=== PATIENT | male | born 1950 | race Caucasian/White ===

== ENCOUNTER → 2016-02-17 | Outpatient (REF) | payer MEDICARE, OTHER ==
[~2016-02-17] MED LIST: /QUIN10TA OR; /QUIN20TA OR; ASCO500T PO; ASPI81TA45 OR; ASPI81TA60 PO; ASPI81TA7 PO; ATOR1TAB18 PO; ATOR40TA PO; COLA100C PO; COUM1TAB19 PO; DALV1SOL IV; DOXY100T OR; ELIQ5TAB PO; FISH100049 PO; GABA-279 PO; GEMF600T OR; GLIP5TAB15 PO; GLUC850T OR; HUMA75VL SC; INSULANT SC; INSULIN 70/30 SUBQ; LEVO125T3 PO; METF850T PO; NATE60TA5 PO; NORC5TAB PO; OXYCO5TA PO; PLAV75TA PO; PLAV75TA2 OR; PRAV80TA OR; PRIL20CA PO; QUIN40TA5 PO; SYNT125T OR; TRAZ150T OR; TRAZ150T14 PO; VITMTA PO; ZYVO100T PO
[2016-02-17 14:25] LABS: MEAN CORPUSCULAR HEMOGLOBIN 27.5 pg (27.0-33.0); MEAN CORPUSCULAR HGB CONC 30.1 g/dl (32.0-36.5); MEAN CORPUSCULAR VOLUME 91.3 fl (80.0-96.0); RED CELL DISTRIBUTION WIDTH 17.5 % (11.5-14.5); WHITE BLOOD COUNT 7.5 K/mm3 (4.0-10.0)
[2016-02-17 14:44] LABS: CALCIUM LEVEL 8.3 MG/DL (8.8-10.2); CREATININE FOR GFR 1.3 MG/DL (0.70-1.30); GLOMERULAR FILTRATION RATE 59.4 (>49); POTASSIUM SERUM 4.2 MEQ/L (3.5-5.1)
== END | disposition home or self-care (01) ==
LOC: M LAB REF 14:03
PROVIDERS: ATTEND Internal Medicine Infectious Disease
DX: M86.9 Osteomyelitis, unspecified (principal)

== ENCOUNTER → 2016-02-24 | Outpatient (REF) | payer MEDICARE, OTHER ==
[2016-02-24 14:26] LABS: MEAN CORPUSCULAR HEMOGLOBIN 28.1 pg (27.0-33.0); MEAN CORPUSCULAR HGB CONC 30.7 g/dl (32.0-36.5); MEAN CORPUSCULAR VOLUME 91.5 fl (80.0-96.0); RED CELL DISTRIBUTION WIDTH 17.8 % (11.5-14.5); WHITE BLOOD COUNT 7.7 K/mm3 (4.0-10.0)
[2016-02-24 15:10] LABS: ANION GAP 8 MEQ/L (8-16); BLOOD UREA NITROGEN 20 MG/DL (7-18); CALCIUM LEVEL 8.7 MG/DL (8.8-10.2); CARBON DIOXIDE LEVEL 28 MEQ/L (21-32); CHLORIDE LEVEL 107 MEQ/L (98-107); CREATININE FOR GFR 1.25 MG/DL (0.70-1.30); GLOMERULAR FILTRATION RATE > 60.0 (>49); GLUCOSE, FASTING 101 MG/DL (80-110); POTASSIUM SERUM 4.3 MEQ/L (3.5-5.1); SODIUM LEVEL 143 MEQ/L (136-145)
== END | disposition home or self-care (01) ==
LOC: M SHH 14:18
PROVIDERS: ATTEND Internal Medicine Infectious Disease
DX: M86.9 Osteomyelitis, unspecified (principal)

== ENCOUNTER → 2016-03-02 | Outpatient (REF) | payer MEDICARE, OTHER ==
[~2016-03-02] MED LIST changes: +OXYC-517 PO; -OXYCO5TA PO; -PLAV75TA PO; +PLAV75TA38 PO; -PRIL20CA PO; +PRIL20CA9 PO
[2016-03-02 14:08] LABS: MEAN CORPUSCULAR HEMOGLOBIN 28.2 pg (27.0-33.0); MEAN CORPUSCULAR HGB CONC 31.2 g/dl (32.0-36.5); MEAN CORPUSCULAR VOLUME 90.6 fl (80.0-96.0); RED CELL DISTRIBUTION WIDTH 17.7 % (11.5-14.5)
[2016-03-02 14:17] LABS: CALCIUM LEVEL 8.5 MG/DL (8.8-10.2); CREATININE FOR GFR 1.41 MG/DL (0.70-1.30); POTASSIUM SERUM 4.2 MEQ/L (3.5-5.1)
== END | disposition home or self-care (01) ==
LOC: M SHH 13:39
PROVIDERS: ATTEND Internal Medicine Infectious Disease
DX: M86.9 Osteomyelitis, unspecified (principal)

== ENCOUNTER → 2016-03-03 | Outpatient (REF) | payer MEDICARE, OTHER ==
[2016-03-03 12:20] LABS: BASO % 0.4 % (0.0-1.0); EOS # 0.2 K/mm3 (0.0-0.50); EOS % 3.2 % (0.0-3.0); LARGE UNSTAINED CELL # 0.2 K/mm3 (0.0-0.4); LARGE UNSTAINED CELL % 2.7 % (0.0-4.0); LYMPH # 1.7 K/mm3 (1.5-4.5); LYMPH % 22.5 % (24.0-44.0); MEAN CORPUSCULAR HEMOGLOBIN 28.2 pg (27.0-33.0); MEAN CORPUSCULAR HGB CONC 31.3 g/dl (32.0-36.5); MEAN CORPUSCULAR VOLUME 90.2 fl (80.0-96.0); MONO # 0.6 K/mm3 (0.0-0.8); MONO % 7.4 % (0.0-5.0); NEUTROPHILS # 4.8 K/mm3 (1.8-7.7); NEUTROPHILS % 63.7 % (36.0-66.0); PLATELET COUNT, AUTOMATED 224 k/mm3 (150-450); RED CELL DISTRIBUTION WIDTH 17.8 % (11.5-14.5); WHITE BLOOD COUNT 7.6 K/mm3 (4.0-10.0)
[2016-03-03 12:22] LABS: INR 1.45
[2016-03-03 12:35] LABS: CALCIUM LEVEL 8.4 MG/DL (8.8-10.2); CREATININE FOR GFR 1.41 MG/DL (0.70-1.30)
== END | disposition home or self-care (01) ==
LOC: M LABDRWAD 12:10
PROVIDERS: ATTEND Surgery Vascular Surgery
DX: Z01.812 Encounter for preprocedural laboratory examination (principal); I73.9 Peripheral vascular disease, unspecified; D69.8 Other specified hemorrhagic conditions

== ENCOUNTER → 2016-03-28 | Outpatient (REF) | payer MEDICARE, OTHER ==
[2016-03-28 16:48] LABS: CREATININE FOR GFR 1.46 MG/DL (0.70-1.30); GLOMERULAR FILTRATION RATE 51.9 (>49)
== END | disposition home or self-care (01) ==
LOC: M LABDRWAD 16:07
PROVIDERS: ATTEND Surgery Vascular Surgery
DX: L97.919 Non-pressure chronic ulcer of unspecified part of right lower leg with unspecified severity (principal)

== ENCOUNTER → 2016-04-05 | Outpatient (REF) | payer MEDICARE, OTHER | LOC: M LAB REF 12:27 | PROVIDERS: ATTEND Surgery | DX: T87.43 Infection of amputation stump, right lower extremity (principal) ==

== ENCOUNTER → 2016-04-18 | Outpatient (CLI) | payer MEDICARE, OTHER ==
--- NOTE | 2016-04-18 14:09 | REP ---
CHEST X-RAY: THREE VIEWS. HISTORY: Chronic combined systolic and diastolic heart failure. COMPARISON: Chest x-ray, December 25, 2015. FINDINGS: Moderate cardiomegaly is observed, unchanged from prior study. Right hemidiaphragm is again noted to be elevated. There is blunting of the right lateral pleural angle on the AP upright view. Wheelchair lateral views demonstrate blunting of the right posterior pleural angle as well. No infiltrate is seen. There is some discoid atelectasis in the right base above the elevated right hemidiaphragm. Median sternotomy wires are seen. IMPRESSION: Cardiomegaly, prior sternotomy. Elevated right hemidiaphragm and some degree of right pleural effusion noted. Signed by Prateek Cruz MD 04/18/2016 02:34 P
[2016-04-18 20:49] LABS: CALCIUM LEVEL 8.5 MG/DL (8.8-10.2); CREATININE FOR GFR 1.36 MG/DL (0.70-1.30); GLOMERULAR FILTRATION RATE 56.3 (>49); MAGNESIUM LEVEL 1.6 MG/DL (1.8-2.4); PHOSPHORUS LEVEL 3.6 MG/DL (2.5-4.9); POTASSIUM SERUM 4.7 MEQ/L (3.5-5.1)
== END ==
LOC: M ADAMS 11:40
PROVIDERS: ATTEND Physician Assistant
DX: I50.42 Chronic combined systolic (congestive) and diastolic (congestive) heart failure (principal)

== ENCOUNTER → 2016-05-20 | Outpatient (REF) | payer MEDICARE, OTHER ==
[~2016-05-20] MED LIST changes: -COLA100C PO; +COLA100C3 PO; +NORC1TAB4 PO; -NORC5TAB PO
[2016-05-20 19:23] LABS: MEAN CORPUSCULAR HEMOGLOBIN 26.3 pg (27.0-33.0); MEAN CORPUSCULAR HGB CONC 30.3 g/dl (32.0-36.5); MEAN CORPUSCULAR VOLUME 86.8 fl (80.0-96.0); RED CELL DISTRIBUTION WIDTH 19.4 % (11.5-14.5); WHITE BLOOD COUNT 9.8 K/mm3 (4.0-10.0)
[2016-05-20 19:51] LABS: ALBUMIN 2.9 GM/DL (3.2-5.2); ALBUMIN/GLOBULIN RATIO 0.62 (1.00-1.93); BILIRUBIN,TOTAL 0.8 MG/DL (0.2-1.0); CREATININE FOR GFR 1.36 MG/DL (0.70-1.30); GLOMERULAR FILTRATION RATE 56.3 (>49); POTASSIUM SERUM 4.7 MEQ/L (3.5-5.1); TOTAL PROTEIN 7.6 GM/DL (6.4-8.2)
== END ==
LOC: M SFHCPLAZ 14:24
PROVIDERS: ATTEND Internal Medicine
DX: I73.9 Peripheral vascular disease, unspecified (principal); I10 Essential (primary) hypertension; E78.00 Pure hypercholesterolemia, unspecified; E11.29 Type 2 diabetes mellitus with other diabetic kidney complication; E03.9 Hypothyroidism, unspecified

== ENCOUNTER → 2016-05-20 | Outpatient (CLI) | payer MEDICARE, OTHER ==
--- NOTE | 2016-05-20 15:37 | REP ---
Chest upright AP and lateral views Comparisons 04/18/2016. The patient reportedly has systolic and diastolic cardiac failure. The patient is tilted to the right. There is opacification of the inferior half of the right hemithorax with obscuration of the right hemidiaphragm. The right costophrenic angle, compatible with a large right pleural effusion. This is unchanged from 04/18/2016 but was not present on the 01/24/2016. Cardiomegaly and sternotomy wires are again noted. The left lung is clear. Impression: Large right pleural effusion, unchanged from 04/18/2016. Consider CT for confirmation to differentiate from mass mass and infiltrate versus combination. Signed by Per Collins MD 05/20/2016 03:29 P
[2016-05-20 19:41] LABS: ALBUMIN 2.8 GM/DL (3.2-5.2); CALCIUM LEVEL 9.1 MG/DL (8.8-10.2); CREATININE FOR GFR 1.37 MG/DL (0.70-1.30); GLOMERULAR FILTRATION RATE 55.9 (>49); MAGNESIUM LEVEL 1.9 MG/DL (1.8-2.4); PHOSPHORUS LEVEL 3.6 MG/DL (2.5-4.9); POTASSIUM SERUM 4.8 MEQ/L (3.5-5.1)
== END ==
LOC: M ADAMS 14:28
PROVIDERS: ATTEND Physician Assistant
DX: I50.42 Chronic combined systolic (congestive) and diastolic (congestive) heart failure (principal); J90 Pleural effusion, not elsewhere classified; I73.9 Peripheral vascular disease, unspecified; I10 Essential (primary) hypertension; E78.00 Pure hypercholesterolemia, unspecified; E11.29 Type 2 diabetes mellitus with other diabetic kidney complication; E03.9 Hypothyroidism, unspecified

== ENCOUNTER 2016-05-27 09:09 | Inpatient (IN) | payer MEDICARE, OTHER ==
[~2016-05-27] VITALS: Ht 188 cm; Wt 108.4 kg
[2016-05-27] VITALS (19 sets, daily range): BP systolic 100–166; BP diastolic 55–91
[2016-05-27] MEDS: DOCUSATE SODIUM 100 MG CAP PO SCH ×2 (09:00→20:49)
[2016-05-27] MEDS: MOM 30ML SUSPENSION UDC PO SCH (09:00)
[2016-05-27] MEDS ORDERED: METO12TA PO (09:40)
[2016-05-27] MEDS ORDERED: INSULANT SC (09:40)
[2016-05-27] MEDS ORDERED: PEPC1TAB2 PO (09:40)
[2016-05-27] MEDS ORDERED: QUIN20TA7 PO (09:40)
[2016-05-27] MEDS ORDERED: FURO40TA2 PO (09:40)
[2016-05-27] MEDS ORDERED: ATOR40TA PO (09:40)
[2016-05-27 10:29] LABS: ABG BASE EXCESS 0.6 (-2.0-2.0); ABG HCO3 24.7 MEQ/L (22.0-26.0); ABG PARTIAL PRESSURE CO2 37.6 mmHg (35.0-45.0); ABG PARTIAL PRESSURE O2 86.8 mmHg (75.0-100.0); ABG TOTAL CO2 25.8 MEQ/L (23.0-31.0); ABG pH (ARTERIAL) 7.435 UNITS (7.350-7.450)
[2016-05-27 10:53] LABS: BASO % 0.5 % (0.0-1.0); EOS # 0.4 K/mm3 (0.0-0.50); EOS % 5.5 % (0.0-3.0); LARGE UNSTAINED CELL # 0.2 K/mm3 (0.0-0.4); LARGE UNSTAINED CELL % 2.7 % (0.0-4.0); LYMPH % 12.9 % (24.0-44.0); MEAN CORPUSCULAR HEMOGLOBIN 25.7 pg (27.0-33.0); MEAN CORPUSCULAR HGB CONC 30.1 g/dl (32.0-36.5); MEAN CORPUSCULAR VOLUME 85.4 fl (80.0-96.0); MONO # 0.5 K/mm3 (0.0-0.8); MONO % 7.4 % (0.0-5.0); NEUTROPHILS # 5.3 K/mm3 (1.8-7.7); NEUTROPHILS % 71.1 % (36.0-66.0); PLATELET COUNT, AUTOMATED 218 k/mm3 (150-450); RED CELL DISTRIBUTION WIDTH 19.6 % (11.5-14.5); WHITE BLOOD COUNT 7.4 K/mm3 (4.0-10.0)
[2016-05-27 10:59] LABS: INR 1.55
--- NOTE | 2016-05-27 11:05 | REP ---
CHEST, TWO VIEWS: Two views of the chest are performed. Comparison 01/24/2016. There is cardiomegaly. There are multiple sternal wires and mediastinal clips present. There is calcification and tortuosity of the thoracic aorta. Large right effusion is seen with adjacent right base atelectasis/infiltrate. IMPRESSION: Cardiomegaly. Large right effusion. Right basilar atelectasis/infiltrate. Signed by Per Palma MD 05/27/2016 03:28 P
[2016-05-27 11:20] LABS: CALCIUM LEVEL 8.7 MG/DL (8.8-10.2); CREATININE FOR GFR 1.6 MG/DL (0.70-1.30); GLOMERULAR FILTRATION RATE 46.7 (>49)
[2016-05-27 11:27] LABS: ALBUMIN 2.7 GM/DL (3.2-5.2); ALBUMIN/GLOBULIN RATIO 0.49 (1.00-1.93); BILIRUBIN,DIRECT 0.4 MG/DL (0.0-0.2); BILIRUBIN,TOTAL 0.9 MG/DL (0.2-1.0); THYROXINE (T4) 7.9 UG/DL (4.5-12.0); TOTAL PROTEIN 8.2 GM/DL (6.4-8.2)
[2016-05-27] MEDS ORDERED: BISACODYL 10 MG SUPP PR PRN (12:00)
[2016-05-27] MEDS ORDERED: ACETAMINOPHEN TAB 650MG DOSE (2X325MG) PO PRN (12:00)
[2016-05-27] MEDS ORDERED: PERCOCET 5MG/325MG TAB PO PRN (12:00)
[2016-05-27] MEDS ORDERED: LEVALBUTEROL 1.25 MG/0.5 ML CONCENTRATE NEB NEB PRN (12:00)
[2016-05-27] MEDS ORDERED: FAMO20TA PO (12:40)
[2016-05-27] MEDS ORDERED: GLUCAGON FOR INJ 1 MG VIAL (J1610) SC PRN (12:45)
[2016-05-27] MEDS ORDERED: GLUCOSE 4 GM CHEW TABLET PO PRN (12:45)
[2016-05-27] MEDS ORDERED: DEXTROSE 50% 50 ML SYRINGE IV PRN (12:45)
[2016-05-27] MEDS ORDERED: SANT250O8 TOP (12:45)
[2016-05-27] MEDS: ceFAZolin SOD 1 GM in D5W MINI-BAG PLUS 50 ML IV SCH ×2 (13:19→20:49)
[2016-05-27] MEDS ORDERED: FLUMAZENIL 0.5 MG/5 ML VIAL As Ordered ONE (14:11)
[2016-05-27] MEDS ORDERED: MIDAZOLAM INJ 2 MG/2 ML VIAL (J2250) As Ordered ONE (14:12)
[2016-05-27] MEDS ORDERED: LIDOCAINE 1% MDV 20ML VIAL As Ordered ONE (14:13)
[2016-05-27] MEDS: LEVALBUTEROL 1.25 MG/0.5 ML CONCENTRATE NEB NEB SCH ×2 (14:30→21:13)
[2016-05-27] MEDS ORDERED: LIDOCAINE 1% MDV 20ML VIAL SC ONE (15:00)
[2016-05-27] MEDS ORDERED: MIDAZOLAM INJ 2 MG/2 ML VIAL (J2250) IV ONE (15:00)
--- NOTE | 2016-05-27 15:01 | HPE ---
DATE OF ADMISSION: 05/27/2016 PRIMARY CARE PROVIDER: Dr. Rob Gilmore ATTENDING PHYSICIAN: Dr. Vish Grande REASON FOR ADMISSION: Shortness of breath. HISTORY OF PRESENT ILLNESS: The patient is a 65-year-old male with multiple comorbidities, who presented to the emergency room with his after he was told to do so by his [facility] chemist in Dr. Phillips' office. The patient was recently seen by his [facility] chemist for possible preoperative clearance for right leg stump amputation. He was unable to tolerate the test yesterday due to shortness of breath. The patient stated he has been having shortness of breath for the past 2 weeks. Had a chest x-ray done on May 20, which showed large right pleural effusion. They instructed him to go to the emergency room after Dr. Parson was contacted for possible thoracentesis. Per his , the patient was recently hospitalized in December 2015 for deep vein thrombosis (DVT) and osteomyelitis. He completed 8 weeks of IV antibiotics. He follows up with Dr. Hernandez and Dr. Noyola. He was then referred to a vascular surgeon in [place] in February for possible angioplasty, which he ended up doing on March 26; however, during the hospitalization he had pleural effusion and a thoracentesis done March 23 prior to the angioplasty. He continued to followup with Dr. Noyola who stated that the patient would likely require another surgery, likely another amputation for that right stump, but he required cardiac clearance. That is when he went to his [facility] chemist, Dr. Phillips, and he started having shortness of breath and unable to complete needed testing. Today, the patient appears to be short of breath but is saturating 95% on 2 liters. He is normally not oxygen dependent. He denied any fevers or chills but stated he has been complaining of a productive cough that has been getting worse over the past few weeks. Chest x-ray was done today in the emergency room, which showed cardiomegaly, large right pleural effusion, right basilar atelectasis versus infiltrate. CT scan was recommended; however, the patient was unable to tolerate it. REVIEW OF SYSTEMS 12-point review of systems was obtained all of which was negative except for those mentioned above. PAST MEDICAL HISTORY: Significant for insulin-dependent diabetes, gastroesophageal reflux disease, coronary artery disease status post coronary artery bypass graft (CABG), peripheral vascular disease, dyslipidemia, hypertension, hypothyroidism, deep vein thrombosis (DVT) on Eliquis, recent osteomyelitis. He was treated with 8 weeks of IV antibiotics in January and February. PAST SURGICAL HISTORY: Significant for recent right leg angioplasty, bilateral below-knee amputations, hernia repair, CABG 2002, and bilateral vitrectomies. SOCIAL HISTORY: The patient is a former smoker. Lives at home with his . He is wheelchair bound. Does not use alcohol. FAMILY HISTORY: Noncontributory. ALLERGIES: COUMADIN, reaction unknown. HOME MEDICATIONS: - Eliquis 5 mg by mouth twice a day - ascorbic acid 500 mg by mouth daily - aspirin 81 mg Monday, Monday, Monday - atorvastatin 40 mg at bedtime - Colace 100 mg as needed for constipation - Pepcid 20 mg by mouth twice a day - fish oil one capsule by mouth daily - Lasix 40 mg by mouth twice a day - glipizide 5 mg by mouth daily - Lantus 30 units subcutaneously twice a day - metformin 850 mg by mouth twice a day with meals - metoprolol 25 mg at bedtime - multivitamin one tablet daily - Quinapril 20 mg twice a day - trazodone 150 mg at bedtime PHYSICAL EXAMINATION: VITAL SIGNS: On admission, temperature 98.4, pulse 68, respiratory rate 18, blood pressure is 124/64, pulse oximetry 91% on room air. HEENT: Pupils equal round reactive to light accommodation. Neck is supple. No jugular venous distention (JVD). LUNGS: Diminished breath sounds, mainly over right side. CARDIAC: Regular rate and rhythm. ABDOMEN: Bilateral below-knee amputation. Right stump is in dressing. NEUROLOGIC: Cranial nerves II-XII grossly intact. LABORATORY FINDINGS: WBC 7.4, hemoglobin 10.1, hematocrit 33.7, platelet count 218. Sodium 136, potassium 5, chloride 102, BUN 47, creatinine 1.6, fasting glucose 145, lactic acid 1.9, AST 42, ALT 30, alkaline phosphatase 369, troponin 0.05, BNP 915, TSH 4.6, T4 7.9. Chest x-ray showed right large pleural effusion. ASSESSMENT AND PLAN: 1. Shortness of breath, likely secondary to large pleural effusion plus or minus possible infiltrate. CT scan will be reordered. Dr. Parson was consulted for pleural effusion. We will admit the patient to progressive care unit (PCU). Continue the patient's Lasix. Monitor input and output and daily weights. Continue oxygen to keep saturations between 88 and 92. Continue the Xopenex. Incentive spirometer. Cephazolin every 8 hours. 2. History of insulin-dependent diabetes. Continue the patient's Levemir 30 units twice a day, insulin sliding scale with meals and at bedtime and consistent carbohydrate diet. 3. History of hypertension. We will resume the patient's home medications with hold parameters. 4. History of congestive heart failure. The patient was seen at Dr. Phillips' office yesterday and his Lasix dose was increased from 20 daily to 40 twice a day. Last echocardiogram on file here was in 2001. We will obtain records from Dr. Phillips' office. 5. History of deep vein thrombosis (DVT). Continue the patient's Eliquis 6. History of osteomyelitis and right stump wound. Wound care has been consulted. 7. History of hyperlipidemia. Continue home medication. 8. Deep vein thrombosis (DVT) prophylaxis. The patient is currently on Eliquis.
[2016-05-27] MEDS ORDERED: MORPHINE 4 MG/ML 1ML SYRINGE As Ordered ONE (15:30)
[2016-05-27] MEDS ORDERED: MORPHINE 4 MG/ML 1ML SYRINGE IV ONE (15:45)
[2016-05-27] MEDS ORDERED: DOCUSATE SODIUM 100 MG CAP PO PRN (16:00)
--- NOTE | 2016-05-27 16:22 | REP ---
CT CHEST WITHOUT CONTRAST: 05/27/2016. Clinical history: Assess right pleural effusion. Comparison: Chest x-ray earlier today. Findings: Noncontrast technique utilized with coronal and sagittal reconstructions. Findings. There is a moderate sized right pleural effusion extending to the apex and layering. There is some respiratory motion. No definite loculation allowing for that artifact. It has a posterior thickness of about 4.5 cm at the stephanie. Left lung shows no effusion or infiltrate. There is compressive atelectatic change and consolidative atelectasis in the posterior and right lower lobe region. No pneumothorax. There are some nodes in the mediastinum with an 11 mm precarinal node. There are also subcentimeter prevascular space nodes. The heart is enlarged with left atrial and ventricular enlargement. Calcified mitral annulus and coronary artery calcifications. No pericardial thickening or effusion. There is no axillary mass or adenopathy with normal sized nodes in the axilla. The largest had fatty replacement. No supraclavicular mass. There is sternotomy with healed sternum and wires in place. Bone windows also show the medial clavicles, humeral heads and scapula without acute fracture. There are advanced degenerative changes of the left shoulder with marginal osteophytes and old avulsion or an ossific loose body in the subcoracoid bursa on the left. Visualized ribs show no destructive lesions or acute fractures. Vertebral bodies show marginal osteophytes with bridging syndesmophytes with degenerative disc changes, but no compression fractures, vacuum phenomenon or malalignment. The posterior elements were intact. In the upper abdomen, liver is seen in part and is likely enlarged since that portion visible is 17.2 cm. No focal lesion noted. Adrenal glands show slight thickening of limbs without nodularity or mass. Upper poles of kidneys show scar laterally in the interpolar region on the right. Visualized pancreas intact. Gallbladder has a few layering calcified stones and is partially contracted. No splenomegaly or focal splenic lesion. Impression: 1. Cardiomegaly with left atrial and ventricular enlargement without pericardial thickening or effusion. No aortic aneurysm. 2. Calcified coronary arteries and mitral annulus. 3. Moderately large layering effusion throughout the right lung extending to the apex and with a thickness of 4.5 cm at the stephanie. No left effusion or acute finding. There are atelectatic changes both compressive and consolidative in the right mid and lower lung zones. 4. Hepatomegaly suspected. The liver incompletely evaluated but at least 17 cm vertical diameter included in the field of view. 5. Layering small calcified gallstones. Signed by Yandel Falcon MD 05/27/2016 04:35 P
--- NOTE | 2016-05-27 16:43 | REP ---
AP PORTABLE CHEST: 05/27/2016 at 03:40 P.M.: Clinical history: Status post right chest tube placement. Pleural effusion. Comparison: CT chest and chest x-ray earlier today. Findings: Cardiomegaly with sternotomy wires again noted. Some vascular congestion in the left hemithorax, increased compared to previous chest x-ray this morning. There is now a right base chest tube coursing towards the mediastinal pleura in the right base. Significant decrease in the right pleural effusion without pneumothorax. Less engorgement of the upper lobe vessels on the right side than there has been develop on the left in the interval since this morning's chest x-ray. Signed by Yandel Falcon MD 06/13/2016 05:10 P
[2016-05-27] MEDS ORDERED: FUROSEMIDE 40 MG TAB PO SCH (17:00)
[2016-05-27] MEDS ORDERED: METOPROLOL TART 25 MG TABLET PO SCH (17:00)
[2016-05-27] MEDS: HumaLOG INSULIN (NovoLOG) PER UNIT SC SCH ×2 (17:05→20:57)
[2016-05-27] MEDS: PANTOPRAZOLE 40MG TAB (PROTONIX) PO SCH (17:11)
[2016-05-27 18:08] LABS: LDH, BODY FLUID 113 U/L (NOT ESTABLISHED)
[2016-05-27 18:30] LABS: RBC PLEURAL FLUID < 10 (<10mm3 cells/uL); TNC PLEURAL FLUID 533 cells/uL (0-20)
[2016-05-27 18:42] LABS: BF DIFF IF INDICATED? YES (NO)
[2016-05-27] MEDS: PERCOCET 5MG/325MG TAB PO PRN (19:19)
[2016-05-27 19:35] LABS: CC BF DIFF EXAM CYTOCENTRIFUGE
[2016-05-27] MEDS: ONDANSETRON 4MG/2ML VIAL (J2405) IV PRN ×2 (19:57→23:43)
[2016-05-27] MEDS: FAMOTIDINE 20 MG TAB PO SCH (20:50)
[2016-05-27] MEDS: ATORVASTATIN 20 MG TAB PO SCH (20:50)
[2016-05-27] MEDS: traZODone 50 MG TAB PO SCH (20:50)
[2016-05-27] MEDS: APIXABAN 5 MG TAB (ELIQUIS) PO SCH (20:50)
[2016-05-27] MEDS: QUINAPRIL 20 MG TAB PO SCH (20:58)
[2016-05-27] MEDS: LEVEMIR (INSULIN DETEMIR) 1 UNITS/0.01ML SC SCH (20:59)
[2016-05-27] MEDS ORDERED: HEPARIN SOD (PORCINE) 5000 UNITS/ML VIAL SC SCH (21:00)
[2016-05-28] VITALS (8 sets, daily range): BP systolic 100–131; BP diastolic 55–66; O2SAT 91
[2016-05-28] MEDS: PERCOCET 5MG/325MG TAB PO PRN ×2 (00:45→17:14)
[2016-05-28] MEDS: ceFAZolin SOD 1 GM in D5W MINI-BAG PLUS 50 ML IV SCH ×3 (05:11→21:23)
[2016-05-28 05:34] LABS: BASO % 0.4 % (0.0-1.0); EOS # 0.2 K/mm3 (0.0-0.50); EOS % 2.7 % (0.0-3.0); LARGE UNSTAINED CELL # 0.3 K/mm3 (0.0-0.4); LARGE UNSTAINED CELL % 3.1 % (0.0-4.0); LYMPH % 12.2 % (24.0-44.0); MEAN CORPUSCULAR HEMOGLOBIN 25.5 pg (27.0-33.0); MEAN CORPUSCULAR HGB CONC 29.7 g/dl (32.0-36.5); MONO # 0.5 K/mm3 (0.0-0.8); MONO % 5.5 % (0.0-5.0); NEUTROPHILS # 6.1 K/mm3 (1.8-7.7); PLATELET COUNT, AUTOMATED 236 k/mm3 (150-450); RED CELL DISTRIBUTION WIDTH 19.6 % (11.5-14.5)
[2016-05-28 05:54] LABS: CREATININE FOR GFR 1.93 MG/DL (0.70-1.30); GLOMERULAR FILTRATION RATE 37.6 (>49)
[2016-05-28] MEDS: LEVALBUTEROL 1.25 MG/0.5 ML CONCENTRATE NEB NEB SCH ×4 (06:49→19:47)
[2016-05-28 06:54] LABS: ABG BASE EXCESS -0.5 (-2.0-2.0); ABG HCO3 25.3 MEQ/L (22.0-26.0); ABG PARTIAL PRESSURE CO2 46.2 mmHg (35.0-45.0); ABG PARTIAL PRESSURE O2 60.4 mmHg (75.0-100.0); ABG STANDARD HCO3 23.9 MEQ/L (22.0-26.0); ABG TOTAL CO2 26.7 MEQ/L (23.0-31.0); ABG pH (ARTERIAL) 7.356 UNITS (7.350-7.450)
[2016-05-28] MEDS: FAMOTIDINE 20 MG TAB PO SCH ×2 (07:53→21:22)
[2016-05-28] MEDS: APIXABAN 5 MG TAB (ELIQUIS) PO SCH ×2 (07:53→21:22)
[2016-05-28] MEDS: PANTOPRAZOLE 40MG TAB (PROTONIX) PO SCH (07:53)
[2016-05-28] MEDS: QUINAPRIL 20 MG TAB PO SCH (07:53)
[2016-05-28] MEDS: LEVEMIR (INSULIN DETEMIR) 1 UNITS/0.01ML SC SCH ×2 (07:54→21:22)
[2016-05-28] MEDS: HumaLOG INSULIN (NovoLOG) PER UNIT SC SCH ×4 (07:55→21:06)
[2016-05-28] MEDS: MOM 30ML SUSPENSION UDC PO SCH (09:00)
[2016-05-28] MEDS: DOCUSATE SODIUM 100 MG CAP PO SCH ×2 (09:00→21:08)
--- NOTE | 2016-05-28 09:44 | REP ---
REASON: History of pleural effusion. COMPARISON: 05/27/2016 Right-sided thoracotomy tube is unchanged. The cardiomediastinal silhouette unchanged. Cardiomegaly with previous median sternotomy status quo. Mild fibrotic changes, status quo. No acute patchy parenchymal opacities or pleural effusions. No acute pneumothorax. IMPRESSION: No significant change. Signed by Alfredo Warren DO 05/28/2016 10:20 A
[2016-05-28] MEDS: SANTYL OINT 30GM TOP SCH (09:54)
[2016-05-28] MEDS ORDERED: SOD POLYSTYRENE SULFONATE SUSP 15 GM/60 ML UD PO ONE (11:30)
--- NOTE | 2016-05-28 11:59 | CR ---
DATE OF CONSULTATION: 05/27/2016 The patient is seen at the request of the emergency room and Dr. Phillips for a right sided pleural effusion with increasing shortness of breath. The patient started to develop shortness of breath about two weeks ago. He is status post bilateral below knee amputation (BKA) with a stump infection and cellulitis of the right side requiring multiple dressing changes. His shortness of breath has continued for the last two weeks with him getting more short of breath even at rest. He states that in the last two weeks he has developed a cough, but with very little sputum production and that sputum production that he has is white. He does not complain of any chest pain or chest discomfort. There has been no fever, chills or sweats in the last two weeks. There is no dysphagia. His does say that he does choke when he eats however. This occurs occasionally, but has become worse in the last couple of weeks. He has an extensive past medical history with diabetes, peripheral vascular disease and coronary artery disease requiring a coronary artery bypass grafting procedure in 2001. The combination of his diabetes and peripheral disease and now along with a dilated cardiomyopathy with an ejection fraction of 24% has conspired for him to lose both legs. He is to undergo a revision of his amputation because of the lack of healing and gangrene of the right stump and was sent to Dr. Phillips for cardiac clearance where a large pleural effusion was discovered. He is presently only on an TEO inhibitor of quinapril to treat his congestive heart failure. This is augmented by Lasix 40 mg twice a day. PAST MEDICAL HISTORY: In addition to the above, which includes the diabetes, congestive heart failure, coronary artery disease, and peripheral vascular disease, also he has hyperlipidemia, history of deep venous thrombosis twice (once shortly after his coronary artery bypass in 2001 and in late 2015 which resulted in cellulitis), hypertension, and hypothyroidism. He does have possible osteomyelitis where he was treated with vancomycin for 8 weeks. History of CVA times two. History of deep vein thrombosis (DVT). PAST SURGICAL HISTORY: The above coronary artery bypass grafting procedure, bilateral below knee amputations in the remote past, recent right leg angioplasty, umbilical hernia repair, and bilateral vitrectomies. ALLERGIES: - COUMADIN is listed, but there is no known reaction to it other than nausea MEDICATIONS: - Eliquis 5 mg twice a day - ascorbic acid 500 mg daily - aspirin 81 mg Monday, Monday and Monday - atorvastatin 40 mg at bedtime - Colace 100 mg as needed constipation - Pepcid 20 mg twice a day - Lasix 40 mg twice a day - glipizide 5 mg daily - Lantus 30 units subcutaneous twice a day - metformin 850 mg twice a day - metoprolol 25 mg at bedtime - multivitamin one daily - quinapril 20 mg twice a day - trazodone 150 mg at bedtime HABITS: He is a former smoker having smoked cigars until the late . Denies illicit drug use. Does not drink. FAMILY HISTORY: Father at 49 of a motor vehicle accident. Mother in her 70s from diabetic complications. He has 4 brothers and 4 sisters. All the brothers have coronary artery disease and 1 sister is diabetic. REVIEW OF SYSTEMS: Constitutional: Without fever, chills, sweats or night sweats in the last 2 weeks. Eyes: Without diplopia. Without transient monocular blindness. Without prior jaundice. Nose: Without epistaxis. Pulmonary: See history of present illness (HPI). Cardiac: See HPI with congestive heart failure. Denies prior myocardial infarctions. Gastrointestinal (GI): Without nausea, vomiting, diarrhea, constipation, melena, hematochezia, or hematemesis. No abdominal pain. Genitourinary (): Without dysuria or hematuria. Endocrine: With thyroid disease and diabetes. Neurologic: He is status post multiple CVAs and transient ischemic attacks in the past. His most recent being in 2014. Psychiatric: Without pathological anxieties, depressions or psychoses. PHYSICAL EXAMINATION: Morbidly obese, white male with shortness of breath at rest, but not pursed lip breathing or with labored respirations. Vital Signs: Pulse 56 in a sinus rhythm. Respiratory rate 20 without the use of accessory muscles. 91% saturated on 2 liters nasal cannula. Temperature 96.7. Blood pressure 119/57. Eyes: Pupils equal, round, reactive to light. Extraocular muscles intact. Sclerae nonicteric. Nose: Without deformity. Mouth: Shows mucous membranes to be pink and moist. Lips and commissures without lesions. There is no thrush. Head: Normocephalic. Neck: Supple. There is no jugular venous distention. No subcutaneous emphysema. Trachea is midline. I can feel no thyromegaly or lymphadenopathy. Lungs: Show markedly decreased breath sounds on the right side with a percussion note that is dull 3/[address] the chest. Left lung shows bibasilar crackles, although they are distant secondary to his morbid obesity. Percussion note is full to the diaphragm on the left. Cardiac Exam: Without murmurs, clicks, gallops, or rubs. They are distant. I cannot feel his PMI. S1, S2 are normal. Abdomen: Soft. Nontender. Bowel sounds are positive. There is no hepatomegaly that I can feel through his morbid obesity. There is no costovertebral angle (CVA) tenderness. Extremities: Show bilateral below knee amputations. I will look at the wound later today or tomorrow morning. Neurologic: Shows II-XII intact along with gross motor and gross sensation intact. Gait is not tested. Psychiatric shows him to be awake, alert, and oriented times three with appropriate mood and affect and conversational. INVESTIGATIONS: His white count is 9.8 with hemoglobin and hematocrit of 10.7 and 35.3. Platelet count is 221. Differential shows 71% neutrophils, 12% lymphocytes, 7% monocytes. There are no immature forms and no toxic granulations. BUN and creatinine 47 and 1.6, glucose 145, calcium 8.7, and a troponin of 0.05. In preparation for his chest tube, his LDH is 369. His PT and INR is 18.7 and 1.55. Blood gases today show a pH of 7.43, with a pCO2 of 37 and a pO2 of 86 and a base excess of 0.6. His chest x-ray shows a pleural effusion approximately 1/[address] up the chest. The lateral chest x-ray confirms that the fluid is 1/2 to 2/[address] up the chest. Chest CT undertaken in preparation for his chest tube confirms the pleural effusion. There is a lot of motion artifact. There is lung compression of the lower lobe underneath the effusion. He has emphysematous changes. He has an enlarged heart, but there is no pericardial effusion. Because of his renal function, the CT is done without contrast. He has extensive coronary artery disease down the left anterior descending coronary artery, circumflex coronary arteries and right coronary arteries. It looks as though he has some stents in elem coronary arteries on the right side. I see no lung masses. Adrenals are intact as is his liver. There is no ascites. IMPRESSION: 1. Right pleural effusion. 2. Congestive heart failure with dilated cardiomyopathy with an ejection fraction of 24%. 3. Diabetes. 4. Peripheral vascular disease. 5. Hypothyroidism. 6. Hypertension. 7. Status post multiple CVAs. 8. Renal insufficiency with a BUN and creatinine of 47 and 1.6. PLAN AND DISCUSSION: His major acute life threatening problem today is his large pleural effusion. I will drain that with a chest tube. Will send it for the requisite chemistries, cell counts, bacteriologies, and cytologies. I suspect it is going to be secondary to his heart failure and transudative. I note that is on an TEO inhibitor in the form of quinapril. It looks as though he has some blood pressure to work with, with regard to creating forward flow, and perhaps more fluid reduction in the form of hydralazine could be considered.
[2016-05-28 13:25] LABS: CREATININE FOR GFR 2.03 MG/DL (0.70-1.30); GLOMERULAR FILTRATION RATE 35.5 (>49)
[2016-05-28 13:27] LABS: POTASSIUM SERUM 5.3 MEQ/L (3.5-5.1)
--- NOTE | 2016-05-28 13:41 | REP ---
Acute renal failure. PRIORS: None. Right kidney measures 10.1 x 6.4 x 5.6 cm. The parenchymal echo pattern appears to be within normal limits although the examination is extremely limited due to patient's body habitus. There is no gross hydronephrosis and there is no evidence of a gross mass. Left kidney measures 9.6 x 5.4 x 5.7 cm and the renal cortical echotexture appears to be within normal limits within the limitations of the exam. There is no evidence of a gross mass or hydronephrosis. IMPRESSION: Limited exam as described above showing no evidence of a gross abnormality. It should be stated that the technologist imaged the urinary bladder, which showed a small amount of debris in the dependent portion. Signed by Alfredo Warren DO 05/28/2016 02:09 P
[2016-05-28] MEDS ORDERED: METO25TA74 PO (15:24)
[2016-05-28] MEDS: **hydrALAZINE** 10 MG TAB PO SCH ×2 (16:53→21:23)
[2016-05-28] MEDS ORDERED: ISOSORBIDE DIN. (ISORDIL) 5 MG TAB PO SCH (17:00)
[2016-05-28] MEDS: ONDANSETRON 4MG/2ML VIAL (J2405) IV PRN (17:13)
[2016-05-28] MEDS: FUROSEMIDE 100 MG/10 ML VIAL (J1940) IV SCH (17:14)
--- NOTE | 2016-05-28 18:49 | IPN ---
DATE: 05/28/2016 Mr. Rice is feeling better than on arrival. He is breathing more easily . He has no chest pain. Not as short of breath. Still on supplemental oxygen. When I evaluated him, temperature is 96.9, pulse 65, respiratory rate 20, blood pressure 100/55, 93% on room air. Input and output notable for a negative fluid balance of -3725 with chest tube drainage representing 3400 of that. Urinary output overnight was noted as 125 mL since midnight. He is awake, appropriately interactive, appears somewhat tired. He is heavily bearded, difficult to evaluate for elevation of jugular venous pulse. Breathing is symmetrical, diminished throughout. No wheezes. Rested. Speaking in complete sentences. Heart is distant sounding. Normal S1, S2. No significant arrhythmia noted on the monitor. Abdomen is distended. There is evidence of edema on the lower abdominal wall and some edema in the right leg stump, which is cleanly dressed. Minimal edema in the left stump. White cell count 18, hemoglobin 11.4, platelets of 236. BUN 49, creatinine 1.93 and potassium of 6. ASSESSMENT: This is a 65-year-old with right sided large pleural effusion, status post chest tube placement, which is currently in place. PLAN: 1. Pleural effusion. The patient has a large pleural effusion. My suspicion is that this is a result of decompensated congestive heart failure (CHF). I have consulted Dr. Curry to assist in his fluid management. At this point, I believe that he needs diuresis, but since he is in the setting of acute renal failure the margin for error demands specialty consultation. 2. The patient has insulin-dependent diabetes. Continuing with long-acting and sliding scale coverage. 3. The patient has a history of hypertension. 4. The patient has a history of deep vein thrombosis (DVT) and is currently on Eliquis. 5. The patient has chronic right stump wound. Did discuss the care of the right stump wound with his at bedside. She has volunteered and requested to continue caring for the wound herself and we will assist her in any way needed. 6. The patient has hyperlipidemia.
--- NOTE | 2016-05-28 19:10 | CR ---
DATE OF CONSULTATION: 05/28/2016 REFERRING PHYSICIAN: Dr. Vish Grande REASON FOR CONSULTATION: Decompensated heart failure, acute on chronic, systolic and diastolic. HISTORY OF PRESENT ILLNESS: Phu Rice is a 65-year-old man with coronary artery disease (without angina), prior inferior wall myocardial infarct, ischemic cardiomyopathy, status post coronary artery bypass graft (CABG) May 2003. He had a cardiac catheterization May 2003, which showed left ventricular ejection fraction (LVEF) of 31%, 75% proximal left anterior descending (LAD), 75% first diagonal, 95% mid LAD, 90% left circumflex, 100% right coronary artery (RCA) obstruction, filled by collaterals. He has ischemic dilated cardiomyopathy with chronic systolic and diastolic heart failure. He has systemic hypertension, chronic atrial fibrillation, and abnormal ECG. He has type 2 diabetes, for which he is on insulin, obesity, hyperlipidemia, hypothyroidism, and peripheral arterial disease. He is status post bilateral leg amputations. He underwent right thoracentesis at [facility] in [place] 03/23/2016. He underwent placement of a right-sided chest tube by Dr. Parson 05/27/2016 during this hospitalization. Stress SPECT myocardial perfusion imaging study July 2014 showed a moderate-sized fixed inferior/inferolateral myocardial perfusion defect, consistent with prior infarction in the distribution of the right coronary artery. No reversible perfusion abnormalities. Multiple regional wall motion abnormalities. LVEF of 36% (gated SPECT), suggestive of right ventricular hypertrophy. Echocardiogram Doppler 03/24/2016 at [facility] reported to show a mildly dilated left ventricle with LVEF 20-25%. Difficult for regional wall motion assessment due to difficult endocardial visualization. No Doppler was performed. Moderate reduction in right ventricle systolic function. Left atrial dilatation. Right atrial dilatation. Patient was having dyspnea at rest and with minimal activity prior to admission 05/27/2016. Following drainage of pleural effusion this hospitalization, he is comfortable at rest with no dyspnea at rest and no orthopnea or paroxysmal nocturnal dyspnea (PND). He is not ambulatory because he is status post bilateral leg amputations. No chest pain or discomfort or anginal symptoms. He reports swelling involving especially the right thigh and right stump. He also reports some edema over his lower abdomen. No palpitations. No embolic events. No palpitations. No presyncope or syncope. MEDICATIONS PRIOR TO ADMISSION: - Eliquis 5 mg twice a day - vitamin C 500 mg daily - aspirin 81 mg three times a week (Mondays, Wednesdays, Fridays) - atorvastatin 40 mg at bedtime - collagenase topical, right lower extremity - Colace 100 mg daily as needed - Pepcid 20 mg twice a day - fish oil 1000 mg daily - furosemide 40 mg by mouth twice a day - glipizide ER 5 mg daily - Lantus insulin 30 units subcutaneous twice a day - metformin 850 mg twice a day - metoprolol succinate 25 mg daily - multivitamin one daily - quinapril 20 mg twice a day - trazodone 150 mg at bedtime CURRENT MEDICATIONS IN HOSPITAL: - acetaminophen 650 mg every 6 hours as needed - acetaminophen/hydrocodone 325/5 mg one every 3 hours as needed - Eliquis 5 mg twice a day - aspirin 81 mg on Mondays, Wednesdays, Fridays - atorvastatin 40 mg at bedtime - Dulcolax suppository 10 mg every 4 hours as needed - cefazolin 1 gram intravenous (IV) every 8 hours - collagenase ointment, apply topical daily - Colace 100 mg twice a day - famotidine 20 mg twice a day - glucagon1 mg subcutaneous as needed - glucose 16 grams by mouth as needed - 50% dextrose 25 mL IV as needed - Levemir insulin 30 units subcutaneous twice a day - Humalog insulin before and at bedtime per protocol - Xopenex 1.25 mg every 6 hours and every 2 hours as needed - milk of magnesia 30 mL by mouth daily - metoprolol tartrate 25 mg by mouth every evening - Zofran 4 mg IV every 4 hours as needed - Percocet one tablet every 4 hours as needed - Percocet two tablets every 4 hours as needed - Protonix 40 mg daily - quinapril 20 mg twice a day - trazodone 150 mg at bedtime ADVERSE DRUG REACTIONS: WARFARIN. SOCIAL HISTORY: Previous occasional cigar smoker, which he quit in 1993. . Disabled since 1993. No alcohol. FAMILY HISTORY: Father in motor vehicle accident at age 49. Mother and had diabetes, coronary artery disease (CAD), and chronic kidney disease. REVIEW OF SYSTEMS: Left cataract. Wears glasses. Floaters. Gastroesophageal reflux disease (GERD). Nocturia times two. Left upper extremity numbness. Left lower extremity numbness. Hypothyroidism. No anxiety, panic attacks, or depression. All other 10-point review of systems negative. PHYSICAL EXAMINATION: A pleasant, obese man who appears his chronologic age, who was not in any respiratory or psychologic distress. Obesity. Status post bilateral leg amputations. Bandage over the right leg stump. This dressing was not removed. Height 74 inches (height prior to amputation), weight 130 kg, calculated body mass index (BMI) 36.8, temperature 96.3, pulse 60 (regular), respiratory rate 18, blood pressure (BP) 123/66, oxygen saturation 98% on oxygen 2 liters per minute by nasal cannula. No conjunctivae, pallor, scleral icterus, or xanthomas. Edentulous. Oral mucosa is moist and without pallor or cyanosis. Jugular venous pulsations were at 12 cm. Trachea midline. No palpable thyroid. No clubbing or splinter hemorrhages. No skin lesions, skin pallor, or icterus. Oriented to person, place, and time. Mood and affect normal. Curvature of spine normal. Gait could not be tested (status post bilateral leg amputations). Gross motor strength and tone otherwise appeared normal. Respiratory expansion effort was good. No crackles or wheezes. Right-sided chest tube in situ. Midline sternal scar present. No palpable apex beat. No parasternal heaves, thrills, or palpable heart sounds. First and second heart sounds normal. No S3 or S4 or murmurs appreciated. Carotids were normal in upstroke and volume. No carotid bruits. No palpable abdominal aorta but difficult to palpate due to abdominal obesity. No abdominal bruits. Femoral pulses difficult due to obesity. Pedal pulses not applicable (status post bilateral leg amputations). 1.5 cm of pitting was present over the right thigh and 0.5 edema over the left thigh. Pitting edema was present over the lower abdomen. Abdomen was obese, soft, nontender with normal bowel sounds. Difficult to assess liver span due to abdominal obesity. No thyromegaly or splenomegaly but difficult to palpate due to abdominal obesity. Stool for occult blood not presently indicated. INVESTIGATIONS: Chest CT without contrast 05/27/2016 reported cardiomegaly with left atrial and left ventricular enlargement. No pericardial effusion or pericardial thickening. No aortic aneurysm. Calcified coronary arteries and calcified mitral annulus. Moderately large pleural effusion, right side. Atelectatic changes, both compressive and consolidative, in the right mid and lower lung zones. Suspect hepatomegaly. Layering of small calcified gallstones. I have independently visualized the patient's posterior-anterior (PA) and lateral chest x-ray acquired 05/27/2016 at 10:35 a.m. It shows a large right-sided pleural effusion. No definite pulmonary vascular redistribution. Midline sternal wires present. Cardiomegaly. Some calcification involving the aortic arch. Electrocardiogram 05/27/2016 at 9:59 hours shows atrial fibrillation, heart rate 62 beats per minute (BPM), nonspecific intraventricular conduction delay, QRS duration 120 msec, nonspecific ST-T abnormalities, poor R-wave progression. Laboratory work 05/28/2016: Sodium 135, potassium 5.3, chloride 100, CO2 of 29, BUN 53, creatinine 2.03, estimated GFR 35.5, glucose 153. Laboratory work 05/27/2013 showed total protein normal at 8.2, albumin low at 2.7, TSH elevated at 4.61. Total bilirubin normal, direct bilirubin elevated 0.4 , AST elevated at 42, ALT normal, alkaline phosphatase elevated at 369, LDH normal at 230. Laboratory work 05/27/2016 showed BNP 915. PT/INR 1.55. Laboratory work 05/28/2016 shows WBC 8.0, hemoglobin 10.4, hematocrit 35.1, platelets 236. ASSESSMENT AND PLAN: 1. Heart failure (systolic and diastolic, acute on chronic), now associated with recurrent right pleural effusions, requiring recurrent drainage. Now also associated with chronic kidney disease, stage III, and a low albumin. Assessment of left ventricular LV) systolic function on various imaging studies as described in detail above. At present, he is decompensated. I would consider him to be [place] [employer] Association (NYHA) functional class 3, although he is quite sedentary because he is status post bilateral leg amputations. He tells me he does not have insurance to cover his medications, and he cannot afford to purchase expensive medications. This can hamper some medication choices that may need to be considered. He has been having some issues with hyperkalemia during this hospitalization, for which he received potassium-binding resin. At this point, I recommend discontinuation of fosinopril. Fosinopril is problematic for this patient because of the level of kidney dysfunction. This agent demonstrates accumulation of pharmacokinetics in advanced chronic kidney disease, because it is renally excreted. I will switch him from angiotensin-converting enzyme (TEO) inhibitor to a combination if isosorbide dinitrate and hydralazine. Due to the current level of renal dysfunction and issues with hyperkalemia, I will not use a mineralocorticoid receptor antagonist, and also for the same reason I will not add sacubitril/valsartan. I really do not think there is a justifiable role for use of digoxin in this patient. I will switch him from metoprolol tartrate to metoprolol succinate, which is what he was taking prior to admission. He needs more diuresis. I will switch him from oral furosemide to furosemide 60 mg intravenous (IV) every 12 hours. Recommend cardiac rehabilitation. I will place him on a 2.5 grams sodium restriction as well as an 1800 mL per day oral fluid restriction. 2. Ischemic cardiomyopathy. As per heart failure category above. 3. Coronary artery disease (CAD) without angina. Patient is status post old inferior wall myocardial infarct, status post coronary artery bypass graft (CABG ) times four and has ischemic cardiomyopathy. As mentioned above, I will discontinue TEO inhibitor for now. Continue metoprolol as metoprolol succinate. Continue low-dose aspirin. Continue intensive statin therapy (atorvastatin 40 mg/d). 4. Systemic hypertension. Blood pressure presently controlled. Will continue to observe in hospital. Changes to cardiovascular medications as per heart failure category above. 5. Chronic atrial fibrillation. Heart rate controlled. Continue Eliquis and low-dose aspirin. Will switch from metoprolol tartrate to metoprolol succinate at the same dosage. 6. Old inferior wall myocardial infarct. As per CAD category above. 7. Status post CABG times four. As per CAD category above. 8. Hyperlipidemia. I will place him on a dietary approaches to stop hypertension (DASH) diet. In addition to this, it will also be carbohydrate consistent. Continue atorvastatin at the current dosage. MTDD
[2016-05-28] MEDS: ATORVASTATIN 20 MG TAB PO SCH (21:22)
[2016-05-28] MEDS: traZODone 50 MG TAB PO SCH (21:22)
[2016-05-29] VITALS (9 sets, daily range): BP systolic 97–129; BP diastolic 50–91
[2016-05-29] MEDS: LEVALBUTEROL 1.25 MG/0.5 ML CONCENTRATE NEB NEB SCH ×4 (01:25→20:16)
[2016-05-29] MEDS ORDERED: SLF 3 ML SYR IV PRN (02:00)
[2016-05-29] MEDS: FUROSEMIDE 100 MG/10 ML VIAL (J1940) IV SCH ×3 (04:00→20:37)
[2016-05-29] MEDS: SLF 3 ML SYR IV SCH ×3 (04:55→20:38)
[2016-05-29] MEDS: ceFAZolin SOD 1 GM in D5W MINI-BAG PLUS 50 ML IV SCH (04:55)
[2016-05-29 05:34] LABS: BASO % 0.3 % (0.0-1.0); EOS # 0.5 K/mm3 (0.0-0.50); EOS % 5.8 % (0.0-3.0); LARGE UNSTAINED CELL # 0.2 K/mm3 (0.0-0.4); LARGE UNSTAINED CELL % 2.1 % (0.0-4.0); LYMPH # 0.9 K/mm3 (1.5-4.5); LYMPH % 10.9 % (24.0-44.0); MEAN CORPUSCULAR HEMOGLOBIN 25.8 pg (27.0-33.0); MEAN CORPUSCULAR HGB CONC 30.1 g/dl (32.0-36.5); MEAN CORPUSCULAR VOLUME 85.9 fl (80.0-96.0); MONO # 0.5 K/mm3 (0.0-0.8); MONO % 6.5 % (0.0-5.0); NEUTROPHILS # 6.3 K/mm3 (1.8-7.7); NEUTROPHILS % 74.4 % (36.0-66.0); PLATELET COUNT, AUTOMATED 243 k/mm3 (150-450); RED CELL DISTRIBUTION WIDTH 19.5 % (11.5-14.5); WHITE BLOOD COUNT 8.4 K/mm3 (4.0-10.0)
[2016-05-29 05:48] LABS: CALCIUM LEVEL 7.4 MG/DL (8.8-10.2); CREATININE FOR GFR 2.08 MG/DL (0.70-1.30); GLOMERULAR FILTRATION RATE 34.5 (>49); POTASSIUM SERUM 4.8 MEQ/L (3.5-5.1)
[2016-05-29] MEDS ORDERED: ISOSORBIDE DIN (ISORDIL) 10 MG TAB PO SCH (07:00)
[2016-05-29 07:24] LABS: MAGNESIUM LEVEL 1.9 MG/DL (1.8-2.4)
[2016-05-29] MEDS: HumaLOG INSULIN (NovoLOG) PER UNIT SC SCH ×4 (08:07→20:35)
--- NOTE | 2016-05-29 08:57 | ECGEPIP ---
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
[2016-05-29] MEDS: DOCUSATE SODIUM 100 MG CAP PO SCH ×2 (09:00→20:37)
[2016-05-29] MEDS: MOM 30ML SUSPENSION UDC PO SCH (09:00)
[2016-05-29] MEDS: **hydrALAZINE** 10 MG TAB PO SCH ×4 (09:45→20:21)
[2016-05-29] MEDS: LEVEMIR (INSULIN DETEMIR) 1 UNITS/0.01ML SC SCH ×2 (09:45→20:38)
[2016-05-29] MEDS: FAMOTIDINE 20 MG TAB PO SCH ×2 (09:46→20:38)
[2016-05-29] MEDS: APIXABAN 5 MG TAB (ELIQUIS) PO SCH ×2 (09:46→20:38)
[2016-05-29] MEDS: METOPROLOL SUCC *XL* 25MG TAB (TopROL *XL*) PO SCH (09:47)
[2016-05-29] MEDS: SANTYL OINT 30GM TOP SCH (09:48)
--- NOTE | 2016-05-29 09:53 | REP ---
REASON: Followup pleural effusion. COMPARISON: Yesterday. The cardiomediastinal silhouette is unchanged. The lung mix are unchanged. Right-sided thoracotomy tube is unchanged. The osseous structures are unchanged. IMPRESSION: No change. Signed by Alfredo Warren DO 05/29/2016 09:55 A
--- NOTE | 2016-05-29 12:30 | IPN ---
DATE: 05/29/2016 at 10:40 a.m. SUBJECTIVE: The patient reports no dyspnea at rest or with very minimal activity. No orthopnea or paroxysmal nocturnal dyspnea (PND). He reports the edema in his right thigh and lower abdomen has become less, but is still present. No chest pain or chest discomfort. No palpitations. No dizziness or lightheadedness. PHYSICAL EXAMINATION: Pleasant, obese man who was not in any respiratory or psychologic distress. Jugular venous pulsations were to the angle of the jaw of the patient sitting up at 90 degrees (20 cm). First and second heart sounds diminished. No S3 or S4 or murmurs appreciated. Midline sternal scar. Respiratory expansion and effort was fair. Prolongation of expiration (mild), but no wheezes. Pitting edema about 1 cm over the lower abdomen and over the right thigh. Right sided chest tube in situ. Abdomen was obese, soft, nontender, with normal bowel sounds. The patient was net negative 345 mL for the 24 hours of 05/28/2016. Most of the fluid output was from the patient's chest tube. Weight today is registered as 130.1 kg, which I do not think is accurate because the day before it was registered as 114.3 kg. Pulse 65 (regular). Blood pressure (BP) 121/91. Temperature 97.3. Oxygen saturation 96% on oxygen 2 liters per minute by nasal cannula. Laboratory work 05/29/2016 shows sodium 133, potassium 4.8, chloride 98, CO2 29, BUN 55, creatinine 2.08, estimated GFR of 34.5, glucose 138, magnesium 1.9. ASSESSMENT AND PLAN: 1. Heart failure (acute on chronic, systolic and diastolic). The patient remains decompensated. He was mildly net negative fluid balance for yesterday with most of that net negative coming from chest tube drainage. He continues to have moderate renal dysfunction with no real improvement. He has been taken off Quinapril because of impaired kidney function and also because that agent is completely urinary excreted. Continue hydralazine; however, the dose will be increased to 10 mg four times a day. I will increase the dose of isosorbide mononitrate to 20 mg three times a day. Continue metoprolol succinate 25 mg daily. Digoxin not indicated. The patient will not likely be able to tolerate amiloride chloride receptor antagonist at this time due to his current level of renal dysfunction. I will increase IV furosemide to 80 mg IV every 8 hours. 2. Ischemic cardiomyopathy. As per heart failure category above. 3. Coronary artery disease (CAD) without angina. No anginal symptoms. As noted above, I shall increase the dosage of isosorbide dinitrate. Continue low dose aspirin, metoprolol succinate. As mentioned above, I do not think he will tolerate and TEO inhibitor or ARB at this time. 4. Systemic hypertension. Blood pressure well controlled. Management of antihypertensive medications as described under the heart failure category above. 5. Chronic atrial fibrillation. Rate controlled on metoprolol. Continue metoprolol succinate, Eliquis, low dose aspirin at the current dosages. 6. Old myocardial infarct. As per CAD category above. 7. Status post coronary artery bypass graft (CABG). As per CAD category above. 8. Hyperlipidemia. The patient has been put on a DASH diet and no eggs. Continue intensive atorvastatin therapy 40 mg at bedtime.
[2016-05-29] MEDS: ISOSORBIDE DIN. (ISORDIL) 20 MG TAB PO SCH ×2 (13:09→17:56)
--- NOTE | 2016-05-29 13:40 | RO ---
DATE OF PROCEDURE: 05/27/2016 PREPROCEDURE DIAGNOSIS: Right pleural effusion. POSTPROCEDURE DIAGNOSIS: Right pleural effusion. PROCEDURE: Insertion of right lateral posterior chest tube. SURGEON: Ronnie Parson MD CURBSTONE SETTER: ANESTHESIA: FINDINGS: The chest tube eluted over 3000 mL of maureen fluid. It was sent for the requisite studies of chemistries, hematologies, cytologies, and bacteriologies. DESCRIPTION OF PROCEDURE: Under satisfactory moderate sedation eventually achieved with 4 mg of Versed, the patient was prepped and draped in the usual sterile fashion. An incision was made in the midclavicular line around the 6th intercostal space. The patient is morbidly obese. A very long tunnel was created into the chest until I could get to the pleura. Prior to that, the skin and subcutaneous tissue was infiltrated with 1% Xylocaine. I could not find a long enough needle to get all the way to the pleura. A #24 chest tube was then placed without difficulty and secured to the chest wall with #2 Tevdek suture. The above findings were noted. The patient tolerated the procedure well, and a chest x-ray is pending.
[2016-05-29] MEDS: traZODone 50 MG TAB PO SCH (20:37)
[2016-05-29] MEDS: ATORVASTATIN 20 MG TAB PO SCH (20:38)
[2016-05-29] MEDS: PERCOCET 5MG/325MG TAB PO PRN (22:09)
[2016-05-30] VITALS (7 sets, daily range): BP systolic 116–140; BP diastolic 54–72
[2016-05-30] MEDS: LEVALBUTEROL 1.25 MG/0.5 ML CONCENTRATE NEB NEB SCH ×4 (01:46→20:54)
[2016-05-30] MEDS: FUROSEMIDE 100 MG/10 ML VIAL (J1940) IV SCH ×3 (03:57→21:53)
[2016-05-30] MEDS: SLF 3 ML SYR IV SCH ×3 (03:57→21:55)
[2016-05-30 05:54] LABS: BASO % 0.3 % (0.0-1.0); EOS # 0.5 K/mm3 (0.0-0.50); LARGE UNSTAINED CELL # 0.2 K/mm3 (0.0-0.4); LARGE UNSTAINED CELL % 2.4 % (0.0-4.0); LYMPH # 1.2 K/mm3 (1.5-4.5); LYMPH % 14.9 % (24.0-44.0); MEAN CORPUSCULAR HEMOGLOBIN 25.9 pg (27.0-33.0); MEAN CORPUSCULAR HGB CONC 30.7 g/dl (32.0-36.5); MEAN CORPUSCULAR VOLUME 84.3 fl (80.0-96.0); MONO # 0.7 K/mm3 (0.0-0.8); MONO % 9.5 % (0.0-5.0); NEUTROPHILS # 4.7 K/mm3 (1.8-7.7); PLATELET COUNT, AUTOMATED 240 k/mm3 (150-450); RED CELL DISTRIBUTION WIDTH 19.5 % (11.5-14.5); WHITE BLOOD COUNT 7.1 K/mm3 (4.0-10.0)
[2016-05-30 06:17] LABS: CALCIUM LEVEL 7.7 MG/DL (8.8-10.2); CREATININE FOR GFR 1.94 MG/DL (0.70-1.30); GLOMERULAR FILTRATION RATE 37.4 (>49); POTASSIUM SERUM 4.5 MEQ/L (3.5-5.1)
[2016-05-30] MEDS: ISOSORBIDE DIN. (ISORDIL) 20 MG TAB PO SCH ×3 (07:13→17:50)
[2016-05-30] MEDS: APIXABAN 5 MG TAB (ELIQUIS) PO SCH ×2 (08:42→21:54)
[2016-05-30] MEDS: METOPROLOL SUCC *XL* 25MG TAB (TopROL *XL*) PO SCH (08:42)
[2016-05-30] MEDS: **hydrALAZINE** 10 MG TAB PO SCH ×4 (08:42→21:54)
[2016-05-30] MEDS: FAMOTIDINE 20 MG TAB PO SCH ×2 (08:42→21:54)
[2016-05-30] MEDS: ASPIRIN 81 MG ENTERIC TAB PO SCH (08:42)
[2016-05-30] MEDS: MOM 30ML SUSPENSION UDC PO SCH (08:43)
[2016-05-30] MEDS: HumaLOG INSULIN (NovoLOG) PER UNIT SC SCH ×4 (08:43→22:19)
[2016-05-30] MEDS: DOCUSATE SODIUM 100 MG CAP PO SCH ×2 (08:43→21:54)
[2016-05-30] MEDS: LEVEMIR (INSULIN DETEMIR) 1 UNITS/0.01ML SC SCH ×2 (08:44→21:55)
[2016-05-30] MEDS: SANTYL OINT 30GM TOP SCH (08:45)
--- NOTE | 2016-05-30 09:16 | IPN ---
DATE: 05/28/2016 Mr. Rice can breathe a lot better today. In fact he is not at all in distress as he was before. He was drained of a 3 liters initially at his chest tube insertion and has drained another 375 mL since insertion up to 12 o'clock last night. It looks serosanguineous. I will discuss his chemistries below. His pain is being well controlled at chest insertion site. His has taken down the wound on the right below the knee amputation (BKA). There is a large necrotic eschar, but there is no cellulitis and does not look infected. He does have granulation tissue at the bottom of the wound. His vital signs show a T max of 97.6 with a heart that is ranging between 65 and 71 in atrial fibrillation with respiratory rate of 18-20 with accessory muscles who is 92-93% saturated on room air and his blood pressure is 116/57 to 100/55. His intake and output the past 24 hours has been recorded as 300 in and 425 out including the 3000 mL from the chest tube. His weight today is 114.3 kilos which is down from yesterday's. There is no air leak. On physical examination is eyes are equal round, round and reactive to light. Extraocular movements intact. Sclerae nonicteric. Neuro shows II-XII intact along with gross motor and gross sensation intact. Gait is not tested. Psychiatric shows her to be awake and alert, oriented times three with appropriate mood and affect and conversational. Lungs show equal breath sounds in either side with bibasilar crackles and rales. Percussion is full to the diaphragm as far as I can tell through is morbid obesity. Cardiac exam is without murmurs, clicks, gallops, or rubs. I cannot feel her point of maximum impulse (PMI). S1, S2 are normal. Abdomen is soft, nontender. Bowel sounds are positive. There is no hepatomegaly and no costovertebral angle (CVA) tenderness. Extremities are described above. There is no upper lobe leg edema. There is no differential swelling of the upper extremities. His skin is warm, dry and perfused, including that of the nail beds and the knees. Neck is supple. There is no jugular venous distention. No subcutaneous emphysema. Trachea is midline. Mouth shows her mucous membranes to be pink and moist. Lips and commissures without lesions. There is no thrush. INVESTIGATIONS: White count today is 8.0 with hemoglobin and hematocrit of 10.4 and 35.1 essentially unchanged from yesterday with a platelet count of 236. Differential shows 76% neutrophils, 12% lymphocytes, 5% monocytes. There are no immature forms and no toxic granulations. His potassium is 6.0 today with a sodium of 136. BUN and creatinine are 49 and 1.93 which continue to increase. Glucose is 116 and calcium is 8.0. His pleural fluid has been returned with a pH of 7.6 with a LDH of 113 and a corresponding serum LDH of 230 making his looking transudative. The fluid total protein is 3.0 with a corresponding serum protein of 8.2 again confirming that this transudative. There were 533 white nucleated cells, 57% of which are lymphocysts, 9% are neutrophils, 34% are monocytes and macrophages. His glucose is 112. This therefore looks to be a transudative predominantly lymphocystic effusion. His chest x-ray today shows his lung fully expanded to the chest wall. Right costophrenic angles are sharp. Lateral chest x-ray shows some posterior right atelectasis. Chest tube is in good place posteriorly. There is no subcutaneous emphysema. IMPRESSION: 1. Right pleural effusion transudative. 2. Congestive heart failure (CHF) with dilated cardiomyopathy giving rise to #1. 3. Diabetes. 4. Peripheral vascular disease. 5. Coronary artery disease. 6. Hypothyroidism. 7. Status post CVAs. 8. Status post Deep venous thrombosis (DVT) on Eliquis. 9. Nonhealing right stump with necrotic eschar, but not infected. 10. Renal insufficiency. PLAN AND DISCUSSION: His heart failure needs to be brought under control. I do note that his blood pressure is in the 110 to 120 range and we could probably lower that to the 100s within another afterload reduction agent. He is running in troubles with his renal insufficiency. He is already on diuretics. We are becoming where we are between rock and a hard place. I will continue his chest tubes until we can get his heart failure under control and the fluid decreased.
--- NOTE | 2016-05-30 09:43 | REP ---
Chest x-ray: Two views. History: Pleural effusion. Comparison study May 29, 2016. Findings: A right chest tube remains in place. There is some plate-like atelectasis adjacent to the minor fissure on the right near the chest tube. Prior sternotomy wires are seen. EKG electrodes are noted. There is no evidence of pneumothorax or hydrothorax on today's radiographs. Pleural angles appear sharp. Right hemidiaphragm remains somewhat elevated. Heart is enlarged. Impression: Right chest tube remains in place. Signed by Prateek Cruz MD 05/30/2016 12:07 P
--- NOTE | 2016-05-30 10:00 | IPN ---
DATE: 05/29/2016 Mr. Rice is feeling better today, more energetic, tolerating his diet. He has no complaints of pain, chest pain, not particularly short of breath. Temperature is 97.3, pulse 60, respiratory rate 18, blood pressure 121/91, 96% on 2 liters. Intake and output notable for a negative fluid balance of -345, urine output was 1150, chest tube output was less than 25. He is awake, appropriately interactive, pleasantly conversant. Neck is short, bearded. Breathing is symmetrical, diminished throughout, but rested, no accessory muscle use. Heart is distant sounding, normal S1, S2. 16 beats of ventricular tachycardia noted on telemetry. Abdomen soft, doughy, nontender. There is still abdominal wall edema. There is still lower extremity edema, right greater than left. White cell count 8.4, hemoglobin 10.4, and platelets of 243. BUN 55, creatinine 2.08, and hopefully is reaching a plateau. My assessment is as follows: This a 65-year-old with right-sided large pleural effusion status post chest tube placement related to underlying congestive heart failure. Plan is as follows: 1. The patient has pleural effusion related to decompensated diastolic congestive heart failure. I have discussed this case in person with Dr. Curry. I greatly appreciate his care with medical management and diuresis. 2. The patient has acute renal failure. This appears to be hopefully reaching its peak. Will continue to follow. Angiotensin-converting enzyme (TEO) inhibitor has been held. 3. The patient has insulin-dependent diabetes. Continuing with current management. Fasting glucose this morning was 138 and finger sticks as recorded in the computer at this time are all less than 200. 4. The patient has history of hypertension. 5. The patient has history of deep venous thrombosis (DVT) and is on Eliquis. 6. The patient has chronic right stump wound. Receiving wound care and is planned for surgical correction in the near future. 7. The patient has hyperlipidemia. 8. I did also discuss this case in person with Dr. Parson regarding the chest tube.
--- NOTE | 2016-05-30 10:23 | IPN ---
DATE: 05/29/2016 Mr. Rice has put out an extraordinary amount out of his chest tube. Dr. Curry has seen him in consultation for his congestive heart failure (CHF). He states that he is breathing well. Pain is being well controlled at his chest tube insertion site. He is on 1 liter nasal cannula and he is 96% saturated on that. His T-max is 98.2 with a heart rate that ranges between 60-75 in atrial fibrillation with a respiratory rate of 18-20 without use of accessory muscles who is 96% saturated on now 1 liter nasal cannula and his blood pressure is ranging between 121/91 to 126/61. His intake and output the past 24 hours has been recorded as 2280 in and 2625 out for a negativity of 345 mL. The major of that has been chest tube output of 1125 mL. His urine output has been 1150 mL. His weight today is 130.1 kilos compared to 140.35 on admission. Clearly there is a discrepancy in the weight. On physical examination he has bibasilar rales on either side with a percussion that is full to the diaphragm. Cardiac exam shows very distant heart sounds, I cannot detect murmurs, clicks, gallops or rubs. I cannot feel his point of maximum impulse (PMI) through his morbid obesity. Abdomen is soft, nontender. Bowel sounds are positive. There is no hepatomegaly that I can feel through the morbid obesity. He has not yet had a bowel movement. There is no costovertebral angle (CVA) tenderness. Extremities show no thigh edema and only in his side. Skin is warm, dry and perfused without cyanosis or bruising. Neck is supple. There is no jugular venous distention. No subcutaneous emphysema. Trachea is midline. Mouth shows her mucous membranes to be pink and moist. Lips and commissures without lesions. There is no thrush. Eyes shows pupils equal and reactive. Extraocular muscles intact. Sclerae anicteric. Nerves II-XII intact. Gross motor and gross sensation intact. Gait is not tested. PSYCHIATRIC: Shows him to awake, alert, oriented times three with appropriate mood and affect and conversational. His white count today is 8.4 with hemoglobin and hematocrit of 10.4 and 34.7 unchanged from yesterday with a platelet count of 243. Differential shows 74% neutrophils, 10% lymphocytes, 6% monocytes. There are no immature forms and no toxic granulations. Sodium is 133 with a potassium of 4.8. BUN and creatinine are 55 and 2.08 respectfully. Glucose of 138 and a calcium of 7.4. Magnesium 1.9. His admission albumin was 2.7. I discussed his pleural fluid findings yesterday and looks transudative. Microbiology shows no white cells and no organisms. Pathology is pending. IMPRESSION: 1. Congestive heart failure. 2. Renal failure secondary to #1. 3. Pleural effusions secondary to #1. 4. Diabetes. 5. Peripheral vascular disease. 6. Hypothyroidism. 7. Hypertension. 8. Status post multiple CVAs. PLAN AND DISCUSSION: He has certainly put out too much out of the chest tube to even consider removing it. We do need to get his heart failure under control. He has now been placed on hydralazine along with metoprolol. His Lasix is being continued 60 mg every 12 hours.
--- NOTE | 2016-05-30 14:26 | IPN ---
DATE: 05/30/2016 CARDIOLOGY PROGRESS NOTE: SUBJECTIVE: The patient denies having any dyspnea at rest or with minimal activity. No chest pain or chest discomfort. No palpitations. No lightheadedness or dizziness. Overall, he is feeling well. PHYSICAL EXAMINATION: Pleasant, obese, man who is not in any respiratory or psychologic distress. Weight 131.1 kg, intake and output for the 24 hours of 05/29/2016 showed the patient to be net negative 1050 mL. Pulse 65 (irregularly irregular), respiratory rate 18, blood pressure 140/56, oxygen saturation 92% on room air, temperature 98.6. Jugular venous pulsations were 20 cm to the angle with the jaw with the patient sitting up. Respiratory expansion effort was good. Presence of a right chest tube in situ. Midline sternal scar present and well-healed. First and second heart sounds variable intensity. No S3 or murmurs appreciated. Abdomen was soft, nontender with normal bowel sounds. Status post bilateral leg amputations. Pitting edema about 5 mm is present over the right thigh and also pitting edema was present over the lower abdominal wall. LABORATORY WORK: 05/30/2016 showed sodium 133, potassium 4.5, chloride 97, CO2 29, BUN 60, creatinine 1.94, estimated GFR 37.4, glucose 186. I have independently visualized the patient's PA and lateral chest x-ray acquired 05/30/2016. Lung mix were clear. Presence of a right chest tube. Elevated right hemidiaphragm. Midline sternotomy wires. Cardiomegaly. No pleural effusions. ASSESSMENT AND PLAN: 1. Heart failure, acute on chronic, systolic and diastolic. The patient remains decompensated. He had an excellent net negative fluid balance of which most of it was from the chest tube. Renal function is starting to show some improvement but still remains moderate kidney dysfunction. Blood pressure adequately controlled. Continue furosemide 80 mg IV every eight hours, hydralazine 10 mg four times a day, isosorbide dinitrate 20 mg three times a day, metoprolol succinate 25 mg daily. Continue oral fluid restriction because of hyponatremia. 2. Ischemic cardiomyopathy. As per heart failure category above. 3. Coronary artery disease (CAD) without angina. The patient remains angina free. He is status post prior myocardial infarct and status post coronary artery bypass graft (CABG). Stable. He is not on angiotensin-converting enzyme (TEO) or angiotensin-receptor baron (ARB) because of the level of renal dysfunction at present. Continue aspirin, isosorbide dinitrate, metoprolol succinate. 4. Systemic hypertension. Blood pressures are presently controlled. Continue IV furosemide, metoprolol succinate, hydralazine, and isosorbide dinitrate. 5. Chronic atrial fibrillation. Heart rate controlled. Continue warfarin, aspirin, and metoprolol succinate. 6. Old myocardial infarct. As per CAD category above. 7. Status post CABG. As per CAD category above.
--- NOTE | 2016-05-30 15:14 | IPN ---
DATE: 05/30/2016 Mr. Rice is still putting out large amounts out of his chest tube but it is better today than it was yesterday. Yesterday, he put out 1125 and today is 810. The pain at the chest tube insertion site is being well controlled. His maximum temperature (t-max) over the past 24 hours is 98.6 with a heart rate that ranges between 65 and 66 in atrial fibrillation with a respiratory rate that is constant at 18 who is 92% saturated on room air and whose blood pressure is ranging between 140/56 to 118/54. His intake and output the past 24 hours has been recorded as 1860 in and 2910 out for a negativity of 1000 mL. He has put out 810 from the chest tube. There is no air leak. Weight today is 131.1 kg compared to 130.1 kilos yesterday. PHYSICAL EXAMINATION: LUNGS: His lungs show equal breath sounds on either side with some faint inspiratory rales at the bases. Percussion notes are full to the diaphragm as far as I can tell through his morbid obesity. CARDIAC EXAM: Without murmurs, clicks, gallops or rubs. I cannot feel his point of maximum impulse (PMI). S1, S2 are normal. ABDOMEN: Soft, nontender. Bowel sounds positive. There is no hepatomegaly. No costovertebral angle tenderness. EXTREMITIES: Show no thigh edema. SKIN: Warm, dry and perfused without cyanosis or mottling. NECK: Supple. There is no jugular venous distention. No subcutaneous emphysema. Trachea is midline. MOUTH: Shows his mucous membranes to be pink and moist. Lips and commissures without lesions. There is no thrush. EYES: Show his pupils to be equal and reactive. Extraocular motion intact. Sclerae anicteric. NEUROLOGIC: Shows II through XII intact with gross motor and gross sensation intact. Gait is not tested. PSYCHIATRIC: Shows him to be awake and alert, oriented times three with appropriate mood and affect and conversational. His white count today is 7.1 with a hemoglobin and hematocrit of 9.9 and 32.2, slightly down from 10.4 and 34.7. Platelet count is 240 and stable. Differential shows 66% neutrophils, 14% lymphocytes, 9% monocytes. There are no immature forms. No toxic granulations. His electrolytes show a sodium is 133, which is unchanged from yesterday with a BUN and creatinine of 60 and 1.4, improved from yesterday. There are no blood gases on him today. His chest x-ray shows the lung fully expanded to the chest wall with a sharp right costophrenic angle. I see no infiltrates. The lateral film has motion artifact, but at most I see some posterior atelectasis. IMPRESSION: 1. Congestive heart failure. 2. Renal failure secondary to #1. 3. Pleural effusions secondary to #1. 4. Diabetes. 5. Peripheral vascular disease. 6. Hypothyroidism. 7. Hypertension. 8. Status post multiple CVAs. PLAN AND DISCUSSION: I appreciate Dr. Curry managing his congestive heart failure. If we were to veterinary practitioner from the chest tube output, that management is starting to work, albeit slowly. I certainly cannot take out the chest tube until his output is decreased.
--- NOTE | 2016-05-30 18:06 | IPN ---
DATE: Mr. Rice is feeling well today, eating breakfast upon my visit. No complaints of pain, chest pain, shortness of breath. No leg pain. Temperature 97.4, pulse 68, respiratory rate 18, blood pressure 118/54, 98% on room air. Input and output (I O) notable for a negative fluid balance of minus 1050. Weight is 131.1 kilos. Body mass index is 37.1. He is awake, appropriately interactive, pleasantly conversant. No acute distress. Good historian. Breathing is symmetrical. Inspiratory to expiratory (I:E) ratio is 1:3. Having a good deal of output from his chest tube, which is clear; 800 total yesterday, 400 thus far today. Abdomen soft, doughy, nontender. There is still lower extremity edema, right greater than left, and abdominal wall edema noted. White cell count 7.1, hemoglobin 9.9, platelets 240. BUN 60, creatinine 1.94 and improving. Baseline creatinine would appear to be around perhaps 1.3. This is a 65-year-old with acute on chronic systolic/diastolic congestive heart failure. PLAN: 1. Cardiovascular. For congestive heart failure, continue with diuresis. Dr. Curry is being quite active in the management of this patient's treatment for heart failure, ischemic cardiomyopathy and coronary artery disease, as well as hypertension and chronic atrial fibrillation. Appreciate his level of care. I have discussed this case with Dr. Curry in person. 2. Patient's admission was for pleural effusion. Chest tube is in place and still draining quite a bit of fluid. Being followed by Dr. Parson. I did discuss this case in person with Dr. Parson today. 3. Patient has insulin-dependent diabetes. Continue with current management. He is reasonably well-controlled in the current setting. 4. Patient has a chronic right stump. Continuing home wound care. This is being followed by Dr. Noyola as an outpatient. He is planned for a surgical correction after his heart failure is optimized and perhaps after he gets lower extremity revascularization. 5. Patient has hyperlipidemia. 6. Continue telemetry monitoring.
[2016-05-30] MEDS: traZODone 50 MG TAB PO SCH (21:53)
[2016-05-30] MEDS: ATORVASTATIN 20 MG TAB PO SCH (21:54)
[2016-05-31 00:27] VITALS: BP 169/79
[2016-05-31] MEDS: LEVALBUTEROL 1.25 MG/0.5 ML CONCENTRATE NEB NEB SCH ×4 (02:07→20:01)
[2016-05-31] MEDS: SLF 3 ML SYR IV SCH ×3 (04:36→20:55)
[2016-05-31] MEDS: FUROSEMIDE 100 MG/10 ML VIAL (J1940) IV SCH ×3 (04:36→20:53)
[2016-05-31 04:41] VITALS: BP 123/55
[2016-05-31 05:26] LABS: BASO % 0.3 % (0.0-1.0); EOS # 0.4 K/mm3 (0.0-0.50); EOS % 5.6 % (0.0-3.0); LARGE UNSTAINED CELL # 0.2 K/mm3 (0.0-0.4); LARGE UNSTAINED CELL % 3.1 % (0.0-4.0); MEAN CORPUSCULAR HEMOGLOBIN 25.7 pg (27.0-33.0); MEAN CORPUSCULAR HGB CONC 30.4 g/dl (32.0-36.5); MEAN CORPUSCULAR VOLUME 84.7 fl (80.0-96.0); MONO # 0.6 K/mm3 (0.0-0.8); MONO % 7.7 % (0.0-5.0); NEUTROPHILS # 5.7 K/mm3 (1.8-7.7); NEUTROPHILS % 71.3 % (36.0-66.0); PLATELET COUNT, AUTOMATED 217 k/mm3 (150-450); RED CELL DISTRIBUTION WIDTH 19.8 % (11.5-14.5)
[2016-05-31 05:45] LABS: CALCIUM LEVEL 7.7 MG/DL (8.8-10.2); CREATININE FOR GFR 1.62 MG/DL (0.70-1.30); POTASSIUM SERUM 4.1 MEQ/L (3.5-5.1)
[2016-05-31] MEDS: ISOSORBIDE DIN. (ISORDIL) 20 MG TAB PO SCH ×2 (06:13→12:33)
[2016-05-31 08:00] VITALS: BP 137/65
--- NOTE | 2016-05-31 08:51 | REP ---
Chest x-ray: Two views. History: Pleural effusion. Comparison chest x-ray is from May 30, 2016. Findings: Right chest tube remains in place. There is no visible pneumothorax or hydrothorax. Pleural angles are sharp. Cardiomediastinal silhouette is unchanged. Median sternotomy wires and EKG electrodes are seen. Impression: Right chest tube remains in place. No significant change. Signed by Prateek Cruz MD 05/31/2016 03:36 P
[2016-05-31] MEDS: MOM 30ML SUSPENSION UDC PO SCH (09:00)
[2016-05-31] MEDS: FAMOTIDINE 20 MG TAB PO SCH ×2 (09:03→20:54)
[2016-05-31] MEDS: DOCUSATE SODIUM 100 MG CAP PO SCH ×2 (09:03→20:55)
[2016-05-31] MEDS: APIXABAN 5 MG TAB (ELIQUIS) PO SCH ×2 (09:03→20:55)
[2016-05-31] MEDS: **hydrALAZINE** 10 MG TAB PO SCH ×4 (09:04→20:55)
[2016-05-31] MEDS: HumaLOG INSULIN (NovoLOG) PER UNIT SC SCH ×4 (09:04→20:56)
[2016-05-31] MEDS: METOPROLOL SUCC *XL* 25MG TAB (TopROL *XL*) PO SCH (09:04)
[2016-05-31] MEDS: SANTYL OINT 30GM TOP SCH (09:05)
[2016-05-31] MEDS: LEVEMIR (INSULIN DETEMIR) 1 UNITS/0.01ML SC SCH ×2 (09:05→20:54)
--- NOTE | 2016-05-31 11:20 | IPNPDOC ---
Subjective Date Seen The patient was seen on 05/31/16. Subjective Chief Complaint/HPI The patient is a 65-year-old male admitted with a reason for visit of Pleural Effusion. Events since last encounter no complaints this am. chest tube till will significant output. no chest pain no sob, Objective Physical Examination General Exam: Positive: Alert, No Acute Distress Eye Exam: Positive: Conjunctiva & lids normal, EOMI, PERRLA, Negative: Sclera icteric ENT Exam: Positive: Atraumatic, Mucous membr. moist/pink, Pharynx Normal Neck Exam: Positive: Supple, Negative: JVD, thyromegaly Chest Exam: Positive: Clear to auscultation, Normal air movement, Other (has right chest tube) Heart Exam: Positive: Normal S1, Normal S2, Rate Normal, Regular Rhythm, Negative: Murmurs, Rubs Abdomen Exam: Positive: Normal bowel sounds, Soft, Negative: Hepatospenomegaly, Tenderness Extremity Exam: Positive: Other (has bilateral below knee amputations. ) Skin Exam: Positive: Lesion (infected stump of right lower extremity.) Assessment /Plan Problems (1) Pleural effusion on right Status: Acute Problem Text: due to decompensated CHF now has chest tube (2) Systolic and diastolic CHF, acute on chronic Status: Acute Problem Text: follow cardiology recommendations will continue with diuresis. (3) PVD (peripheral vascular disease) Status: Chronic Problem Text: had stenting done on the right in mar 2016 (4) DM2 (diabetes mellitus, type 2) Status: Chronic (5) CKD (chronic kidney disease), stage III Status: Chronic (6) HTN (hypertension) Status: Chronic (7) Hypothyroid Status: Chronic (8) CAD (coronary artery disease) Status: Chronic Problem Text: h/o cabg in 2002 and also cardiac stents. 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 follows with Dr Noyola. (15) DVT (deep venous thrombosis) Status: Chronic Problem Text: on eliquis (16) History of osteomyelitis Status: Chronic Problem Text: had 8 weeks of iv antibiotics in jan and feb will need further amputation of the right stump after cleared from cardiology Plan/VTE VTE Prophylaxis Ordered?: Yes VS, I&O, 24H, Fishbone Vital Signs/I&O Vital Signs Date Time Temp Pulse Resp B/P Pulse Ox O2 Delivery O2 Flow Rate FiO2 05/31/16 09:04 137/65 05/31/16 09:04 70 05/31/16 08:00 97.4 20 95 Room Air 05/29/16 22:39 1.0 I&O- Last 24 Hours up to 6 AM 05/31/16 06:00 Intake Total 1380 ml Output Total 2975 ml Balance -1595 ml Laboratory Data 24H LABS Laboratory Tests 2 05/30/16 11:39: Bedside Glucose (Misc Panel) 206H 05/30/16 16:56: Bedside Glucose (Misc Panel) 165H 05/30/16 21:57: Bedside Glucose (Misc Panel) 251H 05/31/16 05:00: Anion Gap 8, White Blood Count 8.0, Red Blood Count 3.83L, Hemoglobin 9.9L, Hematocrit 32.4L, Mean Corpuscular Volume 84.7, Mean Corpuscular Hemoglobin 25.7L, Mean Corpuscular Hemoglobin Concent 30.4L, Red Cell Distribution Width 19.8H, Platelet Count 217, Neutrophils (%) (Auto) 71.3H, Lymphocytes (%) (Auto) 12.0L, Monocytes (%) (Auto) 7.7H, Eosinophils (%) (Auto) 5.6H, Basophils (%) ( Auto) 0.3, Neutrophils # (Auto) 5.7, Lymphocytes # (Auto) 1.0L, Monocytes # ( Auto) 0.6, Eosinophils # (Auto) 0.4, Basophils # (Auto) 0.0, Blood Urea Nitrogen 53H, Creatinine 1.62H, Sodium Level 134L, Potassium Level 4.1, Chloride Level 98, Carbon Dioxide Level 28, Calcium Level 7.7L, Glomerular Filtration Rate 46.0L, Large Unclassified Cells # 0.2, Large Unclassified Cells % 3.1 CBC/BMP Laboratory Tests 05/31/16 05:00 Calcium Level 7.7 L, Red Blood Count 3.83 L, Mean Corpuscular Volume 84.7, Mean Corpuscular Hemoglobin 25.7 L, Mean Corpuscular Hemoglobin Concent 30.4 L, Red Cell Distribution Width 19.8 H, Neutrophils (%) (Auto) 71.3 H, Lymphocytes (%) ( Auto) 12.0 L, Monocytes (%) (Auto) 7.7 H, Eosinophils (%) (Auto) 5.6 H, Basophils (%) (Auto) 0.3, Neutrophils # (Auto) 5.7, Lymphocytes # (Auto) 1.0 L, Monocytes # (Auto) 0.6, Eosinophils # (Auto) 0.4, Basophils # (Auto) 0.0 Microbiology Microbiology 05/27/16 Blood Culture - Preliminary, Resulted No Growth after 72 hours. All specime... 05/27/16 Blood Culture - Preliminary, Resulted No Growth after 72 hours. All specime... 05/27/16 Acid Fast Stain, Received Pending 05/27/16 Mycobacterial Culture, Received Pending 05/27/16 Fungal Smear, Received Pending 05/27/16 Fungal Culture, Received Pending 05/27/16 Gram Stain - Final, Complete 05/27/16 Anaerobic Culture - Final, Complete 05/27/16 Body Fluid Culture - Final, Complete JUSTIN HAN MD May 31, 2016 11:20
[2016-05-31 12:00] VITALS: BP 133/68
--- NOTE | 2016-05-31 12:16 | IPN ---
DATE: 05/31/2016 Mr. Rice looks as if he had some improvement in both his breathing and his kidney function. Nonetheless, he is still putting increased amounts from the chest tube. Pain at the chest tube site is being well controlled. His vital signs show a T-max of 98.3 with a heart rate that ranges between 67 and 74 in atrial fibrillation and respiratory rate of 18 to 20 without the use of accessory muscles who is 95 to 90% saturated on room air and has blood pressures ranging between 123/55 to 169/79. His intake and output over the past 24 hours has been recorded as 1080 in 2855 out for a negativity of 1775 mL. He has put out 855 mL from the chest tube which is essentially the same as yesterday of 810 mL. Today he weighs 126.5 kg compared to 131 kg yesterday. On physical examination, he has equal breath sounds on either side with full percussion note to the diaphragm. I hear no wheezes, rhonchi or rales. Cardiac exam is without murmurs, clicks, gallops or rubs. I cannot feel his PMI. S1 and S2 are normal. Abdomen is soft, nontender, bowel sounds are positive. I cannot feel any hepatomegaly through his morbid obesity. There is no CVA tenderness. Extremities show no thigh edema. Skin is warm, dry and perfused without cyanosis or mottling. Neck is supple. There is no jugular venous distention. No subcutaneous emphysema. Trachea is midline. Mouth shows his mucous membranes to be pink and moist. Lips and commissures are without lesions. No thrush. Eyes show his pupils to be equal and reactive. Extraocular motor intact. Sclera anicteric. Neuro shows II through XII intact with gross motor and gross sensation intact. Gait is not tested. Psychiatric shows him to be awake and alert, oriented times three with appropriate mood and affect and conversational. His white count today is 8.0 with hemoglobin and hematocrit of 9.9 and 32.4 unchanged from yesterday. Platelet count is 217 and stable and differential shows 71% neutrophils, 12% lymphocytes, 7% monocytes. There are no immature forms. No toxic granulations. His electrolytes show a sodium of 134 with normal electrolytes with BUN and creatinine of 53 and 1.62 compared to 60 and 1.94 yesterday and 55 and 2.08 the day before. Glucose of 194 with a calcium of 7.7. Pathology cell block has been reported back as no malignancy with scattered mesothelial cells with lymphocytes and histiocytes. Bacteriology shows no growth aerobically or anaerobically. His chest x-ray today shows his lung fully expanded to the chest wall. Costophrenic angles are sharp. There is less scattered opacities today than in the last few days. I suspect his pulmonary edema is resolving as well as his alveolar edema. IMPRESSION: 1. Congestive heart failure. 2. Renal failure secondary to #1. 3. Pleural effusion secondary to #1. 4. Diabetes. 5. Peripheral vascular disease. 6. Hypothyroidism. 7. Hypertension. 8. Status post multiple cerebrovascular accidents (CVA)s. PLAN AND DISCUSSION: He is still putting out too much from the chest tube to remove it, however, I am encouraged that his inputs and outputs remain negative and that his weight is down. We will continue to monitor his chest tube output. Yesterday at this time, he had put 410 mL out, today it is only 225 mL.
--- NOTE | 2016-05-31 15:00 | IPN ---
DATE OF SERVICE: 05/31/2016 at 1417 SUBJECTIVE: The patient reports absence of any dyspnea with light activity in the room. No orthopnea or paroxysmal nocturnal dyspnea. He reports the edema in his upper thighs and lower abdomen has nearly resolved. Overall, he reports feeling well. No lightheadedness or dizziness. No palpitations. PHYSICAL EXAMINATION: Pleasant obese man status post bilateral below knee amputations who is not in any respiratory or psychologic distress. Right chest tube in situ. Body mass index (BMI) 35.8, weight today recorded as 126.5 kg. Input/output for the 24 hours of 05/30/2016 showed the patient to be net negative 1775 mL. Urine output yesterday was 2000 mL. Temperature 97.7, pulse 60 (irregular, irregular), respiratory rate 18, blood pressure 140/65, oxygen saturation 96% on room air. Jugular venous pulsations were at 15 cm. Midline sternal scar present. First and second heart sounds variable. No S3 or murmurs appreciated. Respiratory expansion effort was good. No crackles or wheezes. Abdomen was obese, soft, nontender with normal bowel sounds. Very mild pitting edema was present in the upper thighs and over the lower abdomen. Laboratory work 05/31/2016 was reviewed: Sodium 134, potassium 4.1, chloride 98, CO2, 28, BUN 3, creatinine 1.62, estimated GFR 46.0, glucose 194, calcium 7.7. I have independently visualized the patient's PA and lateral chest x-ray acquired 05/31/2016. Cardiomegaly despite the technique. Midline sternal wires present. Some surgical clips over the cardiac silhouette consistent with previous CABG. Right chest tube. Elevated right hemidiaphragm. No pleural effusions. Enlarged bilateral pulmonary arteries. Some calcification within the aortic arch. No alveolar pulmonary edema. No definite interstitial pulmonary edema. ASSESSMENT/PLAN: 1. Heart failure (acute on chronic), systolic and diastolic: The patient is turning an excellent net negative fluid balance and his renal function has improved. Blood pressure well controlled. Continue hydralazine, furosemide IV, metoprolol succinate at he current dosages. Isosorbide dinitrate will be increased to 30 mg three times a day. 2. Ischemic cardiomyopathy: As per heart failure, category above. 3. Coronary artery disease without angina: Status post prior myocardial infarct and status post CABG. No angina. Stable. Continue aspirin, metoprolol succinate at the current dosages. Will increase isosorbide dinitrate as discussed above. 4. Systemic hypertension: Overall blood pressure is controlled. Continue IV furosemide, metoprolol succinate at the current dosages. As explained above, the dose of isosorbide dinitrate has been increased. Continue hydralazine at the current dosage. 5. Chronic atrial fibrillation. Heart rate controlled. Continue aspirin, Eliquis, metoprolol succinate at the current dosages. 6. Old myocardial infarction: As per coronary artery disease category above. 7. Status post CABG: As per coronary artery disease category above. 8. Hyperlipidemia: Continue intensive statin therapy (atorvastatin 40 mg nightly). He is on a DASH diet. Stable. 4.
[2016-05-31 16:00] VITALS: BP 121/64
[2016-05-31] MEDS: ISOSORBIDE DIN. (ISORDIL) 30 MG TAB PO SCH (17:24)
[2016-05-31 20:00] VITALS: BP 132/60
[2016-05-31] MEDS: traZODone 50 MG TAB PO SCH (20:53)
[2016-05-31] MEDS: ATORVASTATIN 20 MG TAB PO SCH (20:54)
[2016-05-31] MEDS: PERCOCET 5MG/325MG TAB PO PRN (22:00)
[2016-06-01] VITALS (7 sets, daily range): BP systolic 116–132; BP diastolic 55–80
[2016-06-01] MEDS: LEVALBUTEROL 1.25 MG/0.5 ML CONCENTRATE NEB NEB SCH ×4 (02:25→21:35)
[2016-06-01] MEDS: SLF 3 ML SYR IV SCH ×3 (04:44→20:34)
[2016-06-01] MEDS: FUROSEMIDE 100 MG/10 ML VIAL (J1940) IV SCH ×3 (04:44→20:32)
[2016-06-01 05:58] LABS: BASO % 0.5 % (0.0-1.0); EOS # 0.6 K/mm3 (0.0-0.50); EOS % 7.7 % (0.0-3.0); LARGE UNSTAINED CELL # 0.2 K/mm3 (0.0-0.4); LARGE UNSTAINED CELL % 2.6 % (0.0-4.0); LYMPH # 1.4 K/mm3 (1.5-4.5); LYMPH % 15.2 % (24.0-44.0); MEAN CORPUSCULAR HEMOGLOBIN 25.5 pg (27.0-33.0); MEAN CORPUSCULAR HGB CONC 30.3 g/dl (32.0-36.5); MEAN CORPUSCULAR VOLUME 84.3 fl (80.0-96.0); MONO # 0.6 K/mm3 (0.0-0.8); MONO % 7.4 % (0.0-5.0); NEUTROPHILS # 5.2 K/mm3 (1.8-7.7); NEUTROPHILS % 66.6 % (36.0-66.0); PLATELET COUNT, AUTOMATED 259 k/mm3 (150-450); RED CELL DISTRIBUTION WIDTH 19.7 % (11.5-14.5); WHITE BLOOD COUNT 7.8 K/mm3 (4.0-10.0)
[2016-06-01] MEDS: ISOSORBIDE DIN. (ISORDIL) 30 MG TAB PO SCH ×3 (06:12→17:27)
[2016-06-01 06:13] LABS: CALCIUM LEVEL 7.6 MG/DL (8.8-10.2); CREATININE FOR GFR 1.59 MG/DL (0.70-1.30); POTASSIUM SERUM 3.9 MEQ/L (3.5-5.1)
[2016-06-01] MEDS: HumaLOG INSULIN (NovoLOG) PER UNIT SC SCH ×4 (08:13→20:31)
[2016-06-01] MEDS: MOM 30ML SUSPENSION UDC PO SCH (09:00)
[2016-06-01] MEDS: DOCUSATE SODIUM 100 MG CAP PO SCH ×2 (09:00→20:33)
--- NOTE | 2016-06-01 09:39 | REP ---
PA and lateral chest: Comparisons are 05/31/2016 and 05/30/2016, 05/27/[address] of 05/27/2016. There is a right chest tube in the right lateral and posterolateral pleural space, unchanged. No visible right pleural effusion is identified. The right hemidiaphragm is elevated, unchanged from prior studies. Right lung is otherwise clear. Left lung is clear. Cardiac size is borderline enlarged. Sternotomy wires are again noted. No significant change from 05/29/2016. Signed by Per Collins MD 06/01/2016 09:30 A
[2016-06-01] MEDS: **hydrALAZINE** 10 MG TAB PO SCH ×4 (09:48→20:34)
[2016-06-01] MEDS: ASPIRIN 81 MG ENTERIC TAB PO SCH (09:48)
[2016-06-01] MEDS: FAMOTIDINE 20 MG TAB PO SCH ×2 (09:48→20:32)
[2016-06-01] MEDS: METOPROLOL SUCC *XL* 25MG TAB (TopROL *XL*) PO SCH (09:49)
[2016-06-01] MEDS: APIXABAN 5 MG TAB (ELIQUIS) PO SCH ×2 (09:49→20:33)
[2016-06-01] MEDS: LEVEMIR (INSULIN DETEMIR) 1 UNITS/0.01ML SC SCH ×2 (09:49→20:32)
[2016-06-01] MEDS: SANTYL OINT 30GM TOP SCH (09:51)
--- NOTE | 2016-06-01 12:34 | IPNPDOC ---
Subjective Date Seen The patient was seen on 06/01/16. Subjective Chief Complaint/HPI The patient is a 65-year-old male admitted with a reason for visit of Pleural Effusion. Events since last encounter no complaints. chest tube drainge decreased significantly yesterday , no fever or chills, no chest pain o shortness of breath. no nausea or vomiting , no abdominal pain or diarrhea. Objective Physical Examination General Exam: Positive: Alert, No Acute Distress Eye Exam: Positive: Conjunctiva & lids normal, EOMI, PERRLA, Negative: Sclera icteric ENT Exam: Positive: Atraumatic, Mucous membr. moist/pink, Pharynx Normal Neck Exam: Positive: Supple, Negative: JVD, thyromegaly Chest Exam: Positive: Clear to auscultation, Normal air movement, Other (has right chest tube) Heart Exam: Positive: Normal S1, Normal S2, Rate Normal, Regular Rhythm, Negative: Murmurs, Rubs Abdomen Exam: Positive: Normal bowel sounds, Soft, Negative: Hepatospenomegaly, Tenderness Extremity Exam: Positive: Other (has bilateral below knee amputations. ) Skin Exam: Positive: Lesion (infected stump of right lower extremity.) Assessment /Plan Problems (1) Pleural effusion on right Status: Acute Problem Text: due to decompensated CHF now has chest tube (2) Systolic and diastolic CHF, acute on chronic Status: Acute Problem Text: follow cardiology recommendations will continue with diuresis. (3) PVD (peripheral vascular disease) Status: Chronic Problem Text: had stenting done on the right in mar 2016 (4) DM2 (diabetes mellitus, type 2) Status: Chronic (5) CKD (chronic kidney disease), stage III Status: Chronic (6) HTN (hypertension) Status: Chronic (7) Hypothyroid Status: Chronic (8) CAD (coronary artery disease) Status: Chronic Problem Text: h/o cabg in 2002 and also cardiac stents. 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 follows with Dr Noyola. (15) DVT (deep venous thrombosis) Status: Chronic Problem Text: on eliquis (16) History of osteomyelitis Status: Chronic Problem Text: had 8 weeks of iv antibiotics in jan and feb will need further amputation of the right stump after cleared from cardiology Plan/VTE VTE Prophylaxis Ordered?: Yes VS, I&O, 24H, Fishbone Vital Signs/I&O Vital Signs Date Time Temp Pulse Resp B/P Pulse Ox O2 Delivery O2 Flow Rate FiO2 06/01/16 12:29 98.5 70 20 128/64 95 Room Air 05/29/16 22:39 1.0 I&O- Last 24 Hours up to 6 AM 06/01/16 06:00 Intake Total 1320 ml Output Total 3060 ml Balance -1740 ml Laboratory Data 24H LABS Laboratory Tests 2 05/31/16 16:39: Bedside Glucose (Misc Panel) 155H 05/31/16 20:52: Bedside Glucose (Misc Panel) 214H 06/01/16 05:20: Anion Gap 5L, White Blood Count 7.8, Red Blood Count 3.81L, Hemoglobin 9.7L, Hematocrit 32.1L, Mean Corpuscular Volume 84.3, Mean Corpuscular Hemoglobin 25.5L, Mean Corpuscular Hemoglobin Concent 30.3L, Red Cell Distribution Width 19.7H, Platelet Count 259, Neutrophils (%) (Auto) 66.6H, Lymphocytes (%) (Auto) 15.2L, Monocytes (%) (Auto) 7.4H, Eosinophils (%) (Auto) 7.7H, Basophils (%) ( Auto) 0.5, Neutrophils # (Auto) 5.2, Lymphocytes # (Auto) 1.4L, Monocytes # ( Auto) 0.6, Eosinophils # (Auto) 0.6H, Basophils # (Auto) 0.0, Blood Urea Nitrogen 52H, Creatinine 1.59H, Sodium Level 136, Potassium Level 3.9, Chloride Level 101, Carbon Dioxide Level 30, Calcium Level 7.6L, Glomerular Filtration Rate 47.0L, Large Unclassified Cells # 0.2, Large Unclassified Cells % 2.6 CBC/BMP Laboratory Tests 06/01/16 05:20 Calcium Level 7.6 L, Red Blood Count 3.81 L, Mean Corpuscular Volume 84.3, Mean Corpuscular Hemoglobin 25.5 L, Mean Corpuscular Hemoglobin Concent 30.3 L, Red Cell Distribution Width 19.7 H, Neutrophils (%) (Auto) 66.6 H, Lymphocytes (%) ( Auto) 15.2 L, Monocytes (%) (Auto) 7.4 H, Eosinophils (%) (Auto) 7.7 H, Basophils (%) (Auto) 0.5, Neutrophils # (Auto) 5.2, Lymphocytes # (Auto) 1.4 L, Monocytes # (Auto) 0.6, Eosinophils # (Auto) 0.6 H, Basophils # (Auto) 0.0 Microbiology Microbiology 05/27/16 Blood Culture - Preliminary, Resulted No Growth after 72 hours. All specime... 05/27/16 Blood Culture - Final, Complete NO GROWTH AFTER 5 DAYS 05/27/16 Acid Fast Stain, Received Pending 05/27/16 Mycobacterial Culture, Received Pending 05/27/16 Fungal Smear, Received Pending 05/27/16 Fungal Culture, Received Pending 05/27/16 Gram Stain - Final, Complete 05/27/16 Anaerobic Culture - Final, Complete 05/27/16 Body Fluid Culture - Final, Complete JUSTIN HAN MD Jun 01, 2016 12:34
--- NOTE | 2016-06-01 12:43 | IPN ---
DATE: 06/01/2016 Mr. Rice continues to make progress. His chest tube output is less than yesterday. He is breathing well. His vital signs show a maximum temperature (t-max) of 97.8 with a heart rate that ranges between 74 and 64 in a sinus rhythm, respiratory rate of 18 to 20 without the use of accessory muscles, who is 94% saturated on room air. His blood pressure is ranging between 126/60 to 116/55. His intake and output over the past 24 hours has been recorded as 1520 in and 3210 out for a negativity of 1790 mL. Chest tube has put out 535 mL compared to 855 mL yesterday. He weighs 126.2 kg today compared to 126.5 yesterday. He has put out 200 mL in the last 12 hours from the chest tube. That is compared 440 that he put out yesterday in the same time period. PHYSICAL EXAMINATION: LUNGS: He has crackles in the right lower hemithorax. These occur during inspiration and do not clear with coughing. Percussion note is full to the diaphragm. CARDIAC EXAM: Without murmurs, clicks, gallops or rubs. I cannot feel his point of maximum impulse (PMI) through his morbid obesity. S1, S2 are normal. ABDOMEN: Soft, nontender. Bowel sounds positive. There is no costovertebral angle tenderness. I cannot feel any hepatomegaly through the morbid obesity. EXTREMITIES: Show no thigh edema. No differential swelling of the upper extremities. There is no hand edema. SKIN: Warm, dry and perfused without cyanosis or mottling, including that of the nail beds and knees. NECK: Supple. There is no jugular venous distention. No subcutaneous emphysema. Trachea is midline. MOUTH: Shows his mucous membranes to be pink and moist. Lips and commissures without lesions. There is no thrush. EYES: Show his pupils to be equal and reactive. Extraocular motion intact. Sclerae anicteric. NEUROLOGIC: Shows II through XII intact with gross motor and gross sensation intact. Gait is not tested. PSYCHIATRIC: Shows him to be awake and alert, oriented times three with appropriate mood and affect and conversational. His white count today is 7.8 with a hemoglobin and hematocrit of 9.7 and 32.1. Platelet count is 259 and stable. Differential shows 66% neutrophils, 15% lymphocytes, 7% monocytes. There are no immature forms and no toxic granulations. His electrolytes have now completely normalized. BUN and creatinine continue to improve at 52 and 1.59 from 53 and 1.62 yesterday and 55 and 2.08 on 05/29/2016. His chest x-ray shows his lung fully expanded to the chest wall. Costophrenic angles are sharp. I see now infiltrates, either on the PA view or on the lateral view. Posterior costophrenic angles are also sharp. Chest tube is in good place. There is no subcutaneous emphysema. Nursing staff did notice that he had an air leak, although I do not see one on seeing him on my rounds. IMPRESSION: 1. Congestive heart failure (CHF). 2. Renal failure secondary to number 1, improving. 3. Pleural effusion secondary to number 1, hopefully improving. 4. Diabetes. 5. Peripheral vascular disease. 6. Hypothyroidism. 7. Hypertension. 8. Status post multiple CVAs. PLAN AND DISCUSSION: We will continue to follow Dr. Curry's recommendations. It looks as though he is progressing well and his kidney function is improving. He is still putting out too much from the chest tube for me to remove it.
[2016-06-01] MEDS: NORCO, ANEXSIA 5/325MG TABLET (HYDROcodone/ACETAMINOPHEN) PO PRN ×2 (15:06→20:33)
--- NOTE | 2016-06-01 17:51 | IPN ---
DATE: 06/01/2016 TIME: 5:12 PM SUBJECTIVE: The patient is not bothered by any exertional dyspnea with low levels of activity in the room. No orthopnea or paroxysmal nocturnal dyspnea (PND). He reports the edema in his thighs has nearly resolved. No chest pain or chest discomfort. No palpitations, no presyncope or syncope. Overall he reports feeling well. PHYSICAL EXAMINATION: Pleasant, obese, man who was not in any respiratory or psychological distress. Weight 126.2 kg. Temperature 98.6, pulse 70 (irregularly irregular), respiratory rate 20, blood pressure 132/74, O2 saturation 94% on room air. Input and output for the 24 hours of 05/31/2016 showed net negative 1690 mL. Chest tube output was 535 mL and urine output was 2675 mL. Jugular venous pulsations were at 12 cm. Midline sternal scar present. First and second heart sounds variable in intensity. No S3 or murmurs appreciated. Respiratory expansion effort was good. No crackles or wheezes. 3-4 mm of pitting edema was present over the upper thighs and lower abdomen. LABS: 06/01/2016: Sodium 136, potassium 3.9, chloride 101, CO2 30, BUN 52, creatinine 1.59, estimated GFR 47.0, glucose 107. ASSESSMENT AND PLAN: 1. Heart failure (acute on chronic, systolic and diastolic). The patient remains decompensated, but is continuing to improve. He has an excellent net fluid negative balance. Renal function has continued to get better. Blood pressure is well controlled. I will increase metoprolol succinate to 37.5 mg daily. Continue furosemide 80 mg IV every 8 hours, hydralazine 10 mg four times a day, isosorbide dinitrate 30 mg three times a day. 2. Ischemic cardiomyopathy. As per heart failure category above. 3. Coronary artery disease (CAD) without angina. The patient is status post coronary artery bypass graft (CABG) and prior old myocardial infarct. He remains angina free. As mentioned above, metoprolol succinate will be increased to 37.5 mg daily. Continue aspirin 81 mg, isosorbide dinitrate, atorvastatin 40 mg at bedtime. 4. Systemic hypertension. Blood pressure controlled. As noted above, metoprolol succinate was increased to 37.5 mg daily. Continue IV furosemide, hydralazine and isosorbide dinitrate at the current dosages. 5. Chronic atrial fibrillation. Heart rate controlled. Continue low dose aspirin, Eliquis, and as noted above the dosage of metoprolol succinate was increased to 37.5 mg daily. 6. Old myocardial infarct. As per CAD category above. 7. Status post CABG. As per CAD category above.
[2016-06-01] MEDS: ATORVASTATIN 20 MG TAB PO SCH (20:32)
[2016-06-01] MEDS: traZODone 50 MG TAB PO SCH (20:32)
[2016-06-02] VITALS (7 sets, daily range): BP systolic 108–140; BP diastolic 58–75
[2016-06-02] MEDS: LEVALBUTEROL 1.25 MG/0.5 ML CONCENTRATE NEB NEB SCH ×4 (02:04→20:07)
[2016-06-02] MEDS: FUROSEMIDE 100 MG/10 ML VIAL (J1940) IV SCH ×3 (03:54→20:47)
[2016-06-02] MEDS: SLF 3 ML SYR IV SCH ×3 (03:55→20:49)
[2016-06-02 05:52] LABS: BASO % 0.5 % (0.0-1.0); EOS # 0.6 K/mm3 (0.0-0.50); EOS % 8.6 % (0.0-3.0); LARGE UNSTAINED CELL # 0.3 K/mm3 (0.0-0.4); LYMPH # 1.3 K/mm3 (1.5-4.5); LYMPH % 18.2 % (24.0-44.0); MEAN CORPUSCULAR HGB CONC 30.7 g/dl (32.0-36.5); MEAN CORPUSCULAR VOLUME 84.8 fl (80.0-96.0); MONO # 0.6 K/mm3 (0.0-0.8); MONO % 8.6 % (0.0-5.0); NEUTROPHILS # 4.4 K/mm3 (1.8-7.7); NEUTROPHILS % 60.1 % (36.0-66.0); PLATELET COUNT, AUTOMATED 251 k/mm3 (150-450); RED CELL DISTRIBUTION WIDTH 19.9 % (11.5-14.5); WHITE BLOOD COUNT 7.3 K/mm3 (4.0-10.0)
[2016-06-02 05:54] LABS: CALCIUM LEVEL 7.8 MG/DL (8.8-10.2); CREATININE FOR GFR 1.52 MG/DL (0.70-1.30); GLOMERULAR FILTRATION RATE 49.6 (>49); POTASSIUM SERUM 3.9 MEQ/L (3.5-5.1)
[2016-06-02] MEDS: ISOSORBIDE DIN. (ISORDIL) 30 MG TAB PO SCH ×3 (06:30→16:39)
--- NOTE | 2016-06-02 08:29 | REP ---
PA and lateral chest: Comparison is 06/01/2016. The right chest tube is unchanged. Cardiomegaly is unchanged. Elevation of the right hemidiaphragm is unchanged. The lung mix are clear. The janneth, mediastinum, bony thorax are unremarkable. Impression: There is no significant interval change. Signed by Per Collins MD 06/02/2016 08:21 A
[2016-06-02] MEDS: HumaLOG INSULIN (NovoLOG) PER UNIT SC SCH ×4 (08:47→20:56)
[2016-06-02] MEDS ORDERED: METOPROLOL SUCC *XL* 25MG TAB (TopROL *XL*) PO SCH (09:00)
[2016-06-02] MEDS: FAMOTIDINE 20 MG TAB PO SCH ×2 (09:49→20:48)
[2016-06-02] MEDS: DOCUSATE SODIUM 100 MG CAP PO SCH ×2 (09:49→20:49)
[2016-06-02] MEDS: APIXABAN 5 MG TAB (ELIQUIS) PO SCH ×2 (09:49→20:49)
[2016-06-02] MEDS: LEVEMIR (INSULIN DETEMIR) 1 UNITS/0.01ML SC SCH ×2 (09:50→20:47)
[2016-06-02] MEDS: MOM 30ML SUSPENSION UDC PO SCH (09:50)
[2016-06-02] MEDS: **hydrALAZINE** 10 MG TAB PO SCH ×4 (09:50→20:48)
[2016-06-02] MEDS: SANTYL OINT 30GM TOP SCH (09:51)
--- NOTE | 2016-06-02 11:10 | IPN ---
DATE: 06/02/2016: Mr. Rice continues to feel well without shortness of breath. There is no cough or sputum production. He has put out less today from his chest tube but not enough to take it out. His vital signs show a T-max of 99.3 with a heart rate that ranges between 64 and 90 and is in atrial fibrillation. His respiratory rate is 16 to 20 without the use of accessory muscles and he is 96% saturated on room air. Blood pressures range between 124/69 to 131/63. His intake and output over the past 24 hours is recorded at 640 in and 2900 out for a negativity of 2200 mL. He has put out 475 mL out of the chest tube today compared to 535 yesterday and 1125 on 05/28/2016. He weighs 125 kilograms today compared to a 126.2 kilograms yesterday. On physical examination he has inspiratory rales in the right lower hemithorax. These do not clear with coughing. Percussion note is full to the diaphragm. Cardiac exam is without murmurs, clicks, gallops or rubs. I cannot feel his point of maximum impulse (PMI) through his morbid obesity. S1 and S2 are normal. He has an irregular rate and rhythm. Abdomen is soft and nontender. Bowel sounds are positive. There is no hepatomegaly. No CVA tenderness. Extremities still show no thigh edema. Skin is warm, dry and perfused without cyanosis or mottling. Neck is supple. There is no jugular venous distention. No subcutaneous emphysema. Trachea is midline. Mouth shows his mucous membranes to be pink and moist. Lips and commissures are without lesions. There is no thrush. Eyes show his pupils to be equal and reactive. Extraocular movements intact. Sclerae nonicteric. Neurologic shows II-XII intact along with gross motor and gross sensation intact. Gait is not tested. Psychiatric showed him to be awake, alert and oriented times three with appropriate and affect and conversational. His white count today is 7.3 and his hemoglobin and hematocrit are 9.6 and 31.2. Platelet count is 251 and differential shows 60% neutrophils, 80% lymphocytes, 8% monocytes. There are immature forms or toxic granulations. His electrolytes show sodium of 134, with a potassium 3.9. BUN and creatinine are 47 and 1.52 continuing to improve from yesterday of 52 and 1.59. Calcium 7.8 with a glucose of 162. There are no blood gases on his today. His chest x-ray shows the lung fully expanded to the chest wall. Costophrenic angles are sharp. I do not see any infiltrates either on the PA view or on the lateral view. IMPRESSION: 1. Congestive heart failure. 2. Renal failure secondary to #1 improving. 3. Pleural effusion secondary to #1, improving. 4. Diabetes. 5. Peripheral vascular disease. 6. Hypothyroidism. 7. Hypertension. 8. Status post multiple cerebrovascular accidents (CVAs). PLAN AND DISCUSSION: He is still putting out too much out of the chest tube, but it is going in the right direction. We will continue to treat him medically for his underlying heart failure. When his chest tube drains less than 200, I will remove it.
--- NOTE | 2016-06-02 12:33 | IPNPDOC ---
Subjective Date Seen The patient was seen on 06/02/16. Subjective Chief Complaint/HPI The patient is a 65-year-old male admitted with a reason for visit of Pleural Effusion. Events since last encounter no complaints Objective Physical Examination General Exam: Positive: Alert, No Acute Distress Eye Exam: Positive: Conjunctiva & lids normal, EOMI, PERRLA, Negative: Sclera icteric ENT Exam: Positive: Atraumatic, Mucous membr. moist/pink, Pharynx Normal Neck Exam: Positive: Supple, Negative: JVD, thyromegaly Chest Exam: Positive: Clear to auscultation, Normal air movement, Other (has right chest tube) Heart Exam: Positive: Normal S1, Normal S2, Rate Normal, Regular Rhythm, Negative: Murmurs, Rubs Abdomen Exam: Positive: Normal bowel sounds, Soft, Negative: Hepatospenomegaly, Tenderness Extremity Exam: Positive: Other (has bilateral below knee amputations. ) Skin Exam: Positive: Lesion (infected stump of right lower extremity.) Assessment /Plan Problems (1) Pleural effusion on right Status: Acute Problem Text: due to decompensated CHF now has chest tube (2) Systolic and diastolic CHF, acute on chronic Status: Acute Problem Text: follow cardiology recommendations will continue with diuresis. (3) PVD (peripheral vascular disease) Status: Chronic Problem Text: had stenting done on the right in mar 2016 (4) DM2 (diabetes mellitus, type 2) Status: Chronic (5) CKD (chronic kidney disease), stage III Status: Chronic (6) HTN (hypertension) Status: Chronic (7) Hypothyroid Status: Chronic (8) CAD (coronary artery disease) Status: Chronic Problem Text: h/o cabg in 2002 and also cardiac stents. 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 follows with Dr Noyola. (15) DVT (deep venous thrombosis) Status: Chronic Problem Text: on eliquis (16) History of osteomyelitis Status: Chronic Problem Text: had 8 weeks of iv antibiotics in jan and feb will need further amputation of the right stump after cleared from cardiology Plan/VTE VTE Prophylaxis Ordered?: Yes VS, I&O, 24H, Fishbone Vital Signs/I&O Vital Signs Date Time Temp Pulse Resp B/P Pulse Ox O2 Delivery O2 Flow Rate FiO2 06/02/16 12:28 130/73 06/02/16 12:00 97.9 65 18 98 Room Air 06/01/16 15:40 1.0 I&O- Last 24 Hours up to 6 AM 06/02/16 06:00 Intake Total 690 ml Output Total 2885 ml Balance -2195 ml Laboratory Data 24H LABS Laboratory Tests 2 06/01/16 16:19: Bedside Glucose (Misc Panel) 190H 06/01/16 20:28: Bedside Glucose (Misc Panel) 171H 06/02/16 05:11: Anion Gap 7L, White Blood Count 7.3, Red Blood Count 3.68L, Hemoglobin 9.6L, Hematocrit 31.2L, Mean Corpuscular Volume 84.8, Mean Corpuscular Hemoglobin 26.0L, Mean Corpuscular Hemoglobin Concent 30.7L, Red Cell Distribution Width 19.9H, Platelet Count 251, Neutrophils (%) (Auto) 60.1, Lymphocytes (%) (Auto) 18.2L, Monocytes (%) (Auto) 8.6H, Eosinophils (%) (Auto) 8.6H, Basophils (%) ( Auto) 0.5, Neutrophils # (Auto) 4.4, Lymphocytes # (Auto) 1.3L, Monocytes # ( Auto) 0.6, Eosinophils # (Auto) 0.6H, Basophils # (Auto) 0.0, Blood Urea Nitrogen 47H, Creatinine 1.52H, Sodium Level 134L, Potassium Level 3.9, Chloride Level 100, Carbon Dioxide Level 27, Calcium Level 7.8L, Glomerular Filtration Rate 49.6, Large Unclassified Cells # 0.3, Large Unclassified Cells % 4.0 06/02/16 12:15: Bedside Glucose (Misc Panel) 231H CBC/BMP Laboratory Tests 06/02/16 05:11 Calcium Level 7.8 L, Red Blood Count 3.68 L, Mean Corpuscular Volume 84.8, Mean Corpuscular Hemoglobin 26.0 L, Mean Corpuscular Hemoglobin Concent 30.7 L, Red Cell Distribution Width 19.9 H, Neutrophils (%) (Auto) 60.1, Lymphocytes (%) ( Auto) 18.2 L, Monocytes (%) (Auto) 8.6 H, Eosinophils (%) (Auto) 8.6 H, Basophils (%) (Auto) 0.5, Neutrophils # (Auto) 4.4, Lymphocytes # (Auto) 1.3 L, Monocytes # (Auto) 0.6, Eosinophils # (Auto) 0.6 H, Basophils # (Auto) 0.0 Microbiology Microbiology 05/27/16 Blood Culture - Final, Complete NO GROWTH AFTER 5 DAYS 05/27/16 Blood Culture - Final, Complete NO GROWTH AFTER 5 DAYS 05/27/16 Acid Fast Stain - Final, Resulted 05/27/16 Mycobacterial Culture, Resulted Pending 05/27/16 Fungal Smear - Final, Resulted 05/27/16 Fungal Culture, Resulted Pending 05/27/16 Gram Stain - Final, Complete 05/27/16 Anaerobic Culture - Final, Complete 05/27/16 Body Fluid Culture - Final, Complete JUSTIN HAN MD Jun 02, 2016 12:33
--- NOTE | 2016-06-02 16:06 | IPN ---
DATE: 06/02/2016 TIME OF SERVICE: 3:34 p.m. OBJECTIVE: Patient is not having any dyspnea with low levels of activity. No orthopnea or paroxysmal nocturnal dyspnea (PND). He reports overall he is feeling well. He reports edema in his thighs has nearly resolved. PHYSICAL EXAMINATION: Pleasant, obese man, who is not in any respiratory or psychological distress. Status post bilateral below-knee amputations. Temperature 97.9, pulse 65 (irregularly irregular), respiratory rate 18, blood pressure 130/73, oxygen saturation 98% on room air. Jugular venous pulsations were at 15 cm with the patient sitting up. Midline sternal scar well-healed. First and second heart sounds variable. No S3 or murmurs appreciated. Respiratory expansion and effort was good. No crackles or wheezes. Abdomen was soft, nontender, with normal bowel sounds. 2-3 mm of pitting edema was present over the thighs bilaterally. LABORATORY DATA: 06/02/2016: Sodium 134, potassium 3.9, chloride 100, CO2 27, BUN 47, creatinine 1.52, estimated GFR 49.6, glucose 162. ASSESSMENT AND PLAN: 1. Heart failure (acute on chronic, systolic and diastolic). Patient remains decompensated but is improving. He was net negative 2260 mL for the 24 hours of 06/01/2016. Urine output during that period of time was 2425 mL and chest tube drainage was 475 mL. Weight today was 125 kg which is down 1.2 kg from yesterday. The plan will be to continue the current heart failure regimen consisting of furosemide 40 mg IV every 8 hours, hydralazine 10 mg four times a day, isosorbide mononitrate 30 mg four times a day. I will increase the metoprolol succinate to 50 mg daily. 2. Ischemic cardiomyopathy. As per heart failure category above. 3. Coronary artery disease ([employer] vessel) without angina. Prior myocardial infarct. Status post coronary artery bypass graft (CABG). No anginal symptoms. Continue aspirin, atorvastatin 40 mg nightly, isosorbide mononitrate. As noted above, metoprolol succinate was increased to 50 mg daily. 4. Systemic hypertension. Blood pressure controlled. Continue the current antihypertensive regimen consisting of furosemide IV, hydralazine, isosorbide mononitrate. As noted above, metoprolol succinate was increased to 50 mg daily. 5. Chronic atrial fibrillation. Heart rate controlled. Will increase metoprolol succinate to 50 mg daily. Continue aspirin and Eliquis. 6. Old myocardial infarct. As per coronary artery disease (CAD) category above. 7. Status post coronary artery bypass graft (CABG). As per coronary artery disease (CAD) category above.
[2016-06-02] MEDS: ATORVASTATIN 20 MG TAB PO SCH (20:48)
[2016-06-02] MEDS: traZODone 50 MG TAB PO SCH (20:48)
[2016-06-03] MEDS: LEVALBUTEROL 1.25 MG/0.5 ML CONCENTRATE NEB NEB SCH ×4 (01:37→19:51)
[2016-06-03] MEDS: SLF 3 ML SYR IV SCH ×3 (04:33→21:45)
[2016-06-03] MEDS: FUROSEMIDE 100 MG/10 ML VIAL (J1940) IV SCH ×3 (04:33→21:41)
[2016-06-03 04:45] VITALS: BP 133/62
[2016-06-03] MEDS: ISOSORBIDE DIN. (ISORDIL) 30 MG TAB PO SCH ×3 (06:30→16:54)
--- NOTE | 2016-06-03 07:49 | IPN ---
DATE: 06/03/2016 Mr. Rice continues to show improvement with regard to his chest tube output. His pain at the chest tube site seems to be well controlled. Vital signs show T-max of 98.8 with a heart rate that ranges between 56 and 64 in atrial fibrillation, respiratory rate of 16 to 18 without the use of accessory muscles who is 98 to 96% saturated on room air and has blood pressures ranging between 108/58 to 133/62. His intake and output over the past 24 hours has been recorded as 1310 in and 2285 out for a negativity of 975 mL. He has put out 360 mL compared to 475 mL yesterday. His weight is down to 123.1 kg compared to 125 kg yesterday. On physical examination, his lungs show normal vesicular sounds on either side. Today I hear no wheezes, rhonchi or rales. Percussion note is full to the diaphragm. Cardiac exam is without murmurs, clicks, gallops or rubs. I cannot feel his PMI. S1 and S2 are normal. Abdomen is soft, nontender, bowel sounds are positive. There is no hepatomegaly. No CVA tenderness. Extremities show no thigh edema. No differential swelling of the upper extremities. Skin is warm, dry and perfused without cyanosis or mottling including that of the nail beds and knees. Neck is supple. There is no jugular venous distention. No subcutaneous emphysema. Trachea is midline. Mouth shows his mucous membranes to be pink and moist. Lips and commissures are without lesions. No thrush. Eyes show his pupils to be equal and reactive. Extraocular motor intact. Sclera anicteric. Neuro shows II through XII intact with gross motor and gross sensation intact. Gait is not tested. Psychiatric shows him to be awake and alert, oriented times three with appropriate mood and affect and conversational. His labs are still pending as is his x-ray and I will check them later this morning. IMPRESSION: 1. Congestive heart failure. 2. Renal failure secondary to #1 improving. 3. Pleural effusion secondary to #1 improving. 4. Diabetes. 5. Peripheral vascular disease. 6. Hypothyroidism. 7. Hypertension. 8. Status post multiple cerebrovascular accidents (CVA)s. PLAN AND DISCUSSION: The diuresis is continuing. He is making good progress with regard to his chest tube output and it is going down every day. We are aiming for an output of less than 200 mL per day. I will reorder his labs for the next few days.
[2016-06-03 08:00] VITALS: BP 130/61
--- NOTE | 2016-06-03 08:36 | REP ---
Chest x-ray: Two views. History: Pleural effusion. Comparison chest x-ray June 02, 2016. Findings: A right chest tube remains in place posteriorly. There is no visible pleural effusion. A tiny sliver of apical pleural air is seen unchanged. No significant pneumothorax is appreciated. Right hemidiaphragm remains somewhat elevated. No new infiltrate is seen. Cardiomegaly post sternotomy again seen. Impression: Right chest tube in place. Signed by Prateek Cruz MD 06/03/2016 12:47 P
[2016-06-03] MEDS: HumaLOG INSULIN (NovoLOG) PER UNIT SC SCH ×4 (08:44→21:45)
[2016-06-03] MEDS: DOCUSATE SODIUM 100 MG CAP PO SCH ×2 (08:50→21:44)
[2016-06-03] MEDS: MOM 30ML SUSPENSION UDC PO SCH (08:50)
[2016-06-03] MEDS: ASPIRIN 81 MG ENTERIC TAB PO SCH (08:51)
[2016-06-03] MEDS: APIXABAN 5 MG TAB (ELIQUIS) PO SCH ×2 (08:51→21:43)
[2016-06-03] MEDS: FAMOTIDINE 20 MG TAB PO SCH ×2 (08:51→21:44)
[2016-06-03] MEDS: **hydrALAZINE** 10 MG TAB PO SCH ×3 (08:52→16:55)
[2016-06-03] MEDS: METOPROLOL SUCC (TopROL XL) 50MG **XL** TAB PO SCH (08:53)
[2016-06-03] MEDS: LEVEMIR (INSULIN DETEMIR) 1 UNITS/0.01ML SC SCH ×2 (09:39→21:44)
[2016-06-03] MEDS: SANTYL OINT 30GM TOP SCH (09:41)
[2016-06-03 09:52] LABS: MEAN CORPUSCULAR HEMOGLOBIN 25.4 pg (27.0-33.0); MEAN CORPUSCULAR HGB CONC 30.4 g/dl (32.0-36.5); MEAN CORPUSCULAR VOLUME 83.4 fl (80.0-96.0); WHITE BLOOD COUNT 7.9 K/mm3 (4.0-10.0)
[2016-06-03 10:25] LABS: CALCIUM LEVEL 8.1 MG/DL (8.8-10.2); CREATININE FOR GFR 1.42 MG/DL (0.70-1.30); GLOMERULAR FILTRATION RATE 53.6 (>49); POTASSIUM SERUM 3.8 MEQ/L (3.5-5.1)
--- NOTE | 2016-06-03 11:10 | IPNPDOC ---
Subjective Date Seen The patient was seen on 06/03/16. Subjective Chief Complaint/HPI The patient is a 65-year-old male admitted with a reason for visit of Pleural Effusion. Events since last encounter no complaints. Objective Physical Examination General Exam: Positive: Alert, No Acute Distress Eye Exam: Positive: Conjunctiva & lids normal, EOMI, PERRLA, Negative: Sclera icteric ENT Exam: Positive: Atraumatic, Mucous membr. moist/pink, Pharynx Normal Neck Exam: Positive: Supple, Negative: JVD, thyromegaly Chest Exam: Positive: Clear to auscultation, Normal air movement, Other (has right chest tube) Heart Exam: Positive: Normal S1, Normal S2, Rate Normal, Regular Rhythm, Negative: Murmurs, Rubs Abdomen Exam: Positive: Normal bowel sounds, Soft, Negative: Hepatospenomegaly, Tenderness Extremity Exam: Positive: Other (has bilateral below knee amputations. ) Skin Exam: Positive: Lesion (infected stump of right lower extremity.) Assessment /Plan Problems (1) Systolic and diastolic CHF, acute on chronic Status: Acute Response to Treatment: Improving Problem Text: follow cardiology recommendations will continue with diuresis. (2) Pleural effusion on right Status: Acute Response to Treatment: Improving Problem Text: due to decompensated CHF now has chest tube (3) PVD (peripheral vascular disease) Status: Chronic Problem Text: had stenting done on the right in mar 2016 (4) DM2 (diabetes mellitus, type 2) Status: Chronic (5) CKD (chronic kidney disease), stage III Status: Chronic (6) HTN (hypertension) Status: Chronic (7) Hypothyroid Status: Chronic (8) CAD (coronary artery disease) Status: Chronic Problem Text: h/o cabg in 2002 and also cardiac stents. 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 follows with Dr Noyola. (15) DVT (deep venous thrombosis) Status: Chronic Problem Text: on eliquis (16) History of osteomyelitis Status: Chronic Problem Text: had 8 weeks of iv antibiotics in jan and feb will need further amputation of the right stump after cleared from cardiology Plan/VTE VTE Prophylaxis Ordered?: Yes VS, I&O, 24H, Fishbone Vital Signs/I&O Vital Signs Date Time Temp Pulse Resp B/P Pulse Ox O2 Delivery O2 Flow Rate FiO2 06/03/16 08:53 65 130/61 06/03/16 08:00 97.4 18 93 Room Air 06/01/16 15:40 1.0 I&O- Last 24 Hours up to 6 AM 06/03/16 06:00 Intake Total 1520 ml Output Total 2800 ml Balance -1280 ml Laboratory Data 24H LABS Laboratory Tests 2 06/02/16 12:15: Bedside Glucose (Misc Panel) 231H 06/02/16 16:06: Bedside Glucose (Misc Panel) 195H 06/02/16 20:46: Bedside Glucose (Misc Panel) 275H 06/03/16 06:29: Bedside Glucose (Misc Panel) 131H 06/03/16 09:41: Anion Gap 7L, Blood Urea Nitrogen 40H, Creatinine 1.42H, Sodium Level 136, Potassium Level 3.8, Chloride Level 100, Carbon Dioxide Level 29, Calcium Level 8.1L, Glomerular Filtration Rate 53.6 CBC/BMP Laboratory Tests 06/03/16 09:41 Calcium Level 8.1 L, Red Blood Count 3.83 L, Mean Corpuscular Volume 83.4, Mean Corpuscular Hemoglobin 25.4 L, Mean Corpuscular Hemoglobin Concent 30.4 L, Red Cell Distribution Width 20.0 H Microbiology Microbiology 05/27/16 Blood Culture - Final, Complete NO GROWTH AFTER 5 DAYS 05/27/16 Blood Culture - Final, Complete NO GROWTH AFTER 5 DAYS 05/27/16 Acid Fast Stain - Final, Resulted 05/27/16 Mycobacterial Culture, Resulted Pending 05/27/16 Fungal Smear - Final, Resulted 05/27/16 Fungal Culture, Resulted Pending 05/27/16 Gram Stain - Final, Complete 05/27/16 Anaerobic Culture - Final, Complete 05/27/16 Body Fluid Culture - Final, Complete JUSTIN HAN MD Jun 03, 2016 11:10
[2016-06-03 11:33] VITALS: BP 138/62
[2016-06-03 16:00] VITALS: BP 150/66
[2016-06-03] MEDS: NORCO, ANEXSIA 5/325MG TABLET (HYDROcodone/ACETAMINOPHEN) PO PRN (18:26)
[2016-06-03] MEDS: SPIRONOLACTONE 12.5MG PER 1/2 TABLET PO SCH (18:27)
[2016-06-03 19:48] VITALS: BP 126/58
[2016-06-03] MEDS: ATORVASTATIN 20 MG TAB PO SCH (21:42)
[2016-06-03] MEDS: traZODone 50 MG TAB PO SCH (21:43)
[2016-06-03 23:59] VITALS: BP 144/67
[2016-06-04] VITALS (7 sets, daily range): BP systolic 107–142; BP diastolic 53–70
[2016-06-04] MEDS: LEVALBUTEROL 1.25 MG/0.5 ML CONCENTRATE NEB NEB SCH ×4 (01:10→20:43)
[2016-06-04] MEDS: FUROSEMIDE 100 MG/10 ML VIAL (J1940) IV SCH (04:05)
[2016-06-04] MEDS: SLF 3 ML SYR IV SCH ×3 (04:05→20:41)
[2016-06-04 05:37] LABS: CALCIUM LEVEL 8.3 MG/DL (8.8-10.2); CREATININE FOR GFR 1.6 MG/DL (0.70-1.30); GLOMERULAR FILTRATION RATE 46.7 (>49)
[2016-06-04 05:39] LABS: BASO % 0.5 % (0.0-1.0); EOS # 0.6 K/mm3 (0.0-0.50); EOS % 8.7 % (0.0-3.0); LARGE UNSTAINED CELL # 0.2 K/mm3 (0.0-0.4); LARGE UNSTAINED CELL % 2.8 % (0.0-4.0); LYMPH # 1.1 K/mm3 (1.5-4.5); LYMPH % 16.3 % (24.0-44.0); MEAN CORPUSCULAR HEMOGLOBIN 26.5 pg (27.0-33.0); MEAN CORPUSCULAR HGB CONC 31.1 g/dl (32.0-36.5); MEAN CORPUSCULAR VOLUME 85.2 fl (80.0-96.0); MONO # 0.5 K/mm3 (0.0-0.8); MONO % 7.9 % (0.0-5.0); NEUTROPHILS # 4.4 K/mm3 (1.8-7.7); NEUTROPHILS % 63.9 % (36.0-66.0); PLATELET COUNT, AUTOMATED 254 k/mm3 (150-450); RED CELL DISTRIBUTION WIDTH 20.1 % (11.5-14.5); WHITE BLOOD COUNT 6.8 K/mm3 (4.0-10.0)
[2016-06-04] MEDS: **hydrALAZINE HCL** 25 MG TAB PO SCH ×3 (06:25→17:00)
[2016-06-04] MEDS: ISOSORBIDE DIN. (ISORDIL) 30 MG TAB PO SCH ×3 (06:25→17:00)
--- NOTE | 2016-06-04 07:43 | IPNPDOC ---
Subjective Date Seen The patient was seen on 06/04/16. Subjective Chief Complaint/HPI The patient is a 65-year-old male admitted with a reason for visit of Pleural Effusion. Events since last encounter No complaints this morning, sugars high since yesterday says the cafeteria did not send the right food. no fever or chills, no chest pain or SOB. Objective Physical Examination General Exam: Positive: Alert, No Acute Distress Eye Exam: Positive: Conjunctiva & lids normal, EOMI, PERRLA, Negative: Sclera icteric ENT Exam: Positive: Atraumatic, Mucous membr. moist/pink, Pharynx Normal Neck Exam: Positive: Supple, Negative: JVD, thyromegaly Chest Exam: Positive: Clear to auscultation, Normal air movement, Other (has right chest tube) Heart Exam: Positive: Normal S1, Normal S2, Rate Normal, Regular Rhythm, Negative: Murmurs, Rubs Abdomen Exam: Positive: Normal bowel sounds, Soft, Negative: Hepatospenomegaly, Tenderness Extremity Exam: Positive: Other (has bilateral below knee amputations. ) Skin Exam: Positive: Lesion (infected stump of right lower extremity.) Assessment /Plan Problems (1) Systolic and diastolic CHF, acute on chronic Status: Acute Response to Treatment: Improving Problem Text: follow cardiology recommendations will continue with diuresis. patient seems to be almost euvolemic , creatinine rising , will reduced lasix to bid. (2) Pleural effusion on right Status: Acute Response to Treatment: Improving Problem Text: due to decompensated CHF now has chest tube (3) PVD (peripheral vascular disease) Status: Chronic Problem Text: had stenting done on the right in mar 2016 (4) DM2 (diabetes mellitus, type 2) Status: Chronic Problem Text: uncontrolled will increase insulin. (5) CKD (chronic kidney disease), stage III Status: Chronic Problem Text: baseline creatinine around 1.3 to 1.5. (6) HTN (hypertension) Status: Chronic (7) Hypothyroid Status: Chronic (8) CAD (coronary artery disease) Status: Chronic Problem Text: h/o cabg in 2002 and also cardiac stents. 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 follows with Dr Noyola. (15) DVT (deep venous thrombosis) Status: Chronic Problem Text: on eliquis (16) History of osteomyelitis Status: Chronic Problem Text: had 8 weeks of iv antibiotics in jan and feb will need further amputation of the right stump after cleared from cardiology Plan/VTE VTE Prophylaxis Ordered?: Yes VS, I&O, 24H, Fishbone Vital Signs/I&O Vital Signs Date Time Temp Pulse Resp B/P Pulse Ox O2 Delivery O2 Flow Rate FiO2 06/04/16 07:35 Room Air 06/04/16 06:25 129/64 06/04/16 06:23 62 06/04/16 04:05 98.5 18 94 06/01/16 15:40 1.0 I&O- Last 24 Hours up to 6 AM 06/04/16 06:00 Intake Total 1440 ml Output Total 2880 ml Balance -1440 ml Laboratory Data 24H LABS Laboratory Tests 2 06/03/16 09:41: Anion Gap 7L, Blood Urea Nitrogen 40H, Creatinine 1.42H, Sodium Level 136, Potassium Level 3.8, Chloride Level 100, Carbon Dioxide Level 29, Calcium Level 8.1L, Glomerular Filtration Rate 53.6 06/03/16 11:31: Bedside Glucose (Misc Panel) 196H 06/03/16 16:37: Bedside Glucose (Misc Panel) 250H 06/03/16 21:32: Bedside Glucose (Misc Panel) 312H 06/04/16 04:50: Anion Gap 6L, White Blood Count 6.8, Red Blood Count 3.76L, Hemoglobin 10.0L, Hematocrit 32.1L, Mean Corpuscular Volume 85.2, Mean Corpuscular Hemoglobin 26.5L, Mean Corpuscular Hemoglobin Concent 31.1L, Red Cell Distribution Width 20.1H, Platelet Count 254, Neutrophils (%) (Auto) 63.9, Lymphocytes (%) (Auto) 16.3L, Monocytes (%) (Auto) 7.9H, Eosinophils (%) (Auto) 8.7H, Basophils (%) ( Auto) 0.5, Neutrophils # (Auto) 4.4, Lymphocytes # (Auto) 1.1L, Monocytes # ( Auto) 0.5, Eosinophils # (Auto) 0.6H, Basophils # (Auto) 0.0, Blood Urea Nitrogen 42H, Creatinine 1.60H, Sodium Level 134L, Potassium Level 4.0, Chloride Level 98, Carbon Dioxide Level 30, Calcium Level 8.3L, Glomerular Filtration Rate 46.7L, Large Unclassified Cells # 0.2, Large Unclassified Cells % 2.8 CBC/BMP Laboratory Tests 06/03/16 09:41 Calcium Level 8.1 L, Red Blood Count 3.83 L, Mean Corpuscular Volume 83.4, Mean Corpuscular Hemoglobin 25.4 L, Mean Corpuscular Hemoglobin Concent 30.4 L, Red Cell Distribution Width 20.0 H 06/04/16 04:50 Calcium Level 8.3 L, Red Blood Count 3.76 L, Mean Corpuscular Volume 85.2, Mean Corpuscular Hemoglobin 26.5 L, Mean Corpuscular Hemoglobin Concent 31.1 L, Red Cell Distribution Width 20.1 H, Neutrophils (%) (Auto) 63.9, Lymphocytes (%) ( Auto) 16.3 L, Monocytes (%) (Auto) 7.9 H, Eosinophils (%) (Auto) 8.7 H, Basophils (%) (Auto) 0.5, Neutrophils # (Auto) 4.4, Lymphocytes # (Auto) 1.1 L, Monocytes # (Auto) 0.5, Eosinophils # (Auto) 0.6 H, Basophils # (Auto) 0.0 Microbiology Microbiology 05/27/16 Blood Culture - Final, Complete NO GROWTH AFTER 5 DAYS 05/27/16 Blood Culture - Final, Complete NO GROWTH AFTER 5 DAYS 05/27/16 Acid Fast Stain - Final, Resulted 05/27/16 Mycobacterial Culture, Resulted Pending 05/27/16 Fungal Smear - Final, Resulted 05/27/16 Fungal Culture, Resulted Pending 05/27/16 Gram Stain - Final, Complete 05/27/16 Anaerobic Culture - Final, Complete 05/27/16 Body Fluid Culture - Final, Complete JUSTIN HAN MD Jun 04, 2016 07:43
--- NOTE | 2016-06-04 08:21 | REP ---
PA and lateral chest: By CT dated 05/27/2016 there was a large right pleural effusion. There is a right thoracotomy tube. The right pleural effusion is no longer present. There is a tiny right apical pneumothorax, unchanged from 06/03/2016. The right lung is otherwise clear. Left lung is clear. Sternotomy wires and borderline enlarged. Cardiac size are again noted, unchanged. Impression: No significant interval change from 06/03/2016. Signed by Per Collins MD 06/04/2016 08:13 A
[2016-06-04] MEDS: LEVEMIR (INSULIN DETEMIR) 1 UNITS/0.01ML SC SCH ×2 (09:28→20:40)
[2016-06-04] MEDS: MOM 30ML SUSPENSION UDC PO SCH (09:28)
[2016-06-04] MEDS: DOCUSATE SODIUM 100 MG CAP PO SCH ×2 (09:29→20:39)
[2016-06-04] MEDS: APIXABAN 5 MG TAB (ELIQUIS) PO SCH ×2 (09:29→20:39)
[2016-06-04] MEDS: METOPROLOL SUCC (TopROL XL) 50MG **XL** TAB PO SCH (09:29)
[2016-06-04] MEDS: SPIRONOLACTONE 12.5MG PER 1/2 TABLET PO SCH (09:29)
[2016-06-04] MEDS: FAMOTIDINE 20 MG TAB PO SCH ×2 (09:29→20:39)
[2016-06-04] MEDS: HumaLOG INSULIN (NovoLOG) PER UNIT SC SCH ×4 (09:29→20:40)
[2016-06-04] MEDS: SANTYL OINT 30GM TOP SCH (09:30)
--- NOTE | 2016-06-04 12:30 | IPN ---
DATE: 06/04/2016 Mr. Rice has again had a frustrating 24 hours. His chest tube output is considerably increased today. I am not sure why, and I wondering whether the intake and output is accurate as he was having very nice decreasing output over the last few days. He has only put out 100 mL in the past 8 hours. His vital signs show a maximum temperature (T max) of 99.3 with a heart rate that ranges between 68 and 55, in atrial fibrillation with a respiratory rate of 18 to 20 without the use of accessory muscles who is 94 to 98% saturated on room air and his blood pressure is ranging between 129/64 to 118/59. His intake and output the past 24 hours has been recorded as 1800 in and 3640 out for a negativity of 1800 mL. He is recorded as having 740 mL from the chest tube. There is no air leak. His weight is 123.5 kg today compared to 123.1 kg yesterday. PHYSICAL EXAMINATION: His lungs show normal vesicular sounds without wheezes, rhonchi or rales. Percussion note is full to the diaphragm. Cardiac exam shows him to be in slow atrial fibrillation without murmurs, clicks, gallops or rubs. I cannot feel his point of maximum impulse (PMI). S1, S2 are normal. Abdomen is soft and nontender. Bowel sounds are positive. There is no hepatomegaly. No costovertebral angle tenderness. Extremities show no thigh edema. There is no differential swelling of the upper extremities. His skin is warm, dry and perfused without cyanosis or mottling. Neck is supple. There is no jugular venous distention, no subcutaneous emphysema. Trachea is midline. Mouth shows his mucous membranes to be pink and moist. Lips and commissures without lesions. There is no thrush. Eyes show his pupils to be equal and reactive. Extraocular motions intact. Sclerae anicteric. Neurologic shows II-XII intact along with gross motor and gross sensation intact. Gait is not tested. Psychiatric shows him to be awake and alert, oriented times three with appropriate mood and affect and conversational. His white count today is 6.8 with a hemoglobin and hematocrit of 10.0 and 32.1, up from 9.7. Platelet count is 254 and his differential shows 63% neutrophils, 16% lymphocytes, 7% monocytes. There are no immature forms. No toxic granulations. His electrolytes are essentially normal with a marginally low sodium of 134. BUN and creatinine, however, has jumped to 42 and 1.60 from 40 and 1.42 yesterday. His calcium is 8.3 with a glucose 244. Chest x-ray today shows his lung fully expanded to the chest wall. Costophrenic angles are sharp. I see no other infiltrates. IMPRESSION: 1. Congestive heart failure. 2. Renal failure secondary to #1 with some deterioration. 3. Pleural effusion secondary to #1, again with increased chest tube output. 4. Diabetes. 5. Peripheral vascular disease. 6. Hypothyroidism. 7. Hypertension. 8. Status post multiple cerebrovascular accidents. PLAN AND DISCUSSION: He continues to be diuresed. His BUN and creatinine have gone up today as has his hemoglobin, indicating hemoconcentration. We still certainly need to diurese him. I am hoping that the markedly increased chest tube output is spurious. We will continue to observe him. We still continue to diurese him.
[2016-06-04] MEDS ORDERED: FUROSEMIDE 100 MG/10 ML VIAL (J1940) IV SCH (16:00)
[2016-06-04] MEDS: LEVOTHYROXINE 0.125 MG TAB (125 MCG) PO SCH (17:37)
[2016-06-04] MEDS: ATORVASTATIN 20 MG TAB PO SCH (20:39)
[2016-06-04] MEDS: traZODone 50 MG TAB PO SCH (20:39)
[2016-06-05] MEDS: LEVALBUTEROL 1.25 MG/0.5 ML CONCENTRATE NEB NEB SCH ×4 (01:56→20:04)
[2016-06-05 04:58] VITALS: BP 124/90
[2016-06-05] MEDS: ISOSORBIDE DIN. (ISORDIL) 30 MG TAB PO SCH ×3 (05:57→17:00)
[2016-06-05] MEDS: **hydrALAZINE HCL** 25 MG TAB PO SCH ×3 (05:58→17:00)
[2016-06-05] MEDS: SLF 3 ML SYR IV SCH ×3 (05:58→20:34)
[2016-06-05] MEDS: LEVOTHYROXINE 0.125 MG TAB (125 MCG) PO SCH (05:58)
[2016-06-05 06:40] LABS: BASO % 0.3 % (0.0-1.0); EOS # 0.6 K/mm3 (0.0-0.50); EOS % 7.8 % (0.0-3.0); LARGE UNSTAINED CELL # 0.2 K/mm3 (0.0-0.4); LARGE UNSTAINED CELL % 2.8 % (0.0-4.0); LYMPH # 1.1 K/mm3 (1.5-4.5); LYMPH % 13.3 % (24.0-44.0); MEAN CORPUSCULAR HGB CONC 32.9 g/dl (32.0-36.5); MEAN CORPUSCULAR VOLUME 85.1 fl (80.0-96.0); MONO # 0.6 K/mm3 (0.0-0.8); MONO % 7.8 % (0.0-5.0); NEUTROPHILS # 5.5 K/mm3 (1.8-7.7); NEUTROPHILS % 68.1 % (36.0-66.0); PLATELET COUNT, AUTOMATED 273 k/mm3 (150-450); RED CELL DISTRIBUTION WIDTH 19.9 % (11.5-14.5); WHITE BLOOD COUNT 8.1 K/mm3 (4.0-10.0)
[2016-06-05 07:00] LABS: CALCIUM LEVEL 8.4 MG/DL (8.8-10.2); CREATININE FOR GFR 1.54 MG/DL (0.70-1.30); GLOMERULAR FILTRATION RATE 48.8 (>49); POTASSIUM SERUM 3.9 MEQ/L (3.5-5.1)
[2016-06-05 08:00] VITALS: BP 120/68
[2016-06-05] MEDS: MOM 30ML SUSPENSION UDC PO SCH (08:52)
[2016-06-05] MEDS: METOPROLOL SUCC (TopROL XL) 50MG **XL** TAB PO SCH (08:52)
[2016-06-05] MEDS: HumaLOG INSULIN (NovoLOG) PER UNIT SC SCH ×4 (08:52→20:22)
[2016-06-05] MEDS: LEVEMIR (INSULIN DETEMIR) 1 UNITS/0.01ML SC SCH ×2 (08:53→20:33)
[2016-06-05] MEDS: FAMOTIDINE 20 MG TAB PO SCH ×2 (08:53→20:33)
[2016-06-05] MEDS: DOCUSATE SODIUM 100 MG CAP PO SCH ×2 (08:53→20:33)
[2016-06-05] MEDS: SPIRONOLACTONE 12.5MG PER 1/2 TABLET PO SCH (08:53)
[2016-06-05] MEDS: APIXABAN 5 MG TAB (ELIQUIS) PO SCH ×2 (08:53→20:33)
[2016-06-05] MEDS: SANTYL OINT 30GM TOP SCH (08:54)
--- NOTE | 2016-06-05 09:02 | REP ---
PA and lateral chest: Comparison is 2016. The right thoracotomy tube is unchanged. There is no right pleural effusion. There is a trace of pneumothorax in the right apex, unchanged. Left lung is clear. Cardiomegaly and sternotomy wires are again noted, unchanged. Impression: No interval change. Signed by Per Collins MD 06/05/2016 08:54 A
--- NOTE | 2016-06-05 09:59 | IPNPDOC ---
Subjective Date Seen The patient was seen on 06/05/16. Subjective Chief Complaint/HPI The patient is a 65-year-old male admitted with a reason for visit of Pleural Effusion. Events since last encounter no complaints. Objective Physical Examination General Exam: Positive: Alert, No Acute Distress Eye Exam: Positive: Conjunctiva & lids normal, EOMI, PERRLA, Negative: Sclera icteric ENT Exam: Positive: Atraumatic, Mucous membr. moist/pink, Pharynx Normal Neck Exam: Positive: Supple, Negative: JVD, thyromegaly Chest Exam: Positive: Clear to auscultation, Normal air movement, Other (has right chest tube) Heart Exam: Positive: Normal S1, Normal S2, Rate Normal, Regular Rhythm, Negative: Murmurs, Rubs Abdomen Exam: Positive: Normal bowel sounds, Soft, Negative: Hepatospenomegaly, Tenderness Extremity Exam: Positive: Other (has bilateral below knee amputations. ) Skin Exam: Positive: Lesion (infected stump of right lower extremity.) Assessment /Plan Problems (1) Systolic and diastolic CHF, acute on chronic Status: Acute Response to Treatment: Improving Problem Text: follow cardiology recommendations will continue with diuresis. patient seems to be almost euvolemic , reduced lasix to bid. (2) Pleural effusion on right Status: Acute Response to Treatment: Improving Problem Text: due to decompensated CHF now has chest tube (3) PVD (peripheral vascular disease) Status: Chronic Problem Text: had stenting done on the right in mar 2016 (4) DM2 (diabetes mellitus, type 2) Status: Chronic Problem Text: sugrs lowish yesterday pm . so insulin dosage again reduced. (5) CKD (chronic kidney disease), stage III Status: Chronic Problem Text: baseline creatinine around 1.3 to 1.5. (6) HTN (hypertension) Status: Chronic (7) Hypothyroid Status: Chronic (8) CAD (coronary artery disease) Status: Chronic Problem Text: h/o cabg in 2002 and also cardiac stents. 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 follows with Dr Noyola. (15) DVT (deep venous thrombosis) Status: Chronic Problem Text: on eliquis (16) History of osteomyelitis Status: Chronic Problem Text: had 8 weeks of iv antibiotics in jan and feb will need further amputation of the right stump after cleared from cardiology Plan/VTE VTE Prophylaxis Ordered?: Yes VS, I&O, 24H, Fishbone Vital Signs/I&O Vital Signs Date Time Temp Pulse Resp B/P Pulse Ox O2 Delivery O2 Flow Rate FiO2 06/05/16 08:52 63 124/90 06/05/16 07:30 Room Air 06/05/16 04:58 98.8 18 93 06/01/16 15:40 1.0 I&O- Last 24 Hours up to 6 AM 06/05/16 06:00 Intake Total 720 ml Output Total 3020 ml Balance -2300 ml Laboratory Data 24H LABS Laboratory Tests 2 06/04/16 11:51: Bedside Glucose (Misc Panel) 192H 06/04/16 16:53: Bedside Glucose (Misc Panel) 78L 06/04/16 19:57: Bedside Glucose (Misc Panel) 234H 06/05/16 04:46: Anion Gap 8, White Blood Count 8.1, Red Blood Count 3.76L, Hemoglobin 10.5L, Hematocrit 32.0L, Mean Corpuscular Volume 85.1, Mean Corpuscular Hemoglobin 28.0 , Mean Corpuscular Hemoglobin Concent 32.9, Red Cell Distribution Width 19.9H, Platelet Count 273, Neutrophils (%) (Auto) 68.1H, Lymphocytes (%) (Auto) 13.3L, Monocytes (%) (Auto) 7.8H, Eosinophils (%) (Auto) 7.8H, Basophils (%) (Auto) 0.3 , Neutrophils # (Auto) 5.5, Lymphocytes # (Auto) 1.1L, Monocytes # (Auto) 0.6, Eosinophils # (Auto) 0.6H, Basophils # (Auto) 0.0, Blood Urea Nitrogen 41H, Creatinine 1.54H, Sodium Level 137, Potassium Level 3.9, Chloride Level 99, Carbon Dioxide Level 30, Calcium Level 8.4L, Glomerular Filtration Rate 48.8L, Large Unclassified Cells # 0.2, Large Unclassified Cells % 2.8 CBC/BMP Laboratory Tests 06/05/16 04:46 Calcium Level 8.4 L, Red Blood Count 3.76 L, Mean Corpuscular Volume 85.1, Mean Corpuscular Hemoglobin 28.0, Mean Corpuscular Hemoglobin Concent 32.9, Red Cell Distribution Width 19.9 H, Neutrophils (%) (Auto) 68.1 H, Lymphocytes (%) (Auto ) 13.3 L, Monocytes (%) (Auto) 7.8 H, Eosinophils (%) (Auto) 7.8 H, Basophils (% ) (Auto) 0.3, Neutrophils # (Auto) 5.5, Lymphocytes # (Auto) 1.1 L, Monocytes # (Auto) 0.6, Eosinophils # (Auto) 0.6 H, Basophils # (Auto) 0.0 Microbiology Microbiology 05/27/16 Blood Culture - Final, Complete NO GROWTH AFTER 5 DAYS 05/27/16 Blood Culture - Final, Complete NO GROWTH AFTER 5 DAYS 05/27/16 Acid Fast Stain - Final, Resulted 05/27/16 Mycobacterial Culture, Resulted Pending 05/27/16 Fungal Smear - Final, Resulted 05/27/16 Fungal Culture, Resulted Pending 05/27/16 Gram Stain - Final, Complete 05/27/16 Anaerobic Culture - Final, Complete 05/27/16 Body Fluid Culture - Final, Complete JUSTIN HAN MD Jun 05, 2016 09:59
--- NOTE | 2016-06-05 10:04 | IPN ---
DATE: 06/05/2016 Mr. Rice has now put out less chest tube output than yesterday. In fact, he has lost weight. He is not complaining of shortness of breath. In discussing his right lower extremity, I was surprised to learn that he does not have a surgeon following him, according to Mr. Rice. This wound needs to be actively debrided, and I suspect he is going to need revision of the amputation if not an above-knee amputation. His vital signs show a maximum temperature (T max) of 99.1 with a heart rate that ranges between 63 and 61 in atrial fibrillation, with a respiratory rate of 18 to 20 without the use of accessory muscles, who is 93% saturated on room air and whose blood pressure is ranging between 124/90 to 115/56. His intake and output the past 24 hours has been recorded as 660 in and 2755 out for a negativity of approximately 2100 mL. Chest tube output is now down to 330 mL and his weight today is 121.5 kg compared to 123.5 kg yesterday. PHYSICAL EXAMINATION: His lungs show normal vesicular sounds. I hear no wheezes, rhonchi or rales. Percussion note is full to the diaphragm. Cardiac exam is without murmurs, clicks, gallops or rubs. I cannot feel his point of maximum impulse (PMI) through his morbid obesity. S1, S2 are normal. Rhythm is irregular. Abdomen is soft and nontender. Bowel sounds are positive. There is no hepatomegaly. No costovertebral angle tenderness. Extremities show no thigh edema. No differential swelling of the upper extremities. His skin is warm, dry and perfused without cyanosis or mottling. Neck is supple. There is no jugular venous distention, no subcutaneous emphysema. Trachea is midline. Mouth shows his mucous membranes to be pink and moist. Lips and commissures without lesions. There is no thrush. Eyes show his pupils to be equal and reactive. Extraocular motions intact. Sclerae anicteric. Neurologic shows II-XII intact along with gross motor and gross sensation intact. Gait is not tested. Psychiatric shows him to be awake and alert, oriented times three with appropriate mood and affect and conversational. White count today is 8.1 with a hemoglobin and hematocrit of 10.5 and 32.0. Platelet count is 273 and stable and differential shows 68% neutrophils, 13% lymphocytes, 7% monocytes. There are no immature forms. No toxic granulations. His electrolytes are normal with a BUN and creatinine of 41 and 1.54, markedly improved from yesterday's of 42 and 1.60. Calcium is 8.5 with a glucose of 142. Chest x-ray shows his lung fully expanded to the chest wall. The right costophrenic angle is sharp. There are no infiltrates. There is no subcutaneous emphysema and the mediastinum is in the midline. IMPRESSION: 1. Congestive heart failure. 2. Renal failure secondary to #1 with some improvement. 3. Pleural effusion secondary to #1 with decreasing chest tube output but not enough to pull the tube. 4. Diabetes. 5. Peripheral vascular disease. 6. Hypothyroidism. 7. Hypertension. 8. Status post multiple cerebrovascular accidents. PLAN AND DISCUSSION: I would recommend that we continue to aggressively diurese him. I am gratified that his BUN and creatinine have improved. I am aiming for a total chest tube output of 200 a day before I pull it out. I think he still has a way to go. As noted in the introduction, I am surprised to learn that he has no surgeon following him for his amputation. It has been months treating this leg, and it has a dense eschar and I do not think it is going to heal. Whether it can be revised with another below-knee amputation (BKA) or whether he would knee an above-knee amputation should be left to a surgeon, either a general surgeon or an orthopedic surgeon. I recommended consultation.
[2016-06-05 12:00] VITALS: BP 129/63
[2016-06-05 16:00] VITALS: BP 119/56
--- NOTE | 2016-06-05 16:21 | IPN ---
DATE: 06/05/2016 CARDIOLOGY PROGRESS NOTE SUBJECTIVE: Patient, at this point, is quite comfortable lying flat. No further problems with shortness of breath. On his current combination medical therapy and his impressive net negative fluid balance and weight loss, he is not complaining of any lightheadedness. No history of chest pain or palpitations. Continues with a chest tube in place. Remarks to me on his foul-smelling, nonhealing right lower extremity stump that Dr. Noyola has been monitoring for some time now. OBJECTIVE: Overweight, barrel-chested, late middle-age male laying comfortably flat. Heart rate 64 beats per minute (bpm) and somewhat irregular, blood pressure 118/58 supine, 122/54 sitting with legs dependent, respiratory rate 16 per minute, oxygen saturation 95% on room air. Currently afebrile. According to the medical record, he has had a 16 liter net negative fluid balance. Weight has decreased by 10 kg, 121.5 kg today. As mentioned, his nonhealing right lower extremity stump, which is currently bandaged, has a very foul odor. Slightly sallow complexion. No cyanosis. Trachea midline. Neck veins currently at the level of his clavicle sitting. Increased anteroposterior chest diameter with fairly good air entry over both lung mix at this time. No current inspiratory rales or expiratory wheezes. Shanks not palpable. S1 and S2 are slightly variable. No audible gallop or murmur. Normal carotid upstrokes, with variable volume. Has no more than plus/minus sacral pitting, but no lower extremity pitting at this time. 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 Very infrequent isolated premature ventricular contractions (PVCs). CHEST X-RAY: PA and left lateral study performed earlier this morning was reviewed independently and shows ongoing prominent cardiomegaly with slightly unfolded thoracic aorta. Some calcification in the aortic areas. Prominent proximal pulmonary vessels, but no current interstitial edema or pleural effusion. Sternotomy wire sutures from his remote coronary artery bypass graft (CABG) are readily visible. LABORATORY DATA: Blood work today showed a hemoglobin of 10.5, which is marginally increased from yesterday. Normal white blood cell count and platelet counts. Chemistry showed electrolyte balance with potassium 3.9, calcium 8.4, essentially stable BUN and creatinine measuring 41 and 1.5. Fasting glucose this morning 142. IMPRESSION/PLAN: 1. Heart failure [systolic and diastolic/acute on chronic]: From his examination today, I believe he is at his functional dry weight. I have stopped his intravenous (IV) diuretic therapy and will start back his customary oral Lasix 40 mg daily. He remains on a modest salt and low carbohydrate diet with 1500 mL fluid intake restriction. In light of his renal insufficiency, he is no longer on angiotensin-converting enzyme (TEO) inhibition, but tolerating his combination isosorbide dinitrate and hydralazine therapy well. In light of his soft heart rate, diabetes and heart failure, I have elected to switch his metoprolol succinate to a low dose carvedilol temporarily. I have ordered 3.125 mg by mouth every 6 hours with hold parameters for heart rate less than 70, systolic blood pressure less then 110, until we determine the dose he tolerates. His chest tube is still in position, but according to Dr. Parson's observations , chest tube drainage has been decreasing. Hopefully, this may be withdrawn within the next few days. 2. Atrial fibrillation [chronic]: His current ventricular response is perhaps somewhat slow and he is receiving a selective beta baron that would not be the drug of choice for his heart failure and diabetes mellitus. While he is in hospital, we will take this opportunity to convert this agent to carvedilol, as mentioned above. With his diuresis, his hemoglobin has remained fairly stable. No active bleeding on his current oral anticoagulation. 3. Abnormal EKG: No recent followup study. Admission tracing showing an incomplete left bundle branch block pattern with diffuse repolarization abnormalities. 4. Coronary artery disease [[place] vessel]/post inferior wall myocardial infarction (IWMI)/post coronary artery bypass graft (CABG): Has remained free of symptomatic myocardial ischemia while in hospital on restricted activity. I am confident he will tolerate the switch of his beta baron agents as mentioned. Unfortunately, because of his renal insufficiency, he was taken off TEO inhibition, but continues on moderate dose atorvastatin. Followup liver function studies have been requested. I anticipate these will show an improvement from his admission values. Continues on low dose aspirin, antiplatelet therapy. A followup EKG will be obtained tomorrow. 5. Hypertensive heart disease [benign, with heart failure]: As mentioned, on his current combination, isosorbide dinitrate, hydralazine, spironolactone, and metoprolol, his blood pressure would be considered adequately controlled. Unable to tolerate TEO inhibition because of his renal function. I am confident his blood pressure will tolerate the switch from metoprolol to carvedilol and, as mentioned, we are resuming his Lasix orally tomorrow morning. I anticipate his chest tube drainage will be decreasing sufficiently such that his chest tube may be removed within the next few days. I have spoken with Dr. Parson regarding his nonhealing right lower extremity stump. I understand he plans on discussing this with orthopedics. We will plan on continuing to follow him with you. I appreciate the opportunity to participate in his care. LYLE
[2016-06-05 19:40] VITALS: BP 126/61
[2016-06-05] MEDS: traZODone 50 MG TAB PO SCH (20:33)
[2016-06-05] MEDS: ATORVASTATIN 20 MG TAB PO SCH (20:33)
[2016-06-05 23:49] VITALS: BP 132/62
[2016-06-06] MEDS: LEVALBUTEROL 1.25 MG/0.5 ML CONCENTRATE NEB NEB SCH ×4 (01:50→20:06)
[2016-06-06 03:35] VITALS: BP 136/65
[2016-06-06 05:21] LABS: BASO % 0.5 % (0.0-1.0); EOS # 0.7 K/mm3 (0.0-0.50); EOS % 8.4 % (0.0-3.0); LARGE UNSTAINED CELL # 0.2 K/mm3 (0.0-0.4); LARGE UNSTAINED CELL % 2.8 % (0.0-4.0); LYMPH # 1.3 K/mm3 (1.5-4.5); LYMPH % 12.7 % (24.0-44.0); MEAN CORPUSCULAR HEMOGLOBIN 25.9 pg (27.0-33.0); MEAN CORPUSCULAR HGB CONC 30.8 g/dl (32.0-36.5); MEAN CORPUSCULAR VOLUME 83.8 fl (80.0-96.0); MONO # 0.6 K/mm3 (0.0-0.8); MONO % 6.8 % (0.0-5.0); NEUTROPHILS # 5.6 K/mm3 (1.8-7.7); NEUTROPHILS % 68.8 % (36.0-66.0); PLATELET COUNT, AUTOMATED 254 k/mm3 (150-450); WHITE BLOOD COUNT 8.1 K/mm3 (4.0-10.0)
[2016-06-06 05:50] LABS: ALBUMIN 2.3 GM/DL (3.2-5.2); ALBUMIN/GLOBULIN RATIO 0.45 (1.00-1.93); BILIRUBIN,TOTAL 0.8 MG/DL (0.2-1.0); CALCIUM LEVEL 8.1 MG/DL (8.8-10.2); CREATININE FOR GFR 1.65 MG/DL (0.70-1.30); GLOMERULAR FILTRATION RATE 45.1 (>49); TOTAL PROTEIN 7.4 GM/DL (6.4-8.2)
[2016-06-06] MEDS: CARVedilol 3.125 MG TAB PO SCH ×3 (06:03→17:25)
[2016-06-06 06:23] VITALS: BP 123/68
[2016-06-06] MEDS: ISOSORBIDE DIN. (ISORDIL) 30 MG TAB PO SCH ×3 (06:26→17:24)
[2016-06-06] MEDS: LEVOTHYROXINE 0.125 MG TAB (125 MCG) PO SCH (06:26)
[2016-06-06] MEDS: SLF 3 ML SYR IV SCH ×3 (06:26→20:59)
[2016-06-06] MEDS: **hydrALAZINE HCL** 25 MG TAB PO SCH ×3 (06:26→17:24)
[2016-06-06 08:00] VITALS: BP 125/61
--- NOTE | 2016-06-06 08:40 | REP ---
PA and lateral chest: Comparisons 06/05/2016. The right thoracotomy tube is unchanged. Trace of pneumothorax over the right apex is unchanged. Elevation of the right hemidiaphragm is unchanged. Left lung remains clear. Cardiomegaly and sternotomy wires are unchanged. Impression: There is no interval change. Signed by Per Collins MD 06/06/2016 08:30 A
[2016-06-06] MEDS: LEVEMIR (INSULIN DETEMIR) 1 UNITS/0.01ML SC SCH ×2 (08:54→20:58)
[2016-06-06] MEDS: ASPIRIN 81 MG ENTERIC TAB PO SCH (08:55)
[2016-06-06] MEDS: SPIRONOLACTONE 12.5MG PER 1/2 TABLET PO SCH (08:55)
[2016-06-06] MEDS: DOCUSATE SODIUM 100 MG CAP PO SCH ×2 (08:55→20:59)
[2016-06-06] MEDS: HumaLOG INSULIN (NovoLOG) PER UNIT SC SCH ×4 (08:55→20:51)
[2016-06-06] MEDS: APIXABAN 5 MG TAB (ELIQUIS) PO SCH ×2 (08:55→20:59)
[2016-06-06] MEDS: FAMOTIDINE 20 MG TAB PO SCH ×2 (08:55→20:59)
[2016-06-06] MEDS: FUROSEMIDE 40 MG TAB PO SCH (08:56)
[2016-06-06] MEDS: SANTYL OINT 30GM TOP SCH (08:57)
[2016-06-06] MEDS: MOM 30ML SUSPENSION UDC PO SCH (08:57)
--- NOTE | 2016-06-06 11:23 | IPNPDOC ---
Subjective Date Seen The patient was seen on 06/06/16. Subjective Chief Complaint/HPI The patient is a 65-year-old male admitted with a reason for visit of Pleural Effusion. Events since last encounter No new complaints, discharge from leg stump very foul smelling Have requested video consult with Dr Noyola, still significant chest tube drainage Objective Physical Examination General Exam: Positive: Alert, No Acute Distress Eye Exam: Positive: Conjunctiva & lids normal, EOMI, PERRLA, Negative: Sclera icteric ENT Exam: Positive: Atraumatic, Mucous membr. moist/pink, Pharynx Normal Neck Exam: Positive: Supple, Negative: JVD, thyromegaly Chest Exam: Positive: Clear to auscultation, Normal air movement, Other (has right chest tube) Heart Exam: Positive: Normal S1, Normal S2, Rate Normal, Regular Rhythm, Negative: Murmurs, Rubs Abdomen Exam: Positive: Normal bowel sounds, Soft, Negative: Hepatospenomegaly, Tenderness Extremity Exam: Positive: Other (has bilateral below knee amputations. ) Skin Exam: Positive: Lesion (infected stump of right lower extremity.) Assessment /Plan Problems (1) Systolic and diastolic CHF, acute on chronic Status: Acute Response to Treatment: Improving Problem Text: follow cardiology recommendations will continue with diuresis with lasix 40 mg daily continue hydralazine, isosorbide and coreg q 6 hours. cannot be on ACEI or ARB due to ckd. patient seems to be almost euvolemic , (2) Pleural effusion on right Status: Acute Response to Treatment: Improving Problem Text: due to decompensated CHF has chest tube in place. Drainage still greater than 200 ml/ 24 hours. (3) PVD (peripheral vascular disease) Status: Chronic Problem Text: had stenting done on the right in mar 2016 (4) DM2 (diabetes mellitus, type 2) Status: Chronic Problem Text: sugrs lowish yesterday pm . so insulin dosage again reduced. (5) CKD (chronic kidney disease), stage III Status: Chronic Problem Text: baseline creatinine around 1.3 to 1.5. (6) HTN (hypertension) Status: Chronic (7) Hypothyroid Status: Chronic (8) CAD (coronary artery disease) Status: Chronic Problem Text: h/o cabg in 2002 and also cardiac stents. 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 follows with Dr Noyola. Have requested a video consult with him. (15) DVT (deep venous thrombosis) Status: Chronic Problem Text: on eliquis (16) History of osteomyelitis Status: Chronic Problem Text: had 8 weeks of iv antibiotics in jan and feb will need further amputation of the right stump after cleared from cardiology Plan/VTE VTE Prophylaxis Ordered?: Yes VS, I&O, 24H, Fishbone Vital Signs/I&O Vital Signs Date Time Temp Pulse Resp B/P Pulse Ox O2 Delivery O2 Flow Rate FiO2 06/06/16 08:00 99.0 68 18 125/61 95 Room Air 06/01/16 15:40 1.0 I&O- Last 24 Hours up to 6 AM 06/06/16 06:00 Intake Total 1320 ml Output Total 2175 ml Balance -855 ml Laboratory Data 24H LABS Laboratory Tests 2 06/05/16 20:21: Bedside Glucose (Misc Panel) 215H 06/06/16 04:53: Blood Urea Nitrogen 39H, Creatinine 1.65H, Sodium Level 135L, Potassium Level 4.0, Chloride Level 100, Carbon Dioxide Level 26, Calcium Level 8.1L, Aspartate Amino Transf (AST/SGOT) 33, Alanine Aminotransferase (ALT/SGPT) 20, Alkaline Phosphatase 257H, Total Bilirubin 0.8, Total Protein 7.4, Albumin 2.3L, Albumin/ Globulin Ratio 0.45L, Anion Gap 9, White Blood Count 8.1, Red Blood Count 3.99L , Hemoglobin 10.3L, Hematocrit 33.5L, Mean Corpuscular Volume 83.8, Mean Corpuscular Hemoglobin 25.9L, Mean Corpuscular Hemoglobin Concent 30.8L, Red Cell Distribution Width 20.0H, Platelet Count 254, Neutrophils (%) (Auto) 68.8H , Lymphocytes (%) (Auto) 12.7L, Monocytes (%) (Auto) 6.8H, Eosinophils (%) (Auto ) 8.4H, Basophils (%) (Auto) 0.5, Neutrophils # (Auto) 5.6, Lymphocytes # (Auto ) 1.3L, Monocytes # (Auto) 0.6, Eosinophils # (Auto) 0.7H, Basophils # (Auto) 0.0, Glomerular Filtration Rate 45.1L, Large Unclassified Cells # 0.2, Large Unclassified Cells % 2.8, Thyroid Stimulating Hormone (TSH) 11.900H CBC/BMP Laboratory Tests 06/06/16 04:53 Calcium Level 8.1 L, Aspartate Amino Transf (AST/SGOT) 33, Alanine Aminotransferase (ALT/SGPT) 20, Alkaline Phosphatase 257 H, Total Bilirubin 0.8 , Total Protein 7.4, Albumin 2.3 L, Red Blood Count 3.99 L, Mean Corpuscular Volume 83.8, Mean Corpuscular Hemoglobin 25.9 L, Mean Corpuscular Hemoglobin Concent 30.8 L, Red Cell Distribution Width 20.0 H, Neutrophils (%) (Auto) 68.8 H, Lymphocytes (%) (Auto) 12.7 L, Monocytes (%) (Auto) 6.8 H, Eosinophils (%) ( Auto) 8.4 H, Basophils (%) (Auto) 0.5, Neutrophils # (Auto) 5.6, Lymphocytes # ( Auto) 1.3 L, Monocytes # (Auto) 0.6, Eosinophils # (Auto) 0.7 H, Basophils # ( Auto) 0.0 Microbiology Microbiology 05/27/16 Blood Culture - Final, Complete NO GROWTH AFTER 5 DAYS 05/27/16 Blood Culture - Final, Complete NO GROWTH AFTER 5 DAYS 05/27/16 Acid Fast Stain - Final, Resulted 05/27/16 Mycobacterial Culture, Resulted Pending 05/27/16 Fungal Smear - Final, Resulted 05/27/16 Fungal Culture, Resulted Pending 05/27/16 Gram Stain - Final, Complete 05/27/16 Anaerobic Culture - Final, Complete 05/27/16 Body Fluid Culture - Final, Complete JUSTIN HAN MD Jun 06, 2016 11:23
[2016-06-06 12:00] VITALS: BP 145/72
[2016-06-06 16:00] VITALS: BP 113/62
[2016-06-06 19:42] VITALS: BP 113/59
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
[2016-06-06] MEDS: ATORVASTATIN 20 MG TAB PO SCH (20:58)
[2016-06-06] MEDS: traZODone 50 MG TAB PO SCH (20:58)
--- NOTE | 2016-06-06 21:17 | ECGEPIP ---
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
[2016-06-07 00:40] VITALS: BP 127/74
[2016-06-07] MEDS: CARVedilol 3.125 MG TAB PO SCH ×5 (00:43→23:37)
[2016-06-07] MEDS: LEVALBUTEROL 1.25 MG/0.5 ML CONCENTRATE NEB NEB SCH ×4 (02:09→20:24)
[2016-06-07 04:45] VITALS: BP 143/79
[2016-06-07] MEDS: **hydrALAZINE HCL** 25 MG TAB PO SCH ×3 (06:08→17:46)
[2016-06-07] MEDS: SLF 3 ML SYR IV SCH ×3 (06:08→21:44)
[2016-06-07] MEDS: ISOSORBIDE DIN. (ISORDIL) 30 MG TAB PO SCH ×3 (06:08→17:46)
[2016-06-07] MEDS: LEVOTHYROXINE 0.137 MG TAB (137MCG) PO SCH (06:08)
[2016-06-07 06:26] LABS: BASO % 0.3 % (0.0-1.0); EOS # 0.7 K/mm3 (0.0-0.50); EOS % 8.9 % (0.0-3.0); LARGE UNSTAINED CELL # 0.2 K/mm3 (0.0-0.4); LARGE UNSTAINED CELL % 2.4 % (0.0-4.0); LYMPH # 1.3 K/mm3 (1.5-4.5); LYMPH % 13.7 % (24.0-44.0); MEAN CORPUSCULAR HEMOGLOBIN 25.8 pg (27.0-33.0); MEAN CORPUSCULAR HGB CONC 30.9 g/dl (32.0-36.5); MEAN CORPUSCULAR VOLUME 83.4 fl (80.0-96.0); MONO # 0.6 K/mm3 (0.0-0.8); MONO % 7.9 % (0.0-5.0); NEUTROPHILS # 5.4 K/mm3 (1.8-7.7); NEUTROPHILS % 66.7 % (36.0-66.0); PLATELET COUNT, AUTOMATED 250 k/mm3 (150-450); RED CELL DISTRIBUTION WIDTH 19.5 % (11.5-14.5); WHITE BLOOD COUNT 8.2 K/mm3 (4.0-10.0)
[2016-06-07 06:34] LABS: CALCIUM LEVEL 8.2 MG/DL (8.8-10.2); CREATININE FOR GFR 1.46 MG/DL (0.70-1.30); GLOMERULAR FILTRATION RATE 51.9 (>49)
[2016-06-07 08:00] VITALS: BP 130/59
[2016-06-07] MEDS: HumaLOG INSULIN (NovoLOG) PER UNIT SC SCH ×4 (08:22→21:29)
[2016-06-07] MEDS: SPIRONOLACTONE 12.5MG PER 1/2 TABLET PO SCH (08:22)
[2016-06-07] MEDS: LEVEMIR (INSULIN DETEMIR) 1 UNITS/0.01ML SC SCH ×2 (08:22→21:43)
[2016-06-07] MEDS: MOM 30ML SUSPENSION UDC PO SCH (08:23)
[2016-06-07] MEDS: DOCUSATE SODIUM 100 MG CAP PO SCH ×2 (08:23→21:43)
[2016-06-07] MEDS: FAMOTIDINE 20 MG TAB PO SCH ×2 (08:23→21:43)
[2016-06-07] MEDS: APIXABAN 5 MG TAB (ELIQUIS) PO SCH ×2 (08:23→21:43)
[2016-06-07] MEDS: FUROSEMIDE 40 MG TAB PO SCH (08:23)
[2016-06-07] MEDS: SANTYL OINT 30GM TOP SCH (08:24)
--- NOTE | 2016-06-07 09:15 | IPN ---
CARDIOLOGY PROGRESS NOTE DATE: 06/07/2016 SUBJECTIVE: Patient currently is feeling quite comfortable, lying flat without shortness of breath. Has also been free of any lightheadedness or palpitations. His chest tube was removed yesterday. Was apparently seen by Dr. Noyola yesterday, wound care. OBJECTIVE: Overweight barrel-chested late middle-aged male lying comfortably flat. Heart rate 60 bpm and irregular. Blood pressure 116/54, lying. Respiratory rate 16 per minute. Oxygen saturation 94% on room air. He had a low grade fever earlier today. His weight today is essentially the same as yesterday. His intake and output balance yesterday was marginally negative. His nonhealing right lower extremity stump continues to be quite foul smelling. Currently bandaged. Slightly pale/sallow complexion. No cyanosis. Normal oral moisture. Trachea midline. Neck veins again remain just at the level of the clavicle sitting. Increased anteroposterior chest diameter with good air entry over both lung mix and no pulmonary adventitious sounds at this time. [place] nonpalpable. Heart sounds distant. No audible murmur. Normal carotid upstrokes and variable volume as before. No current dependent edema. 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 No more than rare isolated PVCs. CHEST X-RAY: Last study performed yesterday was reviewed independently and again shows marked cardiomegaly and slightly prominent central pulmonary vasculature, but no current pulmonary congestion edema or pleural effusion. LABORATORY DATA: Hemoglobin 10.1 with normal white blood cell count and platelet count. Electrolytes remain in balance with BUN 37, creatinine 1.46, fasting glucose was 143, albumin yesterday was reduced at 2.3. Ultra sensitive TSH yesterday was elevated and his dosage of Synthroid has been adjusted. IMPRESSION/PLAN: 1. Heart failure (systolic and diastolic): Currently remains compensated. Will remain on his modest salt and fluid intake restriction with combination low-dose carvedilol, isosorbide nitrate, hydralazine, spironolactone and Lasix. As discussed with Dr. Almodovar, primary physician, I believe this is the time to consider surgical debridement of his stump versus amputation. The likelihood of wound healing in the absence of systemic edema is considerably better. I believe he should tolerate this procedure well from a cardiac standpoint at this time. 2. Atrial fibrillation (chronic): Ventricular response interestingly, remains a slow on even low-dose carvedilol. I have left the dosing at 3.125 mg p.o. q.6 h with hold parameters until we have a better idea of his dose requirement. Continues on oral anticoagulation with stable hemoglobin. 3. Abnormal EKG: Last study performed yesterday shows atrial fibrillation with controlled ventricular response with rate averaging 68 bpm. Low voltages with incomplete right bundle branch block, slow precordial R-wave progression in keeping with his body habitus and pulmonary disease. Isolated PVCs. ST/T wave abnormalities do not appear to be significantly changed from his admission tracing May 27, 2016. No special measures deemed necessary. 4. Coronary artery disease ([place] vessel)/prior IWMI/post CABG: Continues to be free of symptomatic myocardial ischemia on his combination protective medical therapy. Followup liver function studies on his atorvastatin showed an improvement with relief of his congestion. Despite his slight sallow complexion his total bilirubin was normal. Alkaline phosphatase has significantly improved. 5. Hypertensive heart disease (benign with heart failure): Current blood pressure remains well controlled and renal function today actually may be slightly improved from yesterday. If this continues, I would be tempted to reconsider introducing a short-acting TEO inhibitor captopril b.i.d. instead of continuing with his isosorbide dinitrate and hydralazine combination. I will continue to follow his chemistry with you. As mentioned above, I believe he is in optimal shape from the cardiac standpoint. Continues to have significant heart disease, but doing well on his combination therapy. With relief of his systemic congestion, I believe this would be the time to surgically intervene with his nonhealing right lower extremity stump. I will continue to follow him with you.
--- NOTE | 2016-06-07 09:49 | REP ---
Followup pleural effusion. Comparison: Yesterday at 8:20 a.m. There is right sided thoracotomy tube has been removed. Subtle increased right basilar opacities are noted with persistent elevation of the diaphragmatic surface of the right lung. A few curvilinear opacities are seen in the right mid-lung zone status quo. Cardiomediastinal silhouette is unchanged. There is cardiomegaly. Note is again made of previous median sternotomy. There are no significant left lung changes. The osseous structures are stable and intact. IMPRESSION: Removal of the right sided thoracotomy tube with a possible small right pleural effusion. Other findings as described above. Signed by Alfredo Warren DO 06/07/2016 03:02 P
[2016-06-07 12:00] VITALS: BP 143/70
--- NOTE | 2016-06-07 14:49 | IPNPDOC ---
Subjective Date Seen The patient was seen on 06/07/16. Subjective Chief Complaint/HPI The patient is a 65-year-old male admitted with a reason for visit of Pleural Effusion. Events since last encounter pt seen and examined, was agitated, stating that he wants to get this surgery done, he had no overnight events on tele, no chest pain or palpitations, no shortness of breath, pain in his leg is controlled Objective Physical Examination General Exam: Positive: Alert, No Acute Distress Eye Exam: Positive: Conjunctiva & lids normal, EOMI, PERRLA, Negative: Sclera icteric ENT Exam: Positive: Atraumatic, Mucous membr. moist/pink, Pharynx Normal Neck Exam: Positive: Supple, Negative: JVD, thyromegaly Chest Exam: Positive: Clear to auscultation, Normal air movement, Other (has right chest tube) Heart Exam: Positive: Normal S1, Normal S2, Rate Normal, Regular Rhythm, Negative: Murmurs, Rubs Abdomen Exam: Positive: Normal bowel sounds, Soft, Negative: Hepatospenomegaly, Tenderness Extremity Exam: Positive: Other (has bilateral below knee amputations. 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 chest tube removed (4) PVD (peripheral vascular disease) Status: Chronic Problem Text: had stenting done on the right in mar 2016 (5) DM2 (diabetes mellitus, type 2) Status: Chronic (6) CKD (chronic kidney disease), stage III Status: Chronic Problem Text: baseline creatinine around 1.3 to 1.5. (7) HTN (hypertension) Status: Chronic (8) Hypothyroid Status: Chronic (9) CAD (coronary artery disease) Status: Chronic Problem Text: h/o cabg in 2002 and also cardiac stents. (10) Pulmonary hypertension Status: Chronic (11) Obesity Status: Chronic (12) Hypercholesteremia Status: Chronic (13) Polyneuropathy Status: Chronic (14) S/P bilateral BKA (below knee amputation) Status: Chronic (15) DVT (deep venous thrombosis) Status: Chronic Problem Text: on eliquis (16) History of osteomyelitis Status: Chronic Problem Text: had 8 weeks of iv antibiotics in jan and feb will need further amputation of the right stump after cleared from cardiology Plan/VTE VTE Prophylaxis Ordered?: Yes VS, I&O, 24H, Fishbone Vital Signs/I&O Vital Signs Date Time Temp Pulse Resp B/P Pulse Ox O2 Delivery O2 Flow Rate FiO2 06/07/16 12:06 143/70 06/07/16 12:00 65 06/07/16 12:00 98.2 18 95 Room Air 06/01/16 15:40 1.0 I&O- Last 24 Hours up to 6 AM 06/07/16 06:00 Intake Total 1320 ml Output Total 1425 ml Balance -105 ml Laboratory Data 24H LABS Laboratory Tests 2 06/06/16 17:07: Bedside Glucose (Misc Panel) 147H 06/06/16 20:43: Bedside Glucose (Misc Panel) 169H 06/07/16 06:03: Anion Gap 8, White Blood Count 8.2, Red Blood Count 3.93L, Hemoglobin 10.1L, Hematocrit 32.8L, Mean Corpuscular Volume 83.4, Mean Corpuscular Hemoglobin 25.8L, Mean Corpuscular Hemoglobin Concent 30.9L, Red Cell Distribution Width 19.5H, Platelet Count 250, Neutrophils (%) (Auto) 66.7H, Lymphocytes (%) (Auto) 13.7L, Monocytes (%) (Auto) 7.9H, Eosinophils (%) (Auto) 8.9H, Basophils (%) ( Auto) 0.3, Neutrophils # (Auto) 5.4, Lymphocytes # (Auto) 1.3L, Monocytes # ( Auto) 0.6, Eosinophils # (Auto) 0.7H, Basophils # (Auto) 0.0, Blood Urea Nitrogen 37H, Creatinine 1.46H, Sodium Level 137, Potassium Level 4.0, Chloride Level 102, Carbon Dioxide Level 27, Calcium Level 8.2L, Glomerular Filtration Rate 51.9, Large Unclassified Cells # 0.2, Large Unclassified Cells % 2.4 06/07/16 11:42: Bedside Glucose (Misc Panel) 254H CBC/BMP Laboratory Tests 06/07/16 06:03 Calcium Level 8.2 L, Red Blood Count 3.93 L, Mean Corpuscular Volume 83.4, Mean Corpuscular Hemoglobin 25.8 L, Mean Corpuscular Hemoglobin Concent 30.9 L, Red Cell Distribution Width 19.5 H, Neutrophils (%) (Auto) 66.7 H, Lymphocytes (%) ( Auto) 13.7 L, Monocytes (%) (Auto) 7.9 H, Eosinophils (%) (Auto) 8.9 H, Basophils (%) (Auto) 0.3, Neutrophils # (Auto) 5.4, Lymphocytes # (Auto) 1.3 L, Monocytes # (Auto) 0.6, Eosinophils # (Auto) 0.7 H, Basophils # (Auto) 0.0 ADAM RIVAS DO Jun 07, 2016 14:49 ADAM RIVAS DO Jun 07, 2016 14:49
[2016-06-07 16:00] VITALS: BP 157/70
[2016-06-07 19:44] VITALS: BP 127/58
[2016-06-07] MEDS: traZODone 50 MG TAB PO SCH (21:43)
[2016-06-07] MEDS: ATORVASTATIN 20 MG TAB PO SCH (21:43)
[2016-06-08] VITALS (7 sets, daily range): BP systolic 104–140; BP diastolic 55–75
[2016-06-08] MEDS: LEVALBUTEROL 1.25 MG/0.5 ML CONCENTRATE NEB NEB SCH ×4 (00:10→19:38)
[2016-06-08] MEDS: CARVedilol 3.125 MG TAB PO SCH ×4 (05:42→23:34)
[2016-06-08 05:48] LABS: BASO % 0.5 % (0.0-1.0); EOS # 0.6 K/mm3 (0.0-0.50); EOS % 7.4 % (0.0-3.0); LARGE UNSTAINED CELL # 0.3 K/mm3 (0.0-0.4); LYMPH # 1.1 K/mm3 (1.5-4.5); LYMPH % 12.8 % (24.0-44.0); MEAN CORPUSCULAR HEMOGLOBIN 28.9 pg (27.0-33.0); MEAN CORPUSCULAR HGB CONC 34.3 g/dl (32.0-36.5); MEAN CORPUSCULAR VOLUME 84.2 fl (80.0-96.0); MONO # 0.7 K/mm3 (0.0-0.8); MONO % 7.8 % (0.0-5.0); NEUTROPHILS # 5.7 K/mm3 (1.8-7.7); NEUTROPHILS % 68.6 % (36.0-66.0); PLATELET COUNT, AUTOMATED 226 k/mm3 (150-450); RED CELL DISTRIBUTION WIDTH 19.7 % (11.5-14.5); WHITE BLOOD COUNT 8.4 K/mm3 (4.0-10.0)
[2016-06-08 06:01] LABS: CALCIUM LEVEL 7.9 MG/DL (8.8-10.2); CREATININE FOR GFR 1.47 MG/DL (0.70-1.30); GLOMERULAR FILTRATION RATE 51.5 (>49); POTASSIUM SERUM 3.9 MEQ/L (3.5-5.1)
[2016-06-08] MEDS: LEVOTHYROXINE 0.137 MG TAB (137MCG) PO SCH (06:32)
[2016-06-08] MEDS: SLF 3 ML SYR IV SCH ×3 (06:32→21:17)
[2016-06-08] MEDS: ISOSORBIDE DIN. (ISORDIL) 30 MG TAB PO SCH ×3 (06:32→16:31)
[2016-06-08] MEDS: **hydrALAZINE HCL** 25 MG TAB PO SCH ×3 (06:33→16:31)
[2016-06-08] MEDS: MOM 30ML SUSPENSION UDC PO SCH (09:00)
[2016-06-08] MEDS: LEVEMIR (INSULIN DETEMIR) 1 UNITS/0.01ML SC SCH ×2 (10:09→21:16)
[2016-06-08] MEDS: FAMOTIDINE 20 MG TAB PO SCH ×2 (10:10→21:17)
[2016-06-08] MEDS: SPIRONOLACTONE 12.5MG PER 1/2 TABLET PO SCH (10:10)
[2016-06-08] MEDS: ASPIRIN 81 MG ENTERIC TAB PO SCH (10:10)
[2016-06-08] MEDS: HumaLOG INSULIN (NovoLOG) PER UNIT SC SCH ×4 (10:10→21:00)
[2016-06-08] MEDS: FUROSEMIDE 40 MG TAB PO SCH (10:11)
[2016-06-08] MEDS: DOCUSATE SODIUM 100 MG CAP PO SCH ×2 (10:11→21:17)
[2016-06-08] MEDS: CAPTOpril 3.125 MG PER 1/4 TABLET PO SCH ×2 (10:15→21:16)
--- NOTE | 2016-06-08 11:17 | IPNPDOC ---
Subjective Date Seen The patient was seen on 06/08/16. Subjective Chief Complaint/HPI The patient is a 65-year-old male admitted with a reason for visit of Pleural Effusion, Gangrene. Events since last encounter pt seen and examined, doing well, his wound was I/D yesterday by dr valladares Constitutional: Denies: Chills, Fever, Night Sweats Pulmonary: Denies: Dyspnea, Cough Cardiovascular: Denies: Chest Pain, Palpitations, Orthopnea, Paroxysmal Noc. Dyspnea, Lt Headedness Objective Physical Examination General Exam: Positive: Alert, No Acute Distress Eye Exam: Positive: PERRLA, Conjunctiva & lids normal, EOMI, Negative: Sclera icteric ENT Exam: Positive: Atraumatic, Mucous membr. moist/pink, Pharynx Normal Neck Exam: Positive: Supple, Negative: JVD, thyromegaly Chest Exam: Positive: Clear to auscultation, Normal air movement, Other (has right chest tube) Heart Exam: Positive: Rate Normal, Regular Rhythm, Normal S1, Normal S2, Negative: Murmurs, Rubs Abdomen Exam: Positive: Normal bowel sounds, Soft, Negative: Tenderness, Hepatospenomegaly Extremity Exam: Positive: Other (has bilateral below knee amputations. 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 chest tube removed (4) PVD (peripheral vascular disease) Status: Chronic Problem Text: had stenting done on the right in mar 2016 (5) DM2 (diabetes mellitus, type 2) Status: Chronic (6) CKD (chronic kidney disease), stage III Status: Chronic Problem Text: baseline creatinine around 1.3 to 1.5. (7) HTN (hypertension) Status: Chronic (8) Hypothyroid Status: Chronic (9) CAD (coronary artery disease) Status: Chronic Problem Text: h/o cabg in 2002 and also cardiac stents. (10) Pulmonary hypertension Status: Chronic (11) Obesity Status: Chronic (12) Hypercholesteremia Status: Chronic (13) Polyneuropathy Status: Chronic (14) S/P bilateral BKA (below knee amputation) Status: Chronic (15) DVT (deep venous thrombosis) Status: Chronic Problem Text: on eliquis (16) History of osteomyelitis Status: Chronic Problem Text: had 8 weeks of iv antibiotics in jan and feb will need further amputation of the right stump after cleared from cardiology Plan/VTE VTE Prophylaxis Ordered?: Yes VS, I&O, 24H, Fishbone Vital Signs/I&O Vital Signs Date Time Temp Pulse Resp B/P (MAP) Pulse Ox O2 Delivery O2 Flow Rate FiO2 06/08/16 10:15 132/75 06/08/16 07:30 99.1 71 18 94 Room Air I&O- Last 24 Hours up to 6 AM 06/08/16 06:00 Intake Total 1240 ml Output Total 1975 ml Balance -735 ml Laboratory Data 24H LABS Laboratory Tests 2 06/07/16 11:42: Bedside Glucose (Misc Panel) 254H 06/07/16 16:48: Bedside Glucose (Misc Panel) 125H 06/07/16 21:08: Bedside Glucose (Misc Panel) 167H 06/08/16 05:02: White Blood Count 8.4, Red Blood Count 3.68L, Hemoglobin 10.6L, Hematocrit 31.0L , Mean Corpuscular Volume 84.2, Mean Corpuscular Hemoglobin 28.9, Mean Corpuscular Hemoglobin Concent 34.3, Red Cell Distribution Width 19.7H, Platelet Count 226, Neutrophils (%) (Auto) 68.6H, Lymphocytes (%) (Auto) 12.8L, Monocytes (%) (Auto) 7.8H, Eosinophils (%) (Auto) 7.4H, Basophils (%) (Auto) 0.5 , Neutrophils # (Auto) 5.7, Lymphocytes # (Auto) 1.1L, Monocytes # (Auto) 0.7, Eosinophils # (Auto) 0.6H, Basophils # (Auto) 0.0, Large Unclassified Cells % 3.0, Large Unclassified Cells # 0.3, Anion Gap 7L, Glomerular Filtration Rate 51.5, Blood Urea Nitrogen 38H, Creatinine 1.47H, Sodium Level 137, Potassium Level 3.9, Chloride Level 104, Carbon Dioxide Level 26, Calcium Level 7.9L CBC/BMP Laboratory Tests 06/08/16 05:02 Red Blood Count 3.68 L, Mean Corpuscular Volume 84.2, Mean Corpuscular Hemoglobin 28.9, Mean Corpuscular Hemoglobin Concent 34.3, Red Cell Distribution Width 19.7 H, Neutrophils (%) (Auto) 68.6 H, Lymphocytes (%) (Auto ) 12.8 L, Monocytes (%) (Auto) 7.8 H, Eosinophils (%) (Auto) 7.4 H, Basophils (% ) (Auto) 0.5, Neutrophils # (Auto) 5.7, Lymphocytes # (Auto) 1.1 L, Monocytes # (Auto) 0.7, Eosinophils # (Auto) 0.6 H, Basophils # (Auto) 0.0, Calcium Level 7.9 L ADAM RIVAS DO Jun 08, 2016 11:16
[2016-06-08] MEDS: APIXABAN 5 MG TAB (ELIQUIS) PO SCH ×2 (12:01→21:17)
[2016-06-08] MEDS: traZODone 50 MG TAB PO SCH (21:16)
[2016-06-08] MEDS: ATORVASTATIN 20 MG TAB PO SCH (21:16)
[2016-06-09] MEDS: LEVALBUTEROL 1.25 MG/0.5 ML CONCENTRATE NEB NEB SCH ×3 (02:03→13:30)
[2016-06-09 05:45] VITALS: BP 121/67
[2016-06-09 05:52] LABS: BASO % 0.6 % (0.0-1.0); EOS # 0.7 K/mm3 (0.0-0.50); EOS % 8.4 % (0.0-3.0); LARGE UNSTAINED CELL # 0.2 K/mm3 (0.0-0.4); LARGE UNSTAINED CELL % 2.7 % (0.0-4.0); LYMPH # 1.2 K/mm3 (1.5-4.5); LYMPH % 12.7 % (24.0-44.0); MEAN CORPUSCULAR HEMOGLOBIN 26.2 pg (27.0-33.0); MEAN CORPUSCULAR HGB CONC 31.4 g/dl (32.0-36.5); MEAN CORPUSCULAR VOLUME 83.7 fl (80.0-96.0); MONO # 0.6 K/mm3 (0.0-0.8); MONO % 8.1 % (0.0-5.0); NEUTROPHILS # 5.3 K/mm3 (1.8-7.7); NEUTROPHILS % 67.6 % (36.0-66.0); PLATELET COUNT, AUTOMATED 217 k/mm3 (150-450); RED CELL DISTRIBUTION WIDTH 19.8 % (11.5-14.5); WHITE BLOOD COUNT 7.8 K/mm3 (4.0-10.0)
[2016-06-09] MEDS: CARVedilol 3.125 MG TAB PO SCH (06:00)
[2016-06-09 06:01] LABS: CALCIUM LEVEL 8.4 MG/DL (8.8-10.2); CREATININE FOR GFR 1.33 MG/DL (0.70-1.30); GLOMERULAR FILTRATION RATE 57.8 (>49); POTASSIUM SERUM 4.2 MEQ/L (3.5-5.1)
[2016-06-09] MEDS: ISOSORBIDE DIN. (ISORDIL) 30 MG TAB PO SCH (06:02)
[2016-06-09] MEDS: LEVOTHYROXINE 0.137 MG TAB (137MCG) PO SCH (06:02)
[2016-06-09] MEDS: SLF 3 ML SYR IV SCH ×3 (06:02→21:06)
[2016-06-09] MEDS: **hydrALAZINE HCL** 25 MG TAB PO SCH (06:02)
[2016-06-09] MEDS: HumaLOG INSULIN (NovoLOG) PER UNIT SC SCH ×4 (07:30→20:54)
[2016-06-09 08:00] VITALS: BP 130/67
--- NOTE | 2016-06-09 08:59 | IPN ---
CARDIOLOGY PROGRESS NOTE DATE: 06/09/2016 SUBJECTIVE: The patient remains free of any cardiovascular complaint. Appears to be tolerating combination medical therapy for his blood pressure and heart failure without lightheadedness or other adverse effect. I understand he was seen by Dr. Wen of general surgery and had his stump evaluated. He is tentatively scheduled for surgery on June 14, 2016. OBJECTIVE: Pleasant overweight, barrel-chested basically late middle aged male sitting comfortably. His stump currently does not have a foul smell, remains stressed at this time. Heart rate 64 beats per minute and irregular, blood pressure 118/64 sitting. Respiratory rate 18, O2 saturation 93% on room air. Afebrile. His weight today is essentially stable over the past few days on his present diuretic regimen recorded intake and output yesterday was negative 800 mL. Slight sallow complexion. No central cyanosis. Normal oral moisture. Trachea midline. Neck veins were not visible with him sitting. Increased anteroposterior chest diameter with good air entry over both lung mix and no current pulmonary adventitious sounds that were abnormal. [place] not palpable. Heart sounds distant. No sacral or lower extremity pitting edema. [employer]AGE IN[employer]CTOR: Continues to have underlying atrial fibrillation with controlled ventricular response throughout. Occasional isolated PVCs as before. No significant bradyarrhythmia or tachyarrhythmia. LABORATORY DATA: Hemoglobin stable at 10.3 with normal white blood cell count and platelet count. His electrolytes were normal with improved BUN of 29 down from 38 yesterday, creatinine has also improved from 1.47 to 1.33 today, even with the negative fluid balance and introduction of captopril. Fasting glucose 108. IMPRESSION/PLAN: 1. Heart failure (systolic and diastolic): Remains compensated. At this point, I am trying to reintroduce an TEO inhibitor - short-acting agent in light of his renal insufficiency. He has tolerated low dose. I have increased the dose to 12.5 mg b.i.d. and have reduced his isosorbide and hydralazine combination to avoid hypotension. Has not received a single dose of carvedilol for heart rates less than 70, so this has been discontinued. Remains on spironolactone and oral Lasix. 2. Atrial fibrillation (chronic): Ventricular response remains controlled without receiving negative chronotropic therapy. He will continue to be monitored, but I have discontinued his carvedilol. His Eliquis oral anticoagulation should be discontinued after his doses June 11, 2016 in preparation for his surgery June 14, 2016. 3. Abnormal EKG: No followup study was obtained today. 4. Coronary artery disease (burns paiute vessel)/prior IWMI/post CABG: Continues to tolerate medication adjustments. As mentioned above, due to his slow heart rate, has not been receiving his carvedilol, but appears to be tolerating at least low dose captopril with his isosorbide. He will also continue on atorvastatin and Eliquis as mentioned. 5. Hypertensive heart disease (benign with heart failure): Current blood pressure remains well controlled and renal function has actually improved even with the introduction of low dose TEO inhibitor and his negative fluid balance. I am adjusting his medications as mentioned above, hoping to have at least low dose shorter acting TEO inhibitor on board. I have discussed this with Dr. Almodovar. Should he tolerate his two doses of captopril 12.5 mg twice today, I have suggested discontinuing his isosorbide dinitrate and hydralazine all together tomorrow and increasing his dose of captopril to 25 mg b.i.d. 6. Preoperative evaluation (for tentative right stump surgery, June 14, 2016): From a cardiovascular standpoint, he appears to be compensated and on protective medical therapy. I believe he will tolerate this surgery without problem, especially in light of the fact it is on his extremity. I am cautiously optimistic and now he has no systemic edema, that his wound will heal properly. Dr. Curry will be resuming care from the cardiology standpoint later this afternoon.
[2016-06-09] MEDS: MOM 30ML SUSPENSION UDC PO SCH (09:00)
[2016-06-09] MEDS: LEVEMIR (INSULIN DETEMIR) 1 UNITS/0.01ML SC SCH ×3 (09:00→21:05)
[2016-06-09] MEDS: APIXABAN 5 MG TAB (ELIQUIS) PO SCH ×2 (09:10→21:06)
[2016-06-09] MEDS: CAPTOpril 12.5 MG TAB PO SCH ×2 (09:10→21:06)
[2016-06-09] MEDS: FAMOTIDINE 20 MG TAB PO SCH ×2 (09:10→21:06)
[2016-06-09] MEDS: FUROSEMIDE 40 MG TAB PO SCH (09:10)
[2016-06-09] MEDS: DOCUSATE SODIUM 100 MG CAP PO SCH ×2 (09:10→21:06)
[2016-06-09] MEDS: SPIRONOLACTONE 12.5MG PER 1/2 TABLET PO SCH (09:10)
--- NOTE | 2016-06-09 09:20 | IPNPDOC ---
Subjective Date Seen The patient was seen on 06/09/16. Subjective Chief Complaint/HPI The patient is a 65-year-old male admitted with a reason for visit of Pleural Effusion, Gangrene. Events since last encounter pt seen and examined doing well, no overnight events will continue to monitor pt on tele. Constitutional: Denies: Chills, Fever, Night Sweats Pulmonary: Denies: Dyspnea, Cough Cardiovascular: Denies: Chest Pain, Palpitations, Orthopnea, Paroxysmal Noc. Dyspnea, Lt Headedness Objective Physical Examination General Exam: Positive: Alert, No Acute Distress Eye Exam: Positive: PERRLA, Conjunctiva & lids normal, EOMI, Negative: Sclera icteric ENT Exam: Positive: Atraumatic, Mucous membr. moist/pink, Pharynx Normal Neck Exam: Positive: Supple, Negative: JVD, thyromegaly Chest Exam: Positive: Clear to auscultation, Normal air movement, Other (has right chest tube) Heart Exam: Positive: Rate Normal, Regular Rhythm, Normal S1, Normal S2, Negative: Murmurs, Rubs Abdomen Exam: Positive: Normal bowel sounds, Soft, Negative: Tenderness, Hepatospenomegaly Extremity Exam: Positive: Other (has bilateral below knee amputations. 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 Problem Text: s/p I/D by dr Wen on 06/07 he will be taken to OR on monday will d/c eliquis after his second dose on Monday06/11/16 (2) Systolic and diastolic CHF, acute on chronic Status: Acute Response to Treatment: Improving Problem Text: follow cardiology recommendations continue lasix hydralazine, isosorbide, spirolactone, and coreg Dr simpson added captopril 12.5 bid and if his kidney function continues to be stable with increase dose to 25 bid and d/c isosorbide and hydralazine (3) Pleural effusion on right Status: Acute Response to Treatment: Improving Problem Text: due to decompensated CHF has chest tube was placed during admission. chest tube removed (4) PVD (peripheral vascular disease) Status: Chronic Problem Text: had stenting done on the right in mar 2016 (5) DM2 (diabetes mellitus, type 2) Status: Chronic (6) CKD (chronic kidney disease), stage III Status: Chronic Problem Text: baseline creatinine around 1.3 to 1.5. (7) HTN (hypertension) Status: Chronic (8) Hypothyroid Status: Chronic (9) CAD (coronary artery disease) Status: Chronic Problem Text: h/o cabg in 2002 and also cardiac stents. (10) Pulmonary hypertension Status: Chronic (11) Obesity Status: Chronic (12) Hypercholesteremia Status: Chronic (13) Polyneuropathy Status: Chronic (14) S/P bilateral BKA (below knee amputation) Status: Chronic (15) DVT (deep venous thrombosis) Status: Chronic Problem Text: on eliquis (16) History of osteomyelitis Status: Chronic Problem Text: had 8 weeks of iv antibiotics in jan and feb will need further amputation of the right stump after cleared from cardiology Plan/VTE VTE Prophylaxis Ordered?: Yes VS, I&O, 24H, Fishbone Vital Signs/I&O Vital Signs Date Time Temp Pulse Resp B/P (MAP) Pulse Ox O2 Delivery O2 Flow Rate FiO2 06/09/16 08:00 98.6 76 20 130/67 (88) 98 Room Air I&O- Last 24 Hours up to 6 AM 06/09/16 06:00 Intake Total 1080 ml Output Total 1950 ml Balance -870 ml Laboratory Data 24H LABS Laboratory Tests 2 06/09/16 05:18: White Blood Count 7.8, Red Blood Count 3.92L, Hemoglobin 10.3L, Hematocrit 32.8L , Mean Corpuscular Volume 83.7, Mean Corpuscular Hemoglobin 26.2L, Mean Corpuscular Hemoglobin Concent 31.4L, Red Cell Distribution Width 19.8H, Platelet Count 217, Neutrophils (%) (Auto) 67.6H, Lymphocytes (%) (Auto) 12.7L, Monocytes (%) (Auto) 8.1H, Eosinophils (%) (Auto) 8.4H, Basophils (%) (Auto) 0.6 , Neutrophils # (Auto) 5.3, Lymphocytes # (Auto) 1.2L, Monocytes # (Auto) 0.6, Eosinophils # (Auto) 0.7H, Basophils # (Auto) 0.0, Large Unclassified Cells % 2.7, Large Unclassified Cells # 0.2, Anion Gap 8, Glomerular Filtration Rate 57.8, Blood Urea Nitrogen 29H, Creatinine 1.33H, Sodium Level 138, Potassium Level 4.2, Chloride Level 103, Carbon Dioxide Level 27, Calcium Level 8.4L CBC/BMP Laboratory Tests 06/09/16 05:18 Red Blood Count 3.92 L, Mean Corpuscular Volume 83.7, Mean Corpuscular Hemoglobin 26.2 L, Mean Corpuscular Hemoglobin Concent 31.4 L, Red Cell Distribution Width 19.8 H, Neutrophils (%) (Auto) 67.6 H, Lymphocytes (%) (Auto ) 12.7 L, Monocytes (%) (Auto) 8.1 H, Eosinophils (%) (Auto) 8.4 H, Basophils (% ) (Auto) 0.6, Neutrophils # (Auto) 5.3, Lymphocytes # (Auto) 1.2 L, Monocytes # (Auto) 0.6, Eosinophils # (Auto) 0.7 H, Basophils # (Auto) 0.0, Calcium Level 8.4 L ADAM RIVAS DO Jun 09, 2016 09:20
[2016-06-09 11:30] VITALS: BP 121/57
[2016-06-09] MEDS: **hydrALAZINE** 10 MG TAB PO SCH ×2 (12:01→17:26)
[2016-06-09] MEDS: ISOSORBIDE DIN. (ISORDIL) 20 MG TAB PO SCH ×2 (12:01→17:26)
[2016-06-09 15:54] VITALS: BP 145/65
[2016-06-09 20:00] VITALS: BP 123/62
[2016-06-09] MEDS: LEVALBUTEROL 1.25 MG/0.5 ML CONCENTRATE NEB INH SCH (20:00)
[2016-06-09] MEDS: traZODone 50 MG TAB PO SCH (21:06)
[2016-06-09] MEDS: ATORVASTATIN 20 MG TAB PO SCH (21:06)
[2016-06-10] VITALS (7 sets, daily range): BP systolic 117–138; BP diastolic 57–78
[2016-06-10 06:04] LABS: MEAN CORPUSCULAR HEMOGLOBIN 27.7 pg (27.0-33.0); MEAN CORPUSCULAR HGB CONC 32.7 g/dl (32.0-36.5); MEAN CORPUSCULAR VOLUME 84.7 fl (80.0-96.0); PLATELET COUNT, AUTOMATED 221 k/mm3 (150-450); RED CELL DISTRIBUTION WIDTH 19.8 % (11.5-14.5); WHITE BLOOD COUNT 7.3 K/mm3 (4.0-10.0)
[2016-06-10 06:05] LABS: CALCIUM LEVEL 7.9 MG/DL (8.8-10.2); CREATININE FOR GFR 1.49 MG/DL (0.70-1.30); GLOMERULAR FILTRATION RATE 50.7 (>49); POTASSIUM SERUM 4.2 MEQ/L (3.5-5.1)
[2016-06-10] MEDS: **hydrALAZINE** 10 MG TAB PO SCH ×3 (06:16→17:17)
[2016-06-10] MEDS: LEVOTHYROXINE 0.137 MG TAB (137MCG) PO SCH (06:16)
[2016-06-10] MEDS: SLF 3 ML SYR IV SCH ×3 (06:16→21:40)
[2016-06-10] MEDS: ISOSORBIDE DIN. (ISORDIL) 20 MG TAB PO SCH ×3 (06:17→17:18)
[2016-06-10 07:04] LABS: EOSINOPHILS 9 % (0-5)
[2016-06-10 07:05] LABS: ANISOCYTOSIS 2+
[2016-06-10] MEDS: LEVALBUTEROL 1.25 MG/0.5 ML CONCENTRATE NEB INH SCH ×3 (07:08→21:32)
[2016-06-10] MEDS: APIXABAN 5 MG TAB (ELIQUIS) PO SCH ×2 (08:19→21:40)
[2016-06-10] MEDS: DOCUSATE SODIUM 100 MG CAP PO SCH ×2 (08:19→21:40)
[2016-06-10] MEDS: FAMOTIDINE 20 MG TAB PO SCH ×2 (08:19→21:40)
[2016-06-10] MEDS: FUROSEMIDE 40 MG TAB PO SCH (08:19)
[2016-06-10] MEDS: ASPIRIN 81 MG ENTERIC TAB PO SCH (08:19)
[2016-06-10] MEDS: SPIRONOLACTONE 12.5MG PER 1/2 TABLET PO SCH (08:19)
[2016-06-10] MEDS: CAPTOpril 12.5 MG TAB PO SCH (08:20)
[2016-06-10] MEDS: HumaLOG INSULIN (NovoLOG) PER UNIT SC SCH ×4 (08:20→20:05)
[2016-06-10] MEDS: LEVEMIR (INSULIN DETEMIR) 1 UNITS/0.01ML SC SCH ×2 (08:21→21:40)
[2016-06-10] MEDS: MOM 30ML SUSPENSION UDC PO SCH (08:21)
--- NOTE | 2016-06-10 20:09 | IPNPDOC ---
Subjective Date Seen The patient was seen on 06/10/16. Subjective Chief Complaint/HPI The patient is a 65-year-old male admitted with a reason for visit of Pleural Effusion, Gangrene. Objective Physical Examination General Exam: Positive: Alert, No Acute Distress Eye Exam: Positive: PERRLA, Conjunctiva & lids normal, EOMI, Negative: Sclera icteric ENT Exam: Positive: Atraumatic, Mucous membr. moist/pink, Pharynx Normal Neck Exam: Positive: Supple, Negative: JVD, thyromegaly Chest Exam: Positive: Clear to auscultation, Normal air movement, Other (has right chest tube) Heart Exam: Positive: Rate Normal, Regular Rhythm, Normal S1, Normal S2, Negative: Murmurs, Rubs Abdomen Exam: Positive: Normal bowel sounds, Soft, Negative: Tenderness, Hepatospenomegaly Extremity Exam: Positive: Other (has bilateral below knee amputations. 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 Problem Text: s/p I/D by dr Wen on 06/07 he will be taken to OR on monday will d/c eliquis after his second dose on Monday06/11/16 (2) Systolic and diastolic CHF, acute on chronic Status: Acute Response to Treatment: Improving Problem Text: follow cardiology recommendations continue lasix hydralazine, isosorbide, spirolactone, and coreg Dr simpson added captopril 12.5 bid and if his kidney function continues to be stable with increase dose to 25 bid and d/c isosorbide and hydralazine (3) Pleural effusion on right Status: Acute Response to Treatment: Improving Problem Text: due to decompensated CHF has chest tube was placed during admission. chest tube removed (4) PVD (peripheral vascular disease) Status: Chronic Problem Text: had stenting done on the right in mar 2016 (5) DM2 (diabetes mellitus, type 2) Status: Chronic (6) CKD (chronic kidney disease), stage III Status: Chronic Problem Text: baseline creatinine around 1.3 to 1.5. (7) HTN (hypertension) Status: Chronic (8) Hypothyroid Status: Chronic (9) CAD (coronary artery disease) Status: Chronic Problem Text: h/o cabg in 2002 and also cardiac stents. (10) Pulmonary hypertension Status: Chronic (11) Obesity Status: Chronic (12) Hypercholesteremia Status: Chronic (13) Polyneuropathy Status: Chronic (14) S/P bilateral BKA (below knee amputation) Status: Chronic (15) DVT (deep venous thrombosis) Status: Chronic Problem Text: on eliquis (16) History of osteomyelitis Status: Chronic Problem Text: had 8 weeks of iv antibiotics in jan and feb will need further amputation of the right stump after cleared from cardiology Plan/VTE VTE Prophylaxis Ordered?: Yes VS, I&O, 24H, Fishbone Vital Signs/I&O Vital Signs Date Time Temp Pulse Resp B/P (MAP) Pulse Ox O2 Delivery O2 Flow Rate FiO2 06/10/16 17:18 135/65 06/10/16 16:00 98.8 65 18 98 Room Air I&O- Last 24 Hours up to 6 AM 06/10/16 06:00 Intake Total 900 ml Output Total 1850 ml Balance -950 ml Laboratory Data 24H LABS Laboratory Tests 2 06/09/16 20:49: Bedside Glucose (Misc Panel) 209H 06/10/16 05:12: Neutrophils 75, Lymphocytes (Manual) 13L, Monocytes (Manual) 3, Eosinophils ( Manual) 9H, Platelet Estimate NORMAL, Anisocytosis 2+, Anion Gap 7L, Glomerular Filtration Rate 50.7, Blood Urea Nitrogen 25H, Creatinine 1.49H, Sodium Level 136, Potassium Level 4.2, Chloride Level 101, Carbon Dioxide Level 28, Calcium Level 7.9L 06/10/16 11:16: Bedside Glucose (Misc Panel) 176H CBC/BMP Laboratory Tests 06/10/16 05:12 Red Blood Count 3.85 L, Mean Corpuscular Volume 84.7, Mean Corpuscular Hemoglobin 27.7, Mean Corpuscular Hemoglobin Concent 32.7, Red Cell Distribution Width 19.8 H, Calcium Level 7.9 L ADAM RIVAS DO Jun 10, 2016 20:09
[2016-06-10] MEDS: ATORVASTATIN 20 MG TAB PO SCH (21:39)
[2016-06-10] MEDS: traZODone 50 MG TAB PO SCH (21:39)
[2016-06-11 04:34] VITALS: BP 137/62
[2016-06-11 05:31] LABS: BASO % 0.5 % (0.0-1.0); EOS # 0.5 K/mm3 (0.0-0.50); EOS % 5.4 % (0.0-3.0); LARGE UNSTAINED CELL # 0.3 K/mm3 (0.0-0.4); LYMPH # 1.1 K/mm3 (1.5-4.5); LYMPH % 12.1 % (24.0-44.0); MEAN CORPUSCULAR HEMOGLOBIN 26.8 pg (27.0-33.0); MEAN CORPUSCULAR HGB CONC 31.8 g/dl (32.0-36.5); MEAN CORPUSCULAR VOLUME 84.4 fl (80.0-96.0); MONO # 0.9 K/mm3 (0.0-0.8); MONO % 9.4 % (0.0-5.0); NEUTROPHILS # 6.4 K/mm3 (1.8-7.7); NEUTROPHILS % 69.5 % (36.0-66.0); PLATELET COUNT, AUTOMATED 224 k/mm3 (150-450); WHITE BLOOD COUNT 9.1 K/mm3 (4.0-10.0)
[2016-06-11 05:46] LABS: CALCIUM LEVEL 8.5 MG/DL (8.8-10.2); CREATININE FOR GFR 1.37 MG/DL (0.70-1.30); GLOMERULAR FILTRATION RATE 55.9 (>49); POTASSIUM SERUM 4.2 MEQ/L (3.5-5.1)
[2016-06-11] MEDS: SLF 3 ML SYR IV SCH ×3 (06:17→21:20)
[2016-06-11] MEDS: LEVOTHYROXINE 0.137 MG TAB (137MCG) PO SCH (06:18)
[2016-06-11 06:51] VITALS: BP 120/63
[2016-06-11] MEDS: ISOSORBIDE DIN. (ISORDIL) 20 MG TAB PO SCH ×3 (06:52→17:09)
[2016-06-11] MEDS: **hydrALAZINE** 10 MG TAB PO SCH ×3 (06:52→17:10)
[2016-06-11] MEDS: LEVALBUTEROL 1.25 MG/0.5 ML CONCENTRATE NEB INH SCH ×3 (07:21→19:52)
[2016-06-11 08:00] VITALS: BP 103/80
[2016-06-11] MEDS: APIXABAN 5 MG TAB (ELIQUIS) PO SCH ×2 (09:03→21:19)
[2016-06-11] MEDS: SPIRONOLACTONE 12.5MG PER 1/2 TABLET PO SCH (09:03)
[2016-06-11] MEDS: FAMOTIDINE 20 MG TAB PO SCH ×2 (09:03→21:19)
[2016-06-11] MEDS: TORSEMIDE 20 MG TAB PO SCH (09:03)
[2016-06-11] MEDS: LEVEMIR (INSULIN DETEMIR) 1 UNITS/0.01ML SC SCH ×2 (09:04→21:20)
[2016-06-11] MEDS: DOCUSATE SODIUM 100 MG CAP PO SCH ×2 (09:04→21:19)
[2016-06-11] MEDS: MOM 30ML SUSPENSION UDC PO SCH (09:04)
[2016-06-11] MEDS: HumaLOG INSULIN (NovoLOG) PER UNIT SC SCH ×4 (09:07→21:19)
[2016-06-11] MEDS ORDERED: METOPROLOL SUCC *XL* 25MG TAB (TopROL *XL*) PO ONE (10:30)
[2016-06-11 12:00] VITALS: BP 152/67
--- NOTE | 2016-06-11 15:10 | REP ---
CHEST, TWO VIEWS: HISTORY: Pleural effusion. COMPARISON: 06/07/2016 There is elevation of the right hemidiaphragm. Increased density is present in the right lower lobe, consistent with atelectasis or infiltrate, unchanged compared to the previous study. The left lung is clear. The cardiac silhouette is enlarged. The pulmonary vasculature is normal in appearance. IMPRESSION: 1. Right lower lobe atelectasis or infiltrate, unchanged compared to the previous study. 2. Cardiomegaly. Signed by Jamar Cervantes MD 06/11/2016 02:18 P
[2016-06-11 16:00] VITALS: BP 126/65
[2016-06-11 20:11] VITALS: BP 129/72
[2016-06-11] MEDS: traZODone 50 MG TAB PO SCH ×2 (21:00→21:19)
[2016-06-11] MEDS: ATORVASTATIN 20 MG TAB PO SCH (21:18)
[2016-06-12] VITALS (8 sets, daily range): BP systolic 125–141; BP diastolic 60–94
[2016-06-12 05:33] LABS: BASO % 0.6 % (0.0-1.0); EOS # 0.4 K/mm3 (0.0-0.50); EOS % 5.6 % (0.0-3.0); LARGE UNSTAINED CELL # 0.2 K/mm3 (0.0-0.4); LYMPH # 1.3 K/mm3 (1.5-4.5); LYMPH % 13.8 % (24.0-44.0); MEAN CORPUSCULAR HEMOGLOBIN 26.2 pg (27.0-33.0); MEAN CORPUSCULAR HGB CONC 30.8 g/dl (32.0-36.5); MONO # 0.7 K/mm3 (0.0-0.8); MONO % 8.7 % (0.0-5.0); NEUTROPHILS # 5.4 K/mm3 (1.8-7.7); NEUTROPHILS % 68.3 % (36.0-66.0); PLATELET COUNT, AUTOMATED 208 k/mm3 (150-450); RED CELL DISTRIBUTION WIDTH 20.2 % (11.5-14.5)
[2016-06-12] MEDS: LEVOTHYROXINE 0.137 MG TAB (137MCG) PO SCH (05:39)
[2016-06-12] MEDS: SLF 3 ML SYR IV SCH ×3 (05:39→20:32)
[2016-06-12 05:47] LABS: CALCIUM LEVEL 7.8 MG/DL (8.8-10.2); CREATININE FOR GFR 1.39 MG/DL (0.70-1.30); GLOMERULAR FILTRATION RATE 54.9 (>49); POTASSIUM SERUM 4.1 MEQ/L (3.5-5.1)
[2016-06-12] MEDS: ISOSORBIDE DIN. (ISORDIL) 20 MG TAB PO SCH ×3 (06:27→17:26)
[2016-06-12] MEDS: **hydrALAZINE** 10 MG TAB PO SCH ×3 (06:27→17:26)
[2016-06-12] MEDS: LEVALBUTEROL 1.25 MG/0.5 ML CONCENTRATE NEB INH SCH ×3 (08:00→19:46)
[2016-06-12] MEDS: TORSEMIDE 20 MG TAB PO SCH (08:40)
[2016-06-12] MEDS: SPIRONOLACTONE 12.5MG PER 1/2 TABLET PO SCH (08:40)
[2016-06-12] MEDS: FAMOTIDINE 20 MG TAB PO SCH ×2 (08:40→20:32)
[2016-06-12] MEDS: DOCUSATE SODIUM 100 MG CAP PO SCH ×2 (08:40→20:32)
[2016-06-12] MEDS: HumaLOG INSULIN (NovoLOG) PER UNIT SC SCH ×4 (08:41→20:24)
[2016-06-12] MEDS: LEVEMIR (INSULIN DETEMIR) 1 UNITS/0.01ML SC SCH ×2 (08:41→20:31)
[2016-06-12] MEDS: MOM 30ML SUSPENSION UDC PO SCH (08:42)
--- NOTE | 2016-06-12 15:08 | IPNPDOC ---
Subjective Date Seen The patient was seen on 06/12/16. Subjective Chief Complaint/HPI The patient is a 65-year-old male admitted with a reason for visit of Pleural Effusion, Gangrene. Events since last encounter pt seen and examined, doing well, denies any overnight events, pain is controlled, no chest pain or shortness of breath, Objective Physical Examination General Exam: Positive: Alert, No Acute Distress Eye Exam: Positive: PERRLA, Conjunctiva & lids normal, EOMI, Negative: Sclera icteric ENT Exam: Positive: Atraumatic, Mucous membr. moist/pink, Pharynx Normal Neck Exam: Positive: Supple, Negative: JVD, thyromegaly Chest Exam: Positive: Clear to auscultation, Normal air movement, Other (has right chest tube) Heart Exam: Positive: Rate Normal, Regular Rhythm, Normal S1, Normal S2, Negative: Murmurs, Rubs Abdomen Exam: Positive: Normal bowel sounds, Soft, Negative: Tenderness, Hepatospenomegaly Extremity Exam: Positive: Other (has bilateral below knee amputations. 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 Problem Text: * s/p I/D by dr Wen on 06/07 * he will be taken to OR on Monday * will d/c eliquis after his second dose on Monday06/11/16 (2) Systolic and diastolic CHF, acute on chronic Status: Acute Response to Treatment: Improving Problem Text: * follow cardiology recommendations for medication, several adjustments were made * pt is currently on isosorbide dinitrate, hydralazine, torsemide and spironolactone * received one dose of metoprolol 06/10 * Coreg was discontinued, captopril was discontinued (3) Pleural effusion on right Status: Acute Response to Treatment: Improving Problem Text: due to decompensated CHF has chest tube was placed during admission. chest tube removed (4) PVD (peripheral vascular disease) Status: Chronic Problem Text: had stenting done on the right in mar 2016 (5) DM2 (diabetes mellitus, type 2) Status: Chronic (6) CKD (chronic kidney disease), stage III Status: Chronic Response to Treatment: Stable Problem Text: baseline creatinine around 1.3 to 1.5. (7) HTN (hypertension) Status: Chronic (8) Hypothyroid Status: Chronic (9) CAD (coronary artery disease) Status: Chronic Problem Text: h/o cabg in 2002 and also cardiac stents. (10) Pulmonary hypertension Status: Chronic (11) Obesity Status: Chronic (12) Hypercholesteremia Status: Chronic (13) Polyneuropathy Status: Chronic (14) S/P bilateral BKA (below knee amputation) Status: Chronic (15) DVT (deep venous thrombosis) Status: Chronic Problem Text: on eliquis (16) History of osteomyelitis Status: Chronic Problem Text: had 8 weeks of iv antibiotics in jan and feb will need further amputation of the right stump after cleared from cardiology Plan/VTE VTE Prophylaxis Ordered?: Yes VS, I&O, 24H, Fishbone Vital Signs/I&O Vital Signs Date Time Temp Pulse Resp B/P (MAP) Pulse Ox O2 Delivery O2 Flow Rate FiO2 06/12/16 12:08 125/82 06/12/16 12:00 99.5 60 18 97 Room Air I&O- Last 24 Hours up to 6 AM 06/12/16 06:00 Intake Total 600 ml Output Total 2700 ml Balance -2100 ml Laboratory Data 24H LABS Laboratory Tests 2 06/11/16 16:29: Bedside Glucose (Misc Panel) 170H 06/11/16 21:08: Bedside Glucose (Misc Panel) 253H 06/12/16 05:00: White Blood Count 8.0, Red Blood Count 3.87L, Hemoglobin 10.2L, Hematocrit 32.9L , Mean Corpuscular Volume 85.0, Mean Corpuscular Hemoglobin 26.2L, Mean Corpuscular Hemoglobin Concent 30.8L, Red Cell Distribution Width 20.2H, Platelet Count 208, Neutrophils (%) (Auto) 68.3H, Lymphocytes (%) (Auto) 13.8L, Monocytes (%) (Auto) 8.7H, Eosinophils (%) (Auto) 5.6H, Basophils (%) (Auto) 0.6 , Neutrophils # (Auto) 5.4, Lymphocytes # (Auto) 1.3L, Monocytes # (Auto) 0.7, Eosinophils # (Auto) 0.4, Basophils # (Auto) 0.0, Large Unclassified Cells % 3.0 , Large Unclassified Cells # 0.2, Anion Gap 8, Glomerular Filtration Rate 54.9, Blood Urea Nitrogen 28H, Creatinine 1.39H, Sodium Level 136, Potassium Level 4.1 , Chloride Level 103, Carbon Dioxide Level 25, Calcium Level 7.8L 06/12/16 12:40: Urine Appearance HAZY, Urine Color YELLOW, Urine pH 6.0, Urine Specific [place] 1.005, Urine Protein NEGATIVE, Urine Glucose (UA) NEGATIVE, Urine Ketones NEGATIVE, Urine Urobilinogen 0.2, Urine Bilirubin NEGATIVE, Urine Leukocyte Esterase 3+H, Urine Blood 2+H, Urine Nitrite POSITIVE, Urine WBC (Auto) 74H, Urine RBC (Auto) 26H, Urine Hyaline Casts (Auto) 0, Urine Bacteria (Auto) 2+H, Urine Squamous Epithelial Cells 0, Urine Amorphous Sediment SMALLH, Urine Mucus (Auto) SMALL, Urine Sperm (Auto) CBC/BMP Laboratory Tests 06/12/16 05:00 Red Blood Count 3.87 L, Mean Corpuscular Volume 85.0, Mean Corpuscular Hemoglobin 26.2 L, Mean Corpuscular Hemoglobin Concent 30.8 L, Red Cell Distribution Width 20.2 H, Neutrophils (%) (Auto) 68.3 H, Lymphocytes (%) (Auto ) 13.8 L, Monocytes (%) (Auto) 8.7 H, Eosinophils (%) (Auto) 5.6 H, Basophils (% ) (Auto) 0.6, Neutrophils # (Auto) 5.4, Lymphocytes # (Auto) 1.3 L, Monocytes # (Auto) 0.7, Eosinophils # (Auto) 0.4, Basophils # (Auto) 0.0, Calcium Level 7.8 L ADAM RIVAS DO Jun 12, 2016 15:08
[2016-06-12] MEDS: BACTRIM 80MG/400MG TAB PO SCH (20:31)
[2016-06-12] MEDS: ATORVASTATIN 20 MG TAB PO SCH (20:32)
[2016-06-13] VITALS (7 sets, daily range): BP systolic 116–144; BP diastolic 56–67
[2016-06-13] MEDS: traZODone 50 MG TAB PO SCH ×2 (00:14→21:14)
[2016-06-13] MEDS: LEVOTHYROXINE 0.137 MG TAB (137MCG) PO SCH (04:58)
[2016-06-13] MEDS: SLF 3 ML SYR IV SCH ×3 (04:59→21:14)
[2016-06-13 05:24] LABS: CREATININE FOR GFR 1.41 MG/DL (0.70-1.30); POTASSIUM SERUM 3.7 MEQ/L (3.5-5.1)
[2016-06-13 05:45] LABS: BASO % 0.6 % (0.0-1.0); EOS # 0.4 K/mm3 (0.0-0.50); EOS % 6.1 % (0.0-3.0); LARGE UNSTAINED CELL # 0.2 K/mm3 (0.0-0.4); LARGE UNSTAINED CELL % 2.8 % (0.0-4.0); LYMPH # 1.4 K/mm3 (1.5-4.5); MEAN CORPUSCULAR HEMOGLOBIN 26.2 pg (27.0-33.0); MEAN CORPUSCULAR HGB CONC 31.3 g/dl (32.0-36.5); MEAN CORPUSCULAR VOLUME 83.7 fl (80.0-96.0); MONO # 0.6 K/mm3 (0.0-0.8); MONO % 8.2 % (0.0-5.0); NEUTROPHILS # 4.9 K/mm3 (1.8-7.7); NEUTROPHILS % 66.3 % (36.0-66.0); PLATELET COUNT, AUTOMATED 199 k/mm3 (150-450); WHITE BLOOD COUNT 7.4 K/mm3 (4.0-10.0)
[2016-06-13] MEDS: **hydrALAZINE** 10 MG TAB PO SCH ×3 (06:14→16:49)
[2016-06-13] MEDS: ISOSORBIDE DIN. (ISORDIL) 20 MG TAB PO SCH ×3 (06:15→16:49)
[2016-06-13] MEDS: HumaLOG INSULIN (NovoLOG) PER UNIT SC SCH ×4 (07:30→20:43)
[2016-06-13] MEDS: LEVALBUTEROL 1.25 MG/0.5 ML CONCENTRATE NEB INH SCH ×3 (08:00→20:00)
[2016-06-13] MEDS: LEVEMIR (INSULIN DETEMIR) 1 UNITS/0.01ML SC SCH ×2 (08:16→20:44)
[2016-06-13] MEDS: TORSEMIDE 20 MG TAB PO SCH (08:17)
[2016-06-13] MEDS: SPIRONOLACTONE 12.5MG PER 1/2 TABLET PO SCH (08:17)
[2016-06-13] MEDS: FAMOTIDINE 20 MG TAB PO SCH ×2 (08:17→21:14)
[2016-06-13] MEDS: ASPIRIN 81 MG ENTERIC TAB PO SCH (08:17)
[2016-06-13] MEDS: BACTRIM 80MG/400MG TAB PO SCH ×2 (08:17→21:14)
[2016-06-13] MEDS: DOCUSATE SODIUM 100 MG CAP PO SCH ×2 (08:17→21:14)
[2016-06-13] MEDS: MOM 30ML SUSPENSION UDC PO SCH (08:18)
--- NOTE | 2016-06-13 15:46 | IPNPDOC ---
Subjective Date Seen The patient was seen on 06/13/16. Subjective Chief Complaint/HPI The patient is a 65-year-old male admitted with a reason for visit of Pleural Effusion, Gangrene. Events since last encounter pt seen and examined, no overnight events, Objective Physical Examination General Exam: Positive: Alert, No Acute Distress Eye Exam: Positive: PERRLA, Conjunctiva & lids normal, EOMI, Negative: Sclera icteric ENT Exam: Positive: Atraumatic, Mucous membr. moist/pink, Pharynx Normal Neck Exam: Positive: Supple, Negative: JVD, thyromegaly Chest Exam: Positive: Clear to auscultation, Normal air movement, Other (has right chest tube) Heart Exam: Positive: Irregular Rhythm, Normal S1, Normal S2, Negative: Murmurs, Rubs Abdomen Exam: Positive: Normal bowel sounds, Soft, Negative: Tenderness, Hepatospenomegaly Extremity Exam: Positive: Other (has bilateral below knee amputations. 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 Problem Text: * s/p I/D by dr Wen on 06/07 * he will be taken to OR in am * pt has been off of eliquis since monday (2) Systolic and diastolic CHF, acute on chronic Status: Acute Response to Treatment: Improving Problem Text: * follow cardiology recommendations for medication, several adjustments were made * pt is currently on isosorbide dinitrate, hydralazine, torsemide and spironolactone * received one dose of metoprolol 06/10 * Coreg was discontinued, captopril was discontinued * medications were adjusted by cardiology (3) Pleural effusion on right Status: Acute Response to Treatment: Improving Problem Text: due to decompensated CHF has chest tube was placed during admission. chest tube removed (4) PVD (peripheral vascular disease) Status: Chronic Problem Text: had stenting done on the right in mar 2016 (5) DM2 (diabetes mellitus, type 2) Status: Chronic (6) CKD (chronic kidney disease), stage III Status: Chronic Response to Treatment: Stable Problem Text: baseline creatinine around 1.3 to 1.5 has been at baseline (7) HTN (hypertension) Status: Chronic Response to Treatment: Stable Problem Text: * has been stable on multiple medications (8) Hypothyroid Status: Chronic (9) CAD (coronary artery disease) Status: Chronic Problem Text: h/o cabg in 2002 and also cardiac stents. (10) Pulmonary hypertension Status: Chronic (11) Obesity Status: Chronic (12) Hypercholesteremia Status: Chronic (13) Polyneuropathy Status: Chronic (14) S/P bilateral BKA (below knee amputation) Status: Chronic (15) DVT (deep venous thrombosis) Status: Chronic Problem Text: on eliquis normally now eliquis on hold (16) History of osteomyelitis Status: Chronic Problem Text: had 8 weeks of iv antibiotics in jan and feb will need further amputation of the right stump after cleared from cardiology (17) Chronic atrial fibrillation Status: Chronic Response to Treatment: Stable Problem Text: * rate controlled, pt is normally anticoagulated on eliquis * has been held since monday Plan/VTE VTE Prophylaxis Ordered?: Yes VS, I&O, 24H, Fishbone Vital Signs/I&O Vital Signs Date Time Temp Pulse Resp B/P (MAP) Pulse Ox O2 Delivery O2 Flow Rate FiO2 06/13/16 12:09 120/56 06/13/16 12:00 98.8 72 20 97 Room Air I&O- Last 24 Hours up to 6 AM 06/13/16 06:00 Intake Total 960 ml Output Total 1725 ml Balance -765 ml Laboratory Data 24H LABS Laboratory Tests 2 06/12/16 16:59: Bedside Glucose (Misc Panel) 146H 06/12/16 20:24: Bedside Glucose (Misc Panel) 148H 06/13/16 04:45: White Blood Count 7.4, Red Blood Count 3.93L, Hemoglobin 10.3L, Hematocrit 32.9L , Mean Corpuscular Volume 83.7, Mean Corpuscular Hemoglobin 26.2L, Mean Corpuscular Hemoglobin Concent 31.3L, Red Cell Distribution Width 20.0H, Platelet Count 199, Neutrophils (%) (Auto) 66.3H, Lymphocytes (%) (Auto) 16.0L, Monocytes (%) (Auto) 8.2H, Eosinophils (%) (Auto) 6.1H, Basophils (%) (Auto) 0.6 , Neutrophils # (Auto) 4.9, Lymphocytes # (Auto) 1.4L, Monocytes # (Auto) 0.6, Eosinophils # (Auto) 0.4, Basophils # (Auto) 0.0, Large Unclassified Cells % 2.8 , Large Unclassified Cells # 0.2, Anion Gap 8, Glomerular Filtration Rate 54.0, Blood Urea Nitrogen 31H, Creatinine 1.41H, Sodium Level 136, Potassium Level 3.7 , Chloride Level 102, Carbon Dioxide Level 26, Calcium Level 8.0L, Magnesium Level 2.0 06/13/16 11:48: Bedside Glucose (Misc Panel) 94 CBC/BMP Laboratory Tests 06/13/16 04:45 Red Blood Count 3.93 L, Mean Corpuscular Volume 83.7, Mean Corpuscular Hemoglobin 26.2 L, Mean Corpuscular Hemoglobin Concent 31.3 L, Red Cell Distribution Width 20.0 H, Neutrophils (%) (Auto) 66.3 H, Lymphocytes (%) (Auto ) 16.0 L, Monocytes (%) (Auto) 8.2 H, Eosinophils (%) (Auto) 6.1 H, Basophils (% ) (Auto) 0.6, Neutrophils # (Auto) 4.9, Lymphocytes # (Auto) 1.4 L, Monocytes # (Auto) 0.6, Eosinophils # (Auto) 0.4, Basophils # (Auto) 0.0, Calcium Level 8.0 L Microbiology Microbiology 06/12/16 Urine Culture, Received Pending ADAM RIVAS DO June 13, 2016 15:19
[2016-06-13] MEDS: ATORVASTATIN 20 MG TAB PO SCH (21:14)
[2016-06-14] VITALS (10 sets, daily range): BP systolic 121–171; BP diastolic 62–86; PULSE 64
[2016-06-14 05:38] LABS: MEAN CORPUSCULAR HEMOGLOBIN 27.2 pg (27.0-33.0); MEAN CORPUSCULAR HGB CONC 31.7 g/dl (32.0-36.5); RED CELL DISTRIBUTION WIDTH 20.1 % (11.5-14.5); WHITE BLOOD COUNT 7.2 K/mm3 (4.0-10.0)
[2016-06-14 06:02] LABS: ALBUMIN 2.2 GM/DL (3.2-5.2); ALBUMIN/GLOBULIN RATIO 0.44 (1.00-1.93); CREATININE FOR GFR 1.61 MG/DL (0.70-1.30); GLOMERULAR FILTRATION RATE 46.4 (>49); MAGNESIUM LEVEL 1.9 MG/DL (1.8-2.4); TOTAL PROTEIN 7.2 GM/DL (6.4-8.2)
[2016-06-14] MEDS: **hydrALAZINE** 10 MG TAB PO SCH ×3 (06:04→17:13)
[2016-06-14] MEDS: LEVOTHYROXINE 0.137 MG TAB (137MCG) PO SCH (06:04)
[2016-06-14] MEDS: SLF 3 ML SYR IV SCH ×3 (06:05→20:34)
[2016-06-14] MEDS: ISOSORBIDE DIN. (ISORDIL) 20 MG TAB PO SCH ×3 (06:05→17:12)
[2016-06-14] MEDS: LEVALBUTEROL 1.25 MG/0.5 ML CONCENTRATE NEB INH SCH ×3 (07:06→20:00)
[2016-06-14] MEDS: HumaLOG INSULIN (NovoLOG) PER UNIT SC SCH ×4 (07:30→20:32)
[2016-06-14] MEDS: SPIRONOLACTONE 12.5MG PER 1/2 TABLET PO SCH (08:20)
[2016-06-14] MEDS: TORSEMIDE 20 MG TAB PO SCH (08:20)
[2016-06-14] MEDS: BACTRIM 80MG/400MG TAB PO SCH ×2 (08:21→20:31)
[2016-06-14] MEDS: FAMOTIDINE 20 MG TAB PO SCH ×2 (08:21→20:31)
[2016-06-14] MEDS: MOM 30ML SUSPENSION UDC PO SCH (08:21)
[2016-06-14] MEDS: DOCUSATE SODIUM 100 MG CAP PO SCH ×2 (08:22→20:30)
[2016-06-14] MEDS: LEVEMIR (INSULIN DETEMIR) 1 UNITS/0.01ML SC SCH ×2 (08:22→20:33)
[2016-06-14] MEDS ORDERED: BUPIVACAINE LIPOSOME/PF 1.3% 20 ML VIAL (13.3MG/ML)(EXPAREL) As Ordered ONE (12:07)
[2016-06-14] MEDS ORDERED: BUPIVACAINE HCL 0.25% 30 ML VIAL As Ordered ONE (12:07)
--- NOTE | 2016-06-14 12:25 | IPN ---
DATE: 06/14/2016 Patient seen and examined at bedside. Chart has been reviewed. This morning, he denies any chest pain, pressure, tightness, diaphoresis, palpitations, lightheadedness, or dizziness. No other issues on telemetry. Vitals: Temperature 99.3, pulse 65, respiratory rate 18, blood pressure 121/62, 94% on room air. Input and output: Input 840, output 2950, negative 2110, current weight is 114.7 kg with admission weight peaking at 131.3 kg. Generally, he is awake, alert and oriented times three, answering questions appropriately. Moist mucous membranes. Normal pharynx. No jugular venous distention or thyromegaly. Lungs are clear to auscultation. Fine crackles at the right base. Otherwise clear. Abdomen: Soft, nontender, nondistended. Positive bowel sounds. Extremity: Right below knee amputation (BKA) with mild odorous necrotic appearance with brownish drainage. LABORATORY DATA: White count 7.2, hemoglobin 10, hematocrit 34, platelet count 221. Sodium 135, potassium 4, chloride 102, bicarbonate 24, BUN 28, creatinine 1.61, glucose 111. CURRENT MEDICATIONS: - Bactrim one tablet twice daily - torsemide 20 daily - Xopenex 1.25 routinely three times daily - isosorbide 20 three times daily - hydralazine 10 three times daily - Levemir 25 twice daily - Synthroid 0.137 mcg daily - spironolactone 12.5 daily - aspirin 81 Monday, Monday, Monday - Lipitor 40 daily at bedtime - Pepcid 20 twice daily - Percocet one to two tablets every 4 hours as needed - [place] one tablet every 3 hours as needed - Xopenex as needed - Milk of magnesia - Zofran as needed - Lispro before meals and at bedtime - trazodone 150 daily at bedtime IMAGING STUDY: Chest x-ray 06/11: Right lower lobe atelectasis or infiltrate unchanged from prior. ASSESSMENT AND PLAN: This is a 65-year-old male with history of coronary artery disease (CAD), prior inferior wall myocardial infarction, ischemic cardiomyopathy, coronary artery bypass graft (CABG) 2003, hypertension, chronic atrial fibrillation, type 2 diabetes insulin dependent, obesity, hyperlipidemia, hypothyroidism, peripheral arterial disease with bilateral below knee amputation , right thoracentesis 2016, right chest tube placement 05/27, ejection fraction of 36% with echo on 03/24/2016 at [place] with left ventricular ejection fraction of 20-25%, presents to the emergency room with right necrotic stump and congestive heart failure with recurrent right pleural effusion requiring drainage and chest tube placement. CURRENT ISSUES: 1. right below knee amputation (BKA) stump gangrene status post incision and drainage (I and D) by Dr. Wen. Patient has been off Eliquis since Monday. Will go to the operating room for above the knee amputation on 06/14/2016, medically optimized per Dr. Phillips. 2. Systolic/diastolic congestive heart failure (CHF), acute on chronic, compensated. Currently in isosorbide, hydralazine, torsemide, spironolactone. Received one dose metoprolol 06/10. Coreg discontinued. Captopril discontinued. Medications adjusted by cardiology. Currently medically optimized to proceed to the operating room. Aspirin has been discontinued. 3. Recurrent pleural effusion on the right secondary to decompensated congestive heart failure. Chest tube has been discontinued. Currently stable and compensated from the heart failure standpoint. Medically optimized to proceed to surgery. 4. Peripheral vascular disease, stenting on the right 03/2016. 5. Type 2 diabetes chronic on insulin sliding scale. Currently n.p.o. for above the knee amputation on the right. 6. Peripheral vascular disease, stenting on the right 03/2016, undergoing above the knee amputation due to gangrenous necrotic right below the knee stump. 7. Chronic kidney disease stage III at baseline creatinine of 1.3 to 1.5. Monitor on Bactrim for now and repeat metabolic panel at a later time. 8. Deep venous thrombosis (DVT) chronic, on chronic Eliquis, held due to planned surgery today. 9. History of osteomyelitis, chronic, 8 weeks of IV antibiotics in January and February. Amputation of right stump today. 10. Chronic atrial fibrillation, stable. Rate controlled. Normally anticoagulated on Eliquis. Eliquis and aspirin have been held. Eliquis has been held since Monday due to planned surgery today. 11. Pulmonary hypertension, chronic. 12. Obesity complicating acute issues. 13. Hypercholesterolemia, chronic. 14. Polyneuropathy secondary to diabetes, chronic. 15. History of bilateral below knee amputation (BKA). [facility]
[2016-06-14] MEDS ORDERED: ceFAZolin 1GM INJ (J0690) As Ordered ONE (12:41)
[2016-06-14] MEDS ORDERED: PROPOFOL 200 MG/20 ML VIAL As Ordered ONE (13:19)
[2016-06-14] MEDS ORDERED: BUPIVACAINE HCL 0.5% 30 ML VIAL As Ordered ONE (13:19)
[2016-06-14] MEDS ORDERED: NS 1,000 ML IV SCH (14:28)
[2016-06-14] MEDS ORDERED: MORPHINE PCA 1MG/ML 100ML CADD As Ordered ONE (14:30)
[2016-06-14] MEDS ORDERED: ONDANSETRON 4MG/2ML VIAL (J2405) IV PRN ×2 (14:30→15:00)
[2016-06-14] MEDS ORDERED: diphenhydrAMINE INJ 50MG/ML VIAL (J1200) IV PRN (14:30)
[2016-06-14] MEDS ORDERED: NALBUPHINE HCL 10 MG/ML AMP (J2300) IV PRN (14:30)
[2016-06-14] MEDS ORDERED: EPIDURAL/PCA KEYS XX PRN (14:30)
[2016-06-14] MEDS ORDERED: MORPHINE PCA 1MG/ML 100ML CADD IV PRN (14:30)
[2016-06-14] MEDS ORDERED: NALOXONE INJ 0.4 MG/1 ML VIAL (J2310) IV PRN (14:30)
[2016-06-14] MEDS ORDERED: fentaNYL 100 MCG/2 ML INJECTION (J3010) IV PRN (15:00)
[2016-06-14] MEDS ORDERED: LR 1,000 ML IV SCH (15:00)
[2016-06-14] MEDS: NORCO, ANEXSIA 5/325MG TABLET (HYDROcodone/ACETAMINOPHEN) PO PRN (17:13)
[2016-06-14] MEDS: traZODone 50 MG TAB PO SCH (20:30)
[2016-06-14] MEDS: ATORVASTATIN 20 MG TAB PO SCH (20:31)
[2016-06-15] VITALS (13 sets, daily range): BP systolic 112–162; BP diastolic 56–77; PULSE 84
[2016-06-15] MEDS: ONDANSETRON 4MG/2ML VIAL (J2405) IV PRN ×2 (00:09→06:44)
[2016-06-15] MEDS ORDERED: NALOXONE INJ 0.4 MG/1 ML VIAL (J2310) IV STA ×2 (01:45→01:48)
[2016-06-15 02:05] LABS: ABG BASE EXCESS -4.1 (-2.0-2.0); ABG HCO3 20.3 MEQ/L (22.0-26.0); ABG PARTIAL PRESSURE CO2 34.7 mmHg (35.0-45.0); ABG PARTIAL PRESSURE O2 88.8 mmHg (75.0-100.0); ABG TOTAL CO2 21.3 MEQ/L (23.0-31.0); ABG pH (ARTERIAL) 7.384 UNITS (7.350-7.450)
[2016-06-15 02:21] LABS: MEAN CORPUSCULAR HEMOGLOBIN 27.5 pg (27.0-33.0); MEAN CORPUSCULAR HGB CONC 30.9 g/dl (32.0-36.5); MEAN CORPUSCULAR VOLUME 89.1 fl (80.0-96.0); RED CELL DISTRIBUTION WIDTH 19.8 % (11.5-14.5); WHITE BLOOD COUNT 13.9 K/mm3 (4.0-10.0)
--- NOTE | 2016-06-15 02:28 | REP ---
Clinical: Hypoxemia. Comparison: 06/11/2016. Findings: Portable examination again demonstrates stable cardiomegaly and mild interstitial edema. No focal consolidation, obvious effusion, or pneumothorax. Skeletal structures intact. Impression: Stable cardiomegaly. Cannot exclude mild interstitial edema. No focal consolidation. Signed by Seth Sepulveda MD 06/15/2016 02:18 A
[2016-06-15 02:39] LABS: CALCIUM LEVEL 8.8 MG/DL (8.8-10.2); CREATININE FOR GFR 2.06 MG/DL (0.70-1.30); GLOMERULAR FILTRATION RATE 34.9 (>49); POTASSIUM SERUM 4.9 MEQ/L (3.5-5.1)
[2016-06-15 05:05] LABS: MEAN CORPUSCULAR HEMOGLOBIN 26.8 pg (27.0-33.0); MEAN CORPUSCULAR HGB CONC 31.3 g/dl (32.0-36.5); MEAN CORPUSCULAR VOLUME 85.8 fl (80.0-96.0); RED CELL DISTRIBUTION WIDTH 19.8 % (11.5-14.5); WHITE BLOOD COUNT 18.5 K/mm3 (4.0-10.0)
[2016-06-15 05:23] LABS: ALBUMIN 2.3 GM/DL (3.2-5.2); ALBUMIN/GLOBULIN RATIO 0.43 (1.00-1.93); BILIRUBIN,TOTAL 1.5 MG/DL (0.2-1.0); CREATININE FOR GFR 2.01 MG/DL (0.70-1.30); GLOMERULAR FILTRATION RATE 35.9 (>49); TOTAL PROTEIN 7.7 GM/DL (6.4-8.2)
[2016-06-15 05:28] LABS: POTASSIUM SERUM 5.2 MEQ/L (3.5-5.1)
[2016-06-15] MEDS: LEVOTHYROXINE 0.137 MG TAB (137MCG) PO SCH (06:33)
[2016-06-15] MEDS: ISOSORBIDE DIN. (ISORDIL) 20 MG TAB PO SCH ×3 (06:34→17:16)
[2016-06-15] MEDS: SLF 3 ML SYR IV SCH ×3 (06:35→21:32)
[2016-06-15] MEDS: **hydrALAZINE** 10 MG TAB PO SCH ×3 (06:35→17:19)
--- NOTE | 2016-06-15 08:28 | IPN ---
DATE: 06/15/2016 Overnight, patient was emergently transferred to intensive care unit (ICU) due to altered mental status from morphine [employer] pump. Patient received 8 mg of intravenous morphine via [employer] pump and was unarousable. Glucose level was normal at 139 to 115. Patient received 2 doses of Narcan with significant improvement. Currently patient is awake, alert, oriented times three. Answers questions appropriately. He was afebrile overnight but complains of diaphoresis. No chest pain, pressure or tightness, lightheadedness. Temperature 97.8, pulse 84, respiratory rate 26, blood pressure 156/69, 95% Venturi mask, 40% FiO2. Generally, awake, alert, oriented times three, answering questions appropriately. Face is symmetric. Tongue is midline. Dry mucous membranes. No jugular venous distention, thyromegaly. Lungs: Diminished but clear to auscultation bilaterally. Heart: S1, S2, irregularly irregular. Abdomen: Soft, nontender, nondistended. Positive bowel sounds. Extremities: Right above knee amputation (AKA). Left stump is good color, skin pink, warm to touch. White count 18.5, hemoglobin 10, hematocrit 33, platelet 220. Sodium 134, potassium 5.2, chloride 100, bicarbonate 25, BUN 34, creatinine 2.01, glucose of 169. Total bilirubin 1.5, AST 44, ALT 25, alkaline phosphatase 236. Total CK 376, CK-MB 5, troponin 0.06. Urine culture 06/12 Klebsiella oxytoca present on admission. Imaging study: Chest x-ray 06/15 at 2:16 a.m.: Cardiomegaly, cannot exclude mild interstitial edema, no focal consolidation. ASSESSMENT AND PLAN: This is a 65-year-old male with history of coronary artery disease (CAD), prior inferior wall myocardial infarction (IA), ischemic cardiomyopathy, coronary artery bypass graft (CABG) 2003, hypertension, chronic atrial fibrillation, type 2 diabetes insulin dependent, obesity, hyperlipidemia, hypothyroidism, peripheral arterial disease, bilateral below knee amputation (BKA), right thoracentesis 2016, right chest tube placement 05/27, ejection fraction (EF) 36% on echo at [place] on 04/01, left ejection fraction 20-25%, presents to the ER with right necrotic below knee amputation (BKA) with gangrenous changes and congestive heart failure (CHF) with recurrent right pleural effusion requiring drainage and chest tube placement. Patient underwent right above the knee amputation due to severe gangrene, developed acute metabolic encephalopathy secondary to morphine, transferred to intensive care unit (ICU) and given Narcan times two doses. CURRENT ISSUES: 1. Acute metabolic encephalopathy secondary to morphine [employer]ER pump. Patient received 2 doses of Narcan with resolution of symptoms. Patient is currently awake, alert, oriented times three. Defer to surgical services for pain management of recent right above the knee amputation. Decrease dosage to prevent encephalopathy. 2. Acute on chronic renal failure currently on spironolactone, furosemide and Bactrim which all have been held and discontinued for now. Currently will monitor patient's volume status, repeat metabolic panel in 6 hours. Monitor input and output. Avoid other nephrotoxins. Resume small doses once patient's creatinine and potassium have normalized. 3. Systolic/diastolic congestive heart failure (CHF) acute on chronic, currently compensated on isosorbide, hydralazine. Torsemide and spironolactone have been discontinued temporarily due to acute on chronic renal failure and hyperkalemia. 4. Atrial fibrillation currently rate controlled. He received 1 dose of metoprolol. Coreg has been discontinued. 5. History of ischemic cardiomyopathy status post above the knee amputation, may resume low dose aspirin and Eliquis if okay with surgery. 6. Recurrent pleural effusion on the right requiring drainage and chest tube placement secondary to decompensated congestive heart failure, resolved. 7. Peripheral vascular disease with stenting on the right, stable. 8. Type 2 diabetes, chronic on insulin sliding scale. Resume consistent carbohydrate diet and sliding scale with coverage. 9. Chronic kidney disease. 10. Deep venous thrombosis (DVT), chronic. May resume Eliquis if okay with surgery. 11. History of osteomyelitis status post 8 weeks IV antibiotics in January and February, status post right above the knee amputation due to gangrenous changes. 12. Pulmonary hypertension, chronic. 13. Obesity complicating acute issues. 14. Hypercholesterolemia, chronic. 15. Polyneuropathy secondary to diabetes. 16. Chronic history of below the knee amputation (BKA), currently with right above knee amputation (AKA). Postop management per surgery. MTDD
[2016-06-15] MEDS: FAMOTIDINE 20 MG TAB PO SCH ×2 (08:39→21:25)
[2016-06-15] MEDS: DOCUSATE SODIUM 100 MG CAP PO SCH ×2 (08:39→21:25)
[2016-06-15] MEDS: HumaLOG INSULIN (NovoLOG) PER UNIT SC SCH ×4 (08:40→21:00)
[2016-06-15] MEDS: LEVEMIR (INSULIN DETEMIR) 1 UNITS/0.01ML SC SCH ×2 (08:41→21:31)
[2016-06-15] MEDS: MOM 30ML SUSPENSION UDC PO SCH (08:44)
[2016-06-15] MEDS: LevoFLOXacin 250 MG TABLET PO SCH (12:34)
[2016-06-15 13:35] LABS: CALCIUM LEVEL 8.2 MG/DL (8.8-10.2); CREATININE FOR GFR 2.11 MG/DL (0.70-1.30); GLOMERULAR FILTRATION RATE 33.9 (>49); POTASSIUM SERUM 4.8 MEQ/L (3.5-5.1)
[2016-06-15] MEDS: NORCO, ANEXSIA 5/325MG TABLET (HYDROcodone/ACETAMINOPHEN) PO PRN (17:18)
[2016-06-15 18:18] LABS: CALCIUM LEVEL 7.6 MG/DL (8.8-10.2); CREATININE FOR GFR 2.05 MG/DL (0.70-1.30); GLOMERULAR FILTRATION RATE 35.1 (>49); POTASSIUM SERUM 4.6 MEQ/L (3.5-5.1)
[2016-06-15] MEDS: traZODone 50 MG TAB PO SCH (21:00)
[2016-06-15] MEDS: ATORVASTATIN 20 MG TAB PO SCH (21:25)
[2016-06-16 01:08] LABS: CALCIUM LEVEL 8.5 MG/DL (8.8-10.2); CREATININE FOR GFR 1.94 MG/DL (0.70-1.30); GLOMERULAR FILTRATION RATE 37.4 (>49); POTASSIUM SERUM 4.4 MEQ/L (3.5-5.1)
[2016-06-16] MEDS: NORCO, ANEXSIA 5/325MG TABLET (HYDROcodone/ACETAMINOPHEN) PO PRN ×3 (04:21→23:01)
[2016-06-16 05:31] VITALS: BP 115/67
[2016-06-16 06:00] LABS: MEAN CORPUSCULAR HGB CONC 30.7 g/dl (32.0-36.5); MEAN CORPUSCULAR VOLUME 87.9 fl (80.0-96.0); RED CELL DISTRIBUTION WIDTH 19.8 % (11.5-14.5); WHITE BLOOD COUNT 11.8 K/mm3 (4.0-10.0)
[2016-06-16] MEDS: LEVOTHYROXINE 0.137 MG TAB (137MCG) PO SCH (06:10)
[2016-06-16] MEDS: **hydrALAZINE** 10 MG TAB PO SCH ×3 (06:11→17:50)
[2016-06-16] MEDS: LevoFLOXacin 250 MG TABLET PO SCH (06:11)
[2016-06-16] MEDS: SLF 3 ML SYR IV SCH ×3 (06:12→21:23)
[2016-06-16 06:15] LABS: ALBUMIN 2.1 GM/DL (3.2-5.2); ALBUMIN/GLOBULIN RATIO 0.4 (1.00-1.93); BILIRUBIN,TOTAL 1.2 MG/DL (0.2-1.0); CALCIUM LEVEL 8.2 MG/DL (8.8-10.2); CREATININE FOR GFR 1.9 MG/DL (0.70-1.30); GLOMERULAR FILTRATION RATE 38.3 (>49); MAGNESIUM LEVEL 2.3 MG/DL (1.8-2.4); POTASSIUM SERUM 4.6 MEQ/L (3.5-5.1); TOTAL PROTEIN 7.4 GM/DL (6.4-8.2)
[2016-06-16] MEDS: ISOSORBIDE DIN. (ISORDIL) 20 MG TAB PO SCH ×3 (07:00→17:49)
[2016-06-16] MEDS: HumaLOG INSULIN (NovoLOG) PER UNIT SC SCH ×4 (07:30→21:00)
[2016-06-16 07:50] VITALS: BP 120/56
[2016-06-16] MEDS: FAMOTIDINE 20 MG TAB PO SCH ×2 (08:33→21:23)
[2016-06-16] MEDS: DOCUSATE SODIUM 100 MG CAP PO SCH ×2 (08:33→21:23)
[2016-06-16] MEDS: MOM 30ML SUSPENSION UDC PO SCH (08:34)
[2016-06-16] MEDS: LEVEMIR (INSULIN DETEMIR) 1 UNITS/0.01ML SC SCH ×2 (08:34→21:23)
[2016-06-16] MEDS ORDERED: TORSEMIDE 20 MG TAB PO ONE (10:15)
[2016-06-16] MEDS ORDERED: metOLazone 2.5 MG TAB PO ONE (10:30)
--- NOTE | 2016-06-16 11:45 | REP ---
PORTABLE CHEST, ONE VIEW: HISTORY: Lung fluid. COMPARISON: 06/15/2016 An increase in interstitial markings is present in the lungs. Linear density is present in the lower lobes consistent with atelectasis. The cardiac silhouette is enlarged. The pulmonary vasculature is prominent. IMPRESSION: 1. There is a minimal increase in interstitial markings in the lungs that may represent interstitial edema. 2. Bibasilar atelectasis. 3. Cardiomegaly. Signed by Jamar Cervantes MD 06/16/2016 11:48 A
[2016-06-16 12:40] VITALS: BP 119/57
--- NOTE | 2016-06-16 12:52 | IPN ---
DATE: 06/16/2016 The patient has a nonproductive cough at the bedside. No fever or chills overnight. Pain is controlled. Tolerating diet well. No complaints of shortness of breath, chest pain, pressure, tightness, lightheadedness, dizziness. PHYSICAL EXAMINATION: Temperature 97, pulse 68, respiratory rate 18, blood pressure 120/56, 97% on 2 liters nasal cannula. GENERAL: The patient is awake, alert, oriented times three, answering questions appropriately. No jugular venous distention. No thyromegaly. LUNGS: Diminished with coarse breath sounds bilaterally. HEART: S1, S2. Irregularly irregular. ABDOMEN: Soft, nontender, nondistended. EXTREMITIES: Right above knee amputation (AKA). Drain in place, about 5 mL of bloody drainage. No purulence. LABORATORY DATA: White count 11.8, hemoglobin 9.8, hematocrit 31, platelet count 225. Sodium 132, potassium 4.6, chloride 98, bicarbonate 27, BUN 39, creatinine 1.9, glucose of 145. Total bilirubin 1.2, AST 46, ALT 24, alkaline phosphatase 213, calcium 8.2. UA on 06/15/2016: 1+ protein, 2+ blood, negative nitrates, 2+ leukocyte esterase, 19 WBCs, 1+ bacteria. Microbiology on 06/12/2016: Klebsiella more than 100,000, sensitive to Levaquin. ASSESSMENT AND PLAN: This is a 65-year-old male with history of coronary artery disease (CAD), prior inferior wall myocardial infarction ([place]), ischemic cardiomyopathy, coronary artery bypass graft (CABG) 2003, hypertension, chronic atrial fibrillation, type 2 diabetes insulin dependent, obesity, hyperlipidemia, hypothyroidism, peripheral arterial disease, bilateral below knee amputation (BKA), right thoracentesis 2016, right chest tube placement 05/27, ejection fraction (EF) 36% on echo at [place], left ejection fraction 20-25%, presented to the emergency room with right necrotic below knee amputation (BKA) with gangrenous changes and congestive heart failure (CHF) with recurrent right pleural effusion requiring drainage and chest tube placement. Patient underwent right above the knee amputation after being optimized by his microsoft bi developer, Dr. Phillips. Chest tube has been discontinued. Heart failure was compensated. Postoperatively, the patient developed obtundation due to morphine SENIOR ANALYSIS SPECIALIST and was emergently transferred to intensive care unit (ICU). Received two doses of Narcan with resolution of his acute encephalopathy. The patient has also developed acute on chronic renal failure, baseline creatinine 1.4 and peak of 2.09 secondary to torsemide, spironolactone, and Bactrim, all of which have been held yesterday. CURRENT ISSUES: 1. Acute metabolic encephalopathy secondary to morphine SENIOR ANALYSIS SPECIALIST pump, resolved. Patient received two doses of Narcan with resolution of symptoms. Currently awake, alert, oriented times three. Defer to surgical services for pain management of recent right above the knee amputation. Decrease dosage to prevent encephalopathy. 2. Acute on chronic renal failure. The patient was on spironolactone, torsemide and Bactrim, which have been held. Improved creatinine today. Therefore, we will resume diuretics and hold off on spironolactone for now since patient had hyperkalemia with potassium of 5.2 yesterday. 3. Systolic/diastolic congestive heart failure (CHF) acute on chronic, compensated. Currently on isosorbide, hydralazine. We will resume torsemide today. Spironolactone will be held due to recent hyperkalemia. Add Zaroxolyn for better diuresis. Monitor the patient's input and output, daily weights and fluid restriction. 4. Atrial fibrillation, rate controlled. The patient was given metoprolol and Coreg previously. Currently not on any rate controlled medications. Eliquis has been held due to recent above the knee amputation. Defer to surgery to advise when Eliquis can be resumed for atrial fibrillation prophylaxis. 5. Pulmonary hypertension. Chronic obesity complicating acute issues. 6. Hypercholesterolemia and chronic polyneuropathy due to diabetes, stable. 7. Type 2 diabetes. Glucose levels are adequate. Currently on Levemir insulin 25 twice a day. DISPOSITION: Physical Medicine and Rehabilitation (PM R) screening, may transfer to medical/surgical.
[2016-06-16 14:00] VITALS: BP 130/65
[2016-06-16 18:00] VITALS: BP 135/63
--- NOTE | 2016-06-16 18:09 | ECGEPIP ---
Stationary ECG Study 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
[2016-06-16] MEDS: traZODone 50 MG TAB PO SCH ×2 (21:00→21:23)
[2016-06-16] MEDS: ATORVASTATIN 20 MG TAB PO SCH (21:23)
[2016-06-16 22:00] VITALS: BP 134/64
[2016-06-17 02:00] VITALS: BP 136/69
[2016-06-17 06:00] VITALS: BP 105/71
[2016-06-17 06:10] LABS: MEAN CORPUSCULAR HEMOGLOBIN 26.9 pg (27.0-33.0); MEAN CORPUSCULAR HGB CONC 31.8 g/dl (32.0-36.5); MEAN CORPUSCULAR VOLUME 84.8 fl (80.0-96.0); RED CELL DISTRIBUTION WIDTH 20.2 % (11.5-14.5); WHITE BLOOD COUNT 10.7 K/mm3 (4.0-10.0)
[2016-06-17 06:24] LABS: ALBUMIN/GLOBULIN RATIO 0.35 (1.00-1.93); BILIRUBIN,TOTAL 1.1 MG/DL (0.2-1.0); CALCIUM LEVEL 8.3 MG/DL (8.8-10.2); CREATININE FOR GFR 1.7 MG/DL (0.70-1.30); GLOMERULAR FILTRATION RATE 43.6 (>49); MAGNESIUM LEVEL 2.1 MG/DL (1.8-2.4); POTASSIUM SERUM 3.8 MEQ/L (3.5-5.1); TOTAL PROTEIN 7.7 GM/DL (6.4-8.2)
[2016-06-17] MEDS ORDERED: TORSEMIDE 20 MG TAB PO ONE (06:30)
[2016-06-17] MEDS ORDERED: metOLazone 2.5 MG TAB PO ONE (06:30)
[2016-06-17] MEDS: LEVOTHYROXINE 0.137 MG TAB (137MCG) PO SCH (06:47)
[2016-06-17] MEDS: LevoFLOXacin 250 MG TABLET PO SCH (06:47)
[2016-06-17] MEDS: ISOSORBIDE DIN. (ISORDIL) 20 MG TAB PO SCH ×3 (06:47→16:53)
[2016-06-17] MEDS: **hydrALAZINE** 10 MG TAB PO SCH ×3 (06:48→16:53)
[2016-06-17] MEDS: SLF 3 ML SYR IV SCH ×3 (06:48→21:32)
[2016-06-17] MEDS: HumaLOG INSULIN (NovoLOG) PER UNIT SC SCH ×4 (08:15→21:00)
[2016-06-17] MEDS: FAMOTIDINE 20 MG TAB PO SCH ×2 (08:15→21:30)
[2016-06-17] MEDS: TORSEMIDE 20 MG TAB PO SCH (08:15)
[2016-06-17] MEDS: DOCUSATE SODIUM 100 MG CAP PO SCH ×2 (08:15→21:30)
[2016-06-17] MEDS: LEVEMIR (INSULIN DETEMIR) 1 UNITS/0.01ML SC SCH ×2 (08:16→21:31)
[2016-06-17] MEDS: MOM 30ML SUSPENSION UDC PO SCH (08:16)
[2016-06-17 10:00] VITALS: BP 152/62
--- NOTE | 2016-06-17 12:42 | IPN ---
DATE: 06/17/2016 The patient is seen and examined at the bedside. Chart has been reviewed. This morning, he has no new complaints. He is anxious to go home. No significant drainage from the right above the knee amputation site. Per nursing, afebrile overnight. No chills. No complaints of shortness of breath, chest pain, pressure, tightness. His torsemide and Zaroxolyn were given yesterday with net negative overnight. No new complaints this morning. PHYSICAL EXAMINATION: Temperature 98.2, pulse 69, respiratory rate 22, blood pressure 152/62, 93% on room air. GENERAL: Awake, alert, oriented times three. No jugular venous distention. No thyromegaly. HEENT: Moist mucous membranes. LUNGS: Diminished with fine crackles at the bases. HEART: S1, S2. Irregularly irregular. ABDOMEN: Soft, nontender, nondistended. Obese abdomen. Positive bowel sounds times four quadrants. No hepatosplenomegaly. EXTREMITIES: Right above knee amputation (AKA). Dressing intact. No significant drainage of malodorous discharge. Left stump well healed. No acute issues. LABORATORY DATA: White count 10.7, hemoglobin 9, hematocrit 28, platelet count 217. Sodium 133, potassium 3.8, chloride 96, bicarbonate 28, BUN 39, creatinine 1.7, glucose 118. The patient's magnesium is 2.1. Urine culture with Klebsiella on urine culture of 06/12/2016. Sensitive to Levaquin. ASSESSMENT AND PLAN: This is a 65-year-old male with history of coronary artery disease (CAD), inferior wall myocardial infarction ([place]), ischemic cardiomyopathy, coronary artery bypass graft (CABG), hypertension, chronic atrial fibrillation, type 2 diabetes insulin dependent, obesity, hyperlipidemia, hypothyroidism, peripheral arterial disease, bilateral below the knee amputation (BKA), right thoracentesis in 2017, right chest tube placement 05/27, ejection fraction (EF) 36% on echo at [place], left ejection fraction 20-25%, presented to the emergency room with right necrotic below knee stump infection with gangrenous changes and congestive heart failure (CHF) exacerbation with recurrent right pleural effusion requiring drainage and chest tube placement. Patient underwent right above the knee amputation after being optimized by his events director, Dr. Phillips. Chest tube has been discontinued. Heart failure was compensated. Postoperatively, the patient developed obtundation due to morphine CLINICAL FACULTY pump and was emergently transferred to intensive care unit (ICU). Received two doses of Narcan with resolution of his confusion. The patient has developed acute on chronic renal failure, baseline creatinine 1.4 and peak creatinine 2.09 secondary to torsemide, spironolactone, and Bactrim, all of which have been held yesterday. CURRENT ISSUES: 1. Acute metabolic encephalopathy secondary to morphine CLINICAL FACULTY pump, resolved. Patient received two doses of Narcan with resolution of symptoms. Currently awake, alert, oriented times three. Pain is currently managed postoperatively by Dr. Wen, general surgeon. 2. Acute on chronic renal failure, currently improved and back to baseline. His torsemide has been restated. Zaroxolyn, one dose was given for better diuresis. The patient's spironolactone has not bee resolved due to risk of hyperkalemia worsening renal failure. Bactrim has been discontinued. No signs of fever, worsening pain or discharge at the above the knee amputation site. 3. Right above the knee amputation secondary to stump gangrene. Postoperative management per Dr. Wen. Currently on no antibiotic. Awaiting clearance from physical therapy (PT) and occupational therapy (OT) regarding inpatient rehabilitation or subacute rehabilitation versus discharge home. Pain control, bowel regimen. 3. Systolic/diastolic heart failure, acute on chronic, currently compensated. Still on isosorbide, hydralazine. Torsemide has been resumed. Spironolactone is held due to recent episode of hyperkalemia and worsening renal dysfunction. 4. Atrial fibrillation, rate controlled. The patient is currently on metoprolol. Digoxin was held due to recent surgery. Resume on Monday. 5. Pulmonary hypertension and chronic obesity complicating acute issues. 6. Hypercholesterolemia and chronic polyneuropathy due to diabetes, stable. 7. Type 2 diabetes. On Levemir insulin 25 twice a day. DISPOSITION: Awaiting physical therapy (PT) recommendations.
[2016-06-17 14:00] VITALS: BP 118/57
[2016-06-17 18:00] VITALS: BP 130/58
[2016-06-17] MEDS: traZODone 50 MG TAB PO SCH (21:00)
[2016-06-17] MEDS: ATORVASTATIN 20 MG TAB PO SCH (21:29)
[2016-06-17 22:00] VITALS: BP 137/63
[2016-06-18 02:00] VITALS: BP 142/73
[2016-06-18] MEDS: PERCOCET 5MG/325MG TAB PO PRN (02:08)
[2016-06-18 05:58] LABS: MEAN CORPUSCULAR HGB CONC 31.1 g/dl (32.0-36.5); MEAN CORPUSCULAR VOLUME 86.8 fl (80.0-96.0); RED CELL DISTRIBUTION WIDTH 20.2 % (11.5-14.5); WHITE BLOOD COUNT 10.3 K/mm3 (4.0-10.0)
[2016-06-18 06:00] VITALS: BP 129/68
[2016-06-18] MEDS: LEVOTHYROXINE 0.137 MG TAB (137MCG) PO SCH (06:19)
[2016-06-18] MEDS: **hydrALAZINE** 10 MG TAB PO SCH ×3 (06:19→17:55)
[2016-06-18] MEDS: LevoFLOXacin 250 MG TABLET PO SCH (06:19)
[2016-06-18] MEDS: SLF 3 ML SYR IV SCH ×3 (06:20→22:25)
[2016-06-18 06:21] LABS: ALBUMIN/GLOBULIN RATIO 0.35 (1.00-1.93); BILIRUBIN,TOTAL 0.9 MG/DL (0.2-1.0); CALCIUM LEVEL 8.4 MG/DL (8.8-10.2); CREATININE FOR GFR 1.87 MG/DL (0.70-1.30); MAGNESIUM LEVEL 1.8 MG/DL (1.8-2.4); POTASSIUM SERUM 3.7 MEQ/L (3.5-5.1); TOTAL PROTEIN 7.7 GM/DL (6.4-8.2)
[2016-06-18] MEDS: ISOSORBIDE DIN. (ISORDIL) 20 MG TAB PO SCH ×3 (06:23→17:54)
[2016-06-18] MEDS: LEVEMIR (INSULIN DETEMIR) 1 UNITS/0.01ML SC SCH ×2 (08:27→20:44)
[2016-06-18] MEDS: HumaLOG INSULIN (NovoLOG) PER UNIT SC SCH ×4 (08:27→21:00)
[2016-06-18] MEDS: MOM 30ML SUSPENSION UDC PO SCH (09:00)
[2016-06-18] MEDS: FAMOTIDINE 20 MG TAB PO SCH ×2 (09:50→20:43)
[2016-06-18] MEDS: TORSEMIDE 20 MG TAB PO SCH (09:50)
[2016-06-18] MEDS: DOCUSATE SODIUM 100 MG CAP PO SCH ×2 (09:50→20:43)
[2016-06-18 10:00] VITALS: BP 125/64
[2016-06-18 14:00] VITALS: BP 125/66
[2016-06-18] MEDS: APIXABAN 5 MG TAB (ELIQUIS) PO SCH ×2 (14:07→20:43)
--- NOTE | 2016-06-18 15:54 | IPN ---
DATE: 06/18/2016 ATTENDING PHYSICIAN: Dr. Smith Patient was seen this morning at bedside. No acute overnight issues. He did not have any acute complaints. He is very eager to go home as he is tired of staying in the hospital. He reports that pain is controlled. No bleeding or drainage from his right stump. No fevers or chills. No chest pain/pressure, shortness of breath, nausea, vomiting, diarrhea, lightheadedness, dizziness. OBJECTIVE: VITAL SIGNS: Temperature 97.0, pulse 71, respiratory rate 20, blood pressure 129/68, pulse oximetry 93% on room air. INTAKE AND OUTPUT: Intake of about 1300 mL, output of about 2500 mL and negative balance of about 1300 mL in the previous 24 hours. GENERAL: The patient is alert and oriented in no acute distress. HEENT: Normocephalic, atraumatic. Extraocular muscles are intact. No scleral icterus. Moist mucosa. HEART: Irregularly irregular. No murmur appreciated. LUNGS: Diminished breath sounds bilaterally at the bases. ABDOMEN: Soft, nontender, nondistended. Positive bowel sounds. EXTREMITIES: Right above-knee amputation. Incision looks intact. No drainage. Also has a left below-knee amputation that is well healed. He has mild edema of the right stump. SKIN: Warm and dry. No rashes noted. NEUROLOGIC: The patient is at baseline. No focal deficits. LABORATORY DATA: WBC 10.3, hemoglobin 9.8, hematocrit 31.4, platelet count 226. Sodium 132, potassium 3.7, chloride 94, carbon dioxide 29, anion gap 9, BUN 44, creatinine 1.87, GFR 39.0, fasting glucose 175, calcium 8.4, magnesium 1.8. Total bilirubin 0.9, AST 44, ALT 26, alkaline phosphatase 226, total protein 7.7, albumin 2.0. ASSESSMENT/PLAN: Mr. Dwayne soria is a 65-year-old male with history significant for coronary artery disease, inferior wall myocardial infarction ([place]), ischemic cardiomyopathy, coronary artery bypass graft, hypertension, chronic atrial fibrillation, type 2 diabetes insulin-dependent, hyperlipidemia, hypothyroidism, peripheral artery disease, obesity, right above-knee amputation, left below-knee amputation, right thoracentesis in 2017, right chest tube placement 05/27/2016, ejection fraction of 36% echocardiogram at [place], left ejection fraction of 20-25%, who presented to the emergency department with right necrotic infection with gangrenous changes and chronic obstructive pulmonary disease (COPD) exacerbation with recurrent pleural effusion requiring drainage and chest tube placement. He underwent right above-knee amputation after being optimized by his entry level buyer, Dr. Phillips. Chest tube has been discontinued. Heart failure is compensated. Postoperatively, he became obtunded secondary to morphine patient- controlled analgesia (YOUTH TEACHER) and was urgently transferred to the intensive care unit (ICU). After two doses of Narcan, his mental as status returned to baseline. He developed acute on chronic renal failure with a baseline creatinine of 1.4. 1. Acute metabolic encephalopathy secondary to morphine patient-controlled analgesia (YOUTH TEACHER) pump, now resolved. He received two doses of Narcan. His mentation is back to baseline. Pain is being managed postoperatively by Dr. Wen. 2. Acute on chronic renal failure. Renal function is improved. Patient currently is on torsemide and we will continue to monitor for any worsening of renal function. 3. Right above-knee amputation secondary to stump gangrene. He is currently working with physical therapy. Has not been cleared for discharge. Will likely require rehabilitation . Dr. Wen is currently following. Pain control and continue with bowel regimen. 4. Systolic and diastolic heart failure. Currently compensated. Continue with hydralazine, isosorbide and torsemide. Spironolactone was held due to hyperkalemia. 5. Atrial fibrillation. Rate controlled. Continue with metoprolol. Digoxin should be resumed on Monday. 6. Pulmonary hypertension. Chronic obesity complicating his acute issues. 7. Diabetes. Continue Levemir insulin 25 mg twice daily. Insulin sliding scale with hypoglycemic protocol. 8. Hypercholesterolemia. Chronic. Patient is currently on Lipitor. 9. Hypothyroidism. Patient is currently on Synthroid. 10. Urinary tract infection. Urine culture positive for Klebsiella oxytoca. Patient is currently on oral Levaquin. 11. Mild hyponatremia. Sodium is currently 132. We will continue to monitor as he is on diuretic. 12. Deep venous thrombosis (DVT) prophylaxis. Resume Eliquis. DISPOSITION: The patient will continue to work with physical therapy. Awaiting further recommendations as well as far as clearance for discharge. Will likely require subacute rehabilitation. My preceptor for this patient encounter was Dr. Andreina Smith. The preceptor was physically present in the building during the encounter and was fully available as needed. All aspects of the patient interview, examination, medical decision-making process, and medical care plan development were reviewed and approved by the preceptor. The preceptor is aware and concurs with the plan as stated in the body of this note and will attest to such by his/her co-signature.
[2016-06-18 17:59] VITALS: BP 122/63
[2016-06-18 20:35] VITALS: BP 130/62
[2016-06-18] MEDS: NORCO, ANEXSIA 5/325MG TABLET (HYDROcodone/ACETAMINOPHEN) PO PRN (20:42)
[2016-06-18] MEDS: traZODone 50 MG TAB PO SCH (20:43)
[2016-06-18] MEDS: ATORVASTATIN 20 MG TAB PO SCH (20:43)
[2016-06-19 02:00] VITALS: BP 122/59
[2016-06-19] MEDS: NORCO, ANEXSIA 5/325MG TABLET (HYDROcodone/ACETAMINOPHEN) PO PRN ×2 (02:31→23:38)
[2016-06-19 05:45] LABS: MEAN CORPUSCULAR HEMOGLOBIN 26.6 pg (27.0-33.0); MEAN CORPUSCULAR HGB CONC 31.3 g/dl (32.0-36.5); RED CELL DISTRIBUTION WIDTH 19.8 % (11.5-14.5); WHITE BLOOD COUNT 9.2 K/mm3 (4.0-10.0)
[2016-06-19] MEDS: LEVOTHYROXINE 0.137 MG TAB (137MCG) PO SCH (06:01)
[2016-06-19] MEDS: **hydrALAZINE** 10 MG TAB PO SCH ×3 (06:01→17:31)
[2016-06-19] MEDS: SLF 3 ML SYR IV SCH ×3 (06:02→21:17)
[2016-06-19] MEDS: ISOSORBIDE DIN. (ISORDIL) 20 MG TAB PO SCH ×3 (06:02→17:31)
[2016-06-19] MEDS: LevoFLOXacin 250 MG TABLET PO SCH (06:02)
[2016-06-19 06:05] VITALS: BP 114/61
[2016-06-19 06:06] LABS: ALBUMIN 1.9 GM/DL (3.2-5.2); ALBUMIN/GLOBULIN RATIO 0.34 (1.00-1.93); BILIRUBIN,TOTAL 0.9 MG/DL (0.2-1.0); CALCIUM LEVEL 8.4 MG/DL (8.8-10.2); CREATININE FOR GFR 1.69 MG/DL (0.70-1.30); GLOMERULAR FILTRATION RATE 43.8 (>49); MAGNESIUM LEVEL 1.9 MG/DL (1.8-2.4); POTASSIUM SERUM 3.3 MEQ/L (3.5-5.1); TOTAL PROTEIN 7.5 GM/DL (6.4-8.2)
[2016-06-19] MEDS ORDERED: POTASSIUM CHLORIDE 10 MEQ SR TABLET PO ONE (07:30)
[2016-06-19] MEDS ORDERED: metOLazone 2.5 MG TAB PO ONE (08:00)
[2016-06-19] MEDS: FAMOTIDINE 20 MG TAB PO SCH ×2 (08:31→21:16)
[2016-06-19] MEDS: DOCUSATE SODIUM 100 MG CAP PO SCH ×2 (08:31→21:16)
[2016-06-19] MEDS: APIXABAN 5 MG TAB (ELIQUIS) PO SCH ×2 (08:31→21:16)
[2016-06-19] MEDS: TORSEMIDE 20 MG TAB PO SCH (08:31)
[2016-06-19] MEDS: PERCOCET 5MG/325MG TAB PO SCH ×2 (08:32→21:00)
[2016-06-19] MEDS: LEVEMIR (INSULIN DETEMIR) 1 UNITS/0.01ML SC SCH ×2 (08:33→21:15)
[2016-06-19] MEDS: MOM 30ML SUSPENSION UDC PO SCH (08:33)
[2016-06-19] MEDS: HumaLOG INSULIN (NovoLOG) PER UNIT SC SCH ×4 (08:33→21:00)
[2016-06-19] MEDS ORDERED: PERCOCET 5MG/325MG TAB PO SCH (09:00)
[2016-06-19 09:54] VITALS: BP 148/65
[2016-06-19 14:00] VITALS: BP 127/65
--- NOTE | 2016-06-19 20:38 | IPN ---
DATE: 06/19/2016 The patient is seen and examined at the bedside. Chart has been reviewed. Per physical therapy (PT), the patient has pain when he tries to transfer. Currently, the patient has rated his pain as 3 out of 10 at the bedside, lying in bed. No other issues. No trouble breathing. The patient has been net negative. Denies any chest pain, pressure, tightness, lightheadedness, shortness of breath. Input and output overnight: Input 870 and output 3075, negative 2205. PHYSICAL EXAMINATION: Temperature 97.9, pulse 61, respiratory rate 18, blood pressure 148/65, 98% on room air. GENERAL: The patient is awake, alert, oriented times three. Answering questions appropriately. LUNGS: Diminished but clear to auscultation. No wheezing or rales. HEART: S1, S2. Irregularly irregular. ABDOMEN: Soft, nontender, nondistended. Positive bowel sounds. EXTREMITIES: Right above knee amputation (AKA) and left below the knee amputation. Laboratory data, imaging studies and microbiology have been reviewed. ASSESSMENT AND PLAN: This is a 65-year-old male with a history of coronary artery disease (CAD), inferior wall myocardial infarction ([place]), ischemic cardiomyopathy, coronary artery bypass graft (CABG), hypertension, chronic atrial fibrillation, type 2 diabetes, obesity, hyperlipidemia, hypothyroidism, peripheral arterial disease, bilateral below the knee amputation (BKA), right thoracentesis with chest tube placement with ejection fraction (EF) 20 to 25%, presented to the emergency room with right necrotic below knee stump infection with gangrenous changes and congestive heart failure (CHF) exacerbation with recurrent right pleural effusion requiring drainage and chest tube placement. Patient was optimized by Dr. Phillips and underwent right above the knee amputation by Dr. Wen. Heart failure was compensated. Postoperatively, the patient developed obtundation and altered mental status due to morphine ACCOUNTS RECEIVABLE SUPERVISOR pump and was emergently transferred to intensive care unit (ICU). Received two doses of Narcan with resolution of his confusion. The patient has developed acute on chronic renal failure, baseline creatinine 1.4 and peak creatinine 2.09 secondary to torsemide, spironolactone, and Bactrim, all of which have been held with improvement in his creatinine. The patient developed Klebsiella urinary tract infection (UTI) on 06/12/2016 and treated with IV antibiotics and resolved with repeat UA being negative and urine culture on 06/15/2016. CURRENT ISSUES: 1. Right above the knee amputation secondary to gangrenous right above the knee amputation, currently on no antibiotic. Awaiting clearance from physical therapy (PT) and occupational therapy (OT) regarding inpatient rehabilitation versus subacute versus discharge home. Currently, pain control is limiting factor. Therefore, we will change to scheduled doses of Percocet as needed for breakthrough pain. Bowel regimen. Appreciate Dr. Wen's current management. 2. Acute metabolic encephalopathy secondary to morphine ACCOUNTS RECEIVABLE SUPERVISOR pump, resolved. 3. Acute on chronic renal failure, back to baseline. The patient has been given Zaroxolyn and torsemide. Spironolactone held initially due to hyperkalemia and worsening renal failure, as was Bactrim. 4. Systolic/diastolic heart failure, acute on chronic, compensated on isosorbide, hydralazine, torsemide, Zaroxolyn. Spironolactone may be resumed in the morning. 5. Atrial fibrillation, rate controlled. 6. Type 2 diabetes. On Levemir insulin with good control. 7. Hypothyroidism. On levothyroxine. 8. Hyperlipidemia. On Lipitor. DISPOSITION: Awaiting physical therapy (PT) clearance prior to discharge home.
[2016-06-19] MEDS: traZODone 50 MG TAB PO SCH (21:00)
[2016-06-19] MEDS: ATORVASTATIN 20 MG TAB PO SCH (21:16)
[2016-06-19 22:00] VITALS: BP 129/62
[2016-06-20 02:00] VITALS: BP 132/68
[2016-06-20 06:00] VITALS: BP 145/78
[2016-06-20] MEDS: LEVOTHYROXINE 0.137 MG TAB (137MCG) PO SCH (06:19)
[2016-06-20] MEDS: SLF 3 ML SYR IV SCH ×2 (06:19→13:09)
[2016-06-20] MEDS: **hydrALAZINE** 10 MG TAB PO SCH ×2 (06:20→12:39)
[2016-06-20] MEDS: ISOSORBIDE DIN. (ISORDIL) 20 MG TAB PO SCH ×2 (06:20→12:39)
[2016-06-20 06:26] LABS: MEAN CORPUSCULAR HEMOGLOBIN 27.3 pg (27.0-33.0); MEAN CORPUSCULAR HGB CONC 31.7 g/dl (32.0-36.5); MEAN CORPUSCULAR VOLUME 86.1 fl (80.0-96.0); RED CELL DISTRIBUTION WIDTH 20.1 % (11.5-14.5); WHITE BLOOD COUNT 8.5 K/mm3 (4.0-10.0)
[2016-06-20 06:50] LABS: ALBUMIN/GLOBULIN RATIO 0.34 (1.00-1.93); BILIRUBIN,TOTAL 0.9 MG/DL (0.2-1.0); CALCIUM LEVEL 8.3 MG/DL (8.8-10.2); CREATININE FOR GFR 1.7 MG/DL (0.70-1.30); GLOMERULAR FILTRATION RATE 43.6 (>49); POTASSIUM SERUM 3.8 MEQ/L (3.5-5.1); TOTAL PROTEIN 7.8 GM/DL (6.4-8.2)
[2016-06-20] MEDS ORDERED: HYDR10TAB PO (07:23)
[2016-06-20] MEDS ORDERED: INSUDET SC (07:23)
[2016-06-20] MEDS ORDERED: PERCOCET PO (07:23)
[2016-06-20] MEDS ORDERED: POTA20TA4 PO (07:23)
[2016-06-20] MEDS ORDERED: DEMA20TA6 PO (07:23)
[2016-06-20] MEDS ORDERED: ISOS20TAB PO (07:23)
[2016-06-20] MEDS ORDERED: SYNT137T7 PO (07:23)
[2016-06-20] MEDS ORDERED: COLA100C3 PO (07:23)
[2016-06-20] MEDS ORDERED: MILKSUS PO (07:23)
[2016-06-20] MEDS ORDERED: metOLazone 2.5 MG TAB PO ONE (08:00)
[2016-06-20] MEDS: MOM 30ML SUSPENSION UDC PO SCH (08:10)
[2016-06-20] MEDS: LEVEMIR (INSULIN DETEMIR) 1 UNITS/0.01ML SC SCH (08:11)
[2016-06-20] MEDS: PERCOCET 5MG/325MG TAB PO SCH (08:12)
[2016-06-20] MEDS: DOCUSATE SODIUM 100 MG CAP PO SCH (08:13)
[2016-06-20] MEDS: TORSEMIDE 20 MG TAB PO SCH (08:13)
[2016-06-20] MEDS: APIXABAN 5 MG TAB (ELIQUIS) PO SCH (08:13)
[2016-06-20] MEDS: FAMOTIDINE 20 MG TAB PO SCH (08:13)
[2016-06-20] MEDS: HumaLOG INSULIN (NovoLOG) PER UNIT SC SCH ×2 (08:14→12:40)
[2016-06-20 10:00] VITALS: BP 144/66
--- NOTE | 2016-06-20 10:21 | IPN ---
DATE OF SERVICE: 06/20/2016 The patient is seen and examined at the bedside. Chart has been reviewed. This morning, the patient states that his pain is well controlled, rated at 2/10 with movement, 1/10 without movement. Currently, on Percocet, scheduled and as needed. He denies any chest pain, pressure, tightness, lightheadedness, shortness of breath, palpitations. is at the bedside. No new complaints or issues. Temperature 97, pulse 64, respiratory rate 18, blood pressure 145/78, 94% on room air. Generally, the patient is awake, alert, oriented times three. Answering questions appropriately. No jugular venous distention. No thyromegaly. LUNGS: Are diminished but clear to auscultation. No wheezing, rales, or rhonchi. HEART: S1, S2. Irregularly irregular. ABDOMEN: Is obese, soft, nontender, nondistended. EXTREMITIES: Right above-knee amputation (AKA) in a dressing. Left BKA stump. White count 8.5, hemoglobin 10, hematocrit 32, platelet count 329. Sodium 132, potassium 3.8, chloride 94, bicarbonate 30, BUN 49, creatinine 1.7, glucose of 223. MICROBIOLOGY: Reviewed. ASSESSMENT AND PLAN: This is a 65-year-old male with a history of coronary artery disease (CAD), inferior wall myocardial infarction ([place]), ischemic cardiomyopathy, coronary artery bypass graft (CABG), type 2 diabetes, atrial fibrillation (AFib), on chronic Eliquis, hypertension, obesity, hyperlipidemia, hypothyroidism, peripheral arterial disease, bilateral below-knee amputation, right thoracentesis with chest tube placement with ejection fraction (EF) 20% to 25%, presented to the emergency room with right necrotic BKA with gangrenous changes and shortness of breath and congestive heart failure (CHF) exacerbation with recurrent right pleural effusion requiring drainage and chest tube placement. The patient was optimized by his tomato grader, Dr. Phillips, and underwent right [id number]-[id number] amputation by Dr. Wen. His heart failure was compensated. Postoperatively, the patient developed obtundation and altered mental status due to morphine patient-controlled analgesia (LICENSING REPRESENTATIVE) pump and was emergently transferred to intensive care unit (ICU) and received two doses of Narcan with resolution of his confusion. The patient has developed acute on chronic renal failure, baseline creatinine 1.4-1.7 and peak creatinine 2.09 secondary to torsemide, spironolactone, and Bactrim, all of which were held temporarily. He was treated for Klebsiella urinary tract infection (UTI) present on 06/12/2016 with intravenous (IV) antibiotics, which resolved with repeat urinalysis being negative and urine culture on 06/15/2016. CURRENT ISSUES: 1. Right pjtvy-frv-osma amputation secondary to gangrene of the right above-knee amputation stump. Currently, on no antibiotics. Awaiting clearance from physical therapy (PT) and occupational therapy (OT) regarding inpatient rehabilitation versus discharge home and home physical therapy. According to records, on 06/17/2016, per PT and OT, pain has been a limiting factor. Therefore, the patient has been changed to scheduled doses of Percocet, as well as as-needed doses for breakthrough pain. Continue bowel regimen. Appreciate Dr. Wen's management of his right fwxmy-edh-bfsk amputation with outpatient followup and wound care per general surgery. 2. Congestive heart failure (CHF), systolic and diastolic dysfunction. Compensated on isosorbide, hydralazine, torsemide, Zaroxolyn. Spironolactone was held due to hyperkalemia. The patient appears to be compensated. Will need cardiac rehabilitation as outpatient. 3. Acute on chronic renal failure, back to baseline. The patient has been placed on Zaroxolyn and torsemide. Currently, euvolemic from the heart failure standpoint. Spironolactone was held due to hyperkalemia and worsening renal failure, as well as Bactrim. 4. Acute metabolic encephalopathy secondary to morphine and LICENSING REPRESENTATIVE pump. Resolved. 5. Atrial fibrillation, rate controlled. Back on Eliquis for anticoagulation. 6. Type 2 diabetes. On Levemir insulin with good control. 7. Hypothyroidism. On levothyroxine. 8. Hyperlipidemia. On Lipitor. DISPOSITION: May discharge home if PT and OT clears him. Patient and family services (PFS) consult for prescription coverage.
[2016-06-20 12:39] VITALS: BP 148/72
[2016-06-20 14:00] VITALS: BP 132/61
--- NOTE | 2016-07-04 10:16 | RO ---
DATE OF PROCEDURE: 06/14/2016 PREOPERATIVE DIAGNOSIS: Infected right [id number] amputation. POSTOPERATIVE DIAGNOSIS: Infected right [id number]-[id number] amputation. PROCEDURE: Right wtlrb-[id number]-[id number] amputation. SURGEON: Edin Wen Jr., MD ANESTHESIA: General endotracheal anesthesia. ESTIMATED BLOOD LOSS: 100 mL. FLUIDS: Crystalloid. DESCRIPTION OF PROCEDURE: Brief procedure summary: The patient was taken to the operating room. Was given general anesthesia. After adequate anesthesia and preoperative antibiotics were given, the patient was prepped and draped in the usual sterile fashion. Next, the fishmouth-type incision was made on the right upper leg with skin knife. The patient had a great deal of edema in the subcutaneous tissue, as well as inflammation, and there was a significant amount of oozing throughout this area, which was controlled with electrocautery, eventually going through the skin and subcutaneous tissue, muscle bundles were taken down with electrocautery going through the fascia. Eventually, this dissection was performed anteriorly through the quads and down to the femur itself. Once the femur was encountered, the periosteal elevator was used to elevate the periosteum off the femur and bring this proximally and circumferentially. I was able to dissect this off nicely. A powered bone saw was used to go through the femur. The posterior flap was then created in much the same manner with electrocautery through the skin, subcutaneous tissue, which was quite edematous. There were some small varicosities, which were taken with clamps, ligated, and eventually through the fascia, and then through the muscle bundles, as well. The neurovascular bundle was clamped proximally and distally, and transected, and then ligated with heavy Vicryl ties. The vessels, both the vein and the artery, were ligated separately, as well as the nerve bundle proximally. Once good hemostasis was achieved with electrocautery and there was some minimal oozing from muscle bundle that was treated with a stick tie, the incision was closed over a Pepe-Perez drain with 0 Vicryl in the fascial layer and then tomas used to approximate the skin. Dry sterile dressing was applied and stump wrap placed over the top of this. The patient tolerated the procedure well and was brought to the recovery room awake, alert, hemodynamically stable. Sponge and needle counts correct times two.
--- NOTE | 2016-07-12 07:12 | DSES ---
DATE OF ADMISSION: 05/27/2016 DATE OF DISCHARGE: 06/20/2016 PRIMARY CARE PHYSICIAN: Dr. Rob Gilmore CONSULTANTS DURING THIS ADMISSION: Die Casting Machine Maintainer, Dr. Vish Curry. Thoracic surgeon, Dr. Ronnie Parson. health insurance specialist, Dr. Mich Noyola PRIMARY DISCHARGE DIAGNOSES: 1. 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 2. Congestive heart failure (CHF), acute decompensation with systolic and diastolic dysfunction. 3. Acute on chronic renal failure. 4. Acute metabolic encephalopathy secondary to morphine and MANAGER BAR pump. 5. Atrial fibrillation. 6. Type 2 diabetes. 7. Hypothyroidism. 8. Hyperlipidemia. DISCHARGE MEDICATIONS: - Colace 100 mg twice a day - hydralazine 10 mg three times a day - Levemir insulin 25 units subcu twice a day - isosorbide dinitrate 20 mg three times a day - levothyroxine 0.137 mg daily - Milk of Magnesia 30 mL daily - Percocet 5/325 one tablet every 4 hours as needed, maximum daily dose of six, dispense 120 tablets - potassium chloride 20 mEq daily - torsemide 20 mg daily - apixaban 5 mg twice a day - ascorbic acid 500 mg daily - aspirin 81 mg three times a week - atorvastatin 40 mg at bedtime - collagenase topically daily - Pepcid 20 mg twice a day - fish oil one capsule daily - metoprolol 25 mg daily - multivitamin one tablet daily - trazodone 150 mg at bedtime FOLLOWUP INSTRUCTIONS: Die Casting Machine Maintainer Dr. Phillips regarding CHF management. Above knee amputation with Dr. Wen within one week after hospital discharge. Cardiac rehab and physical therapy and occupational therapy as outpatient for right AKA amputation. HOSPITAL COURSE: This is a 65-year-old male who presented to the emergency room on 05/27/[address] Vish Grande with complaints of shortness of breath for the past two weeks. The patient had a large pleural effusion found on chest x-ray on 05/20 and was seen by Dr. Parson and sent to the emergency room for thoracentesis. The patient was saturating 95% on 2 liters nasal cannula. No fevers or chills. The patient's Eliquis was discontinued for his chronic history of deep vein thrombosis (DVT). Chest CT on 05/27 showed moderate layering effusion on the right extending to the apex with thickness of 4.5 cm at the stephanie. Chest tube was placed. Acid fast mycobacterium and fungal cultures were negative. Gram stain was negative, no growth anaerobically. The right chest tube was placed on 05/27/2016. He was placed on a 1-1/2 liter fluid restriction. Chest tube output was 3.425 liters. Admission weight was 126.2 kg, discharge weight of 108.[address] Vish Curry was consulted for CHF exacerbation. The patient was considered to be [place] [employer] functional class 3. Patient was changed from TEO inhibitor to a combination of isosorbide dinitrate and hydralazine due to chronic renal dysfunction with issues of hyperkalemia. The patient was changed from oral Lasix to IV Lasix, 60 mg every 12 hours 2.5 gram sodium restriction and a 1.8 liter fluid restriction. He was continued on metoprolol succinate, low dose aspirin and intensive statin therapy at 40 mg of atorvastatin daily. For his chronic atrial fibrillation, which was rate controlled on metoprolol, he was continued on Eliquis and low dose aspirin. On 06/06/2016, telemedicine with Dr. Mich Noyola for right below knee amputation (BKA). Surgical consult was recommended due to nonhealing wound. There a 10 cm x 10 cm eschar with a BKA site measuring 25 cm x 11 cm. The lower portion of the wound showed separation with necrotic tissue, purulent drainage with odor. The patient remained afebrile with no signs of cellulitis, but was a borderline ischemic, which is not progressing and will not heal on its own with recommendation for above knee amputation. Dr. Edin Wen was consulted. He was optimized by career discovery teacher, Dr. Phillips. His aspirin and Eliquis were held. The patient's heart failure improved and appeared to be euvolemic, was changed over to torsemide daily. On 06/14/2016 patient was medically optimized and was brought to the operating room for infected right below knee amputation. He tolerated the procedure well and was sent back to the floor. He was placed on a morphine MANAGER BAR pump and was emergently sent overnight to the ICU due to altered mental status. He received two doses of Ativan, with complete resolution. After 24 hours, he was then sent back to PCU when he reached baseline. The patient's creatinine remained stable at 1.4 with peak creatinine of 2.09 while the patient was on spironolactone and was on Bactrim for the right below knee amputation necrotic wound. He developed Klebsiella UTI on 06/12 treated with IV antibiotics, which resolved with repeat UA being negative on 06/15/2006. The patient was changed to oral Percocet with no altered mental status. Bowel regimen per Dr. Wen's management. He passed a home safety evaluation and was safely discharged home with immediate followup with Dr. Wen and Dr. Phillips as outpatient, and his primary care physician within a week of discharge. LABS ON DISCHARGE: White count 8.5, hemoglobin 10, hematocrit 32, platelet count 329, sodium 132, potassium 3.8, chloride 94, bicarb 30, BUN 49, creatinine 1.7, glucose 223, calcium 8.3, magnesium 2, total bilirubin 0.9, AST 46, ALT 27, alkaline phosphatase 215. Microbiology: Blood culture 05/27 no growth. Pleural fluid 05/27 aerobic/anaerobic negative. Acid fast mycobacterium fungal cultures negative. Klebsiella oxytoca 06/12 resistant to ampicillin. Urine culture on 06/15, no growth. Pathology: 06/14/2016 extremity amputation, right above the knee of a previous below knee amputation, large gangrenous acutely inflamed ulcerated area on the anterior aspect of the leg, moderate to severe arterial sclerosis with dystrophic calcification of blood vessel perez. 05/30/2016 pathology pleural fluid, no malignancy identified. 05/30/2016 negative for malignancy. Specimen consists of mesothelial cells, macrophages, in a background of lymphocytes and blood. IMAGING STUDIES: Chest CT 05/27 cardiomegaly with left atrial ventricular enlargement without pericardial thickening or effusion. No aortic aneurysm. Calcified coronary artery then mitral annulus, moderately large layering effusion throughout the right lung extending to the apex. Thickness of 4.5 cm at the stephanie. No left effusion or acute findings. There are atelectasis changes, both compressive and consolidative in the right middle lung lower zone. Hepatomegaly is suspected. Liver incompletely evaluated, but 17 cm vertical diameter. Layering small calcified gallstones. Chest x-ray on 06/16/2016 minimal increase in interstitial markings, may represent interstitial edema, bibasilar atelectasis and cardiomegaly. Time spent on discharge 30 minutes. MTDD
== END 2016-06-20 16:10 | disposition home health service (06) | DRG 239 ==
LOC: EDBD 09:09 → M ED 10:04 → M ED INP 11:55 → M PCU 15:06 → M ICU 06-15 02:27 → M PCU 06-15 16:02 → M MSPAV 06-16 12:34
PROVIDERS: ADMIT Thoracic Surgery (Cardiothoracic Vascular Surgery); ATTEND General Practice
PROC: 0Y6C0Z3 Detachment at Right Upper Leg, Low, Open Approach (ICD-10-PCS; principal; 2016-05-27)
PROC: 0W9930Z Drainage of Right Pleural Cavity with Drainage Device, Percutaneous Approach (ICD-10-PCS; 2016-05-27)
DX: I13.0 Hypertensive heart and chronic kidney disease with heart failure and stage 1 through stage 4 chronic kidney disease, or unspecified chronic kidney disease (principal); I50.43 Acute on chronic combined systolic (congestive) and diastolic (congestive) heart failure; G92 Toxic encephalopathy; J90 Pleural effusion, not elsewhere classified; J98.11 Atelectasis; N17.9 Acute kidney failure, unspecified; E11.52 Type 2 diabetes mellitus with diabetic peripheral angiopathy with gangrene; N39.0 Urinary tract infection, site not specified; E87.1 Hypo-osmolality and hyponatremia; I25.5 Ischemic cardiomyopathy; K21.9 Gastro-esophageal reflux disease without esophagitis; I25.10 Atherosclerotic heart disease of native coronary artery without angina pectoris; I48.2 Chronic atrial fibrillation; E87.5 Hyperkalemia; E78.5 Hyperlipidemia, unspecified; N18.3 Chronic kidney disease, stage 3 (moderate); R16.0 Hepatomegaly, not elsewhere classified; T87.53 Necrosis of amputation stump, right lower extremity; E66.9 Obesity, unspecified; I27.2 Other secondary pulmonary hypertension; E11.42 Type 2 diabetes mellitus with diabetic polyneuropathy; E03.9 Hypothyroidism, unspecified; B96.1 Klebsiella pneumoniae [K. pneumoniae] as the cause of diseases classified elsewhere; E78.00 Pure hypercholesterolemia, unspecified; I25.2 Old myocardial infarction; Z79.4 Long term (current) use of insulin; Z95.1 Presence of aortocoronary bypass graft; T40.2X5A Adverse effect of other opioids, initial encounter; Z89.511 Acquired absence of right leg below knee; Z89.512 Acquired absence of left leg below knee; Z99.3 Dependence on wheelchair; Z87.891 Personal history of nicotine dependence; Z79.01 Long term (current) use of anticoagulants; Z79.82 Long term (current) use of aspirin; Z79.84 Long term (current) use of oral hypoglycemic drugs; Z79.899 Other long term (current) drug therapy; Z68.36 Body mass index [BMI] 36.0-36.9, adult; Z86.718 Personal history of other venous thrombosis and embolism; Z88.8 Allergy status to other drugs, medicaments and biological substances; Z86.73 Personal history of transient ischemic attack (TIA), and cerebral infarction without residual deficits; Z98.62 Peripheral vascular angioplasty status

== ENCOUNTER → 2016-06-28 | Outpatient (REF) | payer MEDICARE, OTHER ==
[~2016-06-28] MED LIST changes: +DEMA20TA6 PO; +FAMO20TA PO; +FURO40TA2 PO; +HYDR10TAB PO; +INSUDET SC; +ISOS20TAB PO; +METO12TA PO; +METO25TA74 PO; +MILKSUS PO; +PEPC1TAB2 PO; +PERCOCET PO; +POTA20TA4 PO; +QUIN20TA7 PO; +SANT250O8 TOP; +SYNT137T7 PO
[2016-06-28 16:19] LABS: MEAN CORPUSCULAR HEMOGLOBIN 27.3 pg (27.0-33.0); MEAN CORPUSCULAR HGB CONC 31.5 g/dl (32.0-36.5); MEAN CORPUSCULAR VOLUME 86.8 fl (80.0-96.0); RED CELL DISTRIBUTION WIDTH 20.2 % (11.5-14.5); WHITE BLOOD COUNT 9.9 K/mm3 (4.0-10.0)
[2016-06-28 16:26] LABS: ALBUMIN 2.7 GM/DL (3.2-5.2); ALBUMIN/GLOBULIN RATIO 0.52 (1.00-1.93); BILIRUBIN,TOTAL 0.6 MG/DL (0.2-1.0); CALCIUM LEVEL 9.2 MG/DL (8.8-10.2); CREATININE FOR GFR 1.32 MG/DL (0.70-1.30); GLOMERULAR FILTRATION RATE 58.3 (>49); POTASSIUM SERUM 4.7 MEQ/L (3.5-5.1); TOTAL PROTEIN 7.9 GM/DL (6.4-8.2)
== END ==
LOC: M SFHCPLAZ 15:39
PROVIDERS: ATTEND Internal Medicine
DX: N18.3 Chronic kidney disease, stage 3 (moderate) (principal); E11.29 Type 2 diabetes mellitus with other diabetic kidney complication
CPT/HCPCS: 36415; 80053; 85027; 99495; G0463

== ENCOUNTER → 2016-08-09 | Outpatient (CLI) | payer MEDICARE, OTHER | LOC: M PT 07:54 | PROVIDERS: ATTEND Surgery | DX: Z51.89 Encounter for other specified aftercare (principal); S78.111A Complete traumatic amputation at level between right hip and knee, initial encounter; X58.XXXA Exposure to other specified factors, initial encounter; Y92.9 Unspecified place or not applicable; Y93.9 Activity, unspecified; Y99.9 Unspecified external cause status | CPT/HCPCS: 97162; G8978; G8979; G8980 ==

== ENCOUNTER → 2016-08-15 | Outpatient (REF) | payer MEDICARE, OTHER ==
[~2016-08-15] MED LIST changes: +ASPI1TAB15 PO; -ASPI81TA7 PO; -ATOR1TAB18 PO; -ATOR40TA PO; +ATOR40TA75 PO; +ATOR80TA59 PO; -COLA100C3 PO; +COLA100C5 PO; +GLIP1TAB49 PO; -GLIP5TAB15 PO; -LEVO125T3 PO; +LEVO125T4 PO; -METF850T PO; +METF850T4 PO; -METO12TA PO; +METO1TAB32 PO; +METO1TAB87 PO; -METO25TA74 PO; +PLAV1TAB2 PO; -PLAV75TA38 PO; +QUIN1TAB15 PO; +QUIN20TA17 PO; -QUIN20TA7 PO; -QUIN40TA5 PO; -TRAZ150T14 PO; +TRAZ1TAB14 PO
[2016-08-15 12:44] LABS: MEAN CORPUSCULAR HEMOGLOBIN 30.2 pg (27.0-33.0); MEAN CORPUSCULAR HGB CONC 33.1 g/dl (32.0-36.5); MEAN CORPUSCULAR VOLUME 91.3 fl (80.0-96.0); WHITE BLOOD COUNT 8.6 K/mm3 (4.0-10.0)
[2016-08-15 13:10] LABS: ALBUMIN 3.2 GM/DL (3.2-5.2); ALBUMIN/GLOBULIN RATIO 0.73 (1.00-1.93); BILIRUBIN,TOTAL 0.6 MG/DL (0.2-1.0); CALCIUM LEVEL 8.9 MG/DL (8.8-10.2); CREATININE FOR GFR 1.37 MG/DL (0.70-1.30); GLOMERULAR FILTRATION RATE 55.9 (>49); POTASSIUM SERUM 4.4 MEQ/L (3.5-5.1); TOTAL PROTEIN 7.6 GM/DL (6.4-8.2)
== END ==
LOC: M SFHCADAM 10:19
PROVIDERS: ATTEND Internal Medicine
DX: N18.3 Chronic kidney disease, stage 3 (moderate) (principal); E11.29 Type 2 diabetes mellitus with other diabetic kidney complication; E03.9 Hypothyroidism, unspecified

== ENCOUNTER → 2016-12-12 | Outpatient (REF) | payer MEDICARE, OTHER ==
[2016-12-12 12:07] LABS: MEAN CORPUSCULAR HEMOGLOBIN 29.6 pg (27.0-33.0); MEAN CORPUSCULAR HGB CONC 32.3 g/dl (32.0-36.5); MEAN CORPUSCULAR VOLUME 91.7 fl (80.0-96.0); PLATELET COUNT, AUTOMATED 220 10^3/uL (150-450); RED CELL DISTRIBUTION WIDTH 15.8 % (11.5-14.5); WHITE BLOOD COUNT 8.3 10^3/uL (4.0-10.0)
[2016-12-12 12:11] LABS: ALBUMIN 3.1 GM/DL (3.2-5.2); ALBUMIN/GLOBULIN RATIO 0.76 (1.00-1.93); ALKALINE PHOSPHATASE 201 U/L (45-117); ALT/SGPT 29 U/L (12-78); ANION GAP 6 MEQ/L (8-16); AST/SGOT 28 U/L (7-37); BILIRUBIN,TOTAL 0.5 MG/DL (0.2-1.0); BLOOD UREA NITROGEN 36 MG/DL (7-18); CALCIUM LEVEL 9.1 MG/DL (8.8-10.2); CARBON DIOXIDE LEVEL 29 MEQ/L (21-32); CHLORIDE LEVEL 106 MEQ/L (98-107); CHOLESTEROL LEVEL 94 MG/DL (<200); GLOMERULAR FILTRATION RATE > 60.0 (>49); GLUCOSE, FASTING 74 MG/DL (80-110); POTASSIUM SERUM 4.2 MEQ/L (3.5-5.1); SODIUM LEVEL 141 MEQ/L (136-145); TOTAL PROTEIN 7.2 GM/DL (6.4-8.2); TRIGLYCERIDES LEVEL 154 MG/DL (<150)
== END ==
LOC: M SFHCPLAZ 08:04
PROVIDERS: ATTEND Internal Medicine
DX: E11.29 Type 2 diabetes mellitus with other diabetic kidney complication (principal); N18.3 Chronic kidney disease, stage 3 (moderate); E78.2 Mixed hyperlipidemia; Z23 Encounter for immunization
CPT/HCPCS: 36415; 80053; 80061; 83036; 83970; 85027; 90686; G0008; G0463

== ENCOUNTER → 2017-04-11 | Outpatient (REF) | payer MEDICARE, OTHER ==
[2017-04-11 12:10] LABS: ESTIMATED AVERAGE GLUCOSE 186 MG/DL (60-110); HEMOGLOBIN A1c 8.1 %
[2017-04-11 12:16] LABS: PTH INTACT 139.7 PG/ML (18.5-88.0)
[2017-04-11 12:17] LABS: ALBUMIN 3.1 GM/DL (3.2-5.2); ALBUMIN/GLOBULIN RATIO 0.79 (1.00-1.93); ALKALINE PHOSPHATASE 189 U/L (45-117); ALT/SGPT 27 U/L (12-78); ANION GAP 8 MEQ/L (8-16); AST/SGOT 29 U/L (7-37); BILIRUBIN,TOTAL 0.6 MG/DL (0.2-1.0); BLOOD UREA NITROGEN 28 MG/DL (7-18); CALCIUM LEVEL 8.5 MG/DL (8.8-10.2); CARBON DIOXIDE LEVEL 29 MEQ/L (21-32); CHLORIDE LEVEL 105 MEQ/L (98-107); CREATININE FOR GFR 1.42 MG/DL (0.70-1.30); GLOMERULAR FILTRATION RATE 53.4 (>49); GLUCOSE, FASTING 80 MG/DL (70-100); POTASSIUM SERUM 4.2 MEQ/L (3.5-5.1); SODIUM LEVEL 142 MEQ/L (136-145)
[2017-04-11 12:43] LABS: MAU/CREAT RATIO 825.3 MCG/MG (0.0-30.0)
== END ==
LOC: M SFHCPLAZ 09:16
DX: I12.9 Hypertensive chronic kidney disease with stage 1 through stage 4 chronic kidney disease, or unspecified chronic kidney disease (principal); E11.29 Type 2 diabetes mellitus with other diabetic kidney complication; N18.3 Chronic kidney disease, stage 3 (moderate); E03.9 Hypothyroidism, unspecified; Z79.4 Long term (current) use of insulin
CPT/HCPCS: 83735

== ENCOUNTER → 2017-09-19 | Outpatient (REF) | payer MEDICARE ==
[2017-09-19 12:54] LABS: HEMOGLOBIN 15.2 g/dl (13.5-17.5); MEAN CORPUSCULAR VOLUME 90.7 fl (80.0-96.0); PLATELET COUNT, AUTOMATED 216 10^3/uL (150-450); RED BLOOD COUNT 5.07 10^6/uL (4.30-6.10); RED CELL DISTRIBUTION WIDTH 15.8 % (11.5-14.5); WHITE BLOOD COUNT 8.6 10^3/uL (4.0-10.0)
[2017-09-19 13:13] LABS: ALBUMIN/GLOBULIN RATIO 0.73 (1.00-1.93); ALKALINE PHOSPHATASE 175 U/L (45-117); ALT/SGPT 26 U/L (12-78); ANION GAP 9 MEQ/L (8-16); AST/SGOT 23 U/L (7-37); BILIRUBIN,TOTAL 0.5 MG/DL (0.2-1.0); BLOOD UREA NITROGEN 28 MG/DL (7-18); CALCIUM LEVEL 8.8 MG/DL (8.8-10.2); CARBON DIOXIDE LEVEL 27 MEQ/L (21-32); CHLORIDE LEVEL 106 MEQ/L (98-107); CHOLESTEROL LEVEL 105 MG/DL (<200); CREATININE FOR GFR 1.45 MG/DL (0.70-1.30); GLOMERULAR FILTRATION RATE 52.2 (>49); GLUCOSE, FASTING 92 MG/DL (70-100); HDL CHOLESTEROL 29 MG/DL (>40); LDL CHOLESTEROL 45.4 MG/DL (<100); NON-HDL-C 76 MG/DL; POTASSIUM SERUM 4.2 MEQ/L (3.5-5.1); PTH INTACT 92.9 PG/ML (18.5-88.0); SODIUM LEVEL 142 MEQ/L (136-145); TOTAL PROTEIN 7.1 GM/DL (6.4-8.2); TRIGLYCERIDES LEVEL 153 MG/DL (<150)
[2017-09-19 14:07] LABS: ESTIMATED AVERAGE GLUCOSE 180 MG/DL (60-110); HEMOGLOBIN A1c 7.9 %
[2017-09-19 14:08] LABS: MAU/CREAT RATIO 415.3 MCG/MG (0.0-30.0)
== END ==
LOC: M SFHCADAM 09:45
DX: N18.3 Chronic kidney disease, stage 3 (moderate) (principal); I10 Essential (primary) hypertension; E11.29 Type 2 diabetes mellitus with other diabetic kidney complication; E78.2 Mixed hyperlipidemia
CPT/HCPCS: 83735

== ENCOUNTER → 2018-03-26 | Outpatient (REF) | payer MEDICARE ==
[~2018-03-26] MED LIST changes: +GABA-1171 PO; -GABA-279 PO; -GLIP1TAB49 PO; +GLIP5TAB20 PO; +MILK120011 PO; -MILKSUS PO; -QUIN1TAB15 PO; +QUIN1TAB3 PO; +QUIN1TAB4 PO; -QUIN20TA17 PO; -ZYVO100T PO; +ZYVO1TAB PO
[2018-03-26 12:46] LABS: ALBUMIN 3.2 GM/DL (3.2-5.2); BILIRUBIN,TOTAL 0.5 MG/DL (0.2-1.0); CALCIUM LEVEL 8.2 MG/DL (8.8-10.2); CREATININE FOR GFR 1.64 MG/DL (0.70-1.30); GLOMERULAR FILTRATION RATE 45.1 (>49); MAGNESIUM LEVEL 2.1 MG/DL (1.8-2.4); POTASSIUM SERUM 4.2 MEQ/L (3.5-5.1); TOTAL PROTEIN 7.5 GM/DL (6.4-8.2)
[2018-03-26 12:48] LABS: HEMOGLOBIN A1c 8.2 %
[2018-03-26 12:49] LABS: PTH INTACT 183.3 PG/ML (18.5-88.0)
[2018-03-26 13:06] LABS: MAU/CREAT RATIO 488.5 MCG/MG (0.0-30.0)
== END ==
LOC: M SFHCPLAZ 10:11
PROVIDERS: ATTEND Internal Medicine
DX: N18.3 Chronic kidney disease, stage 3 (moderate) (principal); E11.22 Type 2 diabetes mellitus with diabetic chronic kidney disease; E11.29 Type 2 diabetes mellitus with other diabetic kidney complication; Z79.4 Long term (current) use of insulin; Z23 Encounter for immunization
CPT/HCPCS: 36415; 80053; 82043; 83036; 83735; 83970; 90682; 90732; G0008; G0009; G0463

== ENCOUNTER → 2018-08-06 | Outpatient (REF) | payer MEDICARE ==
[~2018-08-06] MED LIST changes: -/QUIN10TA OR; -/QUIN20TA OR; +ACCU1TAB OR; +ACCU1TAB2 OR; -NORC1TAB4 PO; +NORC1TAB7 PO; -PEPC1TAB2 PO; +PEPC40TA12 PO
[2018-08-06 19:37] LABS: CALCIUM LEVEL 9.6 MG/DL (8.8-10.2); CREATININE FOR GFR 1.72 MG/DL (0.70-1.30); GLOMERULAR FILTRATION RATE 42.7 (>49); POTASSIUM SERUM 4.3 MEQ/L (3.5-5.1)
== END ==
LOC: M LABDRWAD 12:13
PROVIDERS: ATTEND Physician Assistant
DX: I50.42 Chronic combined systolic (congestive) and diastolic (congestive) heart failure (principal)

== ENCOUNTER → 2018-09-26 | Outpatient (REF) | payer MEDICARE ==
[2018-09-26 14:47] LABS: ALBUMIN 3.3 GM/DL (3.2-5.2); BILIRUBIN,TOTAL 0.5 MG/DL (0.2-1.0); CALCIUM LEVEL 9.4 MG/DL (8.8-10.2); CHOLESTEROL RISK RATIO 3.225 (<5); CREATININE FOR GFR 1.79 MG/DL (0.70-1.30); GLOMERULAR FILTRATION RATE 40.8 (>49); MAGNESIUM LEVEL 1.7 MG/DL (1.8-2.4); POTASSIUM SERUM 4.3 MEQ/L (3.5-5.1); THYROID STIMULATING HORMONE 2.46 uIU/ML (0.358-3.740); TOTAL PROTEIN 7.7 GM/DL (6.4-8.2)
[2018-09-26 14:49] LABS: PTH INTACT 69.3 PG/ML (18.5-88.0)
[2018-09-26 14:57] LABS: HEMATOCRIT 47.6 % (42.0-52.0); HEMOGLOBIN 15.5 g/dl (13.5-17.5); MEAN CORPUSCULAR HEMOGLOBIN 30.5 pg (27.0-33.0); MEAN CORPUSCULAR HGB CONC 32.6 g/dl (32.0-36.5); MEAN CORPUSCULAR VOLUME 93.7 fl (80.0-96.0); PLATELET COUNT, AUTOMATED 208 10^3/uL (150-450); RED BLOOD COUNT 5.08 10^6/uL (4.30-6.10); WHITE BLOOD COUNT 11.9 10^3/uL (4.0-10.0)
[2018-09-26 15:41] LABS: HEMOGLOBIN A1c 7.7 %
[2018-09-26 17:03] LABS: MAU/CREAT RATIO 166.3 MCG/MG (0.0-30.0)
== END ==
LOC: M SFHCPLAZ 11:51
PROVIDERS: ATTEND Internal Medicine
DX: E11.29 Type 2 diabetes mellitus with other diabetic kidney complication (principal)
CPT/HCPCS: 36415; 80053; 80061; 82043; 83036; 83735; 83970; 84443; 85027; G0463

== ENCOUNTER → 2018-11-05 | Outpatient (REF) | payer MEDICARE ==
[2018-11-05 19:19] LABS: CREATININE FOR GFR 1.64 MG/DL (0.70-1.30); MAGNESIUM LEVEL 1.9 MG/DL (1.8-2.4); POTASSIUM SERUM 3.9 MEQ/L (3.5-5.1)
== END ==
LOC: M LAB REF 18:52 → M LABDRWAD 18:52
PROVIDERS: ATTEND Physician Assistant
DX: I50.42 Chronic combined systolic (congestive) and diastolic (congestive) heart failure (principal)

== ENCOUNTER → 2019-02-21 | Outpatient (REF) | payer MEDICARE ==
[2019-02-22 14:30] LABS: CALCIUM LEVEL 8.9 MG/DL (8.8-10.2); CREATININE FOR GFR 1.68 MG/DL (0.70-1.30); GLOMERULAR FILTRATION RATE 43.7 (>49); MAGNESIUM LEVEL 1.8 MG/DL (1.8-2.4); POTASSIUM SERUM 3.9 MEQ/L (3.5-5.1)
== END ==
LOC: M LABDRWAD 13:46
PROVIDERS: ATTEND Physician Assistant
DX: I50.42 Chronic combined systolic (congestive) and diastolic (congestive) heart failure (principal)

== ENCOUNTER → 2019-04-03 | Outpatient (REF) | payer MEDICARE ==
[2019-04-03 13:02] LABS: ALBUMIN 3.2 GM/DL (3.2-5.2); BILIRUBIN,TOTAL 0.7 MG/DL (0.2-1.0); CALCIUM LEVEL 8.7 MG/DL (8.8-10.2); CREATININE FOR GFR 1.82 MG/DL (0.70-1.30); GLOMERULAR FILTRATION RATE 39.9 (>49); POTASSIUM SERUM 4.1 MEQ/L (3.5-5.1); TOTAL PROTEIN 7.2 GM/DL (6.4-8.2)
[2019-04-03 13:07] LABS: PTH INTACT 89.7 PG/ML (18.5-88.0)
[2019-04-03 13:32] LABS: HEMOGLOBIN A1c 7.7 %
[2019-04-03 13:58] LABS: MAU/CREAT RATIO 280.8 MCG/MG (0.0-30.0)
== END ==
LOC: M SFHCADAM 09:15
PROVIDERS: ATTEND Internal Medicine
DX: I13.0 Hypertensive heart and chronic kidney disease with heart failure and stage 1 through stage 4 chronic kidney disease, or unspecified chronic kidney disease (principal); E11.29 Type 2 diabetes mellitus with other diabetic kidney complication; N18.3 Chronic kidney disease, stage 3 (moderate)

== ENCOUNTER → 2019-08-29 | Outpatient (REF) | payer MEDICARE ==
[~2019-08-29] MED LIST changes: +ASPI-546 PO; -ASPI1TAB15 PO
[2019-08-29 17:46] LABS: HEMATOCRIT 43.9 % (42.0-52.0); HEMOGLOBIN 13.9 g/dl (13.5-17.5); MEAN CORPUSCULAR HEMOGLOBIN 30.7 pg (27.0-33.0); MEAN CORPUSCULAR HGB CONC 31.7 g/dl (32.0-36.5); MEAN CORPUSCULAR VOLUME 96.9 fl (80.0-96.0); PLATELET COUNT, AUTOMATED 225 10^3/uL (150-450); RED BLOOD COUNT 4.53 10^6/uL (4.30-6.10); WHITE BLOOD COUNT 8.5 10^3/uL (4.0-10.0)
[2019-08-29 17:48] LABS: CREATININE FOR GFR 1.73 MG/DL (0.70-1.30); GLOMERULAR FILTRATION RATE 42.3 (>49); MAGNESIUM LEVEL 2.1 MG/DL (1.8-2.4); POTASSIUM SERUM 4.5 MEQ/L (3.5-5.1)
== END ==
LOC: M LABDRWAD 16:52
PROVIDERS: ATTEND Physician Assistant
DX: I50.42 Chronic combined systolic (congestive) and diastolic (congestive) heart failure (principal); I48.21 Permanent atrial fibrillation

== ENCOUNTER → 2019-09-16 | Outpatient (REF) | payer MEDICARE ==
[2019-11-14 00:26] LABS: ALBUMIN 3.2 GM/DL (3.2-5.2); BILIRUBIN,TOTAL 0.8 MG/DL (0.2-1.0); CALCIUM LEVEL 9.3 MG/DL (8.8-10.2); CREATININE FOR GFR 1.74 MG/DL (0.70-1.30); GLOMERULAR FILTRATION RATE 41.9 (>49); HEMOGLOBIN A1c 7.1 %; POTASSIUM SERUM 4.6 MEQ/L (3.5-5.1); THYROID STIMULATING HORMONE 4.54 uIU/ML (0.358-3.740); TOTAL PROTEIN 7.6 GM/DL (6.4-8.2)
== END ==
LOC: M SFHCPLAZ 08:25
PROVIDERS: ATTEND Internal Medicine
DX: E11.29 Type 2 diabetes mellitus with other diabetic kidney complication (principal); I48.91 Unspecified atrial fibrillation; I73.9 Peripheral vascular disease, unspecified; I25.10 Atherosclerotic heart disease of native coronary artery without angina pectoris; E03.9 Hypothyroidism, unspecified; N18.3 Chronic kidney disease, stage 3 (moderate); E78.2 Mixed hyperlipidemia
CPT/HCPCS: 36415; 80053; 80061; 83036; 83970; 84443; G0463

== ENCOUNTER → 2020-03-04 | Outpatient (REF) | payer MEDICARE ==
[~2020-03-04] MED LIST changes: +ACET500T15 PO; +FISH1000 PO; +GLIP5TAB8 PO; +INSUN SC; +KLOR20TA42 PO; +MILKSUS21 PO; +POLYSOL OD; +POLYSOL OP; +PRESCAP PO; +PROAAER10 INH; +ROCA0.5C PO; +TORS20TA2 PO
== END ==
LOC: M SFHCPLAZ 16:53
PROVIDERS: ATTEND Internal Medicine
DX: R41.0 Disorientation, unspecified (principal); Z11.52 Encounter for screening for COVID-19
CPT/HCPCS: G0463; U0003

== ENCOUNTER → 2020-03-16 | Outpatient (REF) | payer MEDICARE ==
[2020-03-16 14:02] LABS: ALBUMIN 3.1 GM/DL (3.2-5.2); BILIRUBIN,TOTAL 1.2 MG/DL (0.2-1.0); CALCIUM LEVEL 9.5 MG/DL (8.8-10.2); CHOLESTEROL RISK RATIO 2.478 (<5); CREATININE FOR GFR 2.43 MG/DL (0.70-1.30); GLOMERULAR FILTRATION RATE 28.5 (>49); POTASSIUM SERUM 4.9 MEQ/L (3.5-5.1); TOTAL PROTEIN 7.9 GM/DL (6.4-8.2)
[2020-03-16 16:52] LABS: HEMOGLOBIN A1c 7.5 %
[2020-03-16 18:49] LABS: MALB URINE SIEMENS 77.3 MG/L
== END ==
LOC: M SFHCADAM 10:30
PROVIDERS: ATTEND Internal Medicine
DX: E11.29 Type 2 diabetes mellitus with other diabetic kidney complication (principal)

== ENCOUNTER 2020-03-18 09:56 | Inpatient (IN) | payer MEDICARE ==
[~2020-03-18] VITALS: Ht 190.5 cm; Wt 117.4 kg
[~2020-03-18 09:56] MED LIST changes: -ACET500T15 PO; -POLYSOL OD; -PRESCAP PO; -ROCA0.5C PO
[2020-03-18] MEDS ORDERED: ROCA0.5C PO (10:11)
[2020-03-18] MEDS ORDERED: TORS20TA2 PO (10:11)
[2020-03-18] MEDS ORDERED: FUROSEMIDE 100MG/10ML VIAL (J1940) IV ONE ×2 (10:45→14:30)
[2020-03-18 11:13] LABS: BASO # 0.1 10^3/uL (0.0-0.2); BASO % 0.8 % (0.0-1.0); EOS # 0.2 10^3/uL (0.0-0.5); EOS % 2.4 % (0.0-3.0); HEMATOCRIT 38.6 % (42.0-52.0); HEMOGLOBIN 11.7 g/dl (13.5-17.5); LYMPH # 1.3 10^3/uL (1.5-5.0); LYMPH % 17.7 % (24.0-44.0); MEAN CORPUSCULAR HEMOGLOBIN 26.8 pg (27.0-33.0); MEAN CORPUSCULAR HGB CONC 30.3 g/dl (32.0-36.5); MEAN CORPUSCULAR VOLUME 88.3 fl (80.0-96.0); MONO % 13.8 % (0.0-5.0); NEUTROPHILS # 4.9 10^3/uL (1.5-8.5); NEUTROPHILS % 64.8 % (36.0-66.0); PLATELET COUNT, AUTOMATED 193 10^3/uL (150-450); RED BLOOD COUNT 4.37 10^6/uL (4.30-6.10); WHITE BLOOD COUNT 7.5 10^3/uL (4.0-10.0)
[2020-03-18 11:21] LABS: INR 1.96; PROTHROMBIN TIME 22.8 SECONDS (12.5-14.3)
--- NOTE | 2020-03-18 11:29 | REP ---
INDICATION: DYSPNEA/COUGH. COMPARISON: Comparison chest x-ray 24 January 2020. TECHNIQUE: Portable upright AP chest radiograph. FINDINGS: The lungs are well inflated and free of infiltrate. Pleural angles are sharp. Heart size is normal. Pulmonary vasculature is not increased. There is evidence of a large right pleural effusion, increased in size from the January 24, 2020 prior study. There is some slight shift of the mediastinum to the left. Cardiomegaly is observed. The patient is rotated somewhat to the right. Pulmonary vascular congestion is seen. No left pleural effusion is seen. IMPRESSION: Large right pleural effusion with shift of the mediastinum to the left. Cardiomegaly and vascular congestion. Prior median sternotomy.. <Electronically signed by Aquilino Cruz > 03/18/20 [id number]
[2020-03-18 11:52] LABS: ALBUMIN 2.9 GM/DL (3.2-5.2); BILIRUBIN,DIRECT 0.8 MG/DL (0.0-0.2); BILIRUBIN,TOTAL 1.4 MG/DL (0.2-1.0); CALCIUM LEVEL 9.5 MG/DL (8.8-10.2); CREATININE FOR GFR 2.56 MG/DL (0.70-1.30); GLOMERULAR FILTRATION RATE 26.8 (>49); MB/CK RELATIVE INDEX 2.76 (< OR =4); POTASSIUM SERUM 4.9 MEQ/L (3.5-5.1); THYROID STIMULATING HORMONE 9.7 uIU/ML (0.358-3.740); TROPONIN I 0.07 NG/ML (< 0.10)
[2020-03-18] MEDS ORDERED: ACET500T15 PO (12:44)
[2020-03-18] MEDS ORDERED: POLYSOL OD (12:44)
[2020-03-18] MEDS ORDERED: PRESCAP PO (12:45)
--- OUTSIDE RECORDS SUMMARY | 2020-03-18 13:13 | CCD ---
Author Author [facility] Organization [facility] Address Unknown Phone Unavailable Care Team Providers Care Conveyor Installer Name Role Phone Rob Gilmore Unavailable PROBLEMS Type Condition ICD9-CM Code [id number] Code Onset Dates Condition S tatus W/U Status Risk SNOMED Code Notes Problem Peripheral vascular disease I73.9 Active confirmed [id number] He has had bilateral BKAs, and is on Eliquis and aspirin. He had a vascular procedure in 03/2016 and had a higher amputation of his right leg on 06/14/2016. Problem Atrial fibrillation I48.91 Active confirmed [id number] He is off Plavix since he had his DVT. He was on warfarin but this was difficult to adjust and he had a rash from this medication. He is now on Eliquis instead as of 01/2016. He continues to maintain aspirin therapy because of his CAD. His ventricular response is controlled without negative chronotropic agents. He had been on metoprolol therapy but this was discontinued because of bradycardia in November 2016. Problem Gastroesophageal reflux K21.9 Active confirmed [id number] He is no longer maintained on omeprazole therapy and is on Pepcid instead. He has no heartburn. Problem Systolic and diastolic CHF, chronic I50.42 Acti ve confirmed [id number] He previously had significantly decompen sated CHF in Spring 2016 and was treated with aggressive diuresis as well as a chest tube for a pleural effusion. He had another episode of subacute decompensation ultimately requiring hospitalization in January 2020. He is currently compensated on torsemide, a dose increase to 40 mg daily during his January 2020 hospital stay, as well as isosorbide and hydralazine. In December 2017 his cardiology provider attempted to switch the latter 2 medications to Entresto but I believe that the cost was prohibitive. LVEF 20% by most recent echocardiogram January 2020, although it was greater than 30% by radionuclide stress test in November 2016. He is to continue to follow up with cardiology. 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 He presented with dysfunction of his right hand but this has resolved. He is on aspirin and now Eliquis instead of Plavix. Carotid ultrasound was unremarkable with less than 50% stenoses bilaterally at the time. Problem CAD (coronary artery disease) I25.10 Active confirm ed [id number] He had a four-vessel bypass in 2003, presumably because of left ventricular dysfunction and congestive heart failure. He last had a radionuclide stress test in November 2016 which revealed inferolateral akinesis and a fixed perfusion defect corresponding with prior injury, LVEF of 32 %. Last echo was fairly limited in March 2016: Left ventricular ejection fraction was 20-25%; in July 2013 he had moderate MAC without functional valvular abnormality, prominently dilated LA, mildly dilated right heart chambers and evidence for mild pulmonary hypertension. He has no angina and is maintained on aspirin, Eliquis, hydralazine and nitrates, and statin therapy. He was taken off beta baron therapy by his kayaking instructor in November 2016 because of bradycardia. In December 2017 with hydralazine and isosorbide were switched to Entresto 24/26 mg twice daily by his kayaking instructor but I believe that the cost was prohibitive. He last saw his kayaking instructor in February 2019. Problem Status post below knee amputation of left lower extremity Z89.512 Active confirmed [id number] He requires a eelchair to increase his functional mobility. Without that, he cannot accomplish his mobility related activities of daily living within the home. Problem Hypertensive heart and chron ic kidney disease with heart failure and stage 1 through stage 4 chronic kidney disease, or unspecified chronic kidney disease I13.0 Active confirmed [id number] He has a history of hypertension and had been on quinapril therapy until Spring 2016 hospitalization, when he was switched to isosorbide and hydralazine with torsemide due to renal insufficiency. Blood pressure is controlled. He had a nephrology visit in late January 2020 because he had an acute kidney injury related to CHF in January 2020 and his renal function was improved at that time. Problem History of right above knee amputation Z89.611 A ctive confirmed [id number] He requires a wheelchair to increase his functional mobility. Without that, he cannot accomplish his mobility related activities of daily living within the home. Problem Hypothyroidism E03.9 Active confirmed 52710 008 Last TSH was 4.04 in September 2019 on 137 mcg of levothyroxine daily. Problem Type 2 diabetes mellitus with other diabetic kid kwadwo complication E11.29 Active confirmed [id number] He is on Novol in N at a reduced dose of 26 units in the morning and 22 units in the evening, since January 2020, instead of his preadmission dose of 70 units twice daily. He is not on basal insulin the rapy, due to the cost. He is also on Glipizide and metformin. His hemoglobin A1c in November was 6.9% in January 2020 but he had had some hypoglycemia prior to admission. His previous outpatient hemoglobin A1c had improved on glipizide, at 8.1% in September 2019, 7.7% in September 2018 and March 2019, 8.2% in March 2018 . 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 Microalbuminuria has been present, most recently basically stable at 280 mcg/mg of creatinine as of March 2019. His GFR has dysuria. Creatinine was 1.82 with a GFR of 40 in March 2019, 1.74 with a GFR of 42 in September 2019 but with his CHF hospitalization in January 2020 his initial creatinine was 0.37 and improved to 1.9 to by discharge, with diuresis. He had a nephrology visit in late January 2020 at which time it was suggested that he come off metformin therapy although I would prefer that he remain on that; his renal function is adequate to maintain that therapy. He was taken off quinapril with his Spring 2016 hospitalization and is now on isosorbide and hydralazine. I would consider switching insulin back to basal insulin if it is covered by his insurance plan in the future. Problem skilled nursing 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 Z79.4 Active conf irmed [id number] Problem Chronic kidney disease, stage 3 N18.3 Active confi rmed [id number] His GFR has stabilized in the 40 to 45 as of September 2018, but had deteriorated in March 2018 from the 50 range. His most recent creatinine was 1.8 in late January 2020, with a GFR of 38; previous most recent creatinine as an outpatient was 1.74 in September 2019. He had transient renal failure in hospital in Spring 2016 and he again had acute kidney failure with a creatinine of 2.37 in January 2020 when he was hospitalized; he recovered from that. His PTH level was still elevated significantly as of March 2018 and I at that point increased his calcitriol from 0.25 to 0.5 mcg daily, and his most recent PTH was controlled at 82 in late January 2020. Problem Mixed hyperlipidemia E78.2 Active confirmed [id number] He is currently on Lipitor at 40 mg daily, a change from pravastatin during his January 2015 hospitalization. Gemfibrozil therapy was stopped in December 2012 without serious adverse effect on his lipids. Lipids were optimal in September 2019. ALLERGIES Allergen (clinical drug ingredient) Drug/Non Drug Allergy do cumented on EMR Reaction Allergy Type Onset Date Status clonidine Clonidine HCl([facility] Code:[address]-23) Hy poglycemia and low heart rate in hospital 01/2020 Drug Allergy Active Coumadin Rash Drug Allergy Active ENCOUNTERS from 1950 to 2020-03-16 Encounter Location Date Provider Diagnosis [address] [address] Mar, [facility] IMMUNIZATIONS Vaccine Route Administration Date Status Influenza (18 yrs & older) Flublok IM Intramuscular Mar 26, 2018 Administered Pneumococcal Adult 0.5mL (Pneumovax 23) IM Intramuscular Mar 26, 2018 Administered Pneumococcal Adult 0.5mL (Pneumovax 23) Unknown Mar 25, 2008 Administered TDAP Unknown Dec 28, 2010 Administered Pneumococcal 0.5mL (Prevnar 13) IM Intramuscular Mar 03, 2015 Administered Influenza (6mo & up) Fluzone IM Intramuscular Dec 12, 2016 Ad ministered Influenza (18 yrs & older) Flublok IM Intramuscular April 14 20 Administered Influenza (6mo & up) Fluzone Unknown Jan 11, 2016 Oth ers Influenza (6mo & up) Fluzone IM Intramuscular Mar 03, 2015 Ad ministered Influenza (6mo & up) Fluzone Unknown Dec 13, 2012 Adm inistered SOCIAL HISTORY Sex Assigned At : Social History Observation Description Sex Assigned At Unknown Audit Question Answer Notes Total Score: 0 Interpretation: Alcohol Education Domestic Violence: Question Answer Notes Status: Sexual Hx: Question Answer Notes Had sex in the last 12 months (vaginal, oral, or anal)? Yes Have you ever had an STD? No with Women only Drug and Alcohol Question Answer Notes Total Score: 0 Interpretation: No problems reported Alcohol Screening: Question Answer Notes Did you have a drink containing alcohol in the past year? No Points 0 Interpretation Negative BMI Care Goal Follow-Up Question Answer Notes Above Normal BMI Follow-Up Dietary needs education REASON FOR REFERRAL No Information VITAL SIGNS No information MEDICATIONS Medication SIG (Take, Route, Frequency, Duration) Notes Start Da te End Date Status Multiple Vitamin _ 1 tablet Orally Once a day Active Eliquis 5 MG 1 tab Orally twice daily for 90 Active Glucometer _ GE Glucose monitoring System DX: E11.9 daily for 99 months Feb, Active Pepcid 20 MG 1 tablet Orally twice daily Active Sure Comfort Insulin Syringe 30G X 06/28 as directed DX :E11.29 Twice a day for 100 days Active Levothyroxine Sodium 137 MCG 1 tablet in the morning o n an empty stomach orally Daily Active Albuterol Sulfate HFA 108 MCG/ACT 2 puff as needed Inh alation every 4-6 hrs as neede for wheezingd Jan, Active Metformin HCl 850 MG 1 tablet with meals Orally once daily for 90 day s Active Novolin N 100 UNIT/ML 70 units Subcutaneous twice daily Active Potassium Chloride ER 20MEQ 1 tablet with food Orally Once a day for 90 Active Lancets Super Thin - PC Super thin 30G lancets DX : E11.9 twice daily for 90 days Mar, Active Calcitriol 0.5 MCG 1 capsule Orally Once a day for 90 Active Wheelchair - DX: Z89.611, Z89.512 Weight 250#, Height 72 inches Daily use for 99 months Mar, Active GlipiZIDE 5 MG 1 tab Orally Daily with the first meal of the day for 90 Active Blood Glucose Test Strip _ [employer] test strips DX: E11.29 d aily to twice daily for 90 days Feb, Active Tylenol 325 MG 2 tablets as needed Orally every 6 hrs Active Isosorbide Dinitrate 20 MG 1 tablet Orally three times daily Active Atorvastatin Calcium 40 MG 1 tablet Orally Daily for 90 days Active PreserVision AREDS 2 - 1 cap Orally Daily Active Torsemide 20 MG 2 tablets (40 mg) Orally once daily for 90 day(s) Active May Have - Replace battery in electric wheelchair plus labor _ DX: Z89.611, Z89.512 for 99 months Mar, Active May Have - Replace 2 KALANI Miramontes DX: E 11.29, Z89.512, Z89.611 Daily Use for 180 days Mar, Active Trazodone HCl 150 MG 1 tablet at bedtime Orally Once a day Active Vitamin C 500 MG 1 tablet Orally Once a day for 30 day(s) Jan, Active HydrALAZINE HCl 10 MG 1 tablet with food Orally Three times a day Active Colace 100 MG 1 capsule as needed Orally once daily Active Milk of Magnesia 400 MG/5ML 30 ml as needed Orally once daily Jan, Active Aspirin 81 MG 1 tablet Orally three times a week Active Dry Eyes as neede for dry eyes Ac tive Haloperidol 0.5 MG 1 tablet Orally Every 4 hour s as needed for agitation or hallucinations for 30 day(s) Feb, Act marc Triamcinolone Acetonide 0.1 % 1 application Externally Twice a day for 30 days Jan, Active PROCEDURES No Information RESULTS No Results REASON FOR VISIT BK margarette MEDICAL (GENERAL) HISTORY Type Description Date Medical History Type 2 diabetes mellitus wit h other diabetic kidney complication Medical History HTN (hypertension) Medical History CAD (coronary artery disease) Medical History Systolic and diastolic CHF, chronic Medical History Hypothyroidism Medical History Mixed hyperlipidemia Medical History Peripheral vascular disease Medical History Atrial fibrillation Medical History Gastroesophageal reflux Medical History Late effects of CVA (cerebrovascular acc ident) Medical History Chronic kidney disease, stage 3 Medical History intermediate frame tender 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 Medical History Status post below knee amputation of lef t lower extremity Medical History History of right above knee amputation Surgical History left BKA Surgical History CABG 05/16/2001 Surgical History Colonoscopy 06/2008 Surgical History Umbilical herniorrhaphy June 28, 2013 Surgical History Right eye cataract extraction June 04, 2014 Surgical History vitrectomy right eye 07/2014 Surgical History Vitrectomy left eye 09/02/2015 Surgical History Right rarcs-[id number] amputation. 2015 Surgical History thoracentesis 03/2016 Surgical History angioplasty and catheterization-[place] Surgical History Above knee amputation-right leg Hospitalization History CVA 01/2015 Hospitalization History cellulitis Hospitalization History DVT 12/25/2015 Hospitalization History Osteomyelitis 01/24/2016 Hospitalization History r/t procedures 03/2016 Hospitalization History Pleural effusion and gangrene 05/27- 06/20/2016 Hospitalization History [facility]-CHF 01/23-01/28/2020 Goals Section No Information Health Concerns No Information MEDICAL EQUIPMENT No Information MENTAL STATUS No Information FUNCTIONAL STATUS No Information ASSESSMENTS No Information PLAN OF TREATMENT Medication Medication Name Sig Start Date Stop Date GlipiZIDE 5 MG 1 tab Orally Daily with the first meal of the da y for 90 Haloperidol 0.5 MG 1 tablet Orally Every 4 hour s as needed for agitation or hallucinations for 30 day(s) Feb, May Have - Replace 2 BK Shrinkers DX: E 11.29, Z89.512, Z89.611 Daily Use for 180 days Mar, Atorvastatin Calcium 40 MG 1 tablet Orally Daily for 90 days Eliquis 5 MG 1 tab Orally twice daily for 90 Next Appt Details Provider Name:Rob Gilmore, 2020-03-18 09 :00:00 AM, [address] [place], [address], Insurance Providers Payer Name Payer Address Payer Phone Insured Name Patient Relati onship to Insured Coverage Start Date Coverage End Date [facility] [address] [address] [facility] [address] [phone] JERSON JAUREGUI self
--- OUTSIDE RECORDS SUMMARY | 2020-03-18 13:13 | CCD ---
Author Author [email or web address] ems Organization [facility] ems Address Unknown Phone Unavailable Care Team Providers Care Log Chipper Name Role Phone Rob Gilmore Unavailable PROBLEMS Type Condition ICD9-CM Code EMR35-SR Code Onset Dates Condition S tatus W/U Status Risk SNOMED Code Notes Problem Peripheral vascular disease I73.9 Active confirmed [id number] He has had bilateral BKAs, and is on Eliquis and aspirin. He had a vascular procedure in 03/2016 and had a higher amputation of his right leg on 06/14/2016. Problem Atrial fibrillation I48.91 Active confirmed 84164211 He is off Plavix since he had [...] 2016. Problem Gastroesophageal reflux K21.9 Active confirmed 963841118 He is no longer maintained on omeprazole therapy and is on Pepcid instead. He has no heartburn. Problem Systolic and diastolic CHF, chronic I50.42 Acti ve confirmed [id number] He previously had significantly decompen sated CHF [...] CVA (cerebrovascular accident) I69 .90 Active confirmed 278886943 He had a stroke affe cting the [...] (coronary artery disease) I25.10 Active confirm ed [id number] He had a four-vessel bypass in 2003, [...] taken off beta baron therapy by his shop girl in November 2016 because of bradycardia. In December 2017 with hydralazine and isosorbide were switched to Entresto 24/26 mg twice daily by his shop girl but I believe that the cost was prohibitive. He last saw his shop girl in February 2019. Problem Status post below knee amputation of left lower extremity Z89.512 Active confirmed 485065128 He requires a eelchair to increase his functional mobility. Without that, he cannot accomplish his mobility related activities of daily living within the home. Problem Hypertensive heart and chron ic kidney disease with heart failure and stage 1 through stage 4 chronic kidney disease, or unspecified chronic kidney disease I13.0 Active confirmed [id number] He has a history of hypertension and [...] above knee amputation Z89.611 A ctive confirmed 110547338 He requires a wheelchair to increase his functional mobility. Without that, he cannot accomplish his mobility related activities of daily living within the home. Problem Hypothyroidism E03.9 Active confirmed 25930 008 Last TSH was 4.04 in September 2019 on 137 mcg of levothyroxine daily. Problem Type 2 diabetes mellitus with other diabetic kid kwadwo complication E11.29 Active confirmed 91100923 He is on Novol in N at [...] his insurance plan in the future. Problem care home 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 Z79.4 Active conf irmed [id number] Problem Chronic kidney disease, stage 3 N18.3 Active confi rmed [id number] His GFR has stabilized in the 40 [...] 2020. Problem Mixed hyperlipidemia E78.2 Active confirmed 091509535 He is currently on Lipitor at 40 mg daily, a change from pravastatin during his January 2015 hospitalization. Gemfibrozil therapy was stopped in December 2012 without serious adverse effect on his lipids. Lipids were optimal in September 2019. ALLERGIES Allergen (clinical drug ingredient) Drug/Non Drug Allergy do cumented on EMR Reaction Allergy Type Onset Date Status clonidine Clonidine HCl([facility] Code:[address]-49) Hy poglycemia and low heart rate in hospital 01/2020 Drug Allergy Active Coumadin Rash Drug Allergy Active ENCOUNTERS from 1950 to 2020-03-16 Encounter Location Date Provider Diagnosis [address] [address] Mar, [facility] IMMUNIZATIONS Vaccine Route Administration Date Status Influenza [...] 90 Active Blood Glucose Test Strip _ [employer] test strips DX: E11.29 d aily to [...] Mar, Active May Have - Replace 2 BK Shrinkers [...] Information RESULTS No Results REASON FOR VISIT refill-lipitor MEDICAL (GENERAL) HISTORY Type Description Date Medical [...] Chronic kidney disease, stage 3 Medical History care home 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 Medical History Status [...] Vitrectomy left eye 09/02/2015 Surgical History Right [id number] amputation. 2015 Surgical History thoracentesis 03/2016 Surgical History angioplasty and catheterization-[place] Surgical History Above knee amputation-right leg Hospitalization [...] Name:Rob Gilmore, 2020-03-18 09 :00:00 AM, [address] [place], [address], Insurance Providers Payer Name Payer Address Payer Phone Insured Name Patient Relati onship to Insured Coverage Start Date Coverage End Date [facility] [address] [address] [facility] [address] [phone] JERSON JAUREGUI self
--- OUTSIDE RECORDS SUMMARY | 2020-03-18 13:13 | CCD ---
Author Author [facility] [email or web address] [facility] Organization [facility] [email or web address] [facility] Address Unknown Phone Unavailable Care Team Providers Care Trade Embalmer Name Role Phone Rob Gilmore Unavailable PROBLEMS Type Condition ICD9-CM Code [id number] Code Onset Dates Condition S tatus SNOMED Code Notes Problem Peripheral vascular disease I73.9 Active 9480 09322 He has had bilateral BKAs, and is on Eliquis and aspirin. He had a vascular procedure in 03/2016 and had a higher amputation of his right leg on 06/14/2016. Problem Atrial fibrillation I48.91 Active 50171254 He is off Plavix since he had [...] November 2016. Problem Gastroesophageal reflux K21.9 Active 56853327 4 He is no longer maintained on omeprazole therapy and is on Pepcid instead. He has no heartburn. Problem Systolic and diastolic CHF, chronic I50.42 Acti ve [id number] He previously had significantly decompensated CHF in Spring 2016 and was treated [...] of CVA (cerebrovascular accident) I69 .90 Active 993231136 He had a stroke affecting the anterior l eft parietal lobe and likely related to small vessel disease in January 2015. He presented with dysfunction of his right hand but this has resolved. He is on aspirin and now Eliquis instead of Plavix. Carotid ultrasound was unremarkable with less than 50% stenoses bilaterally at the time. Problem CAD (coronary artery disease) I25.10 Active 58 368958 He had a four- vessel bypass in 2003, presumably because of left [...] taken off beta baron therapy by his crm consultant in November 2016 because of bradycardia. In December 2017 with hydralazine and isosorbide were switched to Entresto 24/26 mg twice daily by his crm consultant but I believe that the cost was prohibitive. He last saw his crm consultant in February 2019. Problem Status post below knee amputation of left lower extremity Z89.512 Active 299883582 He requires a wheelchair to increase his functional mobility. Without that, he cannot accomplish his mobility related activities of daily living within the home. Problem Hypertensive heart and chron ic kidney disease with heart failure and stage 1 through stage 4 chronic kidney disease, or unspecified chronic kidney disease I13.0 Active [id number] He has a h istory of hypertension and had been on quinapril [...] right above knee amputation Z89.611 A ctive [id number] He requires a wheelchair to increase his functional mobility. Without that, he cannot accomplish his mobility related activities of daily living within the home. Problem Hypothyroidism E03.9 Active 54217374 Last TSH was 4.04 in September 2019 on 137 mcg of levothyroxine daily. Problem Type 2 diabetes mellitus with other diabetic kid kwadwo complication E11.29 Active 37997910 He is on Novolin N at a reduced dose of 26 units in the morning and 22 units in the evening, since January 2020, instead of his preadmission dose of 70 units twice daily. He is not on basal insulin therapy, due to the cost. He is also [...] his insurance plan in the future. Problem retirement 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 Z79.4 Active [id number] Problem Chronic kidney disease, stage 3 N18.3 Active 325746783 His GFR has stabilized in the 40 [...] January 2020. Problem Mixed hyperlipidemia E78.2 Active 438537170 H jeremie is currently on Lipitor at 40 mg daily, a change from pravastatin during his January 2015 hospitalization. Gemfibrozil therapy was stopped in December 2012 without serious adverse effect on his lipids. Lipids were optimal in September 2019. ALLERGIES Allergen (clinical drug ingredient) Drug/Non Drug Allergy do cumented on EMR Reaction Allergy Type Onset Date Status clonidine Clonidine HCl([facility] Code:[address]-46) Hy poglycemia and low heart rate in hospital 01/2020 Drug Allergy Active Coumadin Rash Drug Allergy Active ENCOUNTERS from 1950 to 2020-03-14 Encounter Location Date Provider Diagnosis [address] [address] Feb, Rob Deirdre Delirium R41.0 ; Cough R05 ; Type 2 diab etes mellitus with other diabetic kidney complication E11.29 ; Hypertensive heart and chronic kidney disease with heart failure and stage 1 through stage 4 chronic kidney disease, or unspecified chronic kidney disease I13.0 ; Chronic kidney disease, stage 3 N18.3 ; Systolic and diastolic CHF, chronic I50.42 and CAD (coronary artery disease) I25.10 IMMUNIZATIONS Vaccine Route Administration Date Status Influenza [...] REASON FOR REFERRAL No Information VITAL SIGNS Weight 302 lbs Feb, Height 72 in Feb, BMI 40.95 kg/m2 Feb, Heart Rate 73 /min Feb, Respiratory Rate 20 /min Feb, Temperature 97.6 degrees Fahrenheit Feb, Oximetry 92% Feb, Blood pressure systolic 136 mm Hg Feb, Blood pressure diastolic 78 mm Hg Feb, MEDICATIONS Medication SIG (Take, Route, Frequency, Duration) Notes Start Da te End Date Status Glucometer _ [employer] Glucose monitoring System DX: E11.9 daily for 99 months Feb, Active Novolin N 100 UNIT/ML 70 units Subcutaneous twice daily Active HydrALAZINE HCl 10 MG 1 tablet with food Orally Three times a day Active Eliquis 5 MG 1 tab Orally twice daily for 90 Active Metformin HCl 850 MG 1 tablet with meals Orally once daily for 90 day s Active Calcitriol 0.5 MCG 1 capsule Orally Once a day for 90 Active Multiple Vitamin _ 1 tablet Orally Once a day Active Albuterol Sulfate HFA 108 MCG/ACT 2 puff as needed Inh alation every 4-6 hrs as neede for wheezingd Jan, Active Wheelchair - DX: Z89.611, Z89.512 Weight 250#, Height 72 inches Daily use for 99 months Mar, Active Levothyroxine Sodium 137 MCG 1 tablet in the morning o n an empty stomach orally Daily Active Potassium Chloride ER 20MEQ 1 tablet with food Orally Once a day for 90 Active Trazodone HCl 150 MG 1 tablet at bedtime Orally Once a day Active Blood Glucose Test Strip _ [employer] test strips DX: E11.29 d aily to twice daily for 90 days Feb, Active Colace 100 MG 1 capsule as needed Orally once daily Active Milk of Magnesia 400 MG/5ML 30 ml as needed Orally once daily Jan, Active Torsemide 20 MG 2 tablets (40 mg) Orally once daily for 90 day(s) Active May Have - Replace battery in electric wheelchair plus labor _ DX: Z89.611, Z89.512 for 99 months Mar, Active Vitamin C 500 MG 1 tablet Orally Once a day for 30 day(s) Jan, Active GlipiZIDE 5 MG 1 tab Orally Daily with the first meal of the day for 90 Active Lancets Super Thin - PC Super thin 30G lancets DX : E11.9 twice daily for 90 days Mar, Active Pepcid 20 MG 1 tablet Orally twice daily Active Sure Comfort Insulin Syringe 30G X 5/16 as directed DX :E11.29 Twice a day for 100 days Active Tylenol 325 MG 2 tablets as needed Orally every 6 hrs Active Isosorbide Dinitrate 20 MG 1 tablet Orally three times daily Active PreserVision AREDS 2 - 1 cap Orally Daily Active Dry Eyes as neede for dry eyes Ac tive Haloperidol 0.5 MG 1 tablet Orally Every 4 hour s as needed for agitation or hallucinations for 30 day(s) Feb, Act marc Aspirin 81 MG 1 tablet Orally three times a week Active Triamcinolone Acetonide 0.1 % 1 application Externally Twice a day for 30 days Jan, Active Atorvastatin Calcium 40 MG 1 tablet Orally Daily for 90 days Active PROCEDURES No Information RESULTS No Results REASON FOR VISIT Hallucinations/Paranoia MEDICAL (GENERAL) HISTORY Type Description Date Medical [...] Chronic kidney disease, stage 3 Medical History retirement 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 Medical History Status [...] Vitrectomy left eye 09/02/2015 Surgical History Right [id number] amputation. 2015 Surgical History thoracentesis 03/2016 Surgical History angioplasty and catheterization-[facility] Surgical History Above knee amputation-right leg 7 Hospitalization History CVA 01/2015 Hospitalization History cellulitis Hospitalization History DVT 12/25/2015 Hospitalization History Osteomyelitis 01/24/2016 Hospitalization History r/t procedures 03/2016 Hospitalization History Pleural effusion and gangrene 05/27- 06/20/2016 Hospitalization History [facility]F 01/23-01/28/2020 Goals Section No Information Health Concerns No Information MEDICAL EQUIPMENT No Information MENTAL STATUS No Information FUNCTIONAL STATUS No Information ASSESSMENTS Encounter Date Diagnosis Assessment Notes Treatment Notes Treatm ent Clinical Notes Feb, Delirium (ICD-10 - R41.0) He has develop ed fairly acute delirium. Most recent lab work in late January 2020 was unremarkable. I worry that he has a COVID infection and we have tested him for that. We will use Haldol to control his paranoia and delusions. Feb, Cough (ICD-10 - R05) Feb, Type 2 diabetes mellitus wit h other diabetic kidney complication (ICD-10 - E11.29) He is on Novolin N at a reduced dose of 26 units in the morning and 22 units in the evening, since January 2020, instead of his preadmission dose of 70 units twice daily. He is not on basal insulin therapy, due to the cost. He is also [...] by his insurance plan in the future. Feb, Hypertensive heart and chron ic kidney disease with heart failure and stage 1 through stage 4 chronic kidney disease, or unspecified chronic kidney disease (ICD-10 - I13.0) He has a history of hypertension and [...] renal function was improved at that time. Feb, Chronic kidney disease, stage 3 (ICD-10 - N18.3) His GFR has stabilized in the 40 [...] controlled at 82 in late January 2020. Feb, Systolic and diastolic CHF, chronic (ICD -10 - I50.42) He previously had significantly decompensated CHF in Spring 2016 and was treated [...] to continue to follow up with cardiology. Feb, CAD (coronary artery disease) (ICD-10 - I25.10) He had a four- vessel bypass in 2003, presumably because of left [...] taken off beta baron therapy by his crm consultant in November 2016 because of bradycardia. In December 2017 with hydralazine and isosorbide were switched to Entresto 24/26 mg twice daily by his crm consultant but I believe that the cost was prohibitive. He last saw his crm consultant in February 2019. PLAN OF TREATMENT Medication Medication Name Sig Start Date Stop Date GlipiZIDE 5 MG 1 tab Orally Daily with the first meal of the da y for 90 Haloperidol 0.5 MG 1 tablet Orally Every 4 hour s as needed for agitation or hallucinations for 30 day(s) Feb, Eliquis 5 MG 1 tab Orally twice daily for 90 Treatment Notes Test Name Order Date Coronavirus 2019 NOSE (Send Out) COVID 2020-03-14 Next Appt Details keep scheduled Reason: Provider Name:Rob Gilmore, 2020-03-18 09 :00:00 AM, [address] [place], [address], Insurance Providers Payer Name Payer Address Payer Phone Insured Name Patient Relati onship to Insured Coverage Start Date Coverage End Date [employer] [place] [address] [address] [facility] [address] [phone] JERSON JAUREGUI
--- OUTSIDE RECORDS SUMMARY | 2020-03-18 13:14 | CCD ---
Author Author [facility] Organization [facility] Address Unknown Phone Unavailable Care Team Providers Care Lining Strap Closer Name Role Phone Rob Gilmore Unavailable PROBLEMS Type Condition ICD9-CM Code [id number] Code Onset Dates Condition S tatus SNOMED Code Notes Problem Peripheral vascular disease I73.9 Active 5903 06689 He has had bilateral BKAs, and is on Eliquis and aspirin. He had a vascular procedure in 03/2016 and had a higher amputation of his right leg on 06/14/2016. Problem Atrial fibrillation I48.91 Active 68136654 He is off Plavix since he had [...] November 2016. Problem Gastroesophageal reflux K21.9 Active 63008423 4 He is no longer maintained on omeprazole therapy and is on Pepcid instead. He has no heartburn. Problem Systolic and diastolic CHF, chronic I50.42 Acti ve [id number] He previously had significantly decompensated CHF in [...] of CVA (cerebrovascular accident) I69 .90 Active 665703209 He had a stroke affecting the anterior l eft parietal lobe and likely related to small vessel disease in January 2015. He presented with dysfunction of his right hand but this has resolved. He is on aspirin and now Eliquis instead of Plavix. Carotid ultrasound was unremarkable with less than 50% stenoses bilaterally at the time. Problem CAD (coronary artery disease) I25.10 Active 48 551178 He had a four- vessel bypass in [...] taken off beta baron therapy by his cardiovascular sonographer in November 2016 because of bradycardia. In December 2017 with hydralazine and isosorbide were switched to Entresto 24/26 mg twice daily by his cardiovascular sonographer but I believe that the cost was prohibitive. He last saw his cardiovascular sonographer in February 2019. Problem Status post below knee amputation of left lower extremity Z89.512 Active 514075437 He requires a wheelchair to increase his functional mobility. Without that, he cannot accomplish his mobility related activities of daily living within the home. Problem Hypertensive heart and chron ic kidney disease with heart failure and stage 1 through stage 4 chronic kidney disease, or unspecified chronic kidney disease I13.0 Active [id number] He has a h istory of hypertension and had been on quinapril therapy until Spring 2016 hospitalization, when he was switched to isosorbide and hydralazine with torsemide due to renal insufficiency. Blood pressure is controlled. He has a nephrology visit forthcoming because he had an acute kidney injury related to CHF in January 2020. Problem History of right above knee amputation Z89.611 A ctive 964005880 He requires a wheelchair to increase his functional mobility. Without that, he cannot accomplish his mobility related activities of daily living within the home. Problem Hypothyroidism E03.9 Active 06904935 Last TSH was 4.04 in September 2019 on 137 mcg of levothyroxine daily. Problem Type 2 diabetes mellitus with other diabetic kid kwadwo complication E11.29 Active 44788945 He is on Novolin N at a [...] 1.9 to by discharge, with diuresis. He has a nephrology visit forthcoming at which time it is possible that they will campaigning to have him come off metformin therapy although I would prefer that he remain on that. He was taken off quinapril with his Spring 2016 hospitalization and is now on isosorbide and hydralazine I would consider switching insulin back to basal insulin if it is covered by his insurance plan in the future. 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 His most recent creatinine was 1.74 in September 2019. He had transient renal failure in hospital in Spring 2016. His PTH level was still elevated significantly as of March 2018 and I at that point increased his calcitriol from 0.25 to 0.5 mcg daily, and his most recent PTH was controlled at 90 in March 2019. Problem Mixed hyperlipidemia E78.2 Active 304915481 Kimmy chao is currently on Lipitor at 40 mg daily, a change from pravastatin during his January 2015 hospitalization. Gemfibrozil therapy was stopped in December 2012 without serious adverse effect on his lipids. Lipids were optimal in September 2019. ALLERGIES Allergen (clinical drug ingredient) Drug/Non Drug Allergy do cumented on EMR Reaction Allergy Type Onset Date Status clonidine Clonidine HCl([facility] Code:[address]-10) Hy poglycemia and low heart rate in hospital 01/2020 Drug Allergy Active Coumadin Rash Drug Allergy Active ENCOUNTERS from 1950 to 2020-02-18 Encounter Location Date Provider Diagnosis [address] [address] Jan, Rob Gilmore Hypertensive heart and chronic kidney di sease with heart failure and stage 1 through stage 4 chronic kidney disease, or unspecified chronic kidney disease I13.0 ; Systolic and diastolic CHF, chronic I50.42 ; Type 2 diabetes mellitus with other diabetic kidney complication E11.29 and Itching L29.9 IMMUNIZATIONS Vaccine Route Administration Date Status Influenza [...] FOR REFERRAL No Information VITAL SIGNS Weight 302.0 lbs Jan, Height 72 in Jan, BMI 40.95 kg/m2 Jan, Heart Rate 66 /min Jan, Respiratory Rate 24 /min Jan, Temperature 98.7 degrees Fahrenheit Jan, Oximetry 89-91% Jan, Blood pressure systolic 116 mm Hg Jan, Blood pressure diastolic 76 mm Hg Jan, MEDICATIONS Medication SIG (Take, Route, Frequency, Duration) Notes Start Da te End Date Status Multiple Vitamin _ 1 tablet Orally Once a day Active Isosorbide Dinitrate 20 MG 1 tablet Orally three times daily Active Blood Glucose Test Strip _ [employer] test strips DX: E11.29 d aily to twice daily for 90 days Feb, Active Vitamin C 500 MG 1 tablet Orally Once a day for 30 day(s) Jan, Active Lancets Super Thin - PC Super thin 30G lancets DX : E11.9 twice daily for 90 days Mar, Active Eliquis 5 MG 1 tab Orally twice daily for 90 Active Albuterol Sulfate HFA 108 MCG/ACT 2 puff as needed Inh alation every 4-6 hrs as neede for wheezingd Jan, Active Glucometer _ [employer] Glucose monitoring System DX: E11.9 daily for 99 months Feb, Active PreserVision AREDS 2 - 1 cap Orally Daily Active Potassium Chloride ER 20MEQ 1 tablet with food Orally Once a day for 90 Active Dry Eyes as neede for dry eyes Ac tive Tylenol 325 MG 2 tablets as needed Orally every 6 hrs Active Aspirin 81 MG 1 tablet Orally three times a week Active May Have - Replace battery in electric wheelchair plus labor _ DX: Z89.611, Z89.512 for 99 months Mar, Active Torsemide 20 MG 2 tablets (40 mg) Orally once daily Active Colace 100 MG 1 capsule as needed Orally once daily Active Milk of Magnesia 400 MG/5ML 30 ml as needed Orally once daily Jan, Active GlipiZIDE 5 MG 1 tab Orally Daily with the first meal of the day for 90 Active Novolin N 100 UNIT/ML 70 units Subcutaneous twice daily Active Levothyroxine Sodium 137 MCG 1 tablet in the morning o n an empty stomach orally Daily Active HydrALAZINE HCl 10 MG 1 tablet with food Orally Three times a day Active Pepcid 20 MG 1 tablet Orally twice daily Active Metformin HCl 850 MG 1 tablet with meals Orally once daily for 90 day s Active Atorvastatin Calcium 40 MG 1 tablet Orally Daily for 90 days Active Sure Comfort Insulin Syringe 30G X 06/28 as directed DX :E11.29 Twice a day for 100 days Active Trazodone HCl 150 MG 1 tablet at bedtime Orally Once a day Active Wheelchair - DX: Z89.611, Z89.512 Weight 250#, Height 72 inches Daily use for 99 months Mar, Active Triamcinolone Acetonide 0.1 % 1 application Externally Twice a day for 30 days Jan, Active Calcitriol 0.5 MCG 1 capsule Orally Once a day for 90 Active PROCEDURES No Information RESULTS No Results REASON FOR VISIT 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 2015 Surgical History thoracentesis 03/2016 Surgical History angioplasty and catheterization-[facility] Surgical History Above knee amputation-right leg 7 Hospitalization History CVA 01/2015 Hospitalization History cellulitis Hospitalization History DVT 12/25/2015 Hospitalization History Osteomyelitis 01/24/2016 Hospitalization History r/t procedures 03/2016 Hospitalization History Pleural effusion and gangrene 05/27- 06/20/[address] [facility]-CHF 01/23-01/28/2020 Goals Section No Information Health Concerns No Information MEDICAL EQUIPMENT No Information MENTAL STATUS No Information FUNCTIONAL STATUS No Information ASSESSMENTS Encounter Date Diagnosis Assessment Notes Treatment Notes Treatm ent Clinical Notes Jan, Hypertensive heart and chron ic kidney disease with heart failure and stage 1 through stage 4 chronic kidney disease, or unspecified chronic kidney disease (ICD-10 - I13.0) He has a history of hypertension and had been on quinapril therapy until Spring 2016 hospitalization, when he was switched to isosorbide and hydralazine with torsemide due to renal insufficiency. Blood pressure is controlled. He has a nephrology visit forthcoming because he had an acute kidney injury related to CHF in January 2020. Jan, Systolic and diastolic CHF, chronic (ICD -10 [...] to continue to follow up with cardiology. Jan, Type 2 diabetes mellitus wit h other [...] 1.9 to by discharge, with diuresis. He has a nephrology visit forthcoming at which time it is possible that they will campaigning to have him come off metformin therapy although I would prefer that he remain on that. He was taken off quinapril with his Spring 2016 hospitalization and is now on isosorbide and hydralazine I would consider switching insulin back to basal insulin if it is covered by his insurance plan in the future. Jan, Itching (ICD-10 - L29.9) His pruritus wi ll be treated with topical Aveeno plus triamcinolone lotion. PLAN OF TREATMENT Medication Medication Name Sig Start Date Stop Date Triamcinolone Acetonide 0.1 % 1 application Externally Twice a day for 30 days Jan, Next Appt Details Keep scheduled Reason: Provider Name:Rob Gilmore, 2020-03-18 09 :00:00 AM, [address] [place], [address], Insurance Providers Payer Name Payer Address Payer Phone Insured Name Patient Relati onship to Insured Coverage Start Date Coverage End Date [facility] [facility] [address] [address] [facility] [phone] JERSON JAUREGUI
--- OUTSIDE RECORDS SUMMARY | 2020-03-18 13:14 | CCD ---
Author Author [facility] [employer] ems Organization [facility] em[facility] Address Unknown Phone Unavailable Care Team Providers Care Environmental Journalist Name Role Phone Rob Gilmore Unavailable PROBLEMS Type Condition ICD9-CM Code [id number] Code Onset Dates Condition S tatus SNOMED Code Notes Problem Peripheral vascular disease I73.9 Active 3244 24483 He has had bilateral BKAs, and is on Eliquis and aspirin. He had a vascular procedure in 03/2016 and had a higher amputation of his right leg on 06/14/2016. Problem Atrial fibrillation I48.91 Active 80437550 He is off Plavix since he had [...] November 2016. Problem Gastroesophageal reflux K21.9 Active 26013672 4 He is no longer maintained on omeprazole therapy and is on Pepcid instead. He has no heartburn. Problem Systolic and diastolic CHF, chronic I50.42 Acti ve [id number] He had significantly decompensated CHF in Spring 2016 and was treated with aggressive diuresis as well as a chest tube for a pleural effusion. He is currently compensated on torsemide, isosorbide and hydralazine, although his December 2017 cardiology visit indicates that the latter 2 medications were switched to Entresto but I believe that the cost was prohibitive. LVEF 20-25% by most recent echocardiogram 03/2016 at [place], but greater than 30% by radionuclide stress test in November 2016. 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 He presented with dysfunction of his right hand but this has resolved. He is on aspirin and now Eliquis instead of Plavix. Carotid ultrasound was unremarkable with less than 50% stenoses bilaterally at the time. Problem CAD (coronary artery disease) I25.10 Active 86 892688 He had a four- vessel bypass in [...] taken off beta baron therapy by his driver sales in November 2016 because of bradycardia. In December 2017 with hydralazine and isosorbide were switched to Entresto 24/26 mg twice daily by his driver sales but I believe that the cost was prohibitive. He last saw his driver sales in February 2019. Problem Status post below knee amputation of left lower extremity Z89.512 Active 594059007 He requires a wheelchair to increase his functional mobility. Without that, he cannot accomplish his mobility related activities of daily living within the home. Problem Hypertensive heart and chron ic kidney disease with heart failure and stage 1 through stage 4 chronic kidney disease, or unspecified chronic kidney disease I13.0 Active [id number] He has a h istory of hypertension and had been on quinapril therapy until Spring 2016 hospitalization, when he was switched to isosorbide and hydralazine with torsemide due to renal insufficiency. Blood pressure is controlled. Problem History of right above knee amputation Z89.611 A ctive 134446834 He requires a wheelchair to increase his functional mobility. Without that, he cannot accomplish his mobility related activities of daily living within the home. Problem Hypothyroidism E03.9 Active 51981037 Last TSH was 4.04 in September 2019 on 137 mcg of levothyroxine daily. Problem Type 2 diabetes mellitus with other diabetic kid kwadwo complication E11.29 Active 24260859 He is on Novolin N 70 units twice daily instead of basal insulin therapy, due to cost of basal insulin therapy, as well as glipizide and metformin. His most recent hemoglobin A1c has improved on glipizi de, at 8.1% in September 2019, 7.7% in September 2018 and March 2019, 8.2% in March 2018, 7.9% in September 2017, 8.1% in March 2017, 7.9% in November 2016, 7.6% in August 2016, versus 7.9% in May 2016, 8% in October 2015. 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 Microalbuminuria has been present, most recently basically stable at 280 mcg/mg of creatinine as of March 2019. His GFR has been stable in the 40-45 range as of early 2018, although it did deteriorate as of 2018; his most recent creatinine was 1.82 with a GFR of 40 in March 2019. He was taken off honey may with his Spring 2016 hospitalization and is now on isosorbide and hydralazine. His is a registered nurse and assists with his care. I would consider switching insulin back to basal insulin if it is covered by his insurance plan in the future. 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 Problem Mixed hyperlipidemia E78.2 Active 462985799 Kimmy chao is currently on Lipitor at 40 mg daily, a change from pravastatin during his January 2015 hospitalization. Gemfibrozil therapy was stopped in December 2012 without serious adverse effect on his lipids. Lipids were optimal in September 2019. ALLERGIES Allergen (clinical drug ingredient) Drug/Non Drug Allergy do cumented on EMR Reaction Allergy Type Onset Date Status warfarin Coumadin Rash Drug Allergy Active ENCOUNTERS from 1950 to 2020-02-05 Encounter Location Date Provider Diagnosis [facility] [place] [address] 16 Jan, 2020 Rob Gilmore IMMUNIZATIONS Vaccine Route Administration Date Status Influenza (18 yrs & older) Flublok IM Intramuscular Mar 26, 2018 Administered Pneumococcal Adult 0.5mL (Pneumovax 23) IM Intramuscular Mar 26, 2018 Administered Pneumococcal 0.5mL (Prevnar 13) IM Intramuscular Mar 03, 2015 Administered Pneumococcal Adult 0.5mL (Pneumovax 23) Unknown Mar 25, 2008 Administered TDAP Unknown Dec 28, 2010 Administered Influenza (6mo & up) Fluzone IM Intramuscular Dec 12, 2016 Ad ministered Influenza (18 yrs & older) Flublok IM Intramuscular April 14 Administered Influenza (6mo & up) Fluzone Unknown [...] Notes Start Da te End Date Status Tylenol 325 MG 2 tablets as needed Orally every 6 hrs Active Eliquis 5 MG 1 tab Orally twice daily for 90 Active Wheelchair - DX: Z89.611, Z89.512 Weight 250#, Height 72 inches Daily use for 99 months Mar, Active Glucometer _ [employer] Glucose monitoring System DX: E11.9 daily for 99 months Feb, Active Blood Glucose Test Strip _ [employer] test strips DX: E11.29 d aily to twice daily for 90 days Feb, Active GlipiZIDE 5 MG 1 tab Orally Daily with the first meal of the day for 90 Active Potassium Chloride ER 20MEQ 1 tablet with food Orally Once a day for 90 Active Colace 100 MG 1 capsule as needed Orally once daily Active HydrALAZINE HCl 10 MG TAKE 1 TABLET 3 TIMES DAILYWITH FOOD for 90 Active Dry Eyes as neede for dry eyes Ac tive Lancets Super Thin - PC Super thin 30G lancets DX : E11.9 twice daily for 90 days 13 Mar, 2016 Active Isosorbide Dinitrate 20 MG TAKE 1 TABLET 3 TIMES A DAY for 90 Active Novolin N 100 UNIT/ML INJECT 70 UNITS S UBCUTANEOUSLY TWO TIMES A DAY for 84 Active Sure Comfort Insulin Syringe 30G X 16 as directed DX :E11.29 Twice a day for 100 days Active Aspirin 81 MG 1 tablet Orally three times a week Active Torsemide 20 MG 2 tablets (40 mg) Orally once daily Active Atorvastatin Calcium 40 MG 1 tablet Orally Daily for 90 days Active Metformin HCl 850 MG 1 tablet with meals Orally once daily for 90 day s Active Pepcid 20 MG 1 tablet Orally twice daily Active Calcitriol 0.5 MCG 1 capsule Orally Once a day for 90 Active PreserVision AREDS 2 - 1 cap Orally Daily Active Levothyroxine Sodium 137 MCG TAKE 1 TABLET EVERY MORNI NGON AN EMPTY STOMACH for 90 Active Trazodone HCl 150 MG TAKE 1 TABLET AT BEDTIME for 90 Active Albuterol Sulfate HFA 108 MCG/ACT 2 puff as needed Inh alation every 4-6 hrs as neede for wheezingd Jan, Active May Have - Replace battery in electric wheelchair plus labor _ DX: Z89.611, Z89.512 for 99 months Mar, Active Vitamin C 500 MG 1 tablet Orally Once a day for 30 day(s) Jan, Active Multiple Vitamin _ 1 tablet Orally Once a day Active Polymyxin B-Trimethoprim 29829-7.1 UNIT/ML 1 drop into affected eye Ophthalmic every 6 hours x7 days Jan, Active Milk of Magnesia 400 MG/5ML 30 ml as needed Orally once daily Jan, Active PROCEDURES No Information RESULTS No Results REASON FOR VISIT TCM/ ACO [facility] D/C 01/27; Systolic and Diastolic CHF MEDICAL (GENERAL) HISTORY Type Description Date [...] Chronic kidney disease, stage 3 Medical History half-way 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 Medical History Status [...] Vitrectomy left eye 09/02/2015 Surgical History Right [id number]-[id number] amputation. 2015 Surgical History thoracentesis 03/2016 Surgical History angioplasty and catheterization-[place] Surgical History Above knee amputation-right leg Hospitalization History CVA 01/2015 Hospitalization History cellulitis Hospitalization History DVT 12/25/2015 Hospitalization History Osteomyelitis 01/24/2016 Hospitalization History r/t procedures 03/2016 Hospitalization History Pleural effusion and gangrene 05/27- 06/20/2016 Goals Section No Information Health Concerns No Information MEDICAL EQUIPMENT No Information MENTAL STATUS No Information FUNCTIONAL STATUS No Information ASSESSMENTS Encounter Date Diagnosis Assessment Notes Treatment Notes Treatm ent Clinical Notes Jan, Other 02/04/20 12:45 pm- Discussion with pt and his Fani s/p hospital discharge. Pt is doing well and slowly improving with getting out of bed, limiting fluid intake, weight loss and improved diet. Pt reports some SOB but states it is much better than when in the hospital. Pt and Fani aware of multiple f/u appointments (Cardiology, nephrology and PCP). Medication reconciliation completed and medication record updated. See VV for concerns. Arabic Professor advised to contact office with any further questions or concerns, Fani verbalized understanding and agreement. Alen Blanco RN PLAN OF TREATMENT Medication Medication Name Sig Start Date Stop Date Potassium Chloride ER 20MEQ 1 tablet with food Orally Once a day for 90 Next Appt Details Provider Name:Rob Gilmore 2020-02-11 01 :15:00 PM, [address] [place] [address], [phone], Provider Name:Rob Gilmore 2020-03-18 09 :00:00 AM, [address] [place] [address], [phone], Insurance Providers Payer Name Payer Address Payer Phone Insured Name Patient Relati onship to Insured Coverage Start Date Coverage End Date [facility] [address] [address] [facility] [phone] JERSON JAUREGUI self
--- OUTSIDE RECORDS SUMMARY | 2020-03-18 13:14 | CCD ---
Author Author [facility] [employer] ems Organization [facility] em[facility] Address Unknown Phone Unavailable Care Team Providers Care Bottling Equipment Sales Representative Name Role Phone Rob Gilmore Unavailable PROBLEMS Type Condition ICD9-CM Code [id number] Code Onset Dates Condition S tatus SNOMED Code Notes Problem Peripheral vascular disease I73.9 Active 1639 54600 He has had bilateral BKAs, and is on Eliquis and aspirin. He had a vascular procedure in 03/2016 and had a higher amputation of his right leg on 06/14/2016. Problem Atrial fibrillation I48.91 Active 60117330 He is off Plavix since he had [...] November 2016. Problem Gastroesophageal reflux K21.9 Active 96740226 4 He is no longer maintained on omeprazole therapy and is on Pepcid instead. He has no heartburn. Problem Systolic and diastolic CHF, chronic I50.42 Acti ve 231445202263286 He had significantly decompensated CHF in Spring [...] 20-25% by most recent echocardiogram 03/2016 at [place], but greater than 30% by radionuclide stress test in November 2016. 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 He presented with dysfunction of his right hand but this has resolved. He is on aspirin and now Eliquis instead of Plavix. Carotid ultrasound was unremarkable with less than 50% stenoses bilaterally at the time. Problem CAD (coronary artery disease) I25.10 Active 99 283848 He had a four- vessel bypass in [...] taken off beta baron therapy by his counter pocket trimmer in November 2016 because of bradycardia. In December 2017 with hydralazine and isosorbide were switched to Entresto 24/26 mg twice daily by his counter pocket trimmer but I believe that the cost was prohibitive. He last saw his counter pocket trimmer in February 2019. Problem Status post below knee amputation of left lower extremity Z89.512 Active 263735026 He requires a wheelchair to increase his functional mobility. Without that, he cannot accomplish his mobility related activities of daily living within the home. Problem Hypertensive heart and chron ic kidney disease with heart failure and stage 1 through stage 4 chronic kidney disease, or unspecified chronic kidney disease I13.0 Active 16563400959372 He has a h istory of hypertension and had been on quinapril therapy until Spring 2016 hospitalization, when he was switched to isosorbide and hydralazine with torsemide due to renal insufficiency. Blood pressure is controlled. Problem History of right above knee amputation Z89.611 A ctive 879602946 He requires a wheelchair to increase his functional mobility. Without that, he cannot accomplish his mobility related activities of daily living within the home. Problem Hypothyroidism E03.9 Active 62293598 Last TSH was 4.04 in September 2019 on 137 mcg of levothyroxine daily. Problem Type 2 diabetes mellitus with other diabetic kid kwadwo complication E11.29 Active 47080822 He is on Novolin N 70 units [...] his insurance plan in the future. 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 Problem Mixed hyperlipidemia E78.2 Active 625068242 Kimmy chao is currently on Lipitor at [...] Drug Allergy Active ENCOUNTERS from 1950 to 2020-01-29 Encounter Location Date Provider Diagnosis [facility] [place] [address] 16 Jan, 2020 Rob Gilmore IMMUNIZATIONS Vaccine [...] Notes Start Da te End Date Status Eliquis 5 MG 1 tab Orally twice daily for 90 Active Tylenol 325 MG 2 tablets as needed Orally every 6 hrs Active HydrALAZINE HCl 10 MG TAKE 1 TABLET 3 TIMES DAILYWITH FOOD for 90 Active Colace 100 MG 1 capsule Orally twice daily as needed Active Atorvastatin Calcium 40 MG 1 tablet Orally Daily for 90 days Active Calcitriol 0.5 MCG 1 capsule Orally Once a day for 90 Active Lancets Super Thin - PC Super thin 30G lancets DX : E11.9 twice daily for 90 days 13 Mar, 2016 Active Sure Comfort Insulin Syringe 30G X 16 as directed DX :E11.29 Twice a day for 100 days Active PreserVision AREDS 2 - 1 cap Orally Daily Active Multiple Vitamin _ 1 tablet Orally Once a day Active Aspirin 81 MG 1 tablet Orally three times a week Active Glucometer _ [employer] Glucose monitoring System DX: E11.9 daily for 99 months Feb, Active Torsemide 20 MG TAKE 1 TABLET DAILY for 90 Active Trazodone HCl 150 MG TAKE 1 TABLET AT BEDTIME for 90 Active Wheelchair - DX: Z89.611, Z89.512 Weight 250#, Height 72 inches Daily use for 99 months Mar, Not-Taking Isosorbide Dinitrate 20 MG TAKE 1 TABLET 3 TIMES A DAY for 90 Active Blood Glucose Test Strip _ [employer] test strips DX: E11.29 d aily to twice daily for 90 days Feb, Active GlipiZIDE 5 MG 1 tab Orally Daily with the first meal of the day for 90 Active May Have - Replace battery in electric wheelchair plus labor _ DX: Z89.611, Z89.512 for 99 months Mar, Not-Taking Potassium Chloride ER 20MEQ 1 tablet with food Orally Once a day for 90 day(s) Active Pepcid 20 MG 1 tablet Orally twice daily Active Novolin N 100 UNIT/ML INJECT 70 UNITS S UBCUTANEOUSLY TWO TIMES A DAY for 84 Active Metformin HCl 850 MG 1 tablet with meals Orally once daily for 90 day s Active Levothyroxine Sodium 137 MCG TAKE 1 TABLET EVERY MORNI NGON AN EMPTY STOMACH for 90 Active PROCEDURES No Information RESULTS No Results REASON FOR VISIT FS and insulin MEDICAL (GENERAL) HISTORY Type Description Date Medical [...] Chronic kidney disease, stage 3 Medical History jail 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 Medical History Status [...] Vitrectomy left eye 09/02/2015 Surgical History Right izxaf-okr-wdbg amputation. 2015 Surgical History thoracentesis 03/2016 Surgical History angioplasty and catheterization-[place] Surgical History Above knee amputation-right leg Hospitalization [...] Medication Name Sig Start Date Stop Date Calcitriol 0.5 MCG 1 capsule Orally Once a day for 90 Novolin N 100 UNIT/ML INJECT 70 UNITS S UBCUTANEOUSLY TWO TIMES A DAY for 84 Torsemide 20 MG TAKE 1 TABLET DAILY for 90 Trazodone HCl 150 MG TAKE 1 TABLET AT BEDTIME for 90 Levothyroxine Sodium 137 MCG TAKE 1 TABLET EVERY MORNI NGON AN EMPTY STOMACH for 90 Isosorbide Dinitrate 20 MG TAKE 1 TABLET 3 TIMES A DAY for 90 HydrALAZINE HCl 10 MG TAKE 1 TABLET 3 TIMES DAILYWITH FOOD for 9 0 Next Appt Details Provider Name:Rob Deirdre, 2020-02-11 01 :15:00 PM, [address] [place] [address], [phone], Provider Name:Rob Gilmore, 2020-03-18 09 :00:00 AM, [address] [place] [address], [phone], Insurance Providers Payer Name Payer Address Payer Phone Insured Name Patient Relati onship to Insured Coverage Start Date Coverage End Date [facility] [address] [facility] [phone] JERSON JAUREGUI
--- OUTSIDE RECORDS SUMMARY | 2020-03-18 13:14 | CCD ---
Author Author [facility] em[facility] Organization [facility] Address Unknown Phone Unavailable Care Team Providers Care Conveyor Weigher Operator Name Role Phone Rob Gilmore Unavailable PROBLEMS Type Condition ICD9-CM Code [id number] Code Onset Dates Condition S tatus SNOMED Code Notes Problem Peripheral vascular disease I73.9 Active 5788 45596 He has had bilateral BKAs, and is on Eliquis and aspirin. He had a vascular procedure in 03/2016 and had a higher amputation of his right leg on 06/14/2016. Problem Atrial fibrillation I48.91 Active 46213572 He is off Plavix since he had [...] November 2016. Problem Gastroesophageal reflux K21.9 Active 83030711 4 He is no longer maintained on omeprazole therapy and is on Pepcid instead. He has no heartburn. Problem Systolic and diastolic CHF, chronic I50.42 Acti ve [id number] He previously had significantly decompensated CHF in [...] of CVA (cerebrovascular accident) I69 .90 Active 140546846 He had a stroke affecting the anterior l eft parietal lobe and likely related to small vessel disease in January 2015. He presented with dysfunction of his right hand but this has resolved. He is on aspirin and now Eliquis instead of Plavix. Carotid ultrasound was unremarkable with less than 50% stenoses bilaterally at the time. Problem CAD (coronary artery disease) I25.10 Active 72 513538 He had a four- vessel bypass in [...] taken off beta baron therapy by his powerhouse engineer in November 2016 because of bradycardia. In December 2017 with hydralazine and isosorbide were switched to Entresto 24/26 mg twice daily by his powerhouse engineer but I believe that the cost was prohibitive. He last saw his powerhouse engineer in February 2019. Problem Status post below knee amputation of left lower extremity Z89.512 Active 970253781 He requires a wheelchair to increase his functional mobility. Without that, he cannot accomplish his mobility related activities of daily living within the home. Problem Hypertensive heart and chron ic kidney disease with heart failure and stage 1 through stage 4 chronic kidney disease, or unspecified chronic kidney disease I13.0 Active 79883259320409 He has a h istory of hypertension [...] right above knee amputation Z89.611 A ctive 742220157 He requires a wheelchair to increase his functional mobility. Without that, he cannot accomplish his mobility related activities of daily living within the home. Problem Hypothyroidism E03.9 Active 67740535 Last TSH was 4.04 in September 2019 on 137 mcg of levothyroxine daily. Problem Type 2 diabetes mellitus with other diabetic kid kwadwo complication E11.29 Active 40576866 He is on Novolin N at a [...] his insurance plan in the future. 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 Problem Mixed hyperlipidemia E78.2 Active 768623000 Kimmy chao is currently on Lipitor at 40 mg daily, a change from pravastatin during his January 2015 hospitalization. Gemfibrozil therapy was stopped in December 2012 without serious adverse effect on his lipids. Lipids were optimal in September 2019. ALLERGIES Allergen (clinical drug ingredient) Drug/Non Drug Allergy do cumented on EMR Reaction Allergy Type Onset Date Status clonidine Clonidine HCl([facility] Code:[address]-54) Hy poglycemia and low heart rate in hospital 01/2020 Drug Allergy Active Coumadin Rash Drug Allergy Active ENCOUNTERS from 1950 to 2020-03-03 Encounter Location Date Provider Diagnosis [address] [address] Feb, Rob [facility] IMMUNIZATIONS Vaccine Route Administration Date Status [...] daily Active Blood Glucose Test Strip _ [employer] test strips DX: E11.29 d aily to [...] neede for wheezingd Jan, Active Glucometer _ [employer] Glucose monitoring System DX: E11.9 daily for [...] Z89.611, Z89.512 for 99 months Mar, Active Pepcid 20 MG 1 tablet Orally twice daily Active Colace 100 MG 1 capsule [...] food Orally Three times a day Active Torsemide 20 MG 2 tablets (40 mg) Orally once daily for 90 day(s) Active Metformin HCl 850 MG 1 tablet [...] Information RESULTS No Results REASON FOR VISIT refill-torsemide MEDICAL (GENERAL) HISTORY Type Description Date Medical [...] Chronic kidney disease, stage 3 Medical History watermaster 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 Medical History Status [...] Vitrectomy left eye 09/02/2015 Surgical History Right gppzp-llr-hivn amputation. 2015 Surgical History thoracentesis 03/2016 Surgical History angioplasty and catheterization-[place] Surgical History Above knee amputation-right leg Hospitalization [...] Medication Name Sig Start Date Stop Date Torsemide 20 MG 2 tablets (40 mg) Orally once daily for 90 day(s ) Triamcinolone Acetonide 0.1 % 1 application Externally Twice a day for 30 days Jan, Next Appt Details Provider Name:Rob Gilmore 2020-03-04 01 :00:00 PM, [address] [place], [phone], Provider Name:Rob Gilmore 2020-03-18 09 :00:00 AM, [address] [place] [address] [place], [phone], Insurance Providers Payer Name Payer Address Payer Phone Insured Name Patient Relati onship to Insured Coverage Start Date Coverage End Date [facility] [address] [address] [facility] [phone] JERSON JAUREGUI self
--- OUTSIDE RECORDS SUMMARY | 2020-03-18 13:14 | CCD | Continuity of Care Document ---
Author Author Phu JERRYC Organization Unknown Address [address] [place] [address], [facility] [place] [address] Phone [phone] Care Team Providers Care Tele Rn Name Role Phone Rob Gilmore MD AUTM [phone] Sami Rodgers MD AUTM [phone] Mich Noyola MD AUTM [phone] Problems Active Problems Provider Date Coronary arteriosclerosis VICENTE Colmenares-C Onset: 2012 History of coronary artery bypass grafting Angela Jerry P A-C Onset: 12/25/2014 Primary cardiomyopathy Angela Jerry PA-C Onset: 3 Chronic combined systolic and diastolic heart failure VICENTE Colmenares-C Onset: 12/25/2014 Chronic atrial fibrillation Angela Jerry PA-C Onset: 12/14 Essential hypertension Angela Jerry PA-C Onset: 5 Electrocardiogram abnormal Angela Jerry PA-C Onset: 03/02 Mitral valve disorder Angela Jerry PA-C Onset: 03/02/2012 Mixed hyperlipidemia Angela Jerry PA-C Onset: 02/16/2016 Obesity Angela Jerry PA-C Onset: 12/25/2014 Dietary management surveillance VICENTE Colmenares-C Onset: 11/17/2016 Permanent atrial fibrillation Angela Jerry PA-C Onset: Social History Type Date Description Comments Sex Unknown ETOH Use Does not consume alcohol Tobacco Use Start: Unknown End: Unknown Patient is a former smoker occasional cigar, none since 1993 Smoking Status Reviewed: 02/12/20 Patient is a former smoker oc casional cigar, none since 1993 Exercise Type/Frequency Ambulatory & huang f-care, unable to carry out any work activities Exercise Type/Frequency Exercises sporadically h unting daily - on 4 giron Exercise Type/Frequency Does yardwork twice a we ek - rides the mower Exercise Limitations Unable to ambulate due to r ight AKA and left BKA Exercise Limitations Fatigue Allergies, Adverse Reactions, Alerts Active Allergies Reaction Severity Comments Date Coumadin rash 02/16/2016 Clonidine bradycardia 02/12/2020 Inactive Allergies NKDA 02/23/2006 Medications Active Medications SIG Qnty Indications Ordering Provide r Date Albuterol Sulfate HFA 108(90Base) mcg/Act Aerosol inhale two puffs as needed every 4 hours Unknown 02/11/2020 Vitamin C 500mg Capsules 1 by mouth once a day Unknown 02/11/2020 Novolog Mix 70/30 (7 0-30)100Unit/ML Suspension as directed Unknown 02/24/2019 Calcitriol 0.5mcg Capsules 1 by mouth every day Rob Gilmore MD 05/03/2018 Glipizide ER 5mg Tablets ER 24HR 1 by mouth every day Rob Gilmore MD 05/03/2018 Synthroid 137mcg Tablets 1 by mouth every day Rob Gilmore MD 08/14/2017 Torsemide 20mg Tablets 2 by mouth every day Rob Gilmore MD 08/14/2017 Preservision Areds 2 Areds 2 Capsu les 1 by mouth twice a day Unknown 08/14/2017 Potassium Chloride ER 20Meq Tablet s ER 1 by mouth every day Mich Phillips MD 06/29/2016 Isosorbide Dinitrate 20mg Tablets 1 by mouth three times a day I50.42 Mich Phillips MD 06/29 Hydralazine HCL 10mg Tablets 1 by mouth three times a day I50.42 Mich Phillips MD 06/29/2016 Colace 100mg Capsules 1 by mouth twice a day as needed Unknown 06/29/2016 Pepcid 20mg Tablets 1 by mouth twice daily Rob Gilmore MD 06/29/2016 Metformin HCL 850mg Tablets 1 by mouth once a day with evening meal Rob Gilmore MD Aspirin Ec 81mg Tablets DR 1 by mouth every Mon, Wed, Fri only Rob Gilmore MD 2016 Eliquis 5mg Tablets 1 by mouth twice a day Unknown 02/15/2016 Atorvastatin Calcium 80mg Tablets 1/2 by mouth every night at bedtime Rob Gilmore MD Complete Multi-Vitamin Chewtabs 1 by mouth daily Unknown 06/22/2014 Trazodone HCL 150mg Tablets 1 PO qhs Unknown 12/18/2006 Nitrostat 0.4mg Tablets Sub 1 sl q5min x3 for chest pain 25tabs I25.10 Mich Phillips MD 12/18/2006 Immunizations Description No Information Available Vital Signs Date Vital Result Comment 02/12/2020 11:07am Home Weight 301lb @ Dr. Tena office Height 75 inches 6'3" Heart Rate 68 /min Regular Respiratory Rate 16 /min BP Systolic Right Arm 122 mmHg sitting, large cuf f BP Diastolic Right Arm 64 mmHg sitting, large cu ff 11/19/2019 12:27pm Height 75 inches 6'3" Respiratory Rate 16 /min BP Systolic Right Arm 122 mmHg sitting, large cuf f BP Diastolic Right Arm 68 mmHg sitting, large cu ff BP Systolic Left Arm 124 mmHg sitting BP Diastolic Left Arm 68 mmHg sitting Results Test Acquired Date Facility Test Result H/L Range Note CBC without Differential 01/28/2020 [facility] - not inter faced (315)- - White Blood Count 8.3 5.0-10.0 Red Blood Count 4.18 4.00-5.40 Platelets 178 172-450 Hemoglobin 12.0 Hematocrit 38.9 BMP 01/28/2020 [facility] - not interfaced (315)- - Calcium Ser/Plasma Mass/Vol 8.0 Sodium 139 Carbon Dioxide Ser/Plasm 29 Chloride Serum/Plasma 102 Potassium 3.9 Glucose 214 High 83-110 Blood Urea Nitrogen 36 High 7-18 Creatinine 1.92 High 0.6-1.0 G F R 37.4 Laboratory test finding 01/28/2020 [facility] - not interf aced (315)- - Magnesium Level 2.4 1.8-2.4 Hemoglobin A1c 09/16/2019 [facility] - not interfaced (315)- - Hemoglobin A1c 7.1 Lipid Profile/Cardiac Risk Pro 09/16/2019 [facility] - not interfaced (315)- - Triglycerides 148 <150 Cholesterol 100 <200 HDL 25 Low >40.0 LDL Cholesterol 45 Chol/HDL Ratio 4.000 <5 CMP 09/16/2019 [facility] - not interfaced (315)- - Albumin Serum/Plasma 0.7 Alt - SGPT 22 Calcium Ser/Plasma Mass/Vol 9.3 Carbon Dioxide Ser/Plasm 30 Chloride Serum/Plasma 105 Alkaline Phosphatase 175 Potassium 4.6 Protein Total 7.6 Sodium 139 Ast - Sgot 26 BUN - Urea Nitrogen 24 Glucose 68 Low 70-100 Creatinine For GFR 1.74 Basic Metabolic Profile 08/29/2019 [facility] [phone] Glucose, Fasting 223 mg/dL High 70-100 Blood Urea Nitrogen 22 mg/dL High 7-18 Creatinine For GFR 1.73 mg/dL High 0.70-1.30 Glomerular Filtration Rate 42.3 Low >49 1 Sodium Level 138 mEq/L Normal 136-145 Potassium Serum 4.5 mEq/L Normal 3.5-5.1 Chloride Level 104 mEq/L Normal 98-107 Carbon Dioxide Level 29 mEq/L Normal 21-32 Anion Gap 5 mEq/L Low 8-16 Calcium Level 9.0 mg/dL Normal 8.8-10.2 Laboratory test finding 08/29/2019 [facility] [phone] Magnesium Level 2.1 mg/dL Normal 1.8-2.4 Complete Blood Count 08/29/2019 [facility] [phone] White Blood Count 8.5 10 Normal 4.0-10.0 Red Blood Count 4.53 10 Normal 4.30-6.10 Hemoglobin 13.9 g/dL Normal 13.5-17.5 Hematocrit 43.9 % Normal 42.0-52.0 Mean Corpuscular Volume 96.9 fl High 80.0-96.0 Mean Corpuscular Hemoglobin 30.7 pg Normal 27.0-33.0 Mean Corpuscular HGB Conc 31.7 g/dL Low 32.0-36.5 Red Cell Distribution Width 17.8 % High 11.5-14.5 Platelet Count, Automated 225 10 Normal 150-450 Nucleated Red Blood Cell % 0.0 % Normal 0-0 1 Units are mL/min/1.73 m2 Chronic Kidney Disease Staging per NKF: Stage I & II GFR >=60 Normal to Mildly Decreased Stage III GFR 30-59 Moderately Decreased Stage IV GFR 15-29 Severely Decreased Stage V GFR <15 Very Little GFR Left ESRD GFR <15 on [employer] Procedures Date Code Description Status 11/19/2019 01971 ECG 12-Lead Completed Medical Devices Description No Information Available Encounters Type Date Location Provider Dx Diagnosis Office Visit 02/12/2020 10:45a Main Office GARY ColmenaresC I50.4 2 Chronic combined systolic and diastolic hrt fail I25.10 Athscl heart disease of [place] coronary artery w/o ang pctrs Office Visit 11/19/2019 12:30p Main Office Angela Jerry PA-C I25.1 0 Athscl heart disease of [place] coronary artery w/o ang pctrs Z95.1 Presence of aortocoronary by pass graft I50.42 Chronic combined systolic an d diastolic hrt fail I42.0 Dilated cardiomyopathy I48.21 Permanent atrial fibrillatio n I34.8 Other nonrheumatic mitral va lve disorders R94.31 Abnormal electrocardiogram [ ECG] [EKG] E78.2 Mixed hyperlipidemia Z71.3 Dietary counseling and surve illance Assessments Date Code Description Provider 02/12/2020 I50.42 Chronic combined systolic (conge stive) and diastolic (conges Angela Jerry PA-C 02/12/2020 I25.10 Atherosclerotic hear t disease of [place] coronary artery without angina pectoris VICENTE Colmenares-C 11/19/2019 I25.10 Atherosclerotic hear t disease of [place] coronary artery without angina pectoris Angela Jerry PA-C 11/19/2019 Z95.1 Presence of aortocoronary bypass graft VICENTE Colmenares-C 11/19/2019 I50.42 Chronic combined systolic (conge stive) and diastolic (conges Angela Jerry PA-C 11/19/2019 I42.0 Dilated cardiomyopathy VICENTE Ferris-C 11/19/2019 I48.21 Permanent atrial fibrillation Leslie Dietrich PA-C 11/19/2019 I34.8 Other nonrheumatic mitral valve disorders Angela Jerry PA-C 11/19/2019 R94.31 Abnormal electrocardiogram [ECG] [EKG] Angela Jerry PA-C 11/19/2019 E78.2 Mixed hyperlipidemia VICENTE Mathew-C 11/19/2019 Z71.3 Dietary counseling and surveilla nce Angela Jerry PA-C Plan of Treatment Future Appointment(s):* 05/25/2020 10:15 am - Angela Jerry PA-C at Main Office 02/12/2020 - Angela Jerry PA-C* I50.42 Chronic combined systolic (congestive) and diastolic (conges* Recommendations:* Follow a low sodium diet and 1500cc/24 hour fluid restriction and do daily weights. Call the office with weight gain of 3 lbs or more. * I25.10 Atherosclerotic heart disease of [place] coronary artery without angina pectoris * All * Follow up:* As scheduled in May. Functional Status Functional Condition Comment Date Status Independent with all ADL's Activ e Dependent with ambulating in wheelchair due to bilateral amputat ion Active Mental Status Description No Information Available Referrals Description No Information Available
--- OUTSIDE RECORDS SUMMARY | 2020-03-18 13:14 | CCD | Continuity of Care Document ---
Author Organization Unknown Address Unknown Phone Unavailable Care Team Providers Care Environmental Field Services Technician Name Role Phone Rob Gilmore MD AUTM [phone] Sami Rodgers MD AUTM [phone] Mich Noyola MD AUTM [phone] Problems Active Problems Provider Date Coronary arteriosclerosis Angela Jeremie Collazo PA-C Onset: 2012 History of coronary artery bypass grafting Angela Collazo P A-C Onset: 12/25/2014 Primary cardiomyopathy VICENTE Colmenares-C Onset: 3 Chronic combined systolic and diastolic heart failure Angela Collazo PA-C Onset: 12/25/2014 Chronic atrial fibrillation Angela Collazo PA-C Onset: 12/14 Essential hypertension Angela Collazo PA-C Onset: 5 Electrocardiogram abnormal Angela Jeremie Collazo PA-C Onset: 03/02 Mitral valve disorder Angela Collazo PA-C Onset: 03/02/2012 Mixed hyperlipidemia Angela Collazo PA-C Onset: 02/16/2016 Obesity Angela Collazo PA-C Onset: 12/25/2014 Dietary management surveillance Angela Collazo PA-C Onset: 11/17/2016 Permanent atrial fibrillation Angelajeremie Collazo PA-C Onset: Social History Type Date Description Comments Sex Unknown ETOH Use Does not consume alcohol Tobacco Use Start: Unknown End: Unknown Patient is a former smoker occasional cigar, none since 1993 Smoking Status Reviewed: 11/19/19 Patient is a former smoker oc casional [...] Reaction Severity Comments Date Coumadin rash 02/16/2016 Inactive Allergies NKDA 02/23/2006 Medications Active Medications SIG Qnty Indications Ordering Provide r Date Novolog Mix 70/30 (7 0-30)100Unit/ML Suspension as directed Unknown 02/24/2019 Calcitriol 0.5mcg Capsules 1 by mouth every day Rob Gilmore MD 05/03/2018 Glipizide ER 5mg Tablets ER 24HR 1 by mouth every day Rob Gilmore MD 05/03/2018 Synthroid 137mcg Tablets 1 by mouth every day Rob Gilmore MD 08/14/2017 Torsemide 20mg Tablets 1 by mouth every day Rob [...] Available Vital Signs Date Vital Result Comment 11/19/2019 12:27pm Height 75 inches 6'3" Respiratory Rate 16 /min BP Systolic Right Arm 122 mmHg sitting, large cuf f BP Diastolic Right Arm 68 mmHg sitting, large cu ff BP Systolic Left Arm 124 mmHg sitting BP Diastolic Left Arm 68 mmHg sitting 08/12/2019 9:27am Height 75 inches 6'3" Heart Rate 68 /min Regular Respiratory Rate 16 /min BP Systolic Right Arm 126 mmHg sitting, large cuf f BP Diastolic Right Arm 64 mmHg sitting, large cu ff Results Test Acquired Date Facility Test Result H/L Range Note CBC without Differential 01/28/2020 [facility] - not inter faced (315)- - White Blood Count 8.3 5.0-10.0 Red Blood Count 4.18 4.00-5.40 Platelets 178 172-450 Hemoglobin 12.0 Hematocrit 38.9 BMP 01/28/2020 [facility] - not interfaced (315)- - Calcium Ser/Plasma Mass/Vol 8.0 Sodium 139 Carbon Dioxide Ser/Plasm 29 Chloride Serum/Plasma 102 Potassium 3.9 Glucose 214 High 83-110 Blood Urea Nitrogen 36 High 7-18 Creatinine 1.92 High 0.6-1.0 G F R 37.4 Laboratory test finding 01/28/2020 [facility] - not interf aced (315)- - Magnesium Level 2.4 1.8-2.4 Hemoglobin A1c 09/16/2019 [facility] - not interfaced (315)- - Hemoglobin A1c 7.1 Lipid Profile/Cardiac Risk Pro 09/16/2019 [facility] - not interfaced (315)- - Triglycerides 148 <150 Cholesterol 100 <200 HDL 25 Low >40.0 LDL Cholesterol 45 Chol/HDL Ratio 4.000 <5 CMP 09/16/2019 [facility] - not interfaced (315)- - Albumin Serum/Plasma 0.7 Alt - SGPT 22 Calcium Ser/Plasma Mass/Vol 9.3 Carbon Dioxide Ser/Plasm 30 Chloride Serum/Plasma 105 Alkaline Phosphatase 175 Potassium 4.6 Protein Total 7.6 Sodium 139 Ast - Sgot 26 BUN - Urea Nitrogen 24 Glucose 68 Low 70-100 Creatinine For GFR 1.74 Basic Metabolic Profile 08/29/2019 [facility] [phone] Glucose, Fasting 223 mg/dL High 70-100 Blood [...] mg/dL Normal 8.8-10.2 Laboratory test finding 08/29/2019 [facility] [phone] Magnesium Level 2.1 mg/dL Normal 1.8-2.4 Complete Blood Count 08/29/2019 [facility] [phone] White Blood Count 8.5 10 Normal 4.0-10.0 [...] Little GFR Left ESRD GFR <15 on [employer] Procedures Date Code Description Status 11/19/2019 17534 ECG 12-Lead Completed Medical Devices Description No Information Available Encounters Type Date Location Provider Dx Diagnosis Office Visit 11/19/2019 12:30p Main Office Angela Collazo PA-C I25.1 0 Athscl heart disease of [place] coronary artery w/o ang pctrs Z95.1 Presence of aortocoronary by pass graft I50.42 Chronic combined systolic an d diastolic hrt fail I42.0 Dilated cardiomyopathy I48.21 Permanent atrial fibrillatio n I34.8 Other nonrheumatic mitral va lve disorders R94.31 Abnormal electrocardiogram [ ECG] [EKG] E78.2 Mixed hyperlipidemia Z71.3 Dietary counseling and surve illance Office Visit 08/12/2019 9:15a Main Office Angela Collazo PA-C I50.4 2 Chronic combined systolic and diastolic hrt fail Assessments Date Code Description Provider 11/19/2019 I25.10 Atherosclerotic hear t disease of [place] coronary artery without angina pectoris GARY ColmenaresC 11/19/2019 Z95.1 Presence of aortocoronary bypass graft Angela Collazo PA-C 11/19/2019 I50.42 Chronic combined systolic (conge stive) and diastolic (conges GARY ColmenaresC 11/19/2019 I42.0 Dilated cardiomyopathy GARY FerrisC 11/19/2019 I48.21 Permanent atrial fibrillation Ka GARY DietrichC 11/19/2019 I34.8 Other nonrheumatic mitral valve disorders GARY ColmenaresC 11/19/2019 R94.31 Abnormal electrocardiogram [ECG] [EKG] GARY ColmenaresC 11/19/2019 E78.2 Mixed hyperlipidemia GARY MathewC 11/19/2019 Z71.3 Dietary counseling and surveilla nce GARY ColmenaresC 08/12/2019 I50.42 Chronic combined systolic (conge stive) and diastolic (conges Angela Collazo PA-C Plan of Treatment Future Appointment(s):* 02/12/2020 10:45 am - Angela Collazo PA-C at Main Office * 05/25/2020 10:15 am - Angela oCllazo PA-C at Main Office 11/19/2019 - Angela Collazo PA-C* I25.10 Atherosclerotic heart disease of [place] coronary artery without angina pectoris * Z95.1 Presence of aortocoronary bypass graft * I50.42 Chronic combined systolic (congestive) and diastolic (conges* Recommendations:* Follow a low sodium diet and 1500cc/24 hour fluid restriction and do daily weights. Call the office with weight gain of 3 lbs or more. * I42.0 Dilated cardiomyopathy * I48.21 Permanent atrial fibrillation * I34.8 Other nonrheumatic mitral valve disorders * R94.31 Abnormal electrocardiogram [ECG] [EKG] * E78.2 Mixed hyperlipidemia * Z71.3 Dietary counseling and surveillance* Recommendations:* Follow a low fat/low cholesterol diet and do as much aerobic exercise as you can tolerate. * All * Follow up:* 6 month follow up (per patient request). Functional Status Functional Condition Comment Date Status Independent with all ADL's Activ e Dependent with ambulating in wheelchair due to bilateral amputat ion Active Mental Status Description No Information Available Referrals Description No Information Available
--- OUTSIDE RECORDS SUMMARY | 2020-03-18 13:14 | CCD ---
Author Author [facility] [employer] Savings [employer] ems Organization [facility] [employer] Address Unknown Phone Unavailable Care Team Providers Care Supervisor Final Name Role Phone Rob Gilmore Unavailable PROBLEMS Type Condition ICD9-CM Code [id number] Code Onset Dates Condition S tatus SNOMED Code Notes Problem Peripheral vascular disease I73.9 Active 0607 31956 He has had bilateral BKAs, and is on Eliquis and aspirin. He had a vascular procedure in 03/2016 and had a higher amputation of his right leg on 06/14/2016. Problem Atrial fibrillation I48.91 Active 38413679 He is off Plavix since he had [...] November 2016. Problem Gastroesophageal reflux K21.9 Active [id number] 4 He is no longer maintained on omeprazole therapy and is on Pepcid instead. He has no heartburn. Problem Systolic and diastolic CHF, chronic I50.42 Acti ve [id number] He had significantly decompensated CHF in Spring [...] 20-25% by most recent echocardiogram 03/2016 at [facility], but greater than 30% by radionuclide stress test in November 2016. 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 He presented with dysfunction of his right hand but this has resolved. He is on aspirin and now Eliquis instead of Plavix. Carotid ultrasound was unremarkable with less than 50% stenoses bilaterally at the time. Problem CAD (coronary artery disease) I25.10 Active 56 833988 He had a four- vessel bypass in [...] taken off beta baron therapy by his bee breeder in November 2016 because of bradycardia. In December 2017 with hydralazine and isosorbide were switched to Entresto 24/26 mg twice daily by his bee breeder but I believe that the cost was prohibitive. He last saw his bee breeder in February 2019. Problem Status post below knee amputation of left lower extremity Z89.512 Active 547969166 He requires a wheelchair to increase his functional mobility. Without that, he cannot accomplish his mobility related activities of daily living within the home. Problem Hypertensive heart and chron ic kidney disease with heart failure and stage 1 through stage 4 chronic kidney disease, or unspecified chronic kidney disease I13.0 Active [id number] He has a h istory of hypertension and had been on quinapril therapy until Spring 2016 hospitalization, when he was switched to isosorbide and hydralazine with torsemide due to renal insufficiency. Blood pressure is controlled. Problem History of right above knee amputation Z89.611 A ctive 048276327 He requires a wheelchair to increase his functional mobility. Without that, he cannot accomplish his mobility related activities of daily living within the home. Problem Hypothyroidism E03.9 Active 91314165 Last TSH was 4.04 in September 2019 on 137 mcg of levothyroxine daily. 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 Problem Mixed hyperlipidemia E78.2 Active 204287501 Kimmy chao is currently on Lipitor at [...] Drug Allergy Active ENCOUNTERS from 1950 to 2020-01-25 Encounter Location Date Provider Diagnosis [facility] [place] [address] Jan, Rob Gilmore IMMUNIZATIONS Vaccine Route Administration Date [...] three times a week Active Glucometer _ [employer] Glucose monitoring System DX: E11.9 daily for [...] 90 Active Blood Glucose Test Strip _ [employer] test strips DX: E11.29 d aily to [...] Information RESULTS No Results REASON FOR VISIT patient going to ED MEDICAL (GENERAL) HISTORY Type Description Date Medical [...] Vitrectomy left eye 09/02/2015 Surgical History Right [id number] amputation. 2015 Surgical History thoracentesis 03/2016 Surgical History angioplasty and catheterization-[facility] Surgical History Above knee amputation-right leg Hospitalization [...] 9 0 Next Appt Details Provider Name:Rob Gilmore, 2020-03-18 09 :00:00 AM, [address] [place], [address], Insurance Providers Payer Name Payer Address Payer Phone Insured Name Patient Relati onship to Insured Coverage Start Date Coverage End Date [facility] [id number] [facility] [id number] JERSON JAUREGUI self
--- OUTSIDE RECORDS SUMMARY | 2020-03-18 13:14 | CCD ---
Author Author [facility] [employer] [facility] Organization [facility] [employer] [facility] Address Unknown Phone Unavailable Care Team Providers Care Sleeper Cutter Name Role Phone Flor Ma Unavailable PROBLEMS Type Condition ICD9-CM Code [id number] Code Onset Dates Condition S tatus SNOMED Code Notes Problem Peripheral vascular disease I73.9 Active 5331 62165 He has had bilateral BKAs, and is on Eliquis and aspirin. He had a vascular procedure in 03/2016 and had a higher amputation of his right leg on 06/14/2016. Problem Atrial fibrillation I48.91 Active 59043157 He is off Plavix since he had [...] November 2016. Problem Gastroesophageal reflux K21.9 Active 09737525 4 He is no longer maintained on omeprazole therapy and is on Pepcid instead. He has no heartburn. Problem Systolic and diastolic CHF, chronic I50.42 Acti ve [id number] He previously had significantly decompensated CHF in [...] of CVA (cerebrovascular accident) I69 .90 Active 524547613 He had a stroke affecting the anterior l eft parietal lobe and likely related to small vessel disease in January 2015. He presented with dysfunction of his right hand but this has resolved. He is on aspirin and now Eliquis instead of Plavix. Carotid ultrasound was unremarkable with less than 50% stenoses bilaterally at the time. Problem CAD (coronary artery disease) I25.10 Active 33 796161 He had a four- vessel bypass in [...] taken off beta baron therapy by his aeronautical design engineer in November 2016 because of bradycardia. In December 2017 with hydralazine and isosorbide were switched to Entresto 24/26 mg twice daily by his aeronautical design engineer but I believe that the cost was prohibitive. He last saw his aeronautical design engineer in February 2019. 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 Without that, he cannot accomplish his mobility related activities of daily living within the home. Problem Hypertensive heart and chron ic kidney disease with heart failure and stage 1 through stage 4 chronic kidney disease, or unspecified chronic kidney disease I13.0 Active [id number] He has a h istory of hypertension [...] right above knee amputation Z89.611 A ctive 307126485 He requires a wheelchair to increase his functional mobility. Without that, he cannot accomplish his mobility related activities of daily living within the home. Problem Hypothyroidism E03.9 Active 16057286 Last TSH was 4.04 in September 2019 on 137 mcg of levothyroxine daily. Problem Type 2 diabetes mellitus with other diabetic kid kwadwo complication E11.29 Active 53224125 He is on Novolin N at a [...] his insurance plan in the future. 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 Problem Mixed hyperlipidemia E78.2 Active 408806925 H jeremie is currently on Lipitor at 40 mg daily, a change from pravastatin during his January 2015 hospitalization. Gemfibrozil therapy was stopped in December 2012 without serious adverse effect on his lipids. Lipids were optimal in September 2019. ALLERGIES Allergen (clinical drug ingredient) Drug/Non Drug Allergy do cumented on EMR Reaction Allergy Type Onset Date Status clonidine Clonidine HCl([facility] Code:[address]-40) Hy poglycemia and low heart rate in hospital 01/2020 Drug Allergy Active Coumadin Rash Drug Allergy Active ENCOUNTERS from 1950 to 2020-02-29 Encounter Location Date Provider Diagnosis [address] [address] Feb, Flor Ma IMMUNIZATIONS Vaccine Route Administration Date Status Influenza [...] daily Active Blood Glucose Test Strip _ [employer] test strips DX: E11.29 d aily to [...] neede for wheezingd Jan, Active Glucometer _ [employer] Glucose monitoring System DX: E11.9 daily for [...] Information RESULTS No Results REASON FOR VISIT delusions MEDICAL (GENERAL) HISTORY Type Description Date Medical [...] Chronic kidney disease, stage 3 Medical History senior living 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 Medical History Status [...] Vitrectomy left eye 09/02/2015 Surgical History Right [id number] amputation. 2015 Surgical History thoracentesis 03/2016 Surgical [...] days Jan, Next Appt Details Provider Name:Rob Gilmore, 2020-03-18 09 :00:00 AM, [address] [place], [address], Insurance Providers Payer Name Payer Address Payer Phone Insured Name Patient Relati onship to Insured Coverage Start Date Coverage End Date [employer] [facility] [address] [address] [facility] [phone] JERSON JAUREGUI
--- OUTSIDE RECORDS SUMMARY | 2020-03-18 13:14 | CCD ---
Author Author [facility] [employer] Organization [facility] [employer] [facility] Address Unknown Phone Unavailable Care Team Providers Care Sales Clerk Food Name Role Phone Rob Gilmore Unavailable PROBLEMS Type Condition ICD9-CM Code [id number] Code Onset Dates Condition S tatus SNOMED Code Notes Problem Peripheral vascular disease I73.9 Active 2314 89432 He has had bilateral BKAs, and is on Eliquis and aspirin. He had a vascular procedure in 03/2016 and had a higher amputation of his right leg on 06/14/2016. Problem Atrial fibrillation I48.91 Active 72249777 He is off Plavix since he had [...] November 2016. Problem Gastroesophageal reflux K21.9 Active 63249265 4 He is no longer maintained on omeprazole therapy and is on Pepcid instead. He has no heartburn. Problem Systolic and diastolic CHF, chronic I50.42 Acti ve [id number] He had significantly decompensated CHF in Spring [...] 20-25% by most recent echocardiogram 03/2016 at [place], but greater than 30% by radionuclide stress test in November 2016. 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 He presented with dysfunction of his right hand but this has resolved. He is on aspirin and now Eliquis instead of Plavix. Carotid ultrasound was unremarkable with less than 50% stenoses bilaterally at the time. Problem CAD (coronary artery disease) I25.10 Active 78 005938 He had a four- vessel bypass in [...] taken off beta baron therapy by his instrumentation supervisor in November 2016 because of bradycardia. In December 2017 with hydralazine and isosorbide were switched to Entresto 24/26 mg twice daily by his instrumentation supervisor but I believe that the cost was prohibitive. He last saw his instrumentation supervisor in February 2019. Problem Status post below knee amputation of left lower extremity Z89.512 Active 736998820 He requires a wheelchair to increase his functional mobility. Without that, he cannot accomplish his mobility related activities of daily living within the home. Problem Hypertensive heart and chron ic kidney disease with heart failure and stage 1 through stage 4 chronic kidney disease, or unspecified chronic kidney disease I13.0 Active [id number] He has a h istory of hypertension and had been on quinapril therapy until Spring 2016 hospitalization, when he was switched to isosorbide and hydralazine with torsemide due to renal insufficiency. Blood pressure is controlled. Problem History of right above knee amputation Z89.611 A ctive 395684877 He requires a wheelchair to increase his functional mobility. Without that, he cannot accomplish his mobility related activities of daily living within the home. Problem Hypothyroidism E03.9 Active 31425749 Last TSH was 4.04 in September 2019 on 137 mcg of levothyroxine daily. Problem Type 2 diabetes mellitus with other diabetic kid kwadwo complication E11.29 Active 37917017 He is on Novolin N 70 units [...] his insurance plan in the future. 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 Problem Mixed hyperlipidemia E78.2 Active 493741575 Kimmy chao is currently on Lipitor at [...] Drug Allergy Active ENCOUNTERS from 1950 to 2019-12-18 Encounter Location Date Provider Diagnosis [facility] [address] [place] [id number] 04 Dec, 2019 Rob Gilmore Type 2 diabetes mellitus with other diab etic kidney complication E11.29 IMMUNIZATIONS Vaccine Route Administration Date Status Influenza [...] MEDICATIONS Medication SIG (Take, Route, Frequency, Duration) Start Date En d Date Status Blood Glucose Test Strip _ ge test strips DX: E11.29 d aily to twice daily for 90 days Feb, Active Torsemide 20 MG TAKE 1 TABLET DAILY for 90 Active Potassium Chloride ER 20MEQ 1 tablet with food Orally Once a day for 90 day(s) Active Levothyroxine Sodium 137 MCG TAKE 1 TABLET EVERY MORNI NGON AN EMPTY STOMACH for 90 Active Pepcid 20 MG 1 tablet Orally twice daily Active Calcitriol 0.5 MCG 1 capsule Orally Once a day for 90 Active Isosorbide Dinitrate 20 MG TAKE 1 TABLET 3 TIMES A DAY for 90 Active Sure Comfort Insulin Syringe 30G X 16 as directed DX :E11.29 Twice a day for 100 days Active Trazodone HCl 150 MG TAKE 1 TABLET AT BEDTIME for 90 Active Multiple Vitamin _ 1 tablet Orally Once a day Active Aspirin 81 MG 1 tablet Orally three times a week Active Glucometer _ [employer] Glucose monitoring System DX: E11.9 d aily for 99 months Feb, Active Eliquis 5 MG 1 tab Orally twice daily for 90 Active May Have - Replace battery in electric wheelchair plus labor _ DX: Z89.611, Z89.512 for 99 months Mar, Not-Taking Wheelchair - DX: Z89.611, Z89.512 Weight 250#, Height 72 inches Daily use for 99 months Mar, Not-Taking Atorvastatin Calcium 40 MG 1 tablet Orally Daily for 90 days Active HydrALAZINE HCl 10 MG TAKE 1 TABLET 3 TIMES DAILYWITH FOOD for 90 Active GlipiZIDE 5 MG 1 tab Orally Daily with the first meal of the day fo r 90 Active Lancets Super Thin - PC Super thin 30G lancets DX : E11.9 twice daily for 90 days Mar, Active Colace 100 MG 1 capsule Orally twice daily as needed Active Tylenol 325 MG 2 tablets as needed Orally every 6 hrs Active Novolin N 100 UNIT/ML INJECT 70 UNITS S UBCUTANEOUSLY TWO TIMES A DAY for 84 Active Metformin HCl 850 MG 1 tablet with meals Orally once daily for 90 d ays Active PreserVision AREDS 2 - 1 cap Orally Daily Active PROCEDURES No Information RESULTS No Results REASON FOR VISIT Lab order and appt MEDICAL (GENERAL) HISTORY Type Description Date Medical [...] Chronic kidney disease, stage 3 Medical History skilled nursing 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 Medical History Status [...] Vitrectomy left eye 09/02/2015 Surgical History Right [id number] amputation. 2015 Surgical History thoracentesis 03/2016 Surgical [...] STATUS No Information ASSESSMENTS Encounter Date Diagnosis Notes Dec, Type 2 diabetes mellitus wit h other diabetic kidney complication (ICD-10 - E11.29) PLAN OF TREATMENT Medication Medication Name Sig Start Date Stop Date Calcitriol 0.5 MCG 1 capsule Orally Once a day for 90 Novolin N 100 UNIT/ML INJECT 70 UNITS S UBCUTANEOUSLY TWO TIMES A DAY for 84 Future Test Test Name Order Date Comprehensive Metabolic Profile (CMP) [id number] HEMOGLOBIN A1c [id number] LIPID PANEL (CARDIAC RISK) [id number] MICROALBUMIN RANDOM [id number] Next Appt Details Provider Name:Rob Gilmore, 2020-03-18 09 :00:00 AM, [address] [place], [address], Insurance Providers Payer Name Payer Address Payer Phone Insured Name Patient Relati onship to Insured Coverage Start Date Coverage End Date [facility] [address] [address] [facility] [phone] JERSON JAUREGUI
--- OUTSIDE RECORDS SUMMARY | 2020-03-18 13:15 | CCD ---
Author Author [facility] [employer] Organization [facility] [email or web address] Address Unknown Phone Unavailable Care Team Providers Care Operational Meteorologist Name Role Phone Rob Gilmore Unavailable PROBLEMS Type Condition ICD9-CM Code [id number] Code Onset Dates Condition S tatus SNOMED Code Notes Problem Peripheral vascular disease I73.9 Active 4725 39622 He has had bilateral BKAs, and is on Eliquis and aspirin. He had a vascular procedure in 03/2016 and had a higher amputation of his right leg on 06/14/2016. Problem Atrial fibrillation I48.91 Active 95181223 He is off Plavix since he had [...] November 2016. Problem Gastroesophageal reflux K21.9 Active 65639983 4 He is no longer maintained on omeprazole therapy and is on Pepcid instead. He has no heartburn. Problem Systolic and diastolic CHF, chronic I50.42 Acti ve [id number] He had significantly decompensated CHF in Spring [...] 20-25% by most recent echocardiogram 03/2016 at [place], but greater than 30% by radionuclide stress test in November 2016. 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 He presented with dysfunction of his right hand but this has resolved. He is on aspirin and now Eliquis instead of Plavix. Carotid ultrasound was unremarkable with less than 50% stenoses bilaterally at the time. Problem CAD (coronary artery disease) I25.10 Active 89 307818 He had a four- vessel bypass in [...] taken off beta baron therapy by his truck loader and unloader in November 2016 because of bradycardia. In December 2017 with hydralazine and isosorbide were switched to Entresto 24/26 mg twice daily by his truck loader and unloader but I believe that the cost was prohibitive. He last saw his truck loader and unloader in February 2019. 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 Without that, he cannot accomplish his mobility related activities of daily living within the home. Problem Hypertensive heart and chron ic kidney disease with heart failure and stage 1 through stage 4 chronic kidney disease, or unspecified chronic kidney disease I13.0 Active 46251284314844 He has a h istory of hypertension and had been on quinapril therapy until Spring 2016 hospitalization, when he was switched to isosorbide and hydralazine with torsemide due to renal insufficiency. Blood pressure is controlled. Problem History of right above knee amputation Z89.611 A ctive 105263400 He requires a wheelchair to increase his functional mobility. Without that, he cannot accomplish his mobility related activities of daily living within the home. Problem Hypothyroidism E03.9 Active 94125563 Last TSH was 4.04 in September 2019 on 137 mcg of levothyroxine daily. Problem Type 2 diabetes mellitus with other diabetic kid kwadwo complication E11.29 Active 84027195 He is on Novolin N 70 units [...] insurance plan in the future. 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 Problem Mixed hyperlipidemia E78.2 Active 592966954 Kimmy chao is currently on Lipitor at [...] to 2019-12-18 Encounter Location Date Provider Diagnosis [facility] [place] [address] Dec, Rob Gilmore Type 2 diabetes mellitus with other diab etic kidney complication E11.29 ; Hypertensive heart and chronic kidney disease with heart failure and stage 1 through stage 4 chronic kidney disease, or unspecified chronic kidney disease I13.0 ; Chronic kidney disease, stage 3 N18.3 ; CAD (coronary artery disease) I25.10 ; Systolic and diastolic CHF, chronic I50.42 ; Hypothyroidism E03.9 ; Peripheral vascular disease I73.9 ; Mixed hyperlipidemia E78.2 ; Atrial fibrillation I48.91 ; Gastroesophageal reflux K21.9 ; Late effects of CVA (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 ; terminal superintendent 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 Z79.4 ; Status post below knee amputation of left lower extremity Z89.512 and History of right above knee amputation Z89.611 IMMUNIZATIONS Vaccine Route Administration Date Status Influenza [...] FOR REFERRAL No Information VITAL SIGNS Weight 280 lbs Dec, Height 72 in Dec, BMI 37.97 kg/m2 Dec, MEDICATIONS Medication SIG (Take, Route, Frequency, Duration) [...] three times a week Active Glucometer _ [employer] Glucose monitoring System DX: E11.9 d aily [...] Information RESULTS No Results REASON FOR VISIT EMR updated MEDICAL (GENERAL) HISTORY Type Description Date Medical [...] Chronic kidney disease, stage 3 Medical History [facility] 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 Medical History Status [...] Vitrectomy left eye 09/02/2015 Surgical History Right urxvm-hfk-hvhb amputation. 2015 Surgical History thoracentesis 03/2016 Surgical [...] Information ASSESSMENTS Encounter Date Diagnosis Notes Dec, Late effects of CVA (cerebrovascular acc ident) (ICD-10 - I69.90) He had a stroke affecting the anterior left parietal lobe and likely related to small vessel disease in January 2015. He presented with dysfunction of his right hand but this has resolved. He is on aspirin and now Eliquis instead of Plavix. Carotid ultrasound was unremarkable with less than 50% stenoses bilaterally at the time. Dec, Gastroesophageal reflux (ICD-10 - K21.9) He is no longer maintained on omeprazole therapy and is on Pepcid instead. He has no heartburn. Dec, Hypertensive heart and chron ic kidney disease with heart failure and stage 1 through stage 4 chronic kidney disease, or unspecified chronic kidney disease (ICD-10 - I13.0) He has a history of hypertension and had been on quinapril therapy until Spring 2016 hospitalization, when he was switched to isosorbide and hydralazine with torsemide due to renal insufficiency. Blood pressure is controlled. Dec, Status post below knee amput ation of left lower extremity (ICD-10 - Z89.512) He requires a wheelchair to increase his functional mobility. Without that, he cannot accomplish his mobility related activities of daily living within the home. Dec, Type 2 diabetes mellitus wit h other diabetic kidney complication (ICD-10 - E11.29) He is on Novolin N 70 units twice daily instead of basal insulin therapy, due to cost of basal insulin therapy, as well as glipizide and metformin. His most recent hemoglobin A1c has improved on glipizide, as of September 2018 and March 2019, at 7.7%, versus 8.2% in March 2018, 7.9% in September [...] in March 2019. He was taken off quinapril with his Spring 2016 hospitalization and is now on isosorbide and hydralazine. His is a registered nurse and assists with his care. I would consider switching insulin back to basal insulin if it is covered by his insurance plan in the future. Dec, FPC 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 (ICD-10 - Z79.4) Dec, Peripheral vascular disease (ICD-10 - I7 3.9) He has had bilateral BKAs, and is on Eliquis and aspirin. He had a vascular procedure in 03/2016 and had a higher amputation of his right leg on 06/14/2016. Dec, Atrial fibrillation (ICD-10 - I48.91) He is off Plavix since he had [...] discontinued because of bradycardia in November 2016. Dec, Mixed hyperlipidemia (ICD-10 - E78.2) He is currently on Lipitor at 40 mg daily, a change from pravastatin during his January 2015 hospitalization. Gemfibrozil therapy was stopped in December 2012 without serious adverse effect on his lipids. Lipids were optimal in September 2018. Dec, CAD (coronary artery disease) (ICD-10 - I25.10) [...] taken off beta baron therapy by his truck loader and unloader in November 2016 because of bradycardia. In December 2017 with hydralazine and isosorbide were switched to Entresto 24/26 mg twice daily by his truck loader and unloader but I believe that the cost was prohibitive. He last saw his truck loader and unloader in February 2019. Dec, Chronic kidney disease, stage 3 (ICD-10 - N18.3) His GFR has stabilized in the 40 to 45 as of September 2018 in March 2019, but had deteriorated in March 2018 from the 50 range. He had transient renal failure in hospital in Spring 2016. His PTH level was still elevated significantly as of March 2018 and I at that point increased his calcitriol from 0.25 to 0.5 mcg daily, and his most recent PTH was controlled at 90 in March 2019. Dec, History of right above knee amputation ( ICD-10 - Z89.611) He requires a wheelchair to increase his functional mobility. Without that, he cannot accomplish his mobility related activities of daily living within the home. Dec, Hypothyroidism (ICD-10 - E03.9) Last TSH was 2.46 in September 2018 on 137 mcg of levothyroxine daily. Dec, Systolic and diastolic CHF, chronic (ICD -10 - I50.42) He had significantly decompensated CHF in Spring [...] 20-25% by most recent echocardiogram 03/2016 at [place], but greater than 30% by radionuclide stress test in November 2016. PLAN OF TREATMENT Medication Medication Name Sig Start Date Stop Date Calcitriol 0.5 MCG 1 capsule Orally Once a day for 90 Novolin N 100 UNIT/ML INJECT 70 UNITS S UBCUTANEOUSLY TWO TIMES A DAY for 84 Next Appt Details Provider Name:Rob Gilmore, 2020-03-18 09 :00:00 AM, [address] [place], [address], Insurance Providers Payer Name Payer Address Payer Phone Insured Name Patient Relati onship to Insured Coverage Start Date Coverage End Date [facility] [employer] [facility] [address] [address] [facility] [phone] [phone] JERSON JAUREGUI
--- OUTSIDE RECORDS SUMMARY | 2020-03-18 13:15 | CCD ---
Author Author [facility] Organization [facility] Address Unknown Phone Unavailable Care Team Providers Care Helicopter Mechanic Name Role Phone Sarika Collazo PA Unavailable Unavailable Symenow, Sarika Miller PA Unavailable Unavailable Symenow, Sarika Miller PA Unavailable Unavailable Symenow, Sarika Miller PA Unavailable Unavailable Symenow, Sarika Miller PA Unavailable Unavailable Symenow, Sarika Miller PA Unavailable Unavailable Symenow, Sarika Miller PA Unavailable Unavailable Symenow, Sarika Miller PA Unavailable Unavailable Symenow, Sarika Miller PA Unavailable Unavailable Symenow, Sarika Miller PA Unavailable Unavailable Symenow, Sarika Miller PA Unavailable Unavailable Symenow, Sarika Miller PA Unavailable Unavailable Symenow, Sarika Miller PA Unavailable Unavailable Symenow, Sarika Fue PA Unavailable Unavailable Symenow, Sarika Miller PA Unavailable Unavailable Symenow, Sarika Angela PA Unavailable Unavailable Symenow, Sarika Fue PA Unavailable Unavailable Symenow, Sarika Fue PA Unavailable Unavailable Symenow, Sarika Angela PA Unavailable Unavailable Symenow, Sarika Miller PA Unavailable Unavailable Symenow, Sarika Angela PA Unavailable Unavailable Symenow, Sarika Angela PA Unavailable Unavailable Symenow, Sarika Angela PA Unavailable Unavailable Symenow, Sarika Nagela PA Unavailable Unavailable Symenow, Sarika Angela PA Unavailable Unavailable Symenow, Sarika Angela PA Unavailable Unavailable Symenow, Sarika Angela PA Unavailable Unavailable Symenow, Sarika Angela PA Unavailable Unavailable Symenow, Sarika Angela PA Unavailable Unavailable Symenow, Sarika Angela PA Unavailable Unavailable Symenow, Sarika Angela PA Unavailable Unavailable Symenow, Sarika Angela PA Unavailable Unavailable Symenow, Sarika Angela PA Unavailable Unavailable Symenow, Sarika Angela PA Unavailable Unavailable Symenow, Sarika Angela PA Unavailable Unavailable Symenow, Sarika Angela PA Unavailable Unavailable Re-disclosure Warning The records that you are about to access may contain information from federally-assisted alcohol or drug abuse programs. If such information is present, then the following federally mandated warning applies: This information has been disclosed to you from records protected by federal confidentiality rules (42 CFR part 2). The federal rules prohibit you from making any further disclosure of this information unless further disclosure is expressly permitted by the written consent of the person to whom it pertains or as otherwise permitted by 42 CFR part 2. A general authorization for the release of medical or other information is NOT sufficient for this purpose. The Federal rules restrict any use of the information to criminally investigate or prosecute any alcohol or drug abuse patient.The records that you are about to access may contain highly sensitive health information, the redisclosure of which is protected by Article 27-F of the [facility] Public Health law. If you continue you may have access to information: Regarding HIV / AIDS; Provided by facilities licensed or operated by the [facility] Office of Mental Health; or Provided by the [facility] Office for People With Developmental Disabilities. If such information is present, then the following [facility] mandated warning applies: This information has been disclosed to you from confidential records which are protected by state law. State law prohibits you from making any further disclosure of this information without the specific written consent of the person to whom it pertains, or as otherwise permitted by law. Any unauthorized further disclosure in violation of state law may result in a fine or correction sentence or both. A general authorization for the release of medical or other information is NOT sufficient authorization for further disc losure. Allergies and Adverse Reactions Type Description Substance Reaction Status Data Source(s ) Coumadin Coumadin Coumadin Rash Active eCW1 ([facility]) Family History Family Member Name Family Member Gender Family Member Status Date o f Status Description Data Source(s) Unknown Unknown Problem MEDENT ([facility]) Unknown Unknown Problem MEDENT ([facility] Unknown Female Problem MEDENT ([facility]) Unknown Unknown Encounters Encounter Providers Location Date Indications Data Source(s ) Unknown [address] [facility] [id number] 03/16/2020 12:00:00 AM EST eCW1 ([facility]) Unknown [address] [facility] [address] 03/16/2020 12:00:00 AM EST eCW1 ([facility]) Outpatient [address] [facility] [address] 03/04/2020 12:00:00 AM EST eCW1 ([facility]) Unknown [address] [facility] [address] 03/02/2020 12:00:00 AM EST eCW1 ([facility]) Unknown [address] [facility] [id number] 02/28/2020 12:00:00 AM EST eCW1 ([facility]) Outpatient Attender: Angela ZHANG Main Office 02/12/2020 09:45:00 AM EST MEDENT ([facility]) Office Visit, Est Pt., Level 2 FC [address] [place] [address] 02/11/2020 12:00:00 AM EST eCW1 ([facility]) Unknown [address] [facility] [id number] 01/29/2020 12:00:00 AM EST eCW1 ([facility]) Unknown [address] [facility] [id number] 01/29/2020 12:00:00 AM EST eCW1 ([facility]) [place] [address] [facility] [address] 01/24/2020 12:00:00 AM EST eCW1 ([facility]) [place] [address] [facility] [address] 12/18/2019 12:00:00 AM EST eCW1 ([facility]) [place] [address] [facility] [address] 12/18/2019 12:00:00 AM EST eCW1 ([facility]) Outpatient Attender: Angela ZHANG Main Office 11/19/2019 12:30:00 PM EDT MEDENT ([facility]) [facility] [address] [facility] [address] 09/16/2019 12:00:00 AM EDT eCW1 ([facility]) Outpatient Attender: Angela ZHANG Main Office 08/12/2019 09:15:00 AM EDT MEDENT ([facility]) [facility] [address] [facility] [address] 04/15/2019 12:00:00 AM EST eCW1 ([facility]) [facility] [address] [facility] [address] 03/08/2019 12:00:00 AM EST eCW1 ([facility]) Outpatient Attender: Angela ZHANG Main Office 02/25/2019 09:15:00 AM EST MEDENT ([facility]) [facility] [address] [facility] [address] 02/18/2019 12:00:00 AM EST eCW1 ([facility]) Immunizations Vaccine Date Status Description Data Source(s) influenza, recombinant, quadrIvalent,injectable, prese rvative free 04/15/2019 03:40:00 PM EST completed eCW1 ([facility]) influenza, recombinant, quadrIvalent,injectable, prese rvative free 04/15/2019 03:40:00 PM EST completed eCW1 ([facility]) influenza, recombinant, quadrIvalent,injectable, prese rvative free 04/15/2019 03:40:00 PM EST completed eCW1 ([facility]) influenza, recombinant, quadrIvalent,injectable, prese rvative free 04/15/2019 03:40:00 PM EST completed eCW1 ([facility]) influenza, recombinant, quadrIvalent,injectable, prese rvative free 04/15/2019 03:40:00 PM EST completed eCW1 ([facility]) influenza, recombinant, quadrIvalent,injectable, prese rvative free 04/15/2019 03:40:00 PM EST completed eCW1 ([facility]) influenza, recombinant, quadrIvalent,injectable, prese rvative free 04/15/2019 03:40:00 PM EST completed eCW1 ([facility]) influenza, recombinant, quadrIvalent,injectable, prese rvative free 04/15/2019 03:40:00 PM EST completed eCW1 ([facility]) influenza, recombinant, quadrIvalent,injectable, prese rvative free 04/15/2019 03:40:00 PM EST completed eCW1 ([facility]) influenza, recombinant, quadrIvalent,injectable, prese rvative free 04/15/2019 03:40:00 PM EST completed eCW1 ([facility]) influenza, recombinant, quadrIvalent,injectable, prese rvative free 04/15/2019 03:40:00 PM EST completed eCW1 ([facility]) influenza, recombinant, quadrIvalent,injectable, prese rvative free 04/15/2019 03:40:00 PM EST completed eCW1 ([facility]) Medications Medication Brand Name Start Date Product Form Dose Route Admi nistrative Instructions Pharmacy Instructions Status Indications Reaction Description Data Source(s) May Have - UNK 03/16/2020 12:00:00 AM EST active May Have - eCW1 ([facility]) May Have - UNK 03/16/2020 12:00:00 AM EST active May Have - eCW1 ([facility]) Haloperidol 0.5 MG Oral Tablet Haloperidol 0.5 MG 03/04/2020 12:00: 00 AM EST 1.0 {tablet} active Haloperidol 0.5 MG eCW1 ([facility]) Haloperidol 0.5 MG Oral Tablet Haloperidol 0.5 MG 03/04/2020 12:00: 00 AM EST 1.0 {tablet} active Haloperidol 0.5 MG eCW1 ([facility]) Haloperidol 0.5 MG Oral Tablet Haloperidol 0.5 MG 03/04/2020 12:00: 00 AM EST 1.0 {tablet} active Haloperidol 0.5 MG eCW1 ([facility]) 0.1 % 02/12/2020 12:00:00 AM EST lotion 240 APPLY TO AFFECTED AREA(S) TWO TIMES A DAY APPLY TO AFFECTED AREA(S) TWO TIMES A DAY SOLD: 02/12/2020 [facility] Triamcinolone Acetonide 1 MG/ML Topical Lotion Triamci nolone Acetonide 0.1 % Triamcinolone Acetonide 0.1 % 02/11/2020 12:00:00 AM EST 1.0 {appli cation} active Triamcinolone Acetonide 0 .1 % eCW1 ([facility]) Triamcinolone Acetonide 1 MG/ML Topical Lotion Triamci nolone Acetonide 0.1 % Triamcinolone Acetonide 0.1 % 02/11/2020 12:00:00 AM EST 1.0 {appli cation} active Triamcinolone Acetonide 0 .1 % eCW1 ([facility]) Triamcinolone Acetonide 1 MG/ML Topical Lotion Triamci nolone Acetonide 0.1 % Triamcinolone Acetonide 0.1 % 02/11/2020 12:00:00 AM EST 1.0 {appli cation} active Triamcinolone Acetonide 0 .1 % eCW1 ([facility]) Ascorbic Acid 500 MG Chewable Tablet Vitamin C 02/11/2020 12:00:00 A M EST ORAL active MEDENT ([facility]) Triamcinolone Acetonide 1 MG/ML Topical Lotion Triamci nolone Acetonide 0.1 % Triamcinolone Acetonide 0.1 % 02/11/2020 12:00:00 AM EST 1.0 {appli cation} active Triamcinolone Acetonide 0 .1 % eCW1 ([facility]) 60 ACTUAT Albuterol 0.09 MG/ACTUAT Metered Dose Inhaler Albu terol Sulfate HFA 02/11/2020 12:00:00 AM EST RESPIRATORY active MEDENT ([facility]) Triamcinolone Acetonide 1 MG/ML Topical Lotion Triamci nolone Acetonide 0.1 % Triamcinolone Acetonide 0.1 % 02/11/2020 12:00:00 AM EST 1.0 {appli cation} active Triamcinolone Acetonide 0 .1 % eCW1 ([facility]) Triamcinolone Acetonide 1 MG/ML Topical Lotion Triamci nolone Acetonide 0.1 % Triamcinolone Acetonide 0.1 % 02/11/2020 12:00:00 AM EST 1.0 {appli cation} active Triamcinolone Acetonide 0 .1 % eCW1 ([facility]) Albuterol Sulfate HFA 108 MCG/ACT UNK 01/28/2020 12:00:00 AM EST 2.0 {puff_as_needed} active Albuterol Sulfa te HFA 108 MCG/ACT eCW1 ([facility]) Albuterol Sulfate HFA 108 MCG/ACT UNK 01/28/2020 12:00:00 AM EST 2.0 {puff_as_needed} active Albuterol Sulfa te HFA 108 MCG/ACT eCW1 ([facility]) Ascorbic Acid 500 MG Oral Tablet Vitamin C 500 MG Vitamin C 500 MG 01/28/2020 12:00:00 AM EST 1.0 {tablet} active Vi tamin C 500 MG eCW1 ([facility]) Magnesium Hydroxide 80 MG/ML Oral Suspension Milk of M agnesia 400 MG/5ML Milk of Magnesia 400 MG/5ML 01/28/2020 12:00:00 AM EST 30.0 {ml_as_needed} active Milk of Magnesia 400 MG/5ML eCW1 ([facility]) Ascorbic Acid 500 MG Oral Tablet Vitamin C 500 MG Vitamin C 500 MG 01/28/2020 12:00:00 AM EST 1.0 {tablet} active Vi tamin C 500 MG eCW1 ([facility]) 90 mcg/actuation 01/28/2020 12:00:00 AM EST HFA aerosol inha ler 8 INHALE TWO PUFFS BY MOUTH EVERY 4 TO 6 HOURS NEEDED FOR WHEEZING INHALE TWO PUFFS BY MOUTH EVERY 4 TO 6 HOURS NEEDED FOR WHEEZING SOLD: 01/28/2020 [facility] 10,000 unit- 1 mg/mL 01/28/2020 12:00:00 AM EST drops 10 INSTILL ONE DROP INTO AFFECTED EYE(S) EVERY 6 HOURS INSTILL ONE DROP INTO AFFECTED EYE(S) EV ALLISON 6 HOURS SOLD: 01/28/2020 [facility] Albuterol Sulfate HFA 108 MCG/ACT UNK 01/28/2020 12:00:00 AM EST 2.0 {puff_as_needed} active Albuterol Sulfa te HFA 108 MCG/ACT eCW1 ([facility]) Albuterol Sulfate HFA 108 MCG/ACT UNK 01/28/2020 12:00:00 AM EST 2.0 {puff_as_needed} active Albuterol Sulfa te HFA 108 MCG/ACT eCW1 ([facility]) Ascorbic Acid 500 MG Oral Tablet Vitamin C 500 MG Vitamin C 500 MG 01/28/2020 12:00:00 AM EST 1.0 {tablet} active Vi tamin C 500 MG eCW1 ([facility]) Magnesium Hydroxide 80 MG/ML Oral Suspension Milk of M agnesia 400 MG/5ML Milk of Magnesia 400 MG/5ML 01/28/2020 12:00:00 AM EST 30.0 {ml_as_needed} active Milk of Magnesia 400 MG/5ML eCW1 ([facility]) Albuterol Sulfate HFA 108 MCG/ACT UNK 01/28/2020 12:00:00 AM EST 2.0 {puff_as_needed} active Albuterol Sulfa te HFA 108 MCG/ACT eCW1 ([facility]) Magnesium Hydroxide 80 MG/ML Oral Suspension Milk of M agnesia 400 MG/5ML Milk of Magnesia 400 MG/5ML 01/28/2020 12:00:00 AM EST 30.0 {ml_as_needed} active Milk of Magnesia 400 MG/5ML eCW1 ([facility]) Ascorbic Acid 500 MG Oral Tablet Vitamin C 500 MG Vitamin C 500 MG 01/28/2020 12:00:00 AM EST 1.0 {tablet} active Vi tamin C 500 MG eCW1 ([facility]) Magnesium Hydroxide 80 MG/ML Oral Suspension Milk of M agnesia 400 MG/5ML Milk of Magnesia 400 MG/5ML 01/28/2020 12:00:00 AM EST 30.0 {ml_as_needed} active Milk of Magnesia 400 MG/5ML eCW1 ([facility]) Ascorbic Acid 500 MG Oral Tablet Vitamin C 500 MG Vitamin C 500 MG 01/28/2020 12:00:00 AM EST 1.0 {tablet} active Vi tamin C 500 MG eCW1 ([facility]) Albuterol Sulfate HFA 108 MCG/ACT UNK 01/28/2020 12:00:00 AM EST 2.0 {puff_as_needed} active Albuterol Sulfa te HFA 108 MCG/ACT eCW1 ([facility]) Magnesium Hydroxide 80 MG/ML Oral Suspension Milk of M agnesia 400 MG/5ML Milk of Magnesia 400 MG/5ML 01/28/2020 12:00:00 AM EST 30.0 {ml_as_needed} active Milk of Magnesia 400 MG/5ML eCW1 ([facility]) Ascorbic Acid 500 MG Oral Tablet Vitamin C 500 MG Vitamin C 500 MG 01/28/2020 12:00:00 AM EST 1.0 {tablet} active Vi tamin C 500 MG eCW1 ([facility]) Albuterol Sulfate HFA 108 MCG/ACT UNK 01/28/2020 12:00:00 AM EST 2.0 {puff_as_needed} active Albuterol Sulfa te HFA 108 MCG/ACT eCW1 ([facility]) Ascorbic Acid 500 MG Oral Tablet Vitamin C 500 MG Vitamin C 500 MG 01/28/2020 12:00:00 AM EST 1.0 {tablet} active Vi tamin C 500 MG eCW1 ([facility]) Magnesium Hydroxide 80 MG/ML Oral Suspension Milk of M agnesia 400 MG/5ML Milk of Magnesia 400 MG/5ML 01/28/2020 12:00:00 AM EST 30.0 {ml_as_needed} active Milk of Magnesia 400 MG/5ML eCW1 ([facility]) Polymyxin B 73072 UNT/ML / Trimethoprim 1 MG/ML Ophthalmic Solution Polymyxin B- Trimethoprim 76505-4.1 UNIT/ML Polymyxin B-Trimethoprim 31069-1.1 UNIT/ML 01/28/2020 12:00:00 AM EST 1.0 {drop_into_affected_eye} active Polymyxin B-Trimethoprim 21392-2.1 UNIT/ML eCW1 ([facility]) Magnesium Hydroxide 80 MG/ML Oral Suspension Milk of M agnesia 400 MG/5ML Milk of Magnesia 400 MG/5ML 01/28/2020 12:00:00 AM EST 30.0 {ml_as_needed} active Milk of Magnesia 400 MG/5ML eCW1 ([facility]) Insulin, Aspart Protamine, Human 70 UNT/ ML / Insulin, Aspart, Human 30 UNT/ML Injectable Suspension [NovoLog Mix] Novolog Mix 70/30 02/24/2019 12:00:0 0 AM EST active MEDENT ([facility]) Insurance Providers Payer name Policy type / Coverage type Policy ID Covered green party ID Covered green party's relationship to mondragon Policy Mondragon Plan Information WELLCARE [id number] SP [id number] MEDICARE [id number] Wellcare MCR - To Ppo Commercial [id number] Self [id number] [facility] Ppo Medigap Part B [id number] Self [id number] [facility] Healthcare Options Medigap Part B [id number] Self [id number] Medicare (Part B) Medicare Primary [id number] Self [id number] Today's Options Ppo Commercial [id number] Self [id number] i Medigap Part B [id number] Self [id number] [place] Medigap Part B [id number] Self [id number] Wellcare MCR - To Ppo Commercial [id number] Self [id number] [facility] Ppo Medigap Part B [id number] Self [id number] [facility] Healthcare Options Medigap Part B [id number] Self [id number] Medicare (Part B) Medicare Primary [id number] Self [id number] Today's Options Ppo Commercial [id number] Self [id number] [facility] MCR - To Ppo Commercial [id number] Self [id number] [facility] Ppo Medigap Part B [id number] Self [id number] [facility] Healthcare Options Medigap Part B [id number] Self [id number] Medicare (Part B) Medicare Primary [id number] Self [id number] Today's Options Ppo Commercial [id number] Self [id number] ANSI-Commercial [id number] ANSI-Commercial [id number] ANSI-Medicare Part B [id number] ANSI-Health Maintenance Organization (HM O) [id number] ANSI-Commercial [id number] ANSI-Medicare Part B [id number] ANSI-Commercial [id number] ANSI-Health Maintenance Organization (HM O) [id number] ANSI-Medicare Part B [id number] ANSI-Commercial [id number] ANSI-Commercial [id number] ANSI-Medicare Part B [id number] ANSI-Commercial [id number] ANSI-Commercial [id number] ANSI-Commercial [id number] ANSI-Medicare Part B [id number] ANSI-Commercial [id number] ANSI-Commercial [id number] ANSI-Medicare Part B [id number] ANSI-Commercial [id number] ANSI-Commercial [id number] ANSI-Commercial [id number] ANSI-Medicare Part B [id number] ANSI-Commercial [id number] ANSI-Medicare Part B [id number] ANSI-Commercial [id number] ANSI-Medicare Part B [id number] ANSI-Commercial [id number] ANSI-Commercial [id number] [facility] Ppo Medigap Part B [id number] Self [id number] [facility] Options Medigap Part B [id number] Self [id number] Medicare (Part B) Medicare Primary [id number] Self [id number] Today's Options Ppo Commercial [id number] Self [id number] ANSI-Commercial [id number] ANSI-Commercial [id number] ANSI-Medicare Part B [id number] ANSI-Commercial [id number] ANSI-Medicare Part B [id number] ANSI-Commercial [id number] ANSI-Commercial [id number] ANSI-Medicare Part B [id number] ANSI-Commercial [id number] [employer] [facility] OPTIONS [id number] SP [id number] MEDICARE [id number] SP [id number] ANSI-Commercial [id number] ANSI-Medicare Part B [id number] [facility] [place] Ppo Medigap Part B [id number] Self [id number] [facility] Options Medigap Part B [id number] Self [id number] Medicare (Part B) Medicare Primary [id number] Self [id number] [facility] Ppo Medigap Part B [id number] Self [id number] [facility] Medigap Part B [id number] Self [id number] Medicare (Part B) Medicare Primary [id number] Self [id number] [employer] [facility] [id number] SP [id number] MEDICARE [id number] SP [id number] A [facility] [place] Ppo Medigap Part B [id number] Self [id number] [facility] Medigap Part B [id number] Self [id number] Medicare (Part B) Medicare Primary [id number] Self [id number] [facility] Ppo Medigap Part B [id number] Self [id number] Medicare (Part B) Medicare Primary [id number] Self [id number] [employer] [facility] [id number] SP [id number] [facility] [id number] SP [id number] [facility] [place] Ppo Medigap Part B [id number] Self [id number] Medicare (Part B) Medicare Primary [id number] Self [id number] [facility] [place] Ppo Medigap Part B [id number] Self [id number] Medicare (Part B) Medicare Primary [id number] Self [id number] MEDICARE [id number] SP [id number] A [facility] [id number] SP [id number] [facility] [id number] SP [id number] [facility] [id number] SP [id number] [facility] Medig[employer] Part B [id number] Self [id number] Medicare (Part B) Medicare Primary [id number] Self [id number] [facility] Medig[employer] Part B [id number] Self [id number] Medicare (Part B) Medicare Primary [id number] Self [id number] [facility] Medig[employer] Part B [id number] Self [id number] Medicare (Part B) Medicare Primary [id number] Self [id number] [facility] [id number] SP [id number] MEDICARE [id number] SP [id number] A [facility] [id number] SP [id number] UNAVAILABLE UNAVAILA BLE [facility] [id number] MEDICARE MCA [id number] A MEDICARE [place] [id number] A [facility] Medig[employer] Part B Self Medicare Part B Medicare Primary Self [facility] [id number] SP [id number] [facility] [id number] SP [id number] [facility] Ppo Medig[employer] Part B Self Medicare (Part B) Medicare Primary Self Ghi Medigap Part B Self Ghi Medigap Part B Self [facility] O [id number] S [id number] MEDICARE C [id number] S [id number] A [facility] (pr) Medigap Part B Self Medicare [place] Medicare Primary Self Ghi Commercial Self Medicare Medicare Primary Self G[facility] Medigap Part B Self [facility] Primary Self GHI O [id number] S [id number] MEDICARE M [id number] S [id number] Medicare Medicare Primary Self [id number] A Problems, Conditions, and Diagnoses Code Display Name Description Problem Type Effective Dates Data Source(s) [id number] Permanent atrial fibrillation Permanent atrial fibrill ation Problem 02/25/2019 12:00:00 AM EST MED[facility] ([facility]) Surgeries/Procedures Procedure Description Date Indications Data Source(s) ECG ROUTINE ECG W/LEAST 12 LDS W/I&R 11/19/2019 12:00: 00 AM EDT MEDENT ([facility]) Annual wellness visit, includes a person alized prevention plan of service (pps), subsequent visit 04/15/2019 12:00:00 AM EST eCW1 ([facility]) Office Visit, Est Pt., Level 4 PC 04/15/2019 12:00:00 AM EST eCW1 ([facility]) Office Visit, Est Pt., Level 3 FC 04/15/2019 12:00:00 AM EST eCW1 ([facility]) Administration of influenza virus vaccine 04/15/2019 1 2:00:00 AM EST eCW1 ([facility]) RIV4 VACC RECOMBINANT DNA IM 04/15/2019 12:00:00 AM ES T eCW1 ([facility]) ECG ROUTINE ECG W/LEAST 12 LDS W/I&R 02/25/2019 12:00: 00 AM EST MEDENT ([facility]) Results ID Date Data Source [id number] 03/04/2020 11:25:00 AM EST [facility] Name Value Range Interpretation Code Description Data Jackie rce(s) Supporting Document(s) SARS coronavirus 2 RNA Not Detected [place] This lab was ordered by [facility] and reported by [facility]. ID Date Data Source [id number] 01/28/2020 02:08:00 PM EST MEDENT ([facility]) Name Value Range Interpretation Code Description Data Jackie rce(s) Supporting Document(s) Magnesium Level 2.4 1.8-2.4 [facility] ([facility]) ID Date Data Source [id number] 01/28/2020 02:08:00 PM EST [facility] ([facility]) Name Value Range Interpretation Code Description Data Jackie rce(s) Supporting Document(s) Calcium [Mass/volume] in Serum or Plasma 8.0 MED[facility] ([facility]) Sodium 139 [facility] Potassium [Moles/volume] in Serum or Plasma 3.9 MED[facility] ([facility]) Glucose 214 83-110 [facility] Carbon dioxide, total [Moles/volume] in Serum or Plasma 29 MED[facility] ([facility]) Chloride [Moles/volume] in Serum or Plasma 102 [facility] ([facility]) Glomerular filtration rate/1.73 sq M.pre dicted [Volume Rate/Area] in Serum or Plasma by Creatinine-based formula (MDRD) 37.4 MEDENT ([facility]) Blood Urea Nitrogen 36 7-18 MED[facility] ([facility]) Creatinine 1.92 0.6-1.0 [facility] ([facility]) ID Date Data Source [id number] 01/28/2020 02:08:00 PM EST [facility] ([facility]) Name Value Range Interpretation Code Description Data Jackie rce(s) Supporting Document(s) White Blood Count 8.3 5.0-10.0 [facility] ([facility]) Hemoglobin 12.0 [facility] ([facility]) Hematocrit 38.9 [facility] ([facility]) Red Blood Count 4.18 4.00-5.40 [facility] ([facility]) Platelets 178 172-450 [facility] ID Date Data Source [id number] 01/24/2020 02:03:00 PM EST [facility] Name Value Range Interpretation Code Description Data Jackie rce(s) Supporting Document(s) SARS coronavirus 2 RNA [Presence] in Res piratory specimen by HUNTER with probe detection [facility] This lab was ordered by [facility] a nd reported by [facility]. ID Date Data Source [id number] 09/16/2019 03:27:00 PM EDT MED[facility] ([facility]) Name Value Range Interpretation Code Description Data Jacike rce(s) Supporting Document(s) Albumin [Mass/volume] in Serum or Plasma 0.7 [facility] ([facility]) Alanine aminotransferase [Enzymatic activity/volume] in Serum or Pl asma 22 [facility] ([facility]) Carbon dioxide, total [Moles/volume] in Serum or Plasma 30 [facility] ([facility]) Calcium [Mass/volume] in Serum or Plasma 9.3 [facility] ([facility]) Alkaline phosphatase [Enzymatic activity/volume] in Serum or Plasma 1 75 [facility] ([facility]) Potassium [Moles/volume] in Serum or Plasma 4.6 [facility] ([facility]) Chloride [Moles/volume] in Serum or Plasma 105 [facility] ([facility]) Aspartate aminotransferase [Enzymatic activity/volume] in Serum or Plasma 26 [facility] ([facility]) Sodium 139 [facility] ([facility] Urea nitrogen [Mass/volume] in Serum or Plasma 24 [facility] ([facility]) Protein [Mass/volume] in Serum or Plasma 7.6 [facility] ([facility]) Creatinine For GFR 1.74 MED[facility] ([facility]) Glucose 68 70-100 [facility] ([facility]) ID Date Data Source [id number] 09/16/2019 03:27:00 PM EDT [facility] ([facility]) Name Value Range Interpretation Code Description Data Jackie rce(s) Supporting Document(s) Triglycerides 148 [facility] ([facility]) Cholesterol in LDL [Mass/volume] in Serum or Plasma by calculation 45 [facility] ([facility]) HDL 25 [facility] ([facility]) Cholesterol 100 [facility] ([facility]) Chol/HDL Ratio 4.000 [facility] ([facility]) ID Date Data Source [id number] 09/16/2019 03:27:00 PM EDT [facility] ([facility]) Name Value Range Interpretation Code Description Data Jackie rce(s) Supporting Document(s) Hemoglobin A1c/Hemoglobin.total in Blood 7.1 [facility] ([facility]) ID Date Data Source [id number] 08/29/2019 02:20:00 PM EDT [facility] ([facility]) Name Value Range Interpretation Code Description Data Jackie rce(s) Supporting Document(s) Red Blood Count 4.53 10 4.30-6.10 MED[facility] ([facility]) White Blood Count 8.5 10 4.0-10.0 MED[facility] ([facility]) Hemoglobin 13.9 g/dL 13.5-17.5 [facility] ([facility]) Mean Corpuscular Volume 96.9 fl 80.0-96.0 M EDENT ([facility]) Hematocrit 43.9 % 42.0-52.0 MED[facility] ([facility]) Mean Corpuscular Hemoglobin 30.7 pg 27.0-33.0 MED[facility] ([facility]) Red Cell Distribution Width 17.8 % 11.5-14.5 [facility] ([facility]) Mean Corpuscular HGB Conc 31.7 g/dL 32.0-36.5 MED[facility] ([facility]) Nucleated Red Blood Cell % 0.0 % 0-0 MED ENT ([facility]) Platelet Count, Automated 225 10 150-450 [facility] ([facility]) ID Date Data Source [id number] 08/29/2019 02:20:00 PM EDT MED[facility] ([facility]) Name Value Range Interpretation Code Description Data Jackie rce(s) Supporting Document(s) Magnesium [Mass/volume] in Serum or Plasma 2.1 mg/dL 1.8-2.4 [facility] ([facility]) ID Date Data Source [id number] 08/29/2019 02:20:00 PM EDT MED[facility] ([facility]) Name Value Range Interpretation Code Description Data Jackie rce(s) Supporting Document(s) Glucose, Fasting 223 mg/dL 70-100 MED[facility] ([facility]) Glomerular Filtration Rate 42.3 MED ENT ([facility]) <content>Units are mL/min/1.73 m2</content>
<content></content>
<content>Chronic Kidney Disease Staging per NKF:</content>
<content></content>
<content>Stage I & II GFR >=60 Normal to Mildly Decreased</content>
<content>Stage III GFR 30- 59 Moderately Decreased</content>
<content>Stage IV GFR 15-29 Severely Decreased</content>
<content>Stage V GFR <15 Very Little GFR Left</content>
<content>ESRD GFR <15 on DIRECTOR TELEMETRY</content>
<content></content> Creatinine For GFR 1.73 mg/dL 0.70-1.30 MED[facility] ([facility]) Blood Urea Nitrogen 22 mg/dL 7-18 [facility] ([facility]) Sodium Level 138 meq/L 136-145 [facility] ([facility]) Potassium Serum 4.5 meq/L 3.5-5.1 [facility] ([facility]) Chloride Level 104 meq/L 98-107 [facility] ([facility]) Anion Gap 5 meq/L 8-16 [facility] Carbon Dioxide Level 29 meq/L 21-32 MED[facility] ([facility]) Calcium Level 9.0 mg/dL 8.8-10.2 [facility] ([facility]) ID Date Data Source [id number] 04/03/2019 08:41:00 AM EST [facility] ([facility]) Name Value Range Interpretation Code Description Data Jackie rce(s) Supporting Document(s) Magnesium Level 2.0 1.8-2.4 [facility] ([facility]) ID Date Data Source [id number] 04/03/2019 08:41:00 AM EST [facility] ([facility]) Name Value Range Interpretation Code Description Data Jackie rce(s) Supporting Document(s) Albumin [Mass/volume] in Serum or Plasma 3.2 MED[facility] ([facility]) Calcium [Mass/volume] in Serum or Plasma 8.7 [facility] ([facility]) Carbon dioxide, total [Moles/volume] in Serum or Plasma 32 [facility] ([facility]) Chloride [Moles/volume] in Serum or Plasma 106 MED[facility] ([facility]) Alanine aminotransferase [Enzymatic activity/volume] in Serum or Pl asma 23 MED[facility] ([facility]) Protein [Mass/volume] in Serum or Plasma 7.2 [facility] ([facility]) Potassium [Moles/volume] in Serum or Plasma 4.1 [facility] ([facility]) Alkaline phosphatase [Enzymatic activity/volume] in Serum or Plasma 1 75 [facility] ([facility]) Sodium 142 [facility] Glucose 69 70-100 [facility] ([facility]) Aspartate aminotransferase [Enzymatic activity/volume] in Serum or Plasma 27 [facility] ([facility]) Urea nitrogen [Mass/volume] in Serum or Plasma 29 [facility] ([facility]) Creatinine For GFR 1.82 [facility] ID Date Data Source [id number] 04/03/2019 08:41:00 AM EST [facility] Name Value Range Interpretation Code Description Data Jackie rce(s) Supporting Document(s) Hemoglobin A1c/Hemoglobin.total in Blood 7.7 [facility] ([facility]) ID Date Data Source [id number] 02/21/2019 11:00:00 AM EST [facility] Name Value Range Interpretation Code Description Data Jackie rce(s) Supporting Document(s) Magnesium [Mass/volume] in Serum or Plasma 1.8 mg/dL 1.8-2.4 [facility] ([facility]) ID Date Data Source [id number] 02/21/2019 11:00:00 AM EST [facility] ([facility] Name Value Range Interpretation Code Description Data Jackie rce(s) Supporting Document(s) Blood Urea Nitrogen 27 mg/dL 7-18 MED[facility] ([facility]) Glucose, Fasting 83 mg/dL 70-100 [facility] ([facility]) Sodium Level 141 meq/L 136-145 [facility] ([facility]) Glomerular Filtration Rate 43.7 MED ENT ([facility]) <content>Units are mL/min/1.73 m2</content>
<content></content>
<content>Chronic Kidney Disease Staging per NKF:</content>
<content></content>
<content>Stage I & II GFR >=60 Normal to Mildly Decreased</content>
<content>Stage III GFR 30- 59 Moderately Decreased</content>
<content>Stage IV GFR 15-29 Severely Decreased</content>
<content>Stage V GFR <15 Very Little GFR Left</content>
<content>ESRD GFR <15 on DIRECTOR TELEMETRY</content>
<content></content> Creatinine For GFR 1.68 mg/dL 0.70-1.30 [facility] ([facility]) Anion Gap 7 meq/L 8-16 [facility] Potassium Serum 3.9 meq/L 3.5-5.1 [facility] ([facility]) Chloride Level 102 meq/L 98-107 [facility] ([facility]) Carbon Dioxide Level 32 meq/L 21-32 MED[facility] ([facility]) Calcium Level 8.9 mg/dL 8.8-10.2 [facility] ([facility]) Procedure Social History Code Duration Value Status Description Data Source(s ) Smoking 02/12/2020 12:00:00 AM EST Patient is a former smoker completed Patient is a former smoker MED[facility] ([facility]) Vital Signs ID Date Data Source UNK Name Value Range Interpretation Code Description Data Source(s) Diastolic blood pressure 78 mm[Hg] 78 mm[Hg] eCW1 ([facility]) Systolic blood pressure 136 mm[Hg] 136 mm[Hg] e CW1 ([facility]) Body temperature 97.6 [degF] 97.6 [degF] eCW1 ( [facility]) Respiratory rate 20 /min 20 /min eCW1 ([facility]) Heart rate 73 /min 73 /min eCW1 ([facility]) Body mass index (BMI) [Ratio] 40.95 kg/m2 40.95 kg/m2 eCW1 ([facility]) Body height 72 [in_i] 72 [in_i] eCW1 ([facility]) Body weight 302 [lb_av] 302 [lb_av] eCW1 ([facility]) Diastolic blood pressure 64 mm[Hg] 64 mm[Hg] MEDENT ([facility]) sitting, large cuff Systolic blood pressure 122 mm[Hg] 122 mm[Hg] M EDENT ([facility]) sitting, large cuff Respiratory rate 16 /min 16 /min MEDENT ( [facility]) Heart rate 68 /min 68 /min MED[facility] ([facility]) Regular Body height 75 [in_i] 75 [in_i] MEDENT ([facility]) 6'3" Diastolic blood pressure 76 mm[Hg] 76 mm[Hg] eCW1 ([facility]) Systolic blood pressure 116 mm[Hg] 116 mm[Hg] e CW1 ([facility]) Body temperature 98.7 [degF] 98.7 [degF] eCW1 ( [facility]) Respiratory rate 24 /min 24 /min eCW1 ([facility]) Heart rate 66 /min 66 /min eCW1 ([facility]) Body mass index (BMI) [Ratio] 40.95 kg/m2 40.95 kg/m2 eCW1 ([facility]) Body height 72 [in_i] 72 [in_i] eCW1 ([facility]) Body weight 302.0 [lb_av] 302.0 [lb_av] eCW1 ([facility]) Body mass index (BMI) [Ratio] 37.97 kg/m2 37.97 kg/m2 eCW1 ([facility]) Body height 72 [in_i] 72 [in_i] eCW1 ([facility]) Body weight 280 [lb_av] 280 [lb_av] eCW1 ([facility]) Diastolic blood pressure 68 mm[Hg] 68 mm[Hg] MEDENT ([facility]) sitting Systolic blood pressure 124 mm[Hg] 124 mm[Hg] M EDENT ([facility]) sitting Diastolic blood pressure 68 mm[Hg] 68 mm[Hg] MEDENT ([facility]) sitting, large cuff Systolic blood pressure 122 mm[Hg] 122 mm[Hg] M EDENT ([facility]) sitting, large cuff Respiratory rate 16 /min 16 /min MEDENT ( [facility]) Body height 75 [in_i] 75 [in_i] MEDENT ([facility]) 6'3" Diastolic blood pressure 64 mm[Hg] 64 mm[Hg] MEDENT ([facility]) sitting, large cuff Systolic blood pressure 126 mm[Hg] 126 mm[Hg] M EDENT ([facility]) sitting, large cuff Respiratory rate 16 /min 16 /min MED[facility] ( [facility]) Heart rate 68 /min 68 /min MED[facility] ([facility]) Regular Body height 75 [in_i] 75 [in_i] MED[facility] ([facility]) 6'3" Diastolic blood pressure 76 mm[Hg] 76 mm[Hg] eCW1 ([facility]) Systolic blood pressure 120 mm[Hg] 120 mm[Hg] e CW1 ([facility]) Body temperature 98.3 [degF] 98.3 [degF] eCW1 ( [facility]) Respiratory rate 22 /min 22 /min eCW1 ([facility]) Heart rate 52 /min 52 /min eCW1 ([facility]) Body mass index (BMI) [Ratio] 37.97 kg/m2 37.97 kg/m2 eCW1 ([facility]) Body height 72 [in_us] 72 [in_us] eCW1 ([facility]) Body weight Measured 280.0 [lb_av] 280.0 [lb_av ] eCW1 ([facility]) Respiratory rate 16 /min 16 /min MED[facility] ( [facility]) Heart rate 68 /min 68 /min MED[facility] ([facility]) Regular Body height 75 [in_i] 75 [in_i] MEDENT ([facility]) 6'3" Diastolic blood pressure 74 mm[Hg] 74 mm[Hg] MEDENT ([facility]) Sitting Systolic blood pressure 128 mm[Hg] 128 mm[Hg] M EDENT ([facility]) Sitting Diastolic blood pressure 74 mm[Hg] 74 mm[Hg] MED[facility] ([facility]) Sitting, large [id number] Systolic blood pressure 132 mm[Hg] 132 mm[Hg] M EDENT ([facility]) Sitting, large [id number] Patient Treatment Plan of Care Planned Activity Planned Date Details Description Data Source (s) June - 03/16/2020 12:00:00 AM EST e CW1 ([facility]) June - 03/16/2020 12:00:00 AM EST e CW1 ([facility]) Haloperidol 0.5 MG Oral Tablet 03/04/2020 12:00:00 AM EST eCW1 ([facility]) Haloperidol 0.5 MG Oral Tablet 03/04/2020 12:00:00 AM EST eCW1 ([facility]) Haloperidol 0.5 MG Oral Tablet 03/04/2020 12:00:00 AM EST eCW1 ([facility]) Triamcinolone Acetonide 1 MG/ML Topical Lotion 02/11/2020 12:00:00 AM EST eCW1 ([facility]) Triamcinolone Acetonide 1 MG/ML Topical Lotion 02/11/2020 12:00:00 AM EST eCW1 ([facility]) Triamcinolone Acetonide 1 MG/ML Topical Lotion 02/11/2020 12:00:00 AM EST eCW1 ([facility])
[2020-03-18 13:26] LABS: FREE THYROXINE INDEX 2.8 % (1.4-3.8); THYROXINE (T4) 7.9 UG/DL (4.5-12.0)
--- NOTE | 2020-03-18 13:37 | REP ---
INDICATION: RENAL FAILURE. COMPARISON: None. TECHNIQUE: Urinary tract sonography. FINDINGS: Exam quality is profoundly limited due to patient body habitus and inability to fully cooperate with positioning needs. No abnormality is noted in the region of the urinary bladder. Emptying ureteral jets could not be seen. Incidental note is made right pleural effusion. Kidneys are less than optimally seen.. There is no evidence of hydronephrosis or hydroureter as visualized.. The right kidney measures 9.8 x 4.8 x 5.6 cm. Left renal dimensions are 11.1 x 5.8 x 6.9 cm. IMPRESSION: Extremely limited image quality. No hydronephrosis. Kidneys less than optimally seen.. <Electronically signed by Aquilino Cruz > 03/18/20 [id number]
[2020-03-18] MEDS ORDERED: DEXTROSE 50% 50 ML SYRINGE IV PRN (14:00)
[2020-03-18] MEDS ORDERED: ALBUTEROL 90 MCG/ACT 8GM HFA INHALER INH PRN (14:00)
[2020-03-18] MEDS ORDERED: GLUCOSE 4GM CHEW TABLET PO PRN (14:00)
[2020-03-18] MEDS ORDERED: MOM 30ML SUSPENSION UDC PO PRN (14:00)
[2020-03-18] MEDS ORDERED: GLUCAGON INJ 1MG VIAL SC PRN (14:00)
[2020-03-18] MEDS ORDERED: metOLazone 5 MG TAB PO ONE ×2 (14:00→20:30)
[2020-03-18] MEDS ORDERED: DOCUSATE SODIUM 100MG CAPSULE PO PRN (14:00)
--- NOTE | 2020-03-18 14:00 | HPEPDOC ---
[facility] Medical History & Physical Date of Admission Mar 18, 2020 Date of Service: Mar 18, 2020 History and Physical CHIEF COMPLAINT: shortness of breath, increasing abdominal distention, 30 pound weight gain HISTORY OF PRESENT ILLNESS: 69-year-old male with history of systolic and diastolic congestive heart failure, ejection fraction of 20% on 01/24/[address] Bunn, not on entresto due to financial issues. Type 2 diabetes, hypertension, obesity, hypothyroidism, peripheral vascular disease s/p right AKA, s/p left BKA, wheelchair bound, dyslipidemia, CAD, CABG, chronic atrial fibrillation, reflux, chronic kidney disease stage 3-4, presents to the emergency room with increasing shortness of breath, abdominal distention, 30 pound weight gain without fever, chills, chest pain, pressure, tightness, lightheadedness, dizziness, nausea, vomiting, diarrhea, dysuria, urgency, frequency, changes in appetite. He admits to having 3-4 pillow orthopnea. Based on his right side but with worsening shortness of breath prompting him to sit up for the past few days. The patient is noncompliant with salt restriction, but says that he usually drinks less than 2 L of water daily. He admits to having a dry cough which is nonproductive. No complaints of near syncope. In the ER he was found to have a large right pleural effusion, elevated BNP over 1999 and acute on chronic renal failure with creatinine of 2.5 from baseline of 1.9. Hospitalist was asked to admit for acute decompensated systolic and diastolic congestive heart failure with acute on chronic kidney disease stage 3-4. PAST MEDICAL HISTORY: Systolic and diastolic congestive heart failure, ejection fraction 20-25%, CVA, hypertension, hyperlipidemia, peripheral vascular disease, chronic atrial fibrillation, stage 3 -4 chronic kidney disease wgrzu-iqr-qvbs amputation on the left. Right itqmg-yne-mloe amputation, insulin-dependent diabetes, reflux, CAD, CABG PAST SURGICAL HISTORY: Right hgvsy-fsn-qmae amputation, left xpeuu-fly-ubqs amputation, CABG 2001. Umbilical herniorrhaphy. Right eye cataract extraction. Vitrectomy. Bilateral eyes. Thoracentesis 2017. Angioplasty. Catheterization SOCIAL HISTORY: . Denies recreational drug use. Lives with at home. Wheelchair baseline. Denies alcohol use currently FAMILY HISTORY: Mother and father are . Mother of complications of diabetes. Father due to MVA. Sister with diabetes, hypertension, unknown type of heart disease ALLERGIES: Please see below. REVIEW OF SYSTEMS: 10 point review of systems negative aside from positive findings on HPI HOME MEDICATIONS: Please see below. PHYSICAL EXAMINATION: VITAL SIGNS: See below GENERAL APPEARANCE: Disheveled, moderate respiratory distress, with abdominal muscle retractions. Poor dentition HEENT: Positive JVD, no thyromegaly or cervical lymphadenopathy. 7-8 word conversational dyspnea. No carotid bruit CARDIOVASCULAR: Irregularly irregular S1, S2, positive S3. , No murmurs appreciated LUNGS: diminished right greater than left. right lung with rales 3/[address] up. left clear. ABDOMEN: Obese, positive fluid wave, nontender,distended, positive bowel sounds 4 quadrants EXTREMITIES: Right BKA, left AKA 3+ edema on thighs and sacrum LABORATORY DATA: See below. IMAGING: See below CXR: INDICATION: DYSPNEA/COUGH. COMPARISON: Comparison chest x-ray 24 January 2020. TECHNIQUE: Portable upright AP chest radiograph. FINDINGS: The lungs are well inflated and free of infiltrate. Pleural angles are sharp. Heart size is normal. Pulmonary vasculature is not increased. There is evidence of a large right pleural effusion, increased in size from the January 24, 2020 prior study. There is some slight shift of the mediastinum to the left. Cardiomegaly is observed. The patient is rotated somewhat to the right. Pulmonary vascular congestion is seen. No left pleural effusion is seen. IMPRESSION: Large right pleural effusion with shift of the mediastinum to the left. Cardiomegaly and vascular congestion. Prior median sternotomy.. <Electronically signed by Aquilino Cruz > 03/18/20 1125 RENAL ULTRASOUND: INDICATION: RENAL FAILURE. COMPARISON: None. TECHNIQUE: Urinary tract sonography. FINDINGS: Exam quality is profoundly limited due to patient body habitus and inability to fully cooperate with positioning needs. No abnormality is noted in the region of the urinary bladder. Emptying ureteral jets could not be seen. Incidental note is made right pleural effusion. Kidneys are less than optimally seen.. There is no evidence of hydronephrosis or hydroureter as visualized.. The right kidney measures 9.8 x 4.8 x 5.6 cm. Left renal dimensions are 11.1 x 5.8 x 6.9 cm. IMPRESSION: Extremely limited image quality. No hydronephrosis. Kidneys less than optimally seen.. <Electronically signed by Aquilino Anthony > 03/18/20 3679 MICROBIOLOGY: Please see below. ASSESSMENT: 69-year-old male with history of systolic and diastolic congestive heart failure, ejection fraction of 20% on 01/24/[address] Bunn, not on entresto due to financial issues. Type 2 diabetes, hypertension, obesity, hypothyroidism, peripheral vascular disease s/p right AKA, s/p left BKA, wheelchair bound, dyslipidemia, CAD, CABG, chronic atrial fibrillation, reflux, chronic kidney disease stage 3-4, presents to the emergency room with increasing shortness of breath, abdominal distention, 30 pound weight gain without fever, chills, chest pain, pressure, tightness, lightheadedness, dizziness, nausea, vomiting, diarrhea, dysuria, urgency, frequency, changes in appetite. He admits to having 3-4 pillow orthopnea. Based on his right side but with worsening shortness of breath prompting him to sit up for the past few days. The patient is noncompliant with salt restriction, but says that he usually drinks less than 2 L of water daily. He admits to having a dry cough which is nonproductive. No complaints of near syncope. In the ER he was found to have a large right pleural effusion, elevated BNP over 1999 and acute on chronic renal failure with creatinine of 2.5 from baseline of 1.9. Hospitalist was asked to admit for acute decompensated systolic and diastolic congestive heart failure with acute on chronic kidney disease stage 3-4. Acute on chronic systolic and diastolic congestive heart failure with low ejection fraction 20-25% due to noncompliance with salt and water intake -Patient will be admitted to the telemetry unit, kept on strict I's and O's, daily weights and fluid restriction of 2 L daily. -Patient has been given Lasix 60 mg intravenously along with Zaroxolyn. We will continue on Lasix 60 mg IV every 8 hourly -Serial basic metabolic panel, magnesium, ionized calcium. -Cardiac markers every 6 hourly starting at 1800 tonight -EKG had no acute ischemic changes -Patient follows with Dr. Phillips /Angela Collazo .obtain records -Patient is not a candidate for entrance to due to financial reasons -Deferred to cardiology for evaluation for a defibrillator vest -Monitor renal function. Avoid nephrotoxins and renally dose all medications -Avoid nonsteroidal anti-inflammatory drugs Large pleural effusion -Thoracentesis for therapeutic purposes -Secondary to congestive heart failure -CT chest to rule out loculated effusion. If loculated any chest tube by thoracic surgery -Pleural fluid analysis, including culture results -Respiratory panel was negative -Continue with Lasix diuresis for congestive heart failure treatment Hypertensive uncontrolled -Resume home medications currently on Lasix 60 IV every 8 hourly. -We'll titrate medications for better hypertensive control Acute on chronic kidney disease stage 3-4 -Due to decompensated congestive heart failure from noncompliance with salt and water restriction -Patient has had issues with it failed fully catheter placement in the past -If there is no residual on bladder scan, and strict I's and O's can be kept without De La Rosa catheter, there would be no need for De La Rosa catheter placement -We'll try a [place] catheter or crudet. -Strict I's and O's -Renal ultrasound has no hydronephrosis -P basic metabolic panel at 1800 at midnight . -if worsening renal failure, Consult nephrology in the morning -Avoid nonsteroidal anti-inflammatories and other nephrotoxins. -Renally dose all medications CAD/CABG -Troponin is negative -EKG has no acute ischemic changes -Cycle cardiac markers every 6 hourly -Telemetry monitoring -Resume all home medications Chronic atrial fibrillation -Rate controlled - on chronic anticoagulation Dyslipidemia -Resume statin -Check lipid profile Obesity -Complicating care Insulin-dependent diabetes -Consistent carbohydrate renal diet 2 g sodium restriction -Avoid oral hypoglycemics -Check A1c titrate medications for better glycemic control Hypothyroidism -Elevated TSH -Adjust patient's Synthroid Peripheral vascular disease with right BKA and left AKA -Wheelchair-bound at baseline -PT OT for upper body strengthening CVA -On chronic anticoagulation reflux -Chronic -On PPI CODE STATUS full code Diet consistent carbohydrate, 2 g sodium renal diet DVT prophylaxis, on chronic anticoagulation Vital Signs Vital Signs Date Time Temp Pulse Resp B/P (MAP) Pulse Ox O2 Delivery O2 Flow Rate FiO2 03/18/20 12:16 147/73 (97) 03/18/20 12:16 97.5 16 Room Air 03/18/20 12:11 68 92 Laboratory Data Labs 24H Laboratory Tests 2 03/18/20 10:25: Bedside Glucose (Misc Panel) 68L 03/18/20 10:50: Immature Granulocyte % (Auto) 0.5, Neutrophils (%) (Auto) 64.8, Lymphocytes (%) (Auto) 17.7L, Monocytes (%) (Auto) 13.8H, Eosinophils (%) (Auto) 2.4, Basophils (%) (Auto) 0.8, Neutrophils # (Auto) 4.9, Lymphocytes # (Auto) 1.3L, Monocytes # (Auto) 1.0H, Eosinophils # (Auto) 0.2, Basophils # (Auto) 0.1, Nucleated Red Blood Cells % (auto) 0.3H, Prothrombin Time 22.8H, Prothromb Time International Ratio 1.96, Anion Gap 5L, Glomerular Filtration Rate 26.8L, Calcium Level 9.5, Total Bilirubin 1.4H, Direct Bilirubin 0.8H, Aspartate Amino Transf (AST/SGOT) 80H, Alanine Aminotransferase (ALT/SGPT) 52, Alkaline Phosphatase 197H, Total Creatine Kinase 471H, Creatine Kinase MB 13.0H, Creatine Kinase MB Relative Index 2.76, Troponin I 0.07, QJ-Snx-I-Type Natriuretic Peptide 6341H, Total Protein 8.0, Albumin 2.9L, Albumin/Globulin Ratio 0.6, Thyroid Stimulating Hormone (TSH) 10.200H CBC/BMP Laboratory Tests 03/18/20 10:50 Microbiology Microbiology 03/18/20 Respiratory Virus Panel (PCR) (DONY) - Final, Complete 03/18/20 Blood Culture, Received Pending 03/18/20 Blood Culture, Received Pending Home Medications Scheduled Acetaminophen (Acetaminophen) 500 Mg Tablet, 1,000 MG PO QHS Apixaban (Eliquis) 5 Mg Tab, 5 MG PO BID Aspirin (Aspirin EC) 81 Mg Tab, 81 MG PO 3XW MON,WED,FRI Atorvastatin Calcium (Atorvastatin Calcium) 40 Mg Tab, 40 MG PO QHS Calcitriol (Rocaltrol) 0.5 Mcg Capsule, 0.5 MCG PO DAILY Famotidine (Famotidine) 20 Mg Tab, 20 MG PO BID Glipizide (Glipizide) 5 Mg Tablet, 5 MG PO DAILY Hydralazine HCl (Hydralazine HCl) 10 Mg Tablet, 10 MG PO TID 0700, 1200, 1700 Insulin Human NPH (Novolin N) 100 Unit/1 Ml Vial, 20 UNIT SC BID Isosorbide Dinitrate (Isosorbide Dinitrate) 20 Mg Tablet, 20 MG PO TID 0700, 1200, 1700 Levothyroxine Sodium (Synthroid) 137 Mcg Tablet, 137 MCG PO QAM Metformin HCl (Metformin HCl) 850 Mg Tablet, 850 MG PO DAILY @ SUPPER Multivitamins (Thera M Plus Tablet) 1 Tab Tab, 1 TAB PO DAILY Polymyxin B Sulf/Trimethoprim (Polytrim Eye Drops) 10 Ml Drops, 1 DROP OD Q6H Potassium Chloride (Klor-Con M20) 20 Meq Tab.er.prt, 20 MEQ PO DAILY LUNCHTIME Torsemide (Torsemide) 20 Mg Tablet, 40 MG PO DAILY Trazodone HCl (Trazodone HCl) 150 Mg Tab, 150 MG PO QHS Vit A/Vit C/Vit E/Zinc/Copper (Preservision Areds Softgel) 1 Each Capsule, 1 CAP PO BID Scheduled PRN Albuterol Sulfate (Proair Hfa) 8.5 Gm Hfa.aer.ad, 2 PUFF INH Q4-6HP PRN for wheezing Docusate Sodium (Colace) 100 Mg Cap, 100 MG PO DAILY PRN for CONSTIPATION Magnesium Hydroxide (Milk of Magnesia) 400 Mg/5 Ml Oral.susp, 30 ML PO DAILY PRN for CONSTIPATION Allergies Coded Allergies: warfarin (Verified Allergy, Mild, rash, 01/24/20) clonidine (Verified Allergy, Unknown, low HR , 03/18/20) A-FIB/CHADSVASC A-FIB History Current/History of A-Fib/PAF?: Yes Current PO Anticoag Therapy: Yes Age/Risk Factor Scoring CHADSVASC: CHADSVASC Response (Comments) Value Age Risk Factor Age 65-74 years old 1 Gender Risk Factor Male 0 Hx of CHF Yes 1 Hx of HTN Yes 1 Hx of Stroke/TIA/or VTE Yes 2 Hx of Diabetes Yes 1 Hx of Vascular Disease Yes 1 Total 7 Treatment Treatment ordered: Apixaban AUSTYN SILVA MD Mar 18, 2020 12:57
[2020-03-18 14:50] VITALS: BP 112/65
[2020-03-18] MEDS: POLYTRIM OPTH DROPS 10ML OD SCH ×2 (15:39→21:07)
[2020-03-18] MEDS: ISOSORBIDE DIN. (ISORDIL) 20 MG TAB PO SCH ×3 (16:58→21:13)
[2020-03-18] MEDS: **hydrALAZINE** 10 MG TAB PO SCH ×2 (17:00→21:13)
[2020-03-18] MEDS: HumaLOG INSULIN (NovoLOG) PER UNIT SC SCH ×2 (17:06→21:00)
[2020-03-18] MEDS ORDERED: SLF 3 ML SYR IV PRN (18:00)
[2020-03-18 18:38] LABS: CALCIUM LEVEL 9.1 MG/DL (8.8-10.2); CREATININE FOR GFR 2.39 MG/DL (0.70-1.30); MAGNESIUM LEVEL 2.2 MG/DL (1.8-2.4); POTASSIUM SERUM 4.1 MEQ/L (3.5-5.1)
[2020-03-18 18:44] LABS: CK-MB VALUE MASS 12.9 NG/ML (<3.6); MB/CK RELATIVE INDEX 3.08 (< OR =4); TROPONIN I 0.07 NG/ML (< 0.10)
[2020-03-18] MEDS ORDERED: CALCIUM GLUCONATE 1,000 MG in D5W MINI-BAG PLUS 100 ML IV ONE (19:30)
[2020-03-18 20:00] VITALS: BP 157/79
[2020-03-18] MEDS: APIXABAN 5 MG TAB (ELIQUIS) PO SCH (21:00)
[2020-03-18] MEDS: HumuLIN N INSULIN (NovoLIN N) PER UNIT SC SCH (21:00)
[2020-03-18] MEDS: FUROSEMIDE 100MG/10ML VIAL (J1940) IV SCH (21:07)
[2020-03-18] MEDS: FAMOTIDINE 20 MG TAB PO SCH (21:08)
[2020-03-18] MEDS: ATORVASTATIN 20 MG TAB PO SCH (21:08)
[2020-03-18] MEDS: traZODone 50 MG TAB PO SCH (21:08)
[2020-03-18] MEDS: OCUVITE 1 TAB PO SCH (21:08)
[2020-03-18] MEDS: ACETAMINOPHEN 500 MG TAB PO SCH (21:09)
[2020-03-18 21:12] VITALS: BP 160/80
[2020-03-18] MEDS: SLF 3 ML SYR IV SCH (22:00)
[2020-03-19] VITALS: BP 124/63
[2020-03-19 00:27] LABS: CK-MB VALUE MASS 11.4 NG/ML (<3.6); MB/CK RELATIVE INDEX 3.15 (< OR =4); TROPONIN I 0.07 NG/ML (< 0.10)
[2020-03-19] MEDS: POLYTRIM OPTH DROPS 10ML OD SCH ×4 (02:21→21:18)
[2020-03-19 04:00] VITALS: BP 125/63
[2020-03-19] MEDS: FUROSEMIDE 100MG/10ML VIAL (J1940) IV SCH ×3 (06:05→17:41)
[2020-03-19] MEDS: LEVOTHYROXINE 137MCG TABLET (0.137MG) PO SCH (06:05)
[2020-03-19] MEDS: SLF 3 ML SYR IV SCH ×5 (06:05→21:19)
[2020-03-19 07:02] LABS: HEMATOCRIT 37.6 % (42.0-52.0); HEMOGLOBIN 11.3 g/dl (13.5-17.5); MEAN CORPUSCULAR HEMOGLOBIN 26.7 pg (27.0-33.0); MEAN CORPUSCULAR HGB CONC 30.1 g/dl (32.0-36.5); MEAN CORPUSCULAR VOLUME 88.7 fl (80.0-96.0); PLATELET COUNT, AUTOMATED 232 10^3/uL (150-450); RED BLOOD COUNT 4.24 10^6/uL (4.30-6.10); WHITE BLOOD COUNT 6.4 10^3/uL (4.0-10.0)
[2020-03-19 07:24] LABS: CALCIUM LEVEL 9.3 MG/DL (8.8-10.2); CREATININE FOR GFR 2.31 MG/DL (0.70-1.30); GLOMERULAR FILTRATION RATE 30.2 (>49); MAGNESIUM LEVEL 2.2 MG/DL (1.8-2.4); POTASSIUM SERUM 3.8 MEQ/L (3.5-5.1)
[2020-03-19] MEDS: HumaLOG INSULIN (NovoLOG) PER UNIT SC SCH ×4 (07:30→20:58)
--- NOTE | 2020-03-19 07:34 | ECGEPIP ---
[facility] - ED Test Date: 2020-03-18 Pat Name: JERSON JAUREGUI Department: Room: - Gender: Male Account Liaison Hospice: VC : 1950 Requested By: RKISTOFER Miranda Order Number: [id number] Reading MD: Blanca Kirkpatrick Measurements Intervals [place] Rate: 63 P: MD: 0 QRS: 13 QRSD: 135 T: 158 QT: 458 QTc: 470 Interpretive Statements ATRIAL FIBRILLATION INTRAVENTRICULAR CONDUCTION DELAY POSSIBLE ANTERIOR MYOCARDIAL INFARCTION, PROBABLY OLD PROLONGED QTC DECREASED RATE 01/24/20 Electronically Signed on 03-19-2020 7:34:00 EST by Blanca Kirkpatrick
[2020-03-19 07:39] VITALS: BP 154/74
[2020-03-19] MEDS: APIXABAN 5 MG TAB (ELIQUIS) PO SCH (08:08)
--- NOTE | 2020-03-19 08:18 | REP ---
INDICATION: sob COMPARISON: 03/18/2020 TECHNIQUE: Portable AP view of the chest FINDINGS: Moderate to large right pleural effusion and underlying airspace disease again noted but mildly improved. No obvious new acute process appreciated. IMPRESSION: Improved aeration. Continued moderate to large right pleural effusion and bilateral airspace disease. <Electronically signed by Seth Sepulveda > 03/19/20 0814
[2020-03-19] MEDS: ISOSORBIDE DIN. (ISORDIL) 20 MG TAB PO SCH ×3 (08:36→20:58)
[2020-03-19] MEDS: HumuLIN N INSULIN (NovoLIN N) PER UNIT SC SCH ×2 (08:36→21:21)
[2020-03-19] MEDS: FAMOTIDINE 20 MG TAB PO SCH ×2 (08:56→21:20)
[2020-03-19] MEDS: **hydrALAZINE** 10 MG TAB PO SCH ×3 (08:56→20:59)
[2020-03-19] MEDS: OCUVITE 1 TAB PO SCH ×2 (08:56→21:19)
[2020-03-19] MEDS: CALCITRIOL 0.25 MCG CAP (S0169) PO SCH (08:56)
[2020-03-19] MEDS: MULTIVITAMINS/MINERALS THERAP 1 TAB PO SCH (08:57)
[2020-03-19] MEDS ORDERED: HEPARIN SOD (PORCINE) 5000UNITS/ML 1ML VIAL/SYRINGE SQ SCH (09:00)
[2020-03-19] MEDS ORDERED: SLF 3 ML SYR IV PRN (10:30)
--- NOTE | 2020-03-19 11:04 | IPNPDOC ---
Date Seen The patient was seen on 03/19/20. Progress Note SUBJECTIVE: Patient was seen and examined at the bedside chart is reviewed. De La Rosa catheter could not be placed due to difficult anatomy. Patient says he feels better with shortness of breath, no chest pain, pressure, tightness, lightheadedness or dizziness. No fever, chills, cough overnight Cardiac markers negative Troponin. PHYSICAL EXAMINATION: VITAL SIGNS: See below GENERAL APPEARANCE: Disheveled, able to speak in full sentences HEENT: Positive JVD, no thyromegaly or cervical lymphadenopathy. No carotid bruit CARDIOVASCULAR: Irregularly irregular S1, S2, positive S3. , No murmurs jeri reciated LUNGS: diminished right greater than left. right lung with rales 3/[address] up. left clear. ABDOMEN: Obese, positive fluid wave, nontender,distended, positive bowel sounds 4 quadrants EXTREMITIES: Right BKA, left AKA 2+ edema on thighs and sacrum LABORATORY DATA: See below. IMAGING: See below CXR: INDICATION: DYSPNEA/COUGH. COMPARISON: Comparison chest x-ray 24 January 2020. TECHNIQUE: Portable upright AP chest radiograph. FINDINGS: The lungs are well inflated and free of infiltrate. Pleural angles are sharp. Heart size is normal. Pulmonary vasculature is not increased. There is evidence of a large right pleural effusion, increased in size from the January 24, 2020 prior study . There is some slight shift of the mediastinum to the left. Cardiomegaly is observed. The patient is rotated somewhat to the right. Pulmonary vascular congestion is seen. No left pleural effusion is seen. IMPRESSION: Large right pleural effusion with shift of the mediastinum to the left. Cardiom egaly and vascular congestion. Prior median sternotomy.. <Electronically signed by Aquilino Cruz > 03/18/20 1125 RENAL ULTRASOUND: INDICATION: RENAL FAILURE. COMPARISON: None. TECHNIQUE: Urinary tract sonography. FINDINGS: Exam quality is profoundly limited due to patient body habitus and inability to fully cooperate with positioning needs. No abnormality is noted in the region of the urinary bladder. Emptying ureteral jets could not be seen. Incidental note is made right pleural effusion. Kidneys are less than optimally seen.. There is no evidence of hydronephrosis or hydroureter as visualized.. The right kidney measures 9.8 x 4.8 x 5.6 cm. Left renal dimensions are 11.1 x 5.8 x 6.9 cm. IMPRESSION: Extremely limited image quality. No hydronephrosis. Kidneys less than optimally seen.. <Electronically signed by Aquilino Cruz > 03/18/20 [id number] MICROBIOLOGY: Please see below. ASSESSMENT: 69-year-old male with history of systolic and diastolic congestive heart failure, ejection fraction of 20% on 01/24/[address] Bunn, not on entresto due to financial issues. Type 2 diabetes, hypertension, obesity, hypothyroidism, peripheral vascular disease s/p right AKA, s/p left BKA, wheelchair bound, dyslipidemia, CAD, CABG, chronic atrial fibrillation, reflux, chronic kidney disease stage 3-4, presents to the emergency room with increasing shortness of breath, abdominal distention, 30 pound weight gain without fever, chills, chest pain, pressure, tightness, lightheadedness, dizziness, nausea, vomiting, diarrhea, dysuria, urgency, frequency, changes in appetite. He admits to having 3-4 pillow orthopnea. Based on his right side but with worsening shortness of breath prompting him to sit up for the past few days. The patient is noncompliant with salt restriction, but says that he usually drinks less than 2 L of water daily. He admits to having a dry cough which is nonproductive. No complaints of near syncope. In the ER he was found to have a large right pleural effusion, elevated BNP over 1999 and acute on chronic renal failure with creatinine of 2.5 from baseline of 1.9. Hospitalist was asked to admit for acute decompensated systolic and diastolic congestive heart failure with acute on chronic kidney disease stage 3-4. Acute on chronic systolic and diastolic congestive heart failure with low ejection fraction 20-25% due to noncompliance with salt and water intake -Unable to have strict I's and O's due to difficulty placing a De La Rosa catheter. -Patient says he feels better today and had been net negative balance -Telemetry was unremarkable. Troponin was negative -Continue on Lasix every 8 hourly. Nephrology consulted for help in management Large pleural effusion -Thoracentesis for therapeutic purposes for Monday because anticoagulation at the [facility] for 2 days -Secondary to congestive heart failure -Patient refused CT chest Yesterday to rule out loculated effusion. -Pleural fluid analysis, including culture results -Respiratory panel was negative -Continue with Lasix diuresis for congestive heart failure treatment Hypertensive controlled -Resume home medications currently on Lasix 60 IV every 8 hourly. -We'll titrate medications for better hypertensive control Acute on chronic kidney disease stage 3-4 -Due to decompensated congestive heart failure from noncompliance with salt and water restriction -Renal ultrasound has no hydronephrosis - Consulted nephrology -Avoid nonsteroidal anti-inflammatories and other nephrotoxins. -Renally dose all medications CAD/CABG -Troponin is negative -EKG has no acute ischemic changes -Cycle cardiac markers every 6 hourly -Telemetry monitoring -Resumed all home medications Chronic atrial fibrillation -Rate controlled -Held anticoagulation due to thoracentesis on Monday Dyslipidemia -Resume statin Obesity -Complicating care Insulin-dependent diabetes -Consistent carbohydrate renal diet 2 g sodium restriction -Avoid oral hypoglycemics Hypothyroidism -Elevated TSH -increase synthroid Peripheral vascular disease with right BKA and left AKA -Wheelchair-bound at baseline -PT OT for upper body strengthening CVA -held oral AC due to thoracentesis on Monday reflux -Chronic -On PPI CODE STATUS full code Diet consistent carbohydrate, 2 g sodium renal diet DVT prophylaxis, held oral AC due to thoracentesis on monday. heparin sq to be held on Monday. VS, I&O, 24H, Fishbone Vital Signs/I&O Vital Signs Date Time Temp Pulse Resp B/P (MAP) Pulse Ox O2 Delivery O2 Flow Rate FiO2 03/19/20 08:00 2.0 03/19/20 07:39 60 20 154/74 (100) 97 Nasal Cannula 03/19/20 04:00 97.5 I&O- Last 24 Hours up to 6 AM 03/19/20 06:00 Intake Total 470 ml Output Total 1600 ml Balance -1130 ml Laboratory Data 24H LABS Laboratory Tests 2 03/18/20 16:23: Bedside Glucose (Misc Panel) 64L 03/18/20 16:48: Bedside Glucose (Misc Panel) 118H 03/18/20 17:49: Anion Gap 6L, Glomerular Filtration Rate 29.0L, Calcium Level 9.1, Whole Blood Ionized Calcium 4.4L, Magnesium Level 2.2, Total Creatine Kinase 419H, Creatine Kinase MB 12.9H, Creatine Kinase MB Relative Index 3.08, Troponin I 0.07 03/18/20 21:19: Bedside Glucose (Misc Panel) 101 03/18/20 23:49: Total Creatine Kinase 362H, Creatine Kinase MB 11.4H, Creatine Kinase MB Relative Index 3.15, Troponin I 0.07 03/19/20 06:44: Nucleated Red Blood Cells % (auto) 0.0, Anion Gap 7L, Glomerular Filtration Rate 30.2L, Calcium Level 9.3, Magnesium Level 2.2 CBC/BMP Laboratory Tests 03/18/20 17:49 03/19/20 06:44 Microbiology Microbiology 03/18/20 Respiratory Virus Panel (PCR) (DONY) - Final, Complete 03/18/20 Blood Culture, Received Pending 03/18/20 Blood Culture, Received Pending AUSTYN SILVA MD Mar 19, 2020 11:04
[2020-03-19 12:00] VITALS: BP 134/61
[2020-03-19] MEDS ORDERED: POTASSIUM CHLORIDE 10 MEQ SR TABLET PO ONE (12:30)
[2020-03-19] MEDS ORDERED: metOLazone 5 MG TAB PO ONE (12:30)
[2020-03-19] MEDS: SPIRONOLACTONE 25 MG TAB PO SCH (13:24)
[2020-03-19] MEDS ORDERED: CHLOROTHIAZIDE 500 MG VIAL (J1205 PER 1) IV ONE (14:00)
[2020-03-19 16:00] VITALS: BP 116/64
[2020-03-19 18:59] LABS: CALCIUM LEVEL 9.2 MG/DL (8.8-10.2); CREATININE FOR GFR 2.54 MG/DL (0.70-1.30); GLOMERULAR FILTRATION RATE 27.1 (>49); PHOSPHORUS LEVEL 4.8 MG/DL (2.5-4.9); POTASSIUM SERUM 3.5 MEQ/L (3.5-5.1)
[2020-03-19 20:00] VITALS: BP 126/74
[2020-03-19] MEDS: HEPARIN SOD (PORCINE) 5000UNITS/ML 1ML VIAL/SYRINGE SQ SCH (21:19)
[2020-03-19] MEDS: ACETAMINOPHEN 500 MG TAB PO SCH (21:20)
[2020-03-19] MEDS: traZODone 50 MG TAB PO SCH (21:20)
[2020-03-19] MEDS: ATORVASTATIN 20 MG TAB PO SCH (21:21)
[2020-03-20] VITALS (15 sets, daily range): BP systolic 121–148; BP diastolic 60–78; O2SAT 88–95
[2020-03-20] MEDS: FUROSEMIDE 100MG/10ML VIAL (J1940) IV SCH ×5 (00:41→23:53)
[2020-03-20] MEDS: POLYTRIM OPTH DROPS 10ML OD SCH ×4 (02:54→21:45)
[2020-03-20] MEDS: SLF 3 ML SYR IV SCH ×6 (05:19→21:58)
[2020-03-20] MEDS: LEVOTHYROXINE 137MCG TABLET (0.137MG) PO SCH (05:19)
[2020-03-20 05:41] LABS: HEMATOCRIT 38.1 % (42.0-52.0); HEMOGLOBIN 11.6 g/dl (13.5-17.5); MEAN CORPUSCULAR HGB CONC 30.4 g/dl (32.0-36.5); MEAN CORPUSCULAR VOLUME 88.8 fl (80.0-96.0); PLATELET COUNT, AUTOMATED 199 10^3/uL (150-450); RED BLOOD COUNT 4.29 10^6/uL (4.30-6.10); WHITE BLOOD COUNT 6.5 10^3/uL (4.0-10.0)
[2020-03-20 06:08] LABS: CALCIUM LEVEL 9.1 MG/DL (8.8-10.2); CREATININE FOR GFR 2.55 MG/DL (0.70-1.30); GLOMERULAR FILTRATION RATE 26.9 (>49); MAGNESIUM LEVEL 2.2 MG/DL (1.8-2.4); POTASSIUM SERUM 3.4 MEQ/L (3.5-5.1)
[2020-03-20] MEDS ORDERED: KCL 10MEQ/100ML SWI (KRUN) 10 MEQ in IV 1 EA IV ONE (08:00)
[2020-03-20] MEDS: ISOSORBIDE DIN. (ISORDIL) 20 MG TAB PO SCH ×3 (09:00→21:00)
[2020-03-20] MEDS: **hydrALAZINE** 10 MG TAB PO SCH ×3 (09:00→21:00)
[2020-03-20] MEDS: HEPARIN SOD (PORCINE) 5000UNITS/ML 1ML VIAL/SYRINGE SQ SCH ×2 (09:00→21:56)
[2020-03-20] MEDS ORDERED: ASPIRIN 81 MG ENTERIC TAB PO SCH (09:00)
[2020-03-20] MEDS: HumuLIN N INSULIN (NovoLIN N) PER UNIT SC SCH ×2 (09:02→21:56)
[2020-03-20] MEDS: HumaLOG INSULIN (NovoLOG) PER UNIT SC SCH ×4 (09:02→22:22)
[2020-03-20] MEDS: CALCITRIOL 0.25 MCG CAP (S0169) PO SCH (09:03)
[2020-03-20] MEDS: POTASSIUM CHLORIDE 10 MEQ SR TABLET PO SCH ×2 (09:03→21:57)
[2020-03-20] MEDS: SPIRONOLACTONE 25 MG TAB PO SCH (09:03)
[2020-03-20] MEDS: FAMOTIDINE 20 MG TAB PO SCH ×2 (09:03→21:57)
[2020-03-20] MEDS: MULTIVITAMINS/MINERALS THERAP 1 TAB PO SCH (09:03)
[2020-03-20] MEDS: OCUVITE 1 TAB PO SCH ×2 (09:34→21:57)
--- NOTE | 2020-03-20 09:49 | IPNPDOC ---
Date Seen The patient was seen on 03/20/20. Progress Note SUBJECTIVE: denies cough, fever, chills. says sob improved,but not back to baseline still c/o PND and orthopnea w bed at 45degree elevation due to sob. no cp,pressure, tightness, diaphoresis. Tele: unremarkable PHYSICAL EXAMINATION: VITAL SIGNS: See below GENERAL APPEARANCE: Disheveled, no conversational dyspnea eating cereal in bed. HEENT: Positive JVD, no thyromegaly or cervical lymphadenopathy. no stridor thick neck CARDIOVASCULAR: Irregularly irregular S1, S2, positive S3. , No murmurs appreciated LUNGS: right rales. left clear ABDOMEN: Obese, positive fluid wave, nontender,distended, positive bowel sounds 4 quadrants EXTREMITIES: Right BKA, left AKA 2+ edema on thighs and sacrum LABORATORY DATA: See below. IMAGING: See below CXR: INDICATION: DYSPNEA/COUGH. COMPARISON: Comparison chest x-ray 24 January 2020. TECHNIQUE: Portable upright AP chest radiograph. FINDINGS: The lungs are well inflated and free of infiltrate. Pleural angles are sharp. Heart size is normal. Pulmonary vasculature is not increased. There is evidence of a large right pleural effusion, increased in size from the January 24, 2020 prior study. There is some slight shift of the mediastinum to the left. Cardiomegaly is observed. The patient is rotated somewhat to the right. Pulmonary vascular congestion is seen. No left pleural effusion is seen. IMPRESSION: Large right pleural effusion with shift of the mediastinum to the left. Cardiomegaly and vascular congestion. Prior median sternotomy.. <Electronically signed by Aquilino Cruz > 03/18/20 1125 RENAL ULTRASOUND: INDICATION: RENAL FAILURE. COMPARISON: None. TECHNIQUE: Urinary tract sonography. FINDINGS: Exam quality is profoundly limited due to patient body habitus and inability to fully cooperate with positioning needs. No abnormality is noted in the region of the urinary bladder. Emptying ureteral jets could not be seen. Incidental note is made right pleural effusion. Kidneys are less than optimally seen.. There is no evidence of hydronephrosis or hydroureter as visualized.. The right kidney measures 9.8 x 4.8 x 5.6 cm. Left renal dimensions are 11.1 x 5.8 x 6.9 cm. IMPRESSION: Extremely limited image quality. No hydronephrosis. Kidneys less than optimally seen.. <Electronically signed by Aquilino Cruz > 03/18/20 0686 MICROBIOLOGY: Please see below. ASSESSMENT: 69-year-old male with history of systolic and diastolic congestive heart failure, ejection fraction of 20% on 01/24/[address] Bunn, not on entresto due to financial issues. Type 2 diabetes, hypertension, obesity, hypothyroidism, peripheral vascular disease s/p right AKA, s/p left BKA, wheelchair bound, dyslipidemia, CAD, CABG, chronic atrial fibrillation, reflux, chronic kidney disease stage 3-4, presents to the emergency room with increasing shortness of breath, abdominal distention, 30 pound weight gain without fever, chills, chest pain, pressure, tightness, lightheadedness, dizziness, nausea, vomiting, diarrhea, dysuria, urgency, frequency, changes in appetite. He admits to having 3-4 pillow orthopnea. Based on his right side but with worsening shortness of breath prompting him to sit up for the past few days. The patient is noncompliant with salt restriction, but says that he usually drinks less than 2 L of water daily. He admits to having a dry cough which is nonproductive. No complaints of near syncope. In the ER he was found to have a large right pleural effusion, elevated BNP over 1999 and acute on chronic renal failure with creatinine of 2.5 from baseline of 1.9. Hospitalist was asked to admit for acute decompensated systolic and diastolic congestive heart failure with acute on chronic kidney disease stage 3-4. Acute on chronic systolic and diastolic congestive heart failure with low ejection fraction 20-25% due to noncompliance with salt and water intake -clinically improved but not back to baseline -thoracentesis today -nephrology consulted to help w diuresis -on iv lasix. with serial bmp, mg to supplement k, mg if needed. Large pleural effusion -held oral ac and sq heparin, asa for thoracentesis right today for therapeutic purposes -due to chf -on lasix, fluid restriction Hypertensive controlled -Resume home medications currently on Lasix 60 IV every 8 hourly. -We'll titrate medications for better hypertensive control Acute on chronic kidney disease stage 3-4 -Due to decompensated congestive heart failure from noncompliance with salt and water restriction -Renal ultrasound has no hydronephrosis - Consulted nephrology -Avoid nonsteroidal anti-inflammatories and other nephrotoxins. -Renally dose all medications CAD/CABG -Troponin is negative -EKG has no acute ischemic changes -Telemetry monitoring -Resumed all home medications -held asa due to thoracentesis today Chronic atrial fibrillation -Rate controlled -Held anticoagulation due to thoracentesis today Dyslipidemia -Resume statin Obesity -Complicating care Insulin-dependent diabetes -Consistent carbohydrate renal diet 2 g sodium restriction -Avoid oral hypoglycemics Hypothyroidism -Elevated TSH -increase synthroid Peripheral vascular disease with right BKA and left AKA -Wheelchair-bound at baseline -PT OT for upper body strengthening CVA -held oral AC due to thoracentesis on Monday reflux -Chronic -On PPI CODE STATUS full code Diet consistent carbohydrate, 2 g sodium renal diet disposition: 2-3days for diuresis. monday dc if stable over the weekend VS, I&O, 24H, Fishbone Vital Signs/I&O Vital Signs Date Time Temp Pulse Resp B/P (MAP) Pulse Ox O2 Delivery O2 Flow Rate FiO2 03/20/20 09:00 139/65 03/20/20 08:00 96.7 60 22 90 Room Air 03/20/20 04:00 2.0 I&O- Last 24 Hours up to 6 AM 03/20/20 06:00 Intake Total 1960 ml Output Total 2300 ml Balance -340 ml Laboratory Data 24H LABS Laboratory Tests 2 03/19/20 12:19: Bedside Glucose (Misc Panel) 197H 03/19/20 16:57: Bedside Glucose (Misc Panel) 211H 03/19/20 17:59: Anion Gap 10, Glomerular Filtration Rate 27.1L, Calcium Level 9.2, Phosphorus Level 4.8, Albumin 3.0L 03/19/20 19:45: Bedside Glucose (Misc Panel) 212H 03/20/20 05:25: Nucleated Red Blood Cells % (auto) 0.0, Anion Gap 8, Glomerular Filtration Rate 26.9L, Calcium Level 9.1, Magnesium Level 2.2 CBC/BMP Laboratory Tests 03/19/20 17:59 03/20/20 05:25 Microbiology Microbiology 03/18/20 Respiratory Virus Panel (PCR) ([facility]) - Final, Complete 03/18/20 Blood Culture - Preliminary, Resulted No growth after 24 hours . All specim... 03/18/20 Blood Culture - Preliminary, Resulted No growth after 24 hours . All specim... AUSTYN SILVA MD Mar 20, 2020 09:49
[2020-03-20] MEDS ORDERED: LIDOCAINE 1% MDV 20ML VIAL As Ordered ONE (10:25)
[2020-03-20] MEDS ORDERED: SPIRONOLACTONE 25 MG TAB PO ONE (10:30)
[2020-03-20] MEDS ORDERED: CHLOROTHIAZIDE 500 MG VIAL (J1205 PER 1) IV ONE (12:00)
[2020-03-20 12:05] LABS: APPEARANCE, BODY FLUID HAZY (CLEAR); PH BODY FLUID 7.623 UNITS (NOT ESTABLISHED); PLEURAL FL COLOR YELLOW (COLORLESS); SOURCE, BODY FLUID PLEURAL; SOURCE, BODY FLUID pH PLEURAL
--- NOTE | 2020-03-20 12:06 | REP ---
INDICATION: POST RIGHT THORA, 2 VIEW. COMPARISON: Comparison chest x-ray 19 March 2020.. TECHNIQUE: Frontal and lateral views of the chest are obtained. FINDINGS: There is improvement noted in the right pleural effusion although a moderate pleural effusion persists post right thoracentesis. There is no evidence of pneumothorax. Moderate to marked cardiomegaly is observed. Prior sternotomy wires are seen. Left pleural angles are sharp. IMPRESSION: Improved moderate right pleural effusion. No complication seen. <Electronically signed by Aquilino Cruz > 03/20/20 1203
[2020-03-20] MEDS ORDERED: NIX CREME RINSE 1% 60 ML KIT TOP ONE (13:00)
[2020-03-20 13:37] LABS: AMYLASE, BODY FLUID 20 U/L (NOT ESTABLISHED); LDH, BODY FLUID 113 U/L (NOT ESTABLISHED); SOURCE, BODY FLUID AMYLASE PLEURAL; SOURCE, BODY FLUID GLUCOSE PLEURAL; SOURCE, BODY FLUID LDH PLEURAL; SOURCE, BODY FLUID TOT PROTEIN PLEURAL; TOTAL PROTEIN, BODY FLUID 2.8 G/DL (NOT ESTABLISHED)
[2020-03-20] MEDS ORDERED: PERMETHRIN 5% CREAM 60 GM TOP ONE (15:00)
--- NOTE | 2020-03-20 17:17 | REP ---
INDICATION: right pleural effusion. COMPARISON: None. TECHNIQUE: The procedure was performed under the direct supervision of Dr. Cruz. The risks and benefits of the procedure were explained to the patient and informed consent was obtained. The right pleural effusion was localized using ultrasound guidance. The skin was prepped and draped in a sterile fashion. 1% lidocaine was used as local anesthetic. An 8 [place] multi side hole catheter was inserted using trocar technique. 1150 cc of yellow fluid was withdrawn with a sample sent to the lab for analysis. The patient tolerated the procedure well and there were no immediate complications. After the appropriate amount to monitor convalescence the patient was discharged from the department. FINDINGS: None IMPRESSION: Ultrasound-guided right thoracentesis yielding 1150 cc of yellow fluid. <Electronically signed by Gaurav Potts > 03/20/20 1643 <Electronically signed by Aquilino Cruz > 03/20/20 2153
[2020-03-20] MEDS ORDERED: metOLazone 5 MG TAB PO ONE (19:00)
[2020-03-20] MEDS: traZODone 50 MG TAB PO SCH (21:56)
[2020-03-20] MEDS: ACETAMINOPHEN 500 MG TAB PO SCH (21:57)
[2020-03-20] MEDS: ATORVASTATIN 20 MG TAB PO SCH (21:57)
[2020-03-21] VITALS (24 sets, daily range): BP systolic 115–139; BP diastolic 54–94; O2SAT 86–97
[2020-03-21] MEDS: POLYTRIM OPTH DROPS 10ML OD SCH ×4 (02:25→20:54)
[2020-03-21 05:33] LABS: HEMATOCRIT 37.3 % (42.0-52.0); HEMOGLOBIN 11.5 g/dl (13.5-17.5); MEAN CORPUSCULAR HEMOGLOBIN 26.7 pg (27.0-33.0); MEAN CORPUSCULAR HGB CONC 30.8 g/dl (32.0-36.5); MEAN CORPUSCULAR VOLUME 86.7 fl (80.0-96.0); PLATELET COUNT, AUTOMATED 222 10^3/uL (150-450); WHITE BLOOD COUNT 6.2 10^3/uL (4.0-10.0)
[2020-03-21] MEDS: LEVOTHYROXINE 137MCG TABLET (0.137MG) PO SCH (06:00)
[2020-03-21] MEDS: FUROSEMIDE 100MG/10ML VIAL (J1940) IV SCH ×4 (06:00→23:40)
[2020-03-21] MEDS: SLF 3 ML SYR IV SCH ×4 (06:00→22:40)
[2020-03-21 06:21] LABS: CREATININE FOR GFR 2.37 MG/DL (0.70-1.30); GLOMERULAR FILTRATION RATE 29.3 (>49); MAGNESIUM LEVEL 2.2 MG/DL (1.8-2.4); POTASSIUM SERUM 3.4 MEQ/L (3.5-5.1)
[2020-03-21] MEDS: HumaLOG INSULIN (NovoLOG) PER UNIT SC SCH ×4 (07:22→20:20)
[2020-03-21] MEDS ORDERED: POTASSIUM CHLORIDE 10 MEQ SR TABLET PO ONE (08:00)
[2020-03-21] MEDS: FAMOTIDINE 20 MG TAB PO SCH ×2 (08:31→20:56)
[2020-03-21] MEDS: CALCITRIOL 0.25 MCG CAP (S0169) PO SCH (08:31)
[2020-03-21] MEDS: MULTIVITAMINS/MINERALS THERAP 1 TAB PO SCH (08:31)
[2020-03-21] MEDS: POTASSIUM CHLORIDE 10 MEQ SR TABLET PO SCH ×2 (08:31→20:55)
[2020-03-21] MEDS: OCUVITE 1 TAB PO SCH ×2 (08:31→20:54)
[2020-03-21] MEDS: **hydrALAZINE** 10 MG TAB PO SCH ×3 (08:32→20:20)
[2020-03-21] MEDS: ISOSORBIDE DIN. (ISORDIL) 20 MG TAB PO SCH ×3 (08:32→20:56)
[2020-03-21] MEDS: HEPARIN SOD (PORCINE) 5000UNITS/ML 1ML VIAL/SYRINGE SQ SCH (08:33)
[2020-03-21] MEDS: HumuLIN N INSULIN (NovoLIN N) PER UNIT SC SCH ×2 (08:33→20:54)
[2020-03-21] MEDS ORDERED: SPIRONOLACTONE 50 MG TAB PO SCH (09:00)
--- NOTE | 2020-03-21 10:01 | IPNPDOC ---
Date Seen The patient was seen on 03/21/20. Progress Note SUBJECTIVE: still c/o dyspnea but improved. nonproductive cough w/o fever or chills. s/p thoracentesis 03/20/20 1 liter removed. +fluid balance for the past 48 hrs no c/o cp, pressure, tightness, light headedness, or dizziness. TELEMETRY: PVC'S HR 37-44 bpm-discussed with Dr. 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 AICD was offered in 2013 and pt refused. He should be DNR." PHYSICAL EXAMINATION: VITAL SIGNS: See below GENERAL APPEARANCE: Disheveled, no conversational dyspnea no use of resp acc mm. multiple excoriations on left anterior chest b/l UE. HEENT: Positive JVD, no thyromegaly or cervical lymphadenopathy. no stridor thick neck CARDIOVASCULAR: Irregularly irregular S1, S2, positive S3. LUNGS: diminished b/l coarse rhonchi ABDOMEN: Obese, positive fluid wave, nontender,distended, positive bowel sounds 4 quadrants EXTREMITIES: Right BKA, left AKA 2+ edema on thighs and sacrum LABORATORY DATA: See below. IMAGING: See below CXR: INDICATION: DYSPNEA/COUGH. COMPARISON: Comparison chest x-ray 24 January 2020. TECHNIQUE: Portable upright AP chest radiograph. FINDINGS: The lungs are well inflated and free of infiltrate. Pleural angles are sharp. Heart size is normal. Pulmonary vasculature is not increased. There is evidence of a large right pleural effusion, increased in size from the January 24, 2020 prior study. There is some slight shift of the mediastinum to the left. Cardiomegaly is observed. The patient is rotated somewhat to the right. Pulmonary vascular congestion is seen. No left pleural effusion is seen. IMPRESSION: Large right pleural effusion with shift of the mediastinum to the left. Cardiomegaly and vascular congestion. Prior median sternotomy.. <Electronically signed by Aquilino Cruz > 03/18/20 1125 RENAL ULTRASOUND: INDICATION: RENAL FAILURE. COMPARISON: None. TECHNIQUE: Urinary tract sonography. FINDINGS: Exam quality is profoundly limited due to patient body habitus and inability to fully cooperate with positioning needs. No abnormality is noted in the region of the urinary bladder. Emptying ureteral jets could not be seen. Incidental note is made right pleural effusion. Kidneys are less than optimally seen.. There is no evidence of hydronephrosis or hydroureter as visualized.. The right kidney measures 9.8 x 4.8 x 5.6 cm. Left renal dimensions are 11.1 x 5.8 x 6.9 cm. IMPRESSION: Extremely limited image quality. No hydronephrosis. Kidneys less than optimally seen.. <Electronically signed by Aquilino Cruz > 03/18/20 7858 MICROBIOLOGY: Please see below. ASSESSMENT: 69-year-old male with history of systolic and diastolic congestive heart failure, ejection fraction of 20% on 01/24/[address] Bunn, not on entresto due to financial issues. Type 2 diabetes, hypertension, obesity, hypothyroidism, peripheral vascular disease s/p right AKA, s/p left BKA, wheelchair bound, dyslipidemia, CAD, CABG, chronic atrial fibrillation, reflux, chronic kidney disease stage 3-4, presents to the emergency room with increasing shortness of breath, abdominal distention, 30 pound weight gain without fever, chills, chest pain, pressure, tightness, lightheadedness, dizziness, nausea, vom iting, diarrhea, dysuria, urgency, frequency, changes in appetite. He admits to having 3-4 pillow orthopnea. Based on his right side but with worsening shortness of breath prompting him to sit up for the past few days. The patient is noncompliant with salt restriction, but says that he usually drinks less than 2 L of water daily. He admits to having a dry cough which is nonproductive. No complaints of near syncope. In the ER he was found to have a large right pleural effusion, elevated BNP over 1999 and acute on chronic renal failure with creatinine of 2.5 from baseline of 1.9. Hospitalist was asked to admit for acute decompensated systolic and diastolic congestive heart failure with acute on chronic kidney disease stage 3-4. Acute on chronic systolic and diastolic congestive heart failure with low ejection fraction 20-25% due to noncompliance with salt and water intake -clinically improved but not back to baseline -thoracentesis 03/20/20 with 1.1 liter removed -Tele: Pvcs, bradycardic 37-44 -nephrology managing diuresis -on po lasix bid and spironolactone -repeat cxr, improved right effusion -cardiology dr phillips reviewed his case and pt refused AICD in 2013. Dr[address] Phillips recommends DNR status. -k and mg to be optimized. Bradycardia/PVC's -cardiology Dr. phillips "asx-no pacer." -dr phillips reviewed his case and pt refused AICD in 2013. Dr. Phillips recommends DNR status. -hemodynamically stable w/o hypotension -synthroid adjusted Large right pleural effusion -s/p 03/20/20 thoracentesis 1.1 liters -due to chf -on lasix, fluid restriction Hypertensive controlled -no aceinh / arb Acute on chronic kidney disease stage 3-4 -Due to decompensated congestive heart failure from noncompliance with salt and water restriction -Renal ultrasound has no hydronephrosis - Consulted nephrology -Avoid nonsteroidal anti-inflammatories and other nephrotoxins. -Renally dose all medications CAD/CABG -Troponin is negative -EKG has no acute ischemic changes -Telemetry monitoring -Resumed all home medications Chronic atrial fibrillation -Rate controlled -resume eliquis Dyslipidemia -Resume statin Obesity -Complicating care Insulin-dependent diabetes -Consistent carbohydrate renal diet 2 g sodium restriction -Avoid oral hypoglycemics Hypothyroidism -Elevated TSH -increase synthroid Peripheral vascular disease with right BKA and left AKA -Wheelchair-bound at baseline -PT OT for upper body strengthening CVA -resumed eliquis reflux -Chronic -On PPI CODE STATUS full code Diet consistent carbohydrate, 2 g sodium renal diet disposition:monday dc if stable over the weekend VS, I&O, 24H, Fishbone Vital Signs/I&O Vital Signs Date Time Temp Pulse Resp B/P (MAP) Pulse Ox O2 Delivery O2 Flow Rate FiO2 03/21/20 09:01 44 03/21/20 09:00 95 Nasal Cannula 2.0 03/21/20 08:32 115/55 03/21/20 07:46 97.2 20 I&O- Last 24 Hours up to 6 AM 03/21/20 06:00 Intake Total 1160 ml Output Total 600 ml Balance 560 ml Laboratory Data 24H LABS Laboratory Tests 2 03/20/20 12:08: Bedside Glucose (Misc Panel) 196H 03/20/20 17:33: Bedside Glucose (Misc Panel) 151H 03/20/20 21:49: Bedside Glucose (Misc Panel) 186H 03/21/20 05:23: Nucleated Red Blood Cells % (auto) 0.0, Anion Gap 6L, Glomerular Filtration Rate 29.3L, Calcium Level 9.0, Magnesium Level 2.2 CBC/BMP Laboratory Tests 03/21/20 05:23 Microbiology Microbiology 03/18/20 Acid Fast Stain, Received Pending 03/18/20 Mycobacterial Culture, Received Pending 03/18/20 Fungal Smear, Received Pending 03/18/20 Fungal Culture, Received Pending 03/18/20 Gram Stain - Final, Resulted 03/18/20 Body Fluid Culture, Resulted Pending 03/18/20 Respiratory Virus Panel (PCR) ([facility]) - Final, Complete 03/18/20 Blood Culture - Preliminary, Resulted No Growth after 48 hours. All Specime... 03/18/20 Blood Culture - Preliminary, Resulted No Growth after 48 hours. All Specime... AUSTYN SILVA MD Mar 21, 2020 09:57
--- NOTE | 2020-03-21 10:03 | REP ---
INDICATION: sob COMPARISON: 03/20/2020. TECHNIQUE: PA/Lateral FINDINGS: Right pleural effusion and parenchymal opacity are unchanged. Left lung remains clear. Significant cardiomegaly is again noted unchanged. Multiple sternal wires mediastinal clips are present. IMPRESSION: Stable exam. <Electronically signed by Per Palma > 03/21/20 1000
[2020-03-21] MEDS ORDERED: APIXABAN 5 MG TAB (ELIQUIS) PO SCH (10:15)
--- NOTE | 2020-03-21 11:46 | IPN ---
PROGRESS NOTE DATE: 03/20/2020 SUBJECTIVE: Patient was seen in the morning. He was getting ready to get his right-sided thoracentesis done in interventional radiology. He was started on high dose of diuretics yesterday. His urine output is slightly better today, however, he still has significant volume overload. Renal function is stable today as compared with yesterday. OBJECTIVE: VITAL SIGNS: Temperature 96.7 degrees Fahrenheit, blood pressure 147/78, pulse 66, respiratory rate 20, saturating 98% on room air at 2 liters. INTAKE AND OUTPUT: Urine output recorded as 1.7 liters yesterday, 1150 mL so far today since overnight. Weight in the bed scale is 147.3 kg. PHYSICAL EXAMINATION: GENERAL: Patient is awake, alert and oriented x3, morbidly obese, sitting up in the bed. HEAD/NECK: Extraocular muscles. Neck is supple. He has moderately elevated JVD. CARDIOVASCULAR: S1, S2, regular rate. Significant edema of the abdominal wall and lower extremities. RESPIRATORY: Decreased breath sounds at the bases; worse on the right side as compared with the left side. ABDOMEN: Obese and distended. Abdominal wall edema was noted. MUSCULOSKELETAL: He has a right above knee amputation and left below knee amputation. Stumps also have edema and he has edema in the thighs. 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 Power is 5/5 in bilateral upper extremities. LABORATORY REVIEW: CBC showed WBC 6.5, hemoglobin 11.6, platelets 199,000. BMP showed sodium 137, potassium 3.4, chloride 100, bicarb 29, BUN 73, creatinine 2.55. IMAGING STUDIES: Chest x-ray from yesterday shows large right-sided pleural effusion. CURRENT INPATIENT MEDICATIONS: Patient's medications were all reviewed by myself. He was given I.V. potassium. He was given a dose of I.V. Diuril 500 mg. He continues to be on Lasix 80 mg I.V. every 6 hours. Spironolactone dose has been increased to 50 mg p.o. daily. ASSESSMENT AND PLAN: 1. Acute decompensated systolic congestive heart failure: Patient's Lasix dose was adjusted yesterday. Spironolactone has been increased today. He was also given a dose of Diuril today morning for sequential nephron blockade. Continue to monitor intake and output. 2. Large right-sided pleural effusion: Continue aggressive diuresis. Patient is going to get right-sided thoracentesis. 3. Acute kidney injury superimposed on chronic kidney disease: Patient's best baseline creatinine is 2. His creatinine is elevated because of decompensated congestive heart failure. Okay to continue the diuretics at this time. 4. Hypokalemia: It is secondary to aggressive diuresis. He was already given oral potassium and I.V. potassium. Spironolactone dose has been increased to 50 mg. 5. Hypertension: Blood pressure is controlled with the current regimen. Continue current antihypertensives. Management of volume overload would also help improve the blood pressure.
--- NOTE | 2020-03-21 12:44 | ECGEPIP ---
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 Could not rule out prior septal i injury Slower rate but no other definite change from 03/18/20 Electronically Signed on 03-21-2020 12:43:57 EST by Mich Phillips
[2020-03-21] MEDS ORDERED: metOLazone 5 MG TAB PO ONE (13:00)
[2020-03-21] MEDS: SPIRONOLACTONE 50 MG TAB PO SCH (17:49)
--- NOTE | 2020-03-21 18:20 | IPNPDOC ---
Subjective Date Seen The patient was seen on 03/21/20. Subjective Chief Complaint/HPI Pt and nursing staff do not report any overnight events. General: Reports: ROS Unobtainable (Pt is able to respond briefly, but he is somnolent.) Objective Physical Examination General Exam: Positive: Cooperative, No Acute Distress Chest Exam: Positive: Diminished (in bibasilar lung mix), Other; Negative: Rales, Rhonchi Heart Exam: Positive: Rate Normal, Regular Rhythm, Normal S1, Normal S2 Abdomen Exam: Positive: Other (edema in abdominal wall, generalized anasarca) Extremity Exam: Positive: Edema, Other (RLE AKA, LLE, BKA, stumps also have evident edema, +2 pitting) Assessment /Plan Assessment #Acute decompensated systolic congestive heart failure: Patient's Lasix dose was adjusted yesterday. Spironolactone has been increased to 50mg BID. One dose of metolazone was also given. Continue to monitor intake and output. #Large right-sided pleural effusion: Continue aggressive diuresis. Patient had right-sided thoracentesis. #LIZET on CKD: Patient's best baseline creatinine is 2. His creatinine is elevated because of decompensated congestive heart failure. Okay to continue the diuretics at this time. #Hypokalemia: It is secondary to aggressive diuresis. He was already given oral potassium and I.V. potassium. Spironolactone dose has been increased to 50 mg BID. #Hypertension: Blood pressure is controlled with the current regimen. Continue current antihypertensives. Management of volume overload will also help improve the blood pressure. Plan/VTE VTE Prophylaxis Ordered?: Yes (on Eliquis) GME ATTESTATION My faculty preceptor for this patient encounter was physically present during the encounter and was fully available. All aspects of the patient interview, examination, medical decision making process, and medical care plan development were reviewed and approved by the faculty preceptor. The faculty preceptor is aware and concurs with the plan as stated in the body of this note and will attest to such by his/her cosignature. VS, I&O, 24H, Fishbone Vital Signs/I&O Vital Signs Date Time Temp Pulse Resp B/P (MAP) Pulse Ox O2 Delivery O2 Flow Rate FiO2 03/21/20 16:00 93 Nasal Cannula 2.0 03/21/20 16:00 121/54 03/21/20 15:49 97.7 53 22 I&O- Last 24 Hours up to 6 AM 03/21/20 06:00 Intake Total 1160 ml Output Total 600 ml Balance 560 ml Laboratory Data 24H LABS Laboratory Tests 2 03/20/20 21:49: Bedside Glucose (Misc Panel) 186H 03/21/20 05:23: Nucleated Red Blood Cells % (auto) 0.0, Anion Gap 6L, Glomerular Filtration Rate 29.3L, Calcium Level 9.0, Magnesium Level 2.2 03/21/20 11:49: Bedside Glucose (Misc Panel) 202H 03/21/20 17:36: Bedside Glucose (Misc Panel) 235H CBC/BMP Laboratory Tests 03/21/20 05:23 Microbiology Microbiology 03/18/20 Acid Fast Stain, Received Pending 03/18/20 Mycobacterial Culture, Received Pending 03/18/20 Fungal Smear, Received Pending 03/18/20 Fungal Culture, Received Pending 03/18/20 Gram Stain - Final, Resulted 03/18/20 Body Fluid Culture, Resulted Pending 03/18/20 Respiratory Virus Panel (PCR) (DONY) - Final, Complete 03/18/20 Blood Culture - Preliminary, Resulted No Growth after 72 hours. All specime... 03/18/20 Blood Culture - Preliminary, Resulted No Growth after 72 hours. All specime... Attending Note Attending Note LIZET on CKD (cardiorenal) Decompensated HFrEF anasarca HTN with hypertensive heart disease. Hypokalemia. Cont IV diuretic. Metolazone PRN for sequential nephron blockade. KCl and spironolactone for hypokalemia. edema is improving. Abhilash Blunt DO Mar 21, 2020 18:20 YENNI BLUNT MD Mar 26, 2020 09:16
[2020-03-21] MEDS: ATORVASTATIN 20 MG TAB PO SCH (20:55)
[2020-03-21] MEDS: ACETAMINOPHEN 500 MG TAB PO SCH (20:55)
[2020-03-21] MEDS: APIXABAN 5 MG TAB (ELIQUIS) PO SCH (20:56)
[2020-03-21] MEDS: traZODone 50 MG TAB PO SCH (21:10)
[2020-03-22 02:06] VITALS: O2SAT 95
[2020-03-22] MEDS: POLYTRIM OPTH DROPS 10ML OD SCH ×4 (02:26→21:30)
[2020-03-22 06:00] VITALS: BP 138/69
[2020-03-22] MEDS: LEVOTHYROXINE 137MCG TABLET (0.137MG) PO SCH (06:04)
[2020-03-22] MEDS: FUROSEMIDE 100MG/10ML VIAL (J1940) IV SCH (06:05)
[2020-03-22] MEDS: SLF 3 ML SYR IV SCH ×3 (06:05→22:05)
[2020-03-22 06:47] LABS: HEMATOCRIT 38.3 % (42.0-52.0); HEMOGLOBIN 11.7 g/dl (13.5-17.5); MEAN CORPUSCULAR HEMOGLOBIN 26.9 pg (27.0-33.0); MEAN CORPUSCULAR HGB CONC 30.5 g/dl (32.0-36.5); PLATELET COUNT, AUTOMATED 202 10^3/uL (150-450); RED BLOOD COUNT 4.35 10^6/uL (4.30-6.10); WHITE BLOOD COUNT 6.4 10^3/uL (4.0-10.0)
[2020-03-22 07:15] LABS: CALCIUM LEVEL 9.3 MG/DL (8.8-10.2); CREATININE FOR GFR 2.3 MG/DL (0.70-1.30); GLOMERULAR FILTRATION RATE 30.3 (>49); MAGNESIUM LEVEL 2.3 MG/DL (1.8-2.4); POTASSIUM SERUM 3.3 MEQ/L (3.5-5.1)
[2020-03-22] MEDS: **hydrALAZINE** 10 MG TAB PO SCH ×3 (09:00→21:00)
[2020-03-22] MEDS: HumuLIN N INSULIN (NovoLIN N) PER UNIT SC SCH ×2 (09:12→21:31)
[2020-03-22] MEDS: FAMOTIDINE 20 MG TAB PO SCH ×2 (09:13→21:30)
[2020-03-22] MEDS: HumaLOG INSULIN (NovoLOG) PER UNIT SC SCH ×4 (09:13→21:00)
[2020-03-22] MEDS: CALCITRIOL 0.25 MCG CAP (S0169) PO SCH (09:13)
[2020-03-22] MEDS: MULTIVITAMINS/MINERALS THERAP 1 TAB PO SCH (09:14)
[2020-03-22] MEDS: SPIRONOLACTONE 50 MG TAB PO SCH ×2 (09:14→16:08)
[2020-03-22] MEDS: APIXABAN 5 MG TAB (ELIQUIS) PO SCH ×2 (09:14→21:30)
[2020-03-22] MEDS: ISOSORBIDE DIN. (ISORDIL) 20 MG TAB PO SCH ×3 (09:14→21:00)
[2020-03-22] MEDS: OCUVITE 1 TAB PO SCH ×2 (09:17→21:30)
[2020-03-22] MEDS: POTASSIUM CHLORIDE 10 MEQ SR TABLET PO SCH ×2 (09:18→21:29)
[2020-03-22] MEDS ORDERED: POTASSIUM CHLORIDE 10 MEQ SR TABLET PO ONE (10:00)
[2020-03-22] MEDS ORDERED: CALCIUM GLUCONATE 1,000 MG in D5W MINI-BAG PLUS 100 ML IV ONE (10:15)
[2020-03-22] MEDS ORDERED: metOLazone 5 MG TAB PO ONE (13:00)
--- NOTE | 2020-03-22 13:24 | IPNPDOC ---
Date Seen The patient was seen on 03/22/20. Progress Note SUBJECTIVE: still w episodes of bradycardia asx , chronic afib, but denies dizziness,lightheadedness, chest pain, pressure, tightness, sob. OBJECTIVE PHYSICAL EXAMINATION: VITAL SIGNS: See below GENERAL APPEARANCE: Disheveled, multiple excoriations on left anterior chest b/l UE. HEENT: Positive JVD, no thyromegaly or cervical lymphadenopathy. no stridor thick neck CARDIOVASCULAR: Irregularly irregular S1, S2, positive S3. LUNGS: diminished b/l coarse rhonchi ABDOMEN: Obese, nontender,distended, positive bowel sounds 4 quadrants EXTREMITIES: Right BKA, left AKA 2+ edema on thighs and sacrum LABORATORY DATA: See below. IMAGING: See below CXR: INDICATION: DYSPNEA/COUGH. COMPARISON: Comparison chest x-ray 24 January 2020. TECHNIQUE: Portable upright AP chest radiograph. FINDINGS: The lungs are well inflated and free of infiltrate. Pleural angles are sharp. Heart size is normal. Pulmonary vasculature is not increased. There is evidence of a large right pleural effusion, increased in size from the January 24, 2020 prior study. There is some slight shift of the mediastinum to the left. Cardiomegaly is observed. The patient is rotated somewhat to the right. Pulmonary vascular congestion is seen. No left pleural effusion is seen. IMPRESSION: Large right pleural effusion with shift of the mediastinum to the left. Cardiomegaly and vascular congestion. Prior median sternotomy.. <Electronically signed by Aquilino Cruz > 03/18/20 1125 RENAL ULTRASOUND: INDICATION: RENAL FAILURE. COMPARISON: None. TECHNIQUE: Urinary tract sonography. FINDINGS: Exam quality is profoundly limited due to patient body habitus and inability to fully cooperate with positioning needs. No abnormality is noted in the region of the urinary bladder. Emptying ureteral jets could not be seen. Incidental note is made right pleural effusion. Kidneys are less than optimally seen.. There is no evidence of hydronephrosis or hydroureter as visualized.. The right kidney measures 9.8 x 4.8 x 5.6 cm. Left renal dimensions are 11.1 x 5.8 x 6.9 cm. IMPRESSION: Extremely limited image quality. No hydronephrosis. Kidneys less than optimally seen.. <Electronically signed by Aquilino Cruz > 03/18/20 1333 MICROBIOLOGY: Please see below. ASSESSMENT: 69-year-old male with history of systolic and diastolic congestive heart failure, ejection fraction of 20% on 01/24/[address] Bunn, not on entresto due to financial issues. Type 2 diabetes, hypertension, obesity, hypothyroidism, peripheral vascular disease s/p right AKA, s/p left BKA, wheelchair bound, dyslipidemia, CAD, CABG, chronic atrial fibrillation, reflux, chronic kidney disease stage 3-4, presents to the emergency room with increasing shortness of breath, abdominal distention, 30 pound weight gain without fever, chills, chest pain, pressure, tightness, lightheadedness, dizziness, nausea, vomiting, diarrhea, dysuria, urgency, frequency, changes in appetite. He admits to having 3-4 pillow orthopnea. Based on his right side but with worsening shortness of breath prompting him to sit up for the past few days. The patient is noncompliant with salt restriction, but says that he usually drinks less than 2 L of water daily. He admits to having a dry cough which is nonproductive. No complaints of near syncope. In the ER he was found to have a large right pleural effusion, elevated BNP over 1999 and acute on chronic renal failure with creatinine of 2.5 from baseline of 1.9. Hospitalist was asked to admit for acute decompensated systolic and diastolic congestive heart failure with acute on chronic kidney disease stage 3-4. Acute on chronic systolic and diastolic congestive heart failure with low ejection fraction 20-25% due to noncompliance with salt and water intake Bradycardia/PVC's Large right pleural effusion S/PTHORACENTESIS Hypertensive controlled Acute on chronic kidney disease stage 3-4 CAD/CABG Chronic atrial fibrillation Dyslipidemia Obesity Insulin-dependent diabetes Hypothyroidism Peripheral vascular disease with right BKA and left AKA CVA reflux Plan: improved fluid status and euvolemic. on home dose of diuretics. refusing to work w physical therapy. per Dr. simpson, pt has repeatedly refused AICD/biventricular pacer. medically optimized. not a candidate for kvng inh/arb due to ckd. molst signed for dnr dni. CODE STATUS dnr/dni Diet consistent carbohydrate, 2 g sodium renal diet dispo: dc in am if stable and cleared by PT. VS, I&O, 24H, Fishbone Vital Signs/I&O Vital Signs Date Time Temp Pulse Resp B/P (MAP) Pulse Ox O2 Delivery O2 Flow Rate FiO2 03/22/20 09:14 138/69 03/22/20 06:00 96.9 58 20 99 Nasal Cannula 2.0 I&O- Last 24 Hours up to 6 AM 03/22/20 06:00 Intake Total 1140 ml Output Total 2125 ml Balance -985 ml Laboratory Data 24H LABS Laboratory Tests 2 03/21/20 17:36: Bedside Glucose (Misc Panel) 235H 03/21/20 20:09: Bedside Glucose (Misc Panel) 195H 03/22/20 06:28: Nucleated Red Blood Cells % (auto) 0.0, Anion Gap 11, Glomerular Filtration Rate 30.3L, Calcium Level 9.3, Magnesium Level 2.3 03/22/20 11:19: Bedside Glucose (Misc Panel) 143H CBC/BMP Laboratory Tests 03/22/20 06:28 Microbiology Microbiology 03/18/20 Acid Fast Stain, Received Pending 03/18/20 Mycobacterial Culture, Received Pending 03/18/20 Fungal Smear, Received Pending 03/18/20 Fungal Culture, Received Pending 03/18/20 Gram Stain - Final, Complete 03/18/20 Body Fluid Culture - Final, Complete 03/18/20 Respiratory Virus Panel (PCR) ([facility]) - Final, Complete 03/18/20 Blood Culture - Preliminary, Resulted No Growth after 72 hours. All specime... 03/18/20 Blood Culture - Preliminary, Resulted No Growth after 72 hours. All specime... AUSTYN SILVA MD Mar 22, 2020 13:04
[2020-03-22 14:00] VITALS: BP 129/66
[2020-03-22] MEDS: FUROSEMIDE injection 250 MG in D5W 225 ML IV SCH (16:07)
[2020-03-22 19:39] LABS: MAGNESIUM LEVEL 2.1 MG/DL (1.8-2.4); POTASSIUM SERUM 3.7 MEQ/L (3.5-5.1)
--- NOTE | 2020-03-22 20:34 | IPN ---
NEPHROLOGY PROGRESS NOTE DATE: 03/22/2020 SUBJECTIVE: The patient was seen and examined at the bedside today morning. He is afebrile, hemodynamically stable. He continues to be on high dose Lasix injections and oral Metolazone with Spironolactone. His renal function is slowly improving. However despite the aggressive diuretics his weight is not significantly getting better. He still has persistent edema of the lower extremities, abdominal wall edema and mild persistent shortness of breath. OBJECTIVE: VITAL SIGNS: Temperature is 98.1 degrees Fahrenheit, blood pressure 129/66, pulse is 57, respiratory rate of 20, saturating 92% on nasal cannula at 2 liters. INTAKE AND OUTPUT: Urine output recorded as 1.7 liters yesterday, 375 mL so far today. He has been having incontinent voids as well. Weight in the bed scale is 140 kg which is the same as yesterday. PHYSICAL EXAMINATION: GENERAL APPEARANCE: The patient is awake, alert, oriented x3, morbidly obese, sitting up in the bed. HEAD AND NECK: Extraocular muscles intact. Pupils are equally round and reactive to light. Mucous membranes are moist. Neck is supple. There is mildly elevated jugular venous distention. CARDIOVASCULAR: S1, S2, regular rate. EXTREMITIES: Generalized anasarca was noted. RESPIRATORY: Mildly decreased breath sounds at the bases, otherwise no active rales or rhonchi. ABDOMEN: Obese, distended. Abdominal wall edema all over was noted. I could not appreciate any organomegaly. GENITOURINARY: I could not palpate his bladder. MUSCULOSKELETAL: He has a right above the knee amputation, left below the knee amputation. IMPORT EXPORT AGENT: No focal deficits. Power is 5/5 in all extremities. LAB REVIEW: CBC showed a WBC of 6.4, hemoglobin 11.7, platelet count 202. BMP showed sodium of 139, potassium 3.3, chloride 98, bicarbonate 30, BUN 66, creatinine is 2.3. Magnesium is 2.3. CURRENT INPATIENT MEDICATIONS: The patient's medications were all reviewed by myself. He was given an extra dose of potassium, 40 mEq in addition to 40 mEq twice daily dose. His Spironolactone was changed to 50 mg twice daily yesterday. I have stopped his IV Lasix injections, and I have started him on a Lasix drip at 0.1 mg per kg per hour. ASSESSMENT AND PLAN: 1. Acute renal failure superimposed on chronic kidney disease - The patient has cardiorenal syndrome. He is currently being diuresed with high dose Lasix injections, however I am starting him on a Lasix drip. He was also given a dose of oral Metolazone. Continue Spironolactone as well. 2. Hypokalemia it is secondary to aggressive diuresis and the use of Metolazone. His Spironolactone dose was increased to 50 mg p.o. twice daily. If needed, dose can be further increased tomorrow. Extra dose of potassium was given. Continue current dose of Potassium Chloride 40 mEq p.o. twice daily. 3. Acute decompensated systolic congestive heart failure - The patient has generalized anasarca. Continue diuretic regimen as mentioned above. Continue to monitor intake and output. 4. Hypertension blood pressure is controlled with high dose diuretics, Hydralazine 10 mg twice daily and Isosorbide 20 mg p.o. three times daily.
[2020-03-22] MEDS: traZODone 50 MG TAB PO SCH (21:29)
[2020-03-22] MEDS: ACETAMINOPHEN 500 MG TAB PO SCH (21:30)
[2020-03-22] MEDS: ATORVASTATIN 20 MG TAB PO SCH (21:30)
[2020-03-22 22:00] VITALS: BP 128/69
[2020-03-23] VITALS (7 sets, daily range): BP systolic 123–133; BP diastolic 58–67; O2SAT 94–98
[2020-03-23] MEDS: POLYTRIM OPTH DROPS 10ML OD SCH ×4 (02:46→20:38)
[2020-03-23] MEDS: LEVOTHYROXINE 137MCG TABLET (0.137MG) PO SCH (05:27)
[2020-03-23] MEDS: SLF 3 ML SYR IV SCH ×3 (05:27→22:00)
[2020-03-23 06:39] LABS: HEMATOCRIT 37.2 % (42.0-52.0); HEMOGLOBIN 11.4 g/dl (13.5-17.5); MEAN CORPUSCULAR HEMOGLOBIN 26.7 pg (27.0-33.0); MEAN CORPUSCULAR HGB CONC 30.6 g/dl (32.0-36.5); MEAN CORPUSCULAR VOLUME 87.1 fl (80.0-96.0); PLATELET COUNT, AUTOMATED 200 10^3/uL (150-450); RED BLOOD COUNT 4.27 10^6/uL (4.30-6.10); WHITE BLOOD COUNT 6.5 10^3/uL (4.0-10.0)
[2020-03-23 07:06] LABS: CALCIUM LEVEL 9.5 MG/DL (8.8-10.2); CREATININE FOR GFR 2.26 MG/DL (0.70-1.30); MAGNESIUM LEVEL 2.3 MG/DL (1.8-2.4); POTASSIUM SERUM 3.4 MEQ/L (3.5-5.1)
[2020-03-23] MEDS: HumuLIN N INSULIN (NovoLIN N) PER UNIT SC SCH ×2 (07:51→20:30)
--- NOTE | 2020-03-23 08:05 | REP ---
INDICATION: sob. COMPARISON: Comparison chest x-ray 21 March 2020. TECHNIQUE: Portable upright AP chest radiograph. FINDINGS: There is blunting of the right lateral pleural angle indicating right pleural effusion. This appears somewhat more prominent than the 21 March study. Cardiomegaly with median sternotomy wires again seen. EKG monitoring electrodes are noted. No new infiltrate is seen. The left pleural angle is sharp.. IMPRESSION: Right pleural effusion somewhat increased from 21 March 2020. Moderate to marked cardiomegaly again noted. Mild vascular congestion. CHF pattern.. <Electronically signed by Aquilino Cruz > 03/23/20 0801
[2020-03-23] MEDS: **hydrALAZINE** 10 MG TAB PO SCH ×3 (09:00→20:21)
[2020-03-23] MEDS: ISOSORBIDE DIN. (ISORDIL) 20 MG TAB PO SCH ×3 (09:00→20:22)
[2020-03-23] MEDS: HumaLOG INSULIN (NovoLOG) PER UNIT SC SCH ×4 (09:27→20:28)
[2020-03-23] MEDS: CALCITRIOL 0.25 MCG CAP (S0169) PO SCH (09:27)
[2020-03-23] MEDS: MULTIVITAMINS/MINERALS THERAP 1 TAB PO SCH (09:28)
[2020-03-23] MEDS: OCUVITE 1 TAB PO SCH ×2 (09:28→20:41)
[2020-03-23] MEDS: FAMOTIDINE 20 MG TAB PO SCH ×2 (09:28→20:37)
[2020-03-23] MEDS: SPIRONOLACTONE 50 MG TAB PO SCH ×2 (09:28→17:12)
[2020-03-23] MEDS: APIXABAN 5 MG TAB (ELIQUIS) PO SCH ×2 (09:29→20:38)
[2020-03-23] MEDS: POTASSIUM CHLORIDE 10 MEQ SR TABLET PO SCH ×3 (09:36→20:38)
--- NOTE | 2020-03-23 10:35 | IPNPDOC ---
Date Seen The patient was seen on 03/23/20. Progress Note SUBJECTIVE: jincreased right pleural effusion, but pt says his sob is better than when he first came in. now on lasix iv gtt managed by nephrology. cough is decreased, white sputum no fever or chills. denies cp, pressure, tightness, lightheadedness. pt has refused to work with physical therapy x 4 days. OBJECTIVE PHYSICAL EXAMINATION: weight: reviewed I/O: reviewed VITAL SIGNS: See below GENERAL APPEARANCE: aaox 3 dry mm Disheveled, multiple excoriations on left anterior chest b/l UE. no use of respiratory acc mm 45 degree bed elevation. able to complete his sentencees HEENT: Positive JVD, no thyromegaly or cervical lymphadenopathy. no stridor thick neck poor dentition chapped lips CARDIOVASCULAR: Irregularly irregular S1, S2, positive S3. LUNGS: diminished b/l coarse rhonchi ABDOMEN: Obese, nontender,distended, positive bowel sounds 4 quadrants EXTREMITIES: Right BKA, left AKA 1+ edema on thighs and sacrum LABORATORY DATA: See below. IMAGING: See below CXR: INDICATION: DYSPNEA/COUGH. COMPARISON: Comparison chest x-ray 24 January 2020. TECHNIQUE: Portable upright AP chest radiograph. FINDINGS: The lungs are well inflated and free of infiltrate. Pleural angles are sharp. Heart size is normal. Pulmonary vasculature is not increased. There is evidence of a large right pleural effusion, increased in size from the January 24, 2020 prior study. There is some slight shift of the mediastinum to the left. Cardiomegaly is observed. The patient is rotated somewhat to the right. Pulmonary vascular congestion is seen. No left pleural effusion is seen. IMPRESSION: Large right pleural effusion with shift of the mediastinum to the left. Cardiomegaly and vascular congestion. Prior median sternotomy.. <Electronically signed by Aquilino Cruz > 03/18/20 1125 RENAL ULTRASOUND: INDICATION: RENAL FAILURE. COMPARISON: None. TECHNIQUE: Urinary tract sonography. FINDINGS: Exam quality is profoundly limited due to patient body habitus and inability to fully cooperate with positioning needs. No abnormality is noted in the region of the urinary bladder. Emptying ureteral jets could not be seen. Incidental note is made right pleural effusion. Kidneys are less than optimally seen.. There is no evidence of hydronephrosis or hydroureter as visualized.. The right kidney measures 9.8 x 4.8 x 5.6 cm. Left renal dimensions are 11.1 x 5.8 x 6.9 cm. IMPRESSION: Extremely limited image quality. No hydronephrosis. Kidneys less than optimally seen.. <Electronically signed by Aquilino Cruz > 03/18/20 9390 MICROBIOLOGY: Please see below. ASSESSMENT: 69-year-old male with history of systolic and diastolic congestive heart failure, ejection fraction of 20% on 01/24/[address] Bunn, not on entresto due to financial issues. Type 2 diabetes, hypertension, obesity, hypothyroidism, peripheral vascular disease s/p right AKA, s/p left BKA, wheelchair bound, dyslipidemia, CAD, CABG, chronic atrial fibrillation, reflux, chronic kidney disease stage 3-4, presents to the emergency room with increasing shortness of breath, abdominal distention, 30 pound weight gain without fever, chills, chest pain, pressure, tightness, lightheadedness, dizziness, nausea, vomiting, diarrhea, dysuria, urgency, frequency, changes in appetite. He admits to having 3-4 pillow orthopnea. Based on his right side but with worsening shortness of breath prompting him to sit up for the past few days. The patient is noncompliant with salt restriction, but says that he usually drinks less than 2 L of water daily. He admits to having a dry cough which is nonproductive. No complaints of near syncope. In the ER he was found to have a large right pleural effusion, elevated BNP over 1999 and acute on chronic renal failure with creatinine of 2.5 from baseline of 1.9. Hospitalist was asked to admit for acute decompensated systolic and diastolic congestive heart failure with acute on chronic kidney disease stage 3-4. Acute on chronic systolic and diastolic congestive heart failure with low ejection fraction 20-25% due to noncompliance with salt and water intake -clinically improved but not back to baseline -thoracentesis 03/20/20 large pleural effusion s/p 1150 ml -per Dr. Phillips, pt refused AICD in 2013 -medically managed with lasix iv gtt by nephrology due to recent +balance despite iv lasix. Large pleural effusion, resolved -s/p 03/20/20 thoracentesis 1150 ml fluid removed -now with worsening cxr and re-accumulation of effusion -changed to lasix iv gtt 03/22/20 by nephrology to improv perfusion -due to decompensated combined systolic and diastolic chf. Hypertension -controlled Acute on chronic kidney disease stage 3-4 -Due to decompensated congestive heart failure from noncompliance with salt and water restriction -Renal ultrasound has no hydronephrosis - Consulted nephrology who is managing pt's fluid balance -Avoid nonsteroidal anti-inflammatories and other nephrotoxins. -Renally dose all medications CAD/CABG -Troponin is negative -EKG has no acute ischemic changes -Telemetry monitoring -Resumed all home medications Chronic atrial fibrillation -Rate controlled -eliquis renally dosed Dyslipidemia -Resumed statin Obesity -Complicating care Insulin-dependent diabetes -Consistent carbohydrate renal diet 2 g sodium restriction -Avoid oral hypoglycemics Hypothyroidism -Elevated TSH -increased synthroid Peripheral vascular disease with right BKA and left AKA -Wheelchair-bound at baseline -PT OT for upper body strengthening CVA -on eliquis reflux -Chronic -On PPI CODE STATUS full code Diet consistent carbohydrate, 2 g sodium renal diet disposition: pending clinical improvement on iv lasix managed by nephrology. 2-3 days. VS, I&O, 24H, [facility] Vital Signs/I&O Vital Signs Date Time Temp Pulse Resp B/P (MAP) Pulse Ox O2 Delivery O2 Flow Rate FiO2 03/23/20 09:00 128/55 03/23/20 06:00 97.2 69 20 96 Nasal Cannula 2.0 I&O- Last 24 Hours up to 6 AM 03/23/20 06:00 Intake Total 1260 ml Output Total 925 ml Balance 335 ml Laboratory Data 24H LABS Laboratory Tests 2 03/22/20 11:19: Bedside Glucose (Misc Panel) 143H 03/22/20 16:34: Bedside Glucose (Misc Panel) 158H 03/22/20 19:04: Whole Blood Ionized Calcium 4.7, Magnesium Level 2.1 03/22/20 20:52: Bedside Glucose (Misc Panel) 230H 03/23/20 05:35: Nucleated Red Blood Cells % (auto) 0.0, Anion Gap 7L, Glomerular Filtration Rate 31.0L, Calcium Level 9.5, Magnesium Level 2.3 CBC/BMP Laboratory Tests 03/22/20 19:04 03/23/20 05:35 Microbiology Microbiology 03/18/20 Acid Fast Stain, Received Pending 03/18/20 Mycobacterial Culture, Received Pending 03/18/20 Fungal Smear, Received Pending 03/18/20 Fungal Culture, Received Pending 03/18/20 Gram Stain - Final, Complete 03/18/20 Body Fluid Culture - Final, Complete 03/18/20 Respiratory Virus Panel (PCR) ([facility]) - Final, Complete 03/18/20 Blood Culture - Preliminary, Resulted No Growth after 72 hours. All specime... 03/18/20 Blood Culture - Preliminary, Resulted No Growth after 72 hours. All specime... AUSTYN SILVA MD Mar 23, 2020 10:30
[2020-03-23] MEDS: FUROSEMIDE injection 250 MG in D5W 225 ML IV SCH (12:42)
[2020-03-23 14:58] LABS: ABG BASE EXCESS 7.4 (-2.0-2.0); ABG HCO3 32.9 MEQ/L (22.0-26.0); ABG PARTIAL PRESSURE CO2 49.6 mmHg (35.0-45.0); ABG PARTIAL PRESSURE O2 79.2 mmHg (75.0-100.0); ABG STANDARD HCO3 31.2 MEQ/L (22.0-26.0); ABG TOTAL CO2 34.4 MEQ/L (23.0-31.0); ABG pH (ARTERIAL) 7.439 UNITS (7.350-7.450)
[2020-03-23] MEDS: ATORVASTATIN 20 MG TAB PO SCH (20:37)
[2020-03-23] MEDS: ACETAMINOPHEN 500 MG TAB PO SCH (20:37)
[2020-03-24] MEDS: POLYTRIM OPTH DROPS 10ML OD SCH ×4 (01:45→20:52)
[2020-03-24] MEDS: FUROSEMIDE injection 250 MG in D5W 225 ML IV SCH ×2 (04:09→18:56)
[2020-03-24 06:00] VITALS: BP 141/70
[2020-03-24] MEDS: SLF 3 ML SYR IV SCH ×3 (06:00→22:00)
[2020-03-24 06:15] LABS: HEMATOCRIT 39.7 % (42.0-52.0); HEMOGLOBIN 12.1 g/dl (13.5-17.5); MEAN CORPUSCULAR HEMOGLOBIN 26.9 pg (27.0-33.0); MEAN CORPUSCULAR HGB CONC 30.5 g/dl (32.0-36.5); MEAN CORPUSCULAR VOLUME 88.2 fl (80.0-96.0); PLATELET COUNT, AUTOMATED 222 10^3/uL (150-450); WHITE BLOOD COUNT 6.8 10^3/uL (4.0-10.0)
[2020-03-24] MEDS: LEVOTHYROXINE 137MCG TABLET (0.137MG) PO SCH (06:17)
[2020-03-24 06:37] LABS: CALCIUM LEVEL 9.9 MG/DL (8.8-10.2); CREATININE FOR GFR 2.31 MG/DL (0.70-1.30); GLOMERULAR FILTRATION RATE 30.2 (>49); POTASSIUM SERUM 4.2 MEQ/L (3.5-5.1)
--- NOTE | 2020-03-24 07:57 | IPN ---
PROGRESS NOTE DATE: 03/23/2020 SUBJECTIVE: Phu is seen and examined this morning at the bedside. He reports that he has been voiding frequently but has been incontinent of voids (condom catheter slips off). He reports his shortness of breath and his swelling have both improved and he asks about discharge plans. PHYSICAL EXAMINATION: VITAL SIGNS: Temperature is 97.9, pulse is 65, respiratory rate is 19, blood pressure is 130/58, saturating 94% on 2 liters nasal cannula. INTAKE AND OUTPUT: Intake yesterday was 1410, urine output was recorded as 6, incontinent voids, plus 375 ml in his catheter and his weight is down 3 kg to 137. GENERAL APPEARANCE: Patient is seen lying in bed, morbidly obese male, disheveled, appears older than stated age. HEENT: Extraocular muscles are intact. Tongue is moist. NECK: Jugular veins could not be assessed secondary to body habitus. HEART: Heart sounds are irregularly irregular. There is an audible murmur. EXTREMITIES: There is 2+ edema in the dependent area and 1+ edema of the lower extremities. LUNGS: Symmetric air entry with scattered rhonchus. He is on nasal cannula. There is no accessory muscle use. There is no tachypnea. He is comfortably speaking in full sentences. ABDOMEN: Obese, soft and nontender. There is edema in the abdominal flanks. GENITOURINARY: Urinary incontinence and his condom catheter has slipped off. EXTREMITIES: Right above the knee amputation and left below knee amputation. NEUROLOGIC: No focal deficits. He is oriented x3 and cooperates with physical exam. LABORATORY DATA: Today's laboratory studies shows white count 6.5, hemoglobin 11.4, platelets 200,000, sodium 138, potassium 3.4, bicarbonate 33, BUN 63, creatinine 2.2, magnesium 2.3, ammonia 54. Chest x-ray done this morning shows right pleural effusion and mild vascular congestion/CHF pattern. INPATIENT MEDICATIONS: 1. He continues on Lasix drip at 14 mg an hour. 2. Eliquis 5 mg p.o. b.i.d. 3. Hydralazine. 4. Isordil. 5. His potassium is noted to be increased to 40 mEq p.o. three times a day. 6. His trazodone was discontinued. The remainder of medications are unchanged from yesterday. PROBLEMS: 1. Acute decompensated systolic congestive heart failure. The patient is being diuresed with a Lasix drip at 14 mg an hour (0.1 mg per kg per hour). His weight is down by 3 kilos in the past 24 hours but urine output is not being recorded because he is incontinent of urine. He is also receiving spironolactone and I would continue the current diuretic regimen for another 24 hours. Ongoing CHF pattern and right pleural effusion is noted on his most recent chest x-ray. I am decreasing his oral fluid restriction to 1.5 liters. 2. LIZET on CKD Stage IIIB, borderline Stage IV. It is due to cardiorenal syndrome and decompensated congestive heart failure. Continue IV Lasix along with oral spironolactone and continue oral fluid restriction. Urine output is not being recorded secondary to patient's incontinence. 3. Recurrent right pleural effusion, it is due to decompensated combined left ventricular and right ventricular systolic congestive heart failure (echocardiogram on prior admission January 2020 reviewed). Continue moderate fluid restriction and combination diuretic. His albumin is acceptable at 3.0 so we will not give him albumin at this time. 4. Atrial fibrillation. The patient is anticoagulated with Eliquis and he is rate controlled.
[2020-03-24] MEDS: HumaLOG INSULIN (NovoLOG) PER UNIT SC SCH ×4 (08:57→20:54)
[2020-03-24] MEDS: OCUVITE 1 TAB PO SCH ×2 (08:57→20:52)
[2020-03-24] MEDS: FAMOTIDINE 20 MG TAB PO SCH ×2 (08:58→20:53)
[2020-03-24] MEDS: APIXABAN 5 MG TAB (ELIQUIS) PO SCH ×2 (08:58→20:53)
[2020-03-24] MEDS: MULTIVITAMINS/MINERALS THERAP 1 TAB PO SCH (08:58)
[2020-03-24] MEDS: SPIRONOLACTONE 50 MG TAB PO SCH ×2 (08:58→16:39)
[2020-03-24] MEDS: CALCITRIOL 0.25 MCG CAP (S0169) PO SCH (08:58)
[2020-03-24] MEDS: ISOSORBIDE DIN. (ISORDIL) 20 MG TAB PO SCH ×3 (08:59→21:00)
[2020-03-24] MEDS: HumuLIN N INSULIN (NovoLIN N) PER UNIT SC SCH ×2 (08:59→21:43)
[2020-03-24] MEDS: **hydrALAZINE** 10 MG TAB PO SCH ×3 (08:59→21:00)
[2020-03-24] MEDS ORDERED: CHLOROTHIAZIDE 500 MG VIAL (J1205 PER 1) IV ONE ×2 (09:45→19:45)
[2020-03-24 14:00] VITALS: BP 156/74
--- NOTE | 2020-03-24 19:55 | IPNPDOC ---
Date Seen The patient was seen on 03/24/20. Progress Note SUBJECTIVE: Patient feels improved, on lasix gtt, diuril x 1 dose given as well. Patient is incontinent of urine, difficult to assess without paul in for monitoring. On fluid restriction as well. Denies fever or chills, cp, pressure, tightness, lightheadedness. Encouraging to bring in prosthesis, has been refusing PT. OBJECTIVE: PHYSICAL EXAMINATION: VITAL SIGNS: See below GENERAL APPEARANCE: AAOx3, NAD, resting in bed HEENT: PERrLA, EOM intact NECK: Positive JVD, no thyromegaly or cervical lymphadenopathy. CARDIOVASCULAR: Irregularly irregular S1, S2, positive S3. LUNGS: diminished b/l coarse rhonchi ABDOMEN: Obese, nontender,distended, positive bowel sounds 4 quadrants EXTREMITIES: Right BKA, left AKA 1+ edema on thighs and sacrum NEURO: No focal deficits LABORATORY DATA: See below. IMAGING: CXR 03/23/20: There is blunting of the right lateral pleural angle indicating right pleural effusion. This appears somewhat more prominent than the 21 March study. Cardiomegaly with median sternotomy wires again seen. EKG monitoring electrodes are noted. No new infiltrate is seen. The left pleural angle is sharp.. CXR on admission: Large right pleural effusion with shift of the mediastinum to the left. Cardiomegaly and vascular congestion. Prior median sternotomy. RENAL ULTRASOUND: Extremely limited image quality. No hydronephrosis. Kidneys less than op timally seen. MICROBIOLOGY: Please see below. ASSESSMENT: 69-year-old male with history of systolic and diastolic congestive heart failure, ejection fraction of 20% on 01/24/[address] Bunn, not on entresto due to financial issues. Type 2 diabetes, hypertension, obesity, hypothyroidism, peripheral vascular disease s/p right AKA, s/p left BKA, wheelchair bound, dyslipidemia, CAD, CABG, chronic atrial fibrillation, reflux, chronic kidney disease stage 3-4 admitting for acute decompensated systolic and diastolic congestive heart failure with acute on chronic kidney disease stage 3- 4. PLAN: Acute on chronic systolic and diastolic congestive heart failure (EF 20-25%) due to noncompliance with salt and water intake -Appears to be clinically improving, difficult to assess u/o due to not being able to place paul -Thoracentesis 2/5/21 large pleural effusion s/p 1150 ml -Per Dr. Phillips, pt refused AICD in 2013 -Medically managed with lasix iv gtt, spironolactone, given diruril x 1 today by nephrology due to recent +balance despite iv lasix. -C/w treatment above, fluid restriction, low salt diet, close monitoring of I&O's -F/u repeat BNP in AM Recurrent pleural effusion likely 2/2 to decompensated combined systolic and diastolic chf. -s/p 03/20/20 thoracentesis 1150 ml fluid removed -CXR 03/23/20 above -C/w lasix gtt, treatment above -C/w plan above Acute on chronic kidney disease stage 3-4 likely 2/2 to decompensated congestive heart failure from noncompliance with salt and water restriction -Cr 2.3 (BL 1.7 until 01/2020) -Renal ultrasound has no hydronephrosis -Avoid nonsteroidal anti-inflammatories and other nephrotoxins. -Renally dose all medications -Nephrology following Hypertension -controlled CAD/CABG -Troponin is negative -EKG has no acute ischemic changes -Telemetry monitoring -Resumed all home medications Chronic atrial fibrillation -Rate controlled -eliquis renally dosed Dyslipidemia -Resumed statin Obesity -Complicating care Insulin-dependent diabetes -Consistent carbohydrate renal diet 2 g sodium restriction -Avoid oral hypoglycemics Hypothyroidism -Elevated TSH -increased synthroid Peripheral vascular disease with right BKA and left AKA -Wheelchair-bound at baseline -PT OT for upper body strengthening CVA -on eliquis GERD -Chronic -On PPI DISPOSITION: Refusing PT/OT, attempting to get prosthesis here so perhaps this will convince patient to participate. Plan is home when medically improved hopefully. VS, I&O, 24H, Fishbone Vital Signs/I&O Vital Signs Date Time Temp Pulse Resp B/P (MAP) Pulse Ox O2 Delivery O2 Flow Rate FiO2 03/24/20 16:00 129/62 03/24/20 14:00 97.9 63 19 93 Nasal Cannula 2.0 I&O- Last 24 Hours up to 6 AM 03/24/20 06:00 Intake Total 2206 ml Output Total 495 ml Balance 1711 ml Laboratory Data 24H LABS Laboratory Tests 2 03/23/20 20:25: Bedside Glucose (Misc Panel) 174H 03/24/20 05:33: Nucleated Red Blood Cells % (auto) 0.0, Anion Gap 8, Glomerular Filtration Rate 30.2L, Calcium Level 9.9, Magnesium Level 2.0, Albumin 3.0L 03/24/20 06:45: Bedside Glucose (Misc Panel) 168H 03/24/20 11:48: Bedside Glucose (Misc Panel) 199H 03/24/20 17:01: Bedside Glucose (Misc Panel) 184H CBC/BMP Laboratory Tests 03/24/20 05:33 Microbiology Microbiology 03/18/20 Acid Fast Stain, Received Pending 03/18/20 Mycobacterial Culture, Received Pending 03/18/20 Fungal Smear, Received Pending 03/18/20 Fungal Culture, Received Pending 03/18/20 Gram Stain - Final, Complete 03/18/20 Body Fluid Culture - Final, Complete 03/18/20 Respiratory Virus Panel (PCR) (DONY) - Final, Complete 03/18/20 Blood Culture - Final, Complete NO GROWTH AFTER 5 DAYS 03/18/20 Blood Culture - Final, Complete NO GROWTH AFTER 5 DAYS Current Medications Current Medications Medications (Trade) Dose Ordered Sig/Dianna Route PRN Reason Start Time Stop Time Status Last Admin Dose Admin Acetaminophen (Tylenol Tab) 1,000 mg QHS PO 03/18/20 21:00 03/23/20 20:37 Albuterol Sulfate (Proventil, Ventolin Hfa) 2 puff Q4HP PRN INH wheezing 03/18/20 14:00 Apixaban (Eliquis) 5 mg BID PO 03/18/20 21:00 03/19/20 11:14 DC Apixaban (Eliquis) 5 mg BID PO 03/21/20 10:15 Cancel Apixaban (Eliquis) 5 mg BID PO 03/21/20 21:00 03/24/20 08:58 Aspirin (Ecotrin) 81 mg MoWeFr@0900 PO 03/20/20 09:00 03/20/20 07:50 DC Atorvastatin Calcium (Lipitor) 40 mg QHS PO 03/18/20 21:00 03/23/20 20:37 Calcitriol (Rocaltrol) 0.5 mcg DAILY PO 03/19/20 09:00 03/24/20 08:58 Dextrose (Dextrose 50%) 25 ml ASDIRECTED PRN IV SEE LABEL COMMENTS 03/18/20 14:00 Docusate Sodium (Colace) 100 mg DAILY PRN PO CONSTIPATION 03/18/20 14:00 Famotidine (Pepcid) 20 mg BID PO 03/18/20 21:00 03/24/20 08:58 Furosemide (LASIX injection) 60 mg Q8H IV 03/18/20 21:00 03/19/20 12:21 DC 03/19/20 06:05 Furosemide (LASIX injection) 80 mg Q6H IV 03/19/20 12:00 03/22/20 12:40 DC 03/22/20 06:05 Furosemide 250 mg/ Dextrose 250 ml @ 14 mls/hr [id number] IV 03/22/20 15:00 03/24/20 18:56 Glucagon (Glucagon) 1 mg ASDIRECTED PRN SC SEE LABEL COMMENTS 03/18/20 14:00 Glucose (Glucose) 16 GM ASDIRECTED PRN PO SEE LABEL COMMENTS 03/18/20 14:00 Heparin Sodium (Porcine) (Heparin) 5,000 units BID SQ 03/19/20 09:00 03/19/20 11:14 DC Heparin Sodium (Porcine) (Heparin) 5,000 units BID SQ 03/19/20 21:00 03/21/20 10:14 DC 03/21/20 08:33 Home Med (Med Rec Complete!) ASDIRECTED XX 03/18/20 12:45 03/18/20 12:49 DC Hydralazine HCl (Apresoline) 10 mg TID PO 03/18/20 16:00 03/24/20 08:59 Insulin Human Lispro (HumaLOG INSULIN) SEE PROTOCOL TABLE AC SC 03/18/20 17:30 03/24/20 17:51 Insulin Human Lispro (HumaLOG INSULIN) SEE PROTOCOL TABLE QHS SC 03/18/20 21:00 Insulin Human NPH (HumuLIN NPH INSULIN) 20 units BID SC 03/18/20 21:00 03/24/20 08:59 Isosorbide Dinitrate (Isordil) 20 mg TID PO 03/18/20 16:00 03/24/20 08:59 Levothyroxine Sodium (Synthroid) 137 mcg QAM@0600 PO 03/19/20 06:00 03/24/20 06:17 Magnesium Hydroxide (Milk Of Magnesia) 30 ml DAILY PRN PO CONSTIPATION 03/18/20 14:00 Multivitamins (Ocuvite(I-Sreedhar)) 1 tab BID PO 03/18/20 21:00 03/24/20 08:57 Multivitamins (Theragram-M) 1 tab DAILY PO 03/19/20 09:00 03/24/20 08:58 Polymyxin/ Trimethoprim Sulfate (Polytrim Ophth Drops) 1 drop Q6H OD 03/18/20 14:00 03/24/20 15:03 Potassium Chloride (Micro-K Extencaps) 40 meq BID PO 03/20/20 09:00 03/23/20 07:22 DC 03/22/20 21:29 Potassium Chloride (Micro-K Extencaps) 40 meq DAILY PO 03/25/20 09:00 Potassium Chloride (Micro-K Extencaps) 40 meq TID PO 03/23/20 09:00 03/24/20 07:31 DC 03/23/20 20:38 Sodium Chloride (Saline Lock Flush) 2 ml ASDIRECTED PRN IV SEE LABEL COMMENTS 03/18/20 18:00 03/21/20 10:15 DC Sodium Chloride (Saline Lock Flush) 2 ml ASDIRECTED PRN IV SEE LABEL COMMENTS 03/19/20 10:30 Sodium Chloride (Saline Lock Flush) 2 ml SLF IV 03/18/20 22:00 03/21/20 10:15 DC 03/21/20 06:00 Sodium Chloride (Saline Lock Flush) 2 ml SLF IV 03/19/20 14:00 03/23/20 13:30 Spironolactone (Aldactone) 25 mg QAM PO 03/19/20 09:00 03/20/20 09:47 DC 03/20/20 09:03 Spironolactone (Aldactone) 50 mg BID@0900,1700 PO 03/21/20 17:00 03/24/20 16:39 Spironolactone (Aldactone) 50 mg QAM PO 03/21/20 09:00 03/21/20 12:11 DC 03/21/20 08:31 Trazodone HCl (Desyrel) 150 mg QHS PO 03/18/20 21:00 03/23/20 14:20 DC 03/22/20 21:29 Allergies Coded Allergies: warfarin (Verified Allergy, Mild, rash, 01/24/20) clonidine (Verified Allergy, Unknown, low HR , 03/18/20) Shaneka Reyes MD Mar 24, 2020 19:55
[2020-03-24] MEDS: ATORVASTATIN 20 MG TAB PO SCH (20:52)
[2020-03-24] MEDS: ACETAMINOPHEN 500 MG TAB PO SCH (20:53)
[2020-03-24 22:00] VITALS: BP 132/82; O2SAT 95
[2020-03-25] MEDS: POLYTRIM OPTH DROPS 10ML OD SCH ×4 (01:42→20:33)
[2020-03-25] MEDS: SLF 3 ML SYR IV SCH ×3 (05:31→22:30)
[2020-03-25] MEDS: LEVOTHYROXINE 137MCG TABLET (0.137MG) PO SCH (05:31)
[2020-03-25 06:00] VITALS: BP 152/65
[2020-03-25 06:36] LABS: HEMOGLOBIN 11.8 g/dl (13.5-17.5); MEAN CORPUSCULAR HEMOGLOBIN 26.5 pg (27.0-33.0); MEAN CORPUSCULAR HGB CONC 30.3 g/dl (32.0-36.5); MEAN CORPUSCULAR VOLUME 87.4 fl (80.0-96.0); PLATELET COUNT, AUTOMATED 220 10^3/uL (150-450); RED BLOOD COUNT 4.46 10^6/uL (4.30-6.10); WHITE BLOOD COUNT 6.4 10^3/uL (4.0-10.0)
[2020-03-25 07:05] LABS: CALCIUM LEVEL 10.1 MG/DL (8.8-10.2); CREATININE FOR GFR 2.23 MG/DL (0.70-1.30); GLOMERULAR FILTRATION RATE 31.4 (>49); MAGNESIUM LEVEL 1.8 MG/DL (1.8-2.4); POTASSIUM SERUM 3.4 MEQ/L (3.5-5.1)
[2020-03-25] MEDS: HumaLOG INSULIN (NovoLOG) PER UNIT SC SCH ×4 (07:30→20:34)
--- NOTE | 2020-03-25 08:05 | REP ---
INDICATION: re-eval pleural effusion COMPARISON: 03/23/2020 TECHNIQUE: Portable AP view of the chest FINDINGS: Cardiomegaly is again appreciated and essentially unchanged. Evidence for prior sternotomy and CABG again noted. Increased pulmonary vasculature with cephalization as well as moderate right pleural effusion and underlying lower lobe atelectasis/consolidation essentially unchanged and consistent with CHF as well as pneumonia. No pneumothorax. IMPRESSION: No significant change from prior examination with findings suggesting CHF. Differential diagnosis includes pneumonia. <Electronically signed by Seth Sepulveda > 03/25/20 0801
[2020-03-25] MEDS: HumuLIN N INSULIN (NovoLIN N) PER UNIT SC SCH ×2 (08:30→20:35)
[2020-03-25] MEDS: SPIRONOLACTONE 50 MG TAB PO SCH (08:30)
[2020-03-25] MEDS: FAMOTIDINE 20 MG TAB PO SCH ×2 (08:30→20:33)
[2020-03-25] MEDS: POTASSIUM CHLORIDE 10 MEQ SR TABLET PO SCH (08:30)
[2020-03-25] MEDS: CALCITRIOL 0.25 MCG CAP (S0169) PO SCH (08:30)
[2020-03-25] MEDS: APIXABAN 5 MG TAB (ELIQUIS) PO SCH ×2 (08:31→20:33)
[2020-03-25] MEDS: MULTIVITAMINS/MINERALS THERAP 1 TAB PO SCH (08:31)
[2020-03-25] MEDS: **hydrALAZINE** 10 MG TAB PO SCH ×3 (08:33→20:27)
[2020-03-25] MEDS: ISOSORBIDE DIN. (ISORDIL) 20 MG TAB PO SCH ×3 (08:34→20:27)
[2020-03-25] MEDS: OCUVITE 1 TAB PO SCH ×2 (08:44→20:33)
--- NOTE | 2020-03-25 09:25 | IPNPDOC ---
Date Seen The patient was seen on 03/25/20. Progress Note SUBJECTIVE: No events overnight. Denies fever or chills, cp, pressure, tightness, lightheadedness. Will tb with PT to see if prosthesis received by . OBJECTIVE: PHYSICAL EXAMINATION: VITAL SIGNS: See below GENERAL APPEARANCE: AAOx3, NAD, resting in bed HEENT: PERrLA, EOM intact NECK: Positive JVD, no thyromegaly or cervical lymphadenopathy. CARDIOVASCULAR: Irregularly irregular S1, S2, positive S3. LUNGS: diminished b/l coarse rhonchi ABDOMEN: Obese, nontender,distended, positive bowel sounds 4 quadrants EXTREMITIES: Right BKA, left AKA 1+ edema b/l lower ext to thighs NEURO: No focal deficits LABORATORY DATA: See below. IMAGING: CXR 03/25/20: No significant change from prior examination with findings suggesting CHF. Differential diagnosis includes pneumonia. CXR 03/23/20: There is blunting of the right lateral pleural angle indicating right pleural effusion. This appears somewhat more prominent than the 21 March study. Cardiomegaly with median sternotomy wires again seen. EKG monitoring electrodes are noted. No new infiltrate is seen. The left pleural angle is sharp.. CXR on admission: Large right pleural effusion with shift of the mediastinum to the left. Cardiomegaly and vascular congestion. Prior median sternotomy. RENAL ULTRASOUND: Extremely limited image quality. No hydronephrosis. Kidneys less than optimally seen. MICROBIOLOGY: Please see below. ASSESSMENT: 69-year-old male with history of systolic and diastolic congestive heart failure, ejection fraction of 20% on 01/24/[address] Bunn, not on entresto due to financial issues. Type 2 diabetes, hypertension, obesity, hypothyroidism, peripheral vascular disease s/p right AKA, s/p left BKA, wheelchair bound, dyslipidemia, CAD, CABG, chronic atrial fibrillation, reflux, chronic kidney disease stage 3-4 admitting for acute decompensated systolic and diastolic congestive heart failure with acute on chronic kidney disease stage 3- 4. PLAN: Acute on chronic systolic and diastolic congestive heart failure (EF 20-25%) due to noncompliance with salt and water intake -Appears to be clinically improving, difficult to assess u/o due to not being able to place pual -Thoracentesis 03/20/20 large pleural effusion s/p 1150 ml -Per Dr. Phillips, pt refused AICD in 2013 -Medically managed with lasix iv gtt, spironolactone, diruril by nephrology -C/w treatment above, fluid restriction, low salt diet, close monitoring of I&O's -F/u daily BNP Recurrent pleural effusion likely 2/2 to decompensated combined systolic and diastolic chf. -s/p 03/20/20 thoracentesis 1150 ml fluid removed -CXR 03/25/20 above, remains on 2 L NC- per patient not on home O2 -C/w lasix gtt, treatment above -C/w plan above Acute on chronic kidney disease stage 3-4 likely 2/2 to decompensated congestive heart failure from noncompliance with salt and water restriction -Cr 2.23 (BL 1.7 until 01/2020) -Renal ultrasound has no hydronephrosis -Avoid nonsteroidal anti-inflammatories and other nephrotoxins. -Renally dose all medications -Nephrology following Ambulatory dysfunction -Wears prosthesis at baseline, refusing PT here -Awaiting to bring prosthesis and hopefully he will participate. Hypertension -controlled CAD/CABG -Troponin is negative -EKG has no acute ischemic changes -Telemetry monitoring -Resumed all home medications Chronic atrial fibrillation -Rate controlled -eliquis renally dosed Dyslipidemia -Resumed statin Obesity -Complicating care Insulin-dependent diabetes -Consistent carbohydrate renal diet 2 g sodium restriction -Avoid oral hypoglycemics Hypothyroidism -Elevated TSH -increased synthroid Peripheral vascular disease with right BKA and left AKA -Wheelchair-bound at baseline -PT OT for upper body strengthening CVA -on eliquis GERD -Chronic -On PPI DISPOSITION: Prosthesis to be brought in by for patient to hopefully p articipate with PT/OT. Plan is home when medically improved hopefully. VS, I&O, 24H, Fishbone Vital Signs/I&O Vital Signs Date Time Temp Pulse Resp B/P (MAP) Pulse Ox O2 Delivery O2 Flow Rate FiO2 03/25/20 08:34 122/68 03/25/20 06:00 98.0 63 20 95 Nasal Cannula 2.0 I&O- Last 24 Hours up to 6 AM 03/25/20 06:00 Intake Total 2046 ml Output Total 1575 ml Balance 471 ml Laboratory Data 24H LABS Laboratory Tests 2 03/24/20 11:48: Bedside Glucose (Misc Panel) 199H 03/24/20 17:01: Bedside Glucose (Misc Panel) 184H 03/24/20 20:44: Bedside Glucose (Misc Panel) 187H 03/25/20 06:06: Bedside Glucose (Misc Panel) 176H 03/25/20 06:14: Nucleated Red Blood Cells % (auto) 0.0, Anion Gap 4L, Glomerular Filtration Rate 31.4L, Calcium Level 10.1, Magnesium Level 1.8, HY-Ogt-H-Type Natriuretic Peptide 5108H CBC/BMP Laboratory Tests 03/25/20 06:14 Microbiology Microbiology 03/18/20 Acid Fast Stain, Received Pending 03/18/20 Mycobacterial Culture, Received Pending 03/18/20 Fungal Smear, Received Pending 03/18/20 Fungal Culture, Received Pending 03/18/20 Gram Stain - Final, Complete 03/18/20 Body Fluid Culture - Final, Complete 03/18/20 Respiratory Virus Panel (PCR) (DONY) - Final, Complete 03/18/20 Blood Culture - Final, Complete NO GROWTH AFTER 5 DAYS 03/18/20 Blood Culture - Final, Complete NO GROWTH AFTER 5 DAYS Current Medications Current Medications Medications (Trade) Dose Ordered Sig/Dianna Route PRN Reason Start Time Stop Time Status Last Admin Dose Admin Acetaminophen (Tylenol Tab) 1,000 mg QHS PO 03/18/20 21:00 03/24/20 20:53 Albuterol Sulfate (Proventil, Ventolin Hfa) 2 puff Q4HP PRN INH wheezing 03/18/20 14:00 Apixaban (Eliquis) 5 mg BID PO 03/18/20 21:00 03/19/20 11:14 DC Apixaban (Eliquis) 5 mg BID PO 03/21/20 10:15 Cancel Apixaban (Eliquis) 5 mg BID PO 03/21/20 21:00 03/25/20 08:31 Aspirin (Ecotrin) 81 mg MoWeFr@0900 PO 03/20/20 09:00 03/20/20 07:50 DC Atorvastatin Calcium (Lipitor) 40 mg QHS PO 03/18/20 21:00 03/24/20 20:52 Calcitriol (Rocaltrol) 0.5 mcg DAILY PO 03/19/20 09:00 03/25/20 08:30 Dextrose (Dextrose 50%) 25 ml ASDIRECTED PRN IV SEE LABEL COMMENTS 03/18/20 14:00 Docusate Sodium (Colace) 100 mg DAILY PRN PO CONSTIPATION 03/18/20 14:00 Famotidine (Pepcid) 20 mg BID PO 03/18/20 21:00 03/25/20 08:30 Furosemide (LASIX injection) 60 mg Q8H IV 03/18/20 21:00 03/19/20 12:21 DC 03/19/20 06:05 Furosemide (LASIX injection) 80 mg Q6H IV 03/19/20 12:00 03/22/20 12:40 DC 03/22/20 06:05 Furosemide 250 mg/ Dextrose 250 ml @ 14 mls/hr [id number] IV 03/22/20 15:00 03/24/20 18:56 Glucagon (Glucagon) 1 mg ASDIRECTED PRN SC SEE LABEL COMMENTS 03/18/20 14:00 Glucose (Glucose) 16 GM ASDIRECTED PRN PO SEE LABEL COMMENTS 03/18/20 14:00 Heparin Sodium (Porcine) (Heparin) 5,000 units BID SQ 03/19/20 09:00 03/19/20 11:14 DC Heparin Sodium (Porcine) (Heparin) 5,000 units BID SQ 03/19/20 21:00 03/21/20 10:14 DC 03/21/20 08:33 Home Med (Med Rec Complete!) ASDIRECTED XX 03/18/20 12:45 03/18/20 12:49 DC Hydralazine HCl (Apresoline) 10 mg TID PO 03/18/20 16:00 03/24/20 08:59 Insulin Human Lispro (HumaLOG INSULIN) SEE PROTOCOL TABLE AC SC 03/18/20 17:30 03/24/20 17:51 Insulin Human Lispro (HumaLOG INSULIN) SEE PROTOCOL TABLE QHS SC 03/18/20 21:00 Insulin Human NPH (HumuLIN NPH INSULIN) 20 units BID SC 03/18/20 21:00 03/25/20 08:30 Isosorbide Dinitrate (Isordil) 20 mg TID PO 03/18/20 16:00 03/24/20 08:59 Levothyroxine Sodium (Synthroid) 137 mcg QAM@0600 PO 03/19/20 06:00 03/25/20 05:31 Magnesium Hydroxide (Milk Of Magnesia) 30 ml DAILY PRN PO CONSTIPATION 03/18/20 14:00 Multivitamins (Ocuvite(I-Sreedhar)) 1 tab BID PO 03/18/20 21:00 03/25/20 08:44 Multivitamins (Theragram-M) 1 tab DAILY PO 03/19/20 09:00 03/25/20 08:31 Polymyxin/ Trimethoprim Sulfate (Polytrim Ophth Drops) 1 drop Q6H OD 03/18/20 14:00 03/25/20 08:29 Potassium Chloride (Micro-K Extencaps) 40 meq BID PO 03/20/20 09:00 03/23/20 07:22 DC 03/22/20 21:29 Potassium Chloride (Micro-K Extencaps) 40 meq DAILY PO 03/25/20 09:00 03/25/20 08:30 Potassium Chloride (Micro-K Extencaps) 40 meq TID PO 03/23/20 09:00 03/24/20 07:31 DC 03/23/20 20:38 Sodium Chloride (Saline Lock Flush) 2 ml ASDIRECTED PRN IV SEE LABEL COMMENTS 03/18/20 18:00 03/21/20 10:15 DC Sodium Chloride (Saline Lock Flush) 2 ml ASDIRECTED PRN IV SEE LABEL COMMENTS 03/19/20 10:30 Sodium Chloride (Saline Lock Flush) 2 ml SLF IV 03/18/20 22:00 03/21/20 10:15 DC 03/21/20 06:00 Sodium Chloride (Saline Lock Flush) 2 ml SLF IV 03/19/20 14:00 03/23/20 13:30 Spironolactone (Aldactone) 25 mg QAM PO 03/19/20 09:00 03/20/20 09:47 DC 03/20/20 09:03 Spironolactone (Aldactone) 50 mg BID@0900,1700 PO 03/21/20 17:00 03/25/20 08:30 Spironolactone (Aldactone) 50 mg QAM PO 03/21/20 09:00 03/21/20 12:11 DC 03/21/20 08:31 Trazodone HCl (Desyrel) 150 mg QHS PO 03/18/20 21:00 03/23/20 14:20 DC 03/22/20 21:29 Allergies Coded Allergies: warfarin (Verified Allergy, Mild, rash, 01/24/20) clonidine (Verified Allergy, Unknown, low HR , 03/18/20) Shankea Reyes MD Mar 25, 2020 09:25
--- NOTE | 2020-03-25 09:26 | IPN ---
NEPHROLOGY PROGRESS NOTE DATE: 03/24/2020 SUBJECTIVE: Phu is seen and examined at the bedside. He is not in a good mood. He really wants to go home. He continues to be incontinent of urine. He reports that he is voiding frequently, but his daily weight did not change in the past 24 hours and he continues to require 2 liters of nasal cannula. He denies shortness of breath at rest. PHYSICAL EXAMINATION: VITAL SIGNS: Temperature 97.9, pulse 63, respiratory rate 19, blood pressure 156/74, saturating 93% on 2 liters nasal cannula. INTAKE AND OUTPUT: Intake yesterday was 1,570. Urine output yesterday was recorded as several incontinent voids along with 1.4 liters of urine. His weight in the bed scale today is 137.6 kg which is the same as it was yesterday. GENERAL APPEARANCE: The patient is seen lying in bed, morbidly obese male, awake, alert, oriented and in no distress, appears disheveled and older than stated age. HEENT: The extraocular muscles are intact. He was not wearing his nasal cannula. It was hanging around his neck. Tongue is moist. Jugular veins cannot be assessed secondary to body habitus. HEART: Irregularly irregular. EXTREMITIES: Diminished dependent edema and diminished edema in his stump but still about 1-2+ and mostly prominent in the abdominal flanks. LUNGS: Symmetric air entry. There is no accessory muscle use. There is no tachypnea. The breath sounds are diminished at the bases, more so on the right base. ABDOMEN: Very obese, soft and nontender. There is edema in the abdominal flanks. GENITOURINARY: He is incontinent of urine. His condom catheter has slipped off. EXTREMITIES: Right above the knee amputation and left below the knee amputation there is about 2+ edema in the dependent side sacrum and stumps. NEUROLOGICAL: No focal deficits. He is oriented x3 and cooperates with the physical exam. LABORATORY STUDIES: Today laboratory studies show sodium 137, potassium 4.2, bicarbonate 33, BUN 61, creatinine 2.3, magnesium 2.0, hemoglobin 12.1. INPATIENT MEDICATIONS: I ordered Diuril 250 mg IV x2 doses. He also continues on Lasix drip at 14 mg an hour, and he also continues on Spironolactone 50 mg twice daily. His potassium supplement was reduced to 40 mEq once daily. His remainder medications are unchanged as compared to yesterday. PROBLEMS: 1. Acute decompensated combined left ventricular and right ventricular systolic congestive heart failure - Echocardiogram on February 02, 2020 showed left ventricular ejection fraction of 20% along with global hypokinesis and moderate reduction in right ventricular systolic function. Unfortunately the patient also has advanced chronic kidney disease and diuresing him has been challenging. He is on Lasix drip at 14 mg an hour along with Spironolactone 50 mg twice daily. Because his daily weights did not really down trend in the past 24 hours and because he is also requiring supplemental oxygen and has recurrent right pleural effusion, I have added two doses of IV Diuril today, 250 mg for augmented nephron paralysis and further diuresis. Continue 1,500 mL fluid restriction. Unfortunately he is incontinent of urine and so we are relying more on his clinical exam and his daily weights. He still needs further diuresis. 2. Chronic kidney disease stage 4 with superimposed acute kidney injury the patient's baseline creatinine is around 2.0. He has mild kidney injury in the setting of cardiorenal syndrome. He needs to be further diuresed. Continue with Lasix drip along with Spironolactone and 2 doses of Diuril were given today. He is incontinent of urine. His renal ultrasound earlier this admission was limited secondary to body habitus but did not show any growth abnormalities. 3. Recurrent right pleural effusion repeat chest x-ray is ordered for the morning of March 25. Continue diuresis with Lasix drips, Spironolactone and IV Diuril. 4. Hypokalemia his potassium level is coming up and I reduced the potassium supplementation now. 5. Atrial fibrillation - The patient is rate controlled and he is anticoagulated with Eliquis.
[2020-03-25] MEDS: FUROSEMIDE 100MG/10ML VIAL (J1940) IV SCH ×3 (10:35→22:30)
[2020-03-25 13:18] VITALS: BP 110/89
[2020-03-25] MEDS ORDERED: metOLazone 5 MG TAB PO ONE (14:00)
[2020-03-25] MEDS: SPIRONOLACTONE 25 MG TAB PO SCH (17:43)
[2020-03-25 20:26] VITALS: BP 116/88
[2020-03-25] MEDS: ATORVASTATIN 20 MG TAB PO SCH (20:33)
[2020-03-25] MEDS: ACETAMINOPHEN 500 MG TAB PO SCH (20:34)
[2020-03-25 22:28] VITALS: BP 145/56
[2020-03-26] MEDS: POLYTRIM OPTH DROPS 10ML OD SCH ×4 (01:18→22:11)
[2020-03-26 03:05] VITALS: O2SAT 95
[2020-03-26 04:11] VITALS: BP 139/64
[2020-03-26] MEDS: FUROSEMIDE 100MG/10ML VIAL (J1940) IV SCH ×4 (04:40→22:05)
[2020-03-26 06:11] VITALS: BP 139/65
[2020-03-26] MEDS: LEVOTHYROXINE 137MCG TABLET (0.137MG) PO SCH (06:13)
[2020-03-26] MEDS: SLF 3 ML SYR IV SCH ×3 (06:14→22:00)
[2020-03-26 06:17] LABS: HEMATOCRIT 39.4 % (42.0-52.0); HEMOGLOBIN 12.2 g/dl (13.5-17.5); MEAN CORPUSCULAR VOLUME 87.2 fl (80.0-96.0); PLATELET COUNT, AUTOMATED 164 10^3/uL (150-450); RED BLOOD COUNT 4.52 10^6/uL (4.30-6.10); WHITE BLOOD COUNT 7.1 10^3/uL (4.0-10.0)
[2020-03-26 06:40] LABS: ALBUMIN 3.1 GM/DL (3.2-5.2); BILIRUBIN,TOTAL 1.6 MG/DL (0.2-1.0); CALCIUM LEVEL 9.8 MG/DL (8.8-10.2); CREATININE FOR GFR 2.25 MG/DL (0.70-1.30); GLOMERULAR FILTRATION RATE 31.1 (>49); POTASSIUM SERUM 4.3 MEQ/L (3.5-5.1); TOTAL PROTEIN 8.3 GM/DL (6.4-8.2)
[2020-03-26] MEDS: HumaLOG INSULIN (NovoLOG) PER UNIT SC SCH ×4 (08:08→21:00)
[2020-03-26] MEDS: HumuLIN N INSULIN (NovoLIN N) PER UNIT SC SCH ×2 (08:09→21:00)
[2020-03-26] MEDS: MULTIVITAMINS/MINERALS THERAP 1 TAB PO SCH (08:10)
[2020-03-26] MEDS: POTASSIUM CHLORIDE 10 MEQ SR TABLET PO SCH (08:10)
[2020-03-26] MEDS: CALCITRIOL 0.25 MCG CAP (S0169) PO SCH (08:10)
[2020-03-26] MEDS: APIXABAN 5 MG TAB (ELIQUIS) PO SCH ×2 (08:10→22:06)
[2020-03-26] MEDS: SPIRONOLACTONE 25 MG TAB PO SCH ×2 (08:10→17:27)
[2020-03-26] MEDS: FAMOTIDINE 20 MG TAB PO SCH ×2 (08:10→22:06)
[2020-03-26] MEDS: **hydrALAZINE** 10 MG TAB PO SCH ×3 (08:13→21:00)
[2020-03-26] MEDS: ISOSORBIDE DIN. (ISORDIL) 20 MG TAB PO SCH ×3 (08:13→21:00)
[2020-03-26] MEDS ORDERED: metOLazone 5 MG TAB PO ONE (10:15)
[2020-03-26] MEDS: OCUVITE 1 TAB PO SCH ×2 (10:19→22:06)
[2020-03-26] MEDS: LACTULOSE 20 GM/30 ML SYRUP UD PO SCH ×2 (10:19→22:05)
[2020-03-26 12:41] VITALS: BP 141/70
--- NOTE | 2020-03-26 12:53 | IPN ---
PROGRESS NOTE DATE: 03/26/2020 SUBJECTIVE: The patient is very frustrated when I see him today. He insists he wants to be discharged or that he will sign out against medical advice. He continues to require supplemental oxygen. Urine output is now being quantitated with the PureWick catheter. His daily weights are downtrending. He denies shortness of breath at rest. PHYSICAL EXAMINATION: VITAL SIGNS: Temperature 98.0, pulse 63, respiratory rate 20, blood pressure 139/65, saturating 90 to 95% on 2 liter nasal cannula. INTAKE AND OUTPUT: Note to nursing staff, I will repeat the intake/output. Intake yesterday was 1630, urine output was 3.3 liters, net negative 1.7 liters. Weight on the bed scale today is 126.4 kg. GENERAL: Patient is seen lying in bed, appears older than stated age. Morbidly obese. Awake, alert and angry. HEENT: Extraocular muscles are intact. He was not wearing his nasal cannula, it continues to just hang around the neck and the nurse repositions it. Tongue is moist. NECK: Jugular veins cannot be assessed secondary to body habitus. HEART: Heart sounds are irregularly irregular. There is still 1 to 2+ edema in the abdominal flanks and in the dependent areas. LUNGS: Diminished breath sounds at the bases but seems to be improving. ABDOMEN: Obese, soft and nontender. There is edema in the abdominal wall. GENITOURINARY: There is a PureWick catheter. EXTREMITIES: Right above the knee amputation, left below the knee amputation. NEUROLOGIC: No focal deficit, oriented x3. LABORATORY DATA: White count 7.1, hemoglobin is 12.2, platelets are 164,000, sodium 134, potassium 4.3, bicarbonate 39, BUN 52, creatinine 2.2. BNP is downtrending, 5100 yesterday. INPATIENT MEDICATIONS: He continues on Lasix 80 mg IV q. 6 hourly, spironolactone 75 mg p.o. b.i.d. I stopped the potassium supplement, he is ordered for another dose of metolazone 5 mg p.o. x1 and he continues on albumin infusion as well. His primary team started him on Lactulose 30 ml p.o. b.i.d. The remainder of medications are unchanged as compared to yesterday. PROBLEMS: 1. 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 Patient has left ventricular ejection fraction of 20% along with global hypokinesis and moderate reduction in right ventricular systolic function. He has been aggressively diuresed. Presently, he is on Lasix 80 mg IV q. 6 hourly along with spironolactone 75 mg twice and he is being given another dose of metolazone 5 mg today. He is also receiving Albumin infusion for mobilization of his fluid and for improved renal perfusion. Continue 1500 ml fluid restriction. His daily weights are downtrending and so is his BNP. Unfortunately, he is adamant that he wants to go home although he is not fully optimized yet. 2. CKD Stage IV. Patient's baseline is around 2.0 and I would say he is fairly close to baseline. He has decompensated congestive heart failure and is being aggressively diuresed. Continue with PureWick catheter for intake, output and continued daily weights. His renal function is tolerating the aggressive diuretic regimen. 3. Recurrent right pleural effusion. Repeat chest x-ray is ordered for tomorrow. He continues to require supplemental oxygen. Continue diuresis with Lasix, spironolactone and metolazone along with albumin for mobilization of fluid and increased oncotic pressure. 4. Disposition. Patient wants to leave against medical advice. I feel that he will be re-hospitalized within a short period of time in view of pulmonary vascular congestion and moderate right pleural effusion. I suggests doing a repeat thoracentesis as that may keep the patient out of the hospital for a little longer duration if he does indeed leave against medical advice.
[2020-03-26 14:40] VITALS: BP 147/76
--- NOTE | 2020-03-26 15:24 | IPNPDOC ---
Date Seen The patient was seen on 03/26/20. Progress Note SUBJECTIVE: No events overnight. Received albumin, neg fluid balance this AM. Wants to go home but does not wish to undergo desaturation testing to go home on oxygen and also refusing to participate with PT/OT. will not pick him up so he does not have a ride, is very upset. Denies fever or chills, cp, pressure, tightness, lightheadedness. OBJECTIVE: PHYSICAL EXAMINATION: VITAL SIGNS: See below GENERAL APPEARANCE: AAOx3, NAD, resting in bed HEENT: PERrLA, EOM intact, NC in place NECK: Positive JVD, no thyromegaly or cervical lymphadenopathy. CARDIOVASCULAR: Irregularly irregular S1, S2, positive S3. LUNGS: diminished b/l coarse rhonchi ABDOMEN: Obese, nontender,distended, positive bowel sounds 4 quadrants EXTREMITIES: Right BKA, left AKA 1+ edema b/l lower ext to thighs NEURO: No focal deficits LABORATORY DATA: See below. IMAGING: CXR 03/25/20: No significant change from prior examination with findings suggesting CHF. Differential diagnosis includes pneumonia. CXR 03/23/20: There is blunting of the right lateral pleural angle indicating right pleural effusion. This appears somewhat more prominent than the 21 March study. Cardiomegaly with median sternotomy wires again seen. EKG monitoring electrodes are noted. No new infiltrate is seen. The left pleural angle is sharp.. CXR on admission: Large right pleural effusion with shift of the mediastinum to the left. Cardiomegaly and vascular congestion. Prior median sternotomy. RENAL ULTRASOUND: Extremely limited image quality. No hydronephrosis. Kidneys less than optimally seen. MICROBIOLOGY: Please see below. ASSESSMENT: 69-year-old male with history of systolic and diastolic congestive heart failure, ejection fraction of 20% on 01/24/[address] Bunn, not on entresto due to financial issues. Type 2 diabetes, hypertension, obesity, hypothyroidism, peripheral vascular disease s/p right AKA, s/p left BKA, wheelchair bound, dyslipidemia, CAD, CABG, chronic atrial fibrillation, reflux, chronic kidney disease stage 3-4 admitting for acute decompensated systolic and diastolic congestive heart failure with acute on chronic kidney disease stage 3- 4. PLAN: Acute on chronic systolic and diastolic congestive heart failure (EF 20-25%) due to noncompliance with salt and water intake -Currently remains on 2 L NC, according to he has been desaturating for months but nobody has prescribed O2 at home -Appears to be clinically improving, NEg fluid balance over 24 hours -Thoracentesis 03/20/20 large pleural effusion s/p 1150 ml -Per Dr. Phillips, pt refused AICD in 2013 -Medically managed with lasix Q8H, metolazone, spironolactone BID -C/w treatment above, fluid restriction, low salt diet, close monitoring of I&O's -BNP slightly improved -Will likely need home O2 at discharge Recurrent pleural effusion likely 2/2 to decompensated combined systolic and diastolic chf. -s/p 03/20/20 thoracentesis 1150 ml fluid removed -CXR 03/25/20 above, remains on 2 L NC- per patient not on home O2 -C/w ltreatment above -C/w plan above Acute on chronic kidney disease stage 3-4 likely 2/2 to decompensated congestive heart failure from noncompliance with salt and water restriction -Cr 2.25 (BL 1.7 until 01/2020) -Renal ultrasound has no hydronephrosis -Avoid nonsteroidal anti-inflammatories and other nephrotoxins. -Renally dose all medications -Nephrology following Hyperammonemia, acute -No s/s of cirrhosis -Will start lactulose BID, stop when ammonia wnl Ambulatory dysfunction -Wears prosthesis at baseline, refusing PT here Hypertension -controlled CAD/CABG -Troponin is negative -EKG has no acute ischemic changes -Telemetry monitoring -Resumed all home medications Chronic atrial fibrillation -Rate controlled -eliquis renally dosed Dyslipidemia -Resumed statin Obesity -Complicating care Insulin-dependent diabetes -Consistent carbohydrate renal diet 2 g sodium restriction -Avoid oral hypoglycemics Hypothyroidism -Elevated TSH -Synthroid at increased dose Peripheral vascular disease with right BKA and left AKA -Wheelchair-bound at baseline -PT OT for upper body strengthening CVA -on eliquis GERD -Chronic -On PPI DVT px -Eliquis DISPOSITION: Patient does not wish to participate with us to continue to treat him here and also does not wish to participate with us in getting him home (in working with us to test how much O2 he needs with activity at home). refusing to pick him up and he has no other means of transportation. Plan is home when medically improved hopefully. VS, I&O, 24H, Fishbone Vital Signs/I&O Vital Signs Date Time Temp Pulse Resp B/P (MAP) Pulse Ox O2 Delivery O2 Flow Rate FiO2 03/26/20 14:40 98.4 63 18 147/76 93 Nasal Cannula 2.0 I&O- Last 24 Hours up to 6 AM 03/26/20 06:00 Intake Total 1006.0 ml Output Total 3350 ml Balance -2344.0 ml Laboratory Data 24H LABS Laboratory Tests 2 03/25/20 16:42: Bedside Glucose (Misc Panel) 166H 03/25/20 20:30: Bedside Glucose (Misc Panel) 162H 03/26/20 05:35: Nucleated Red Blood Cells % (auto) 0.0, Anion Gap 4L, Glomerular Filtration Rate 31.1L, Calcium Level 9.8, Total Bilirubin 1.6H, Aspartate Amino Transf (AST/SGOT) 61H, Alanine Aminotransferase (ALT/SGPT) 30, Alkaline Phosphatase 144H, Total Protein 8.3H, Albumin 3.1L, Albumin/Globulin Ratio 0.6 03/26/20 11:47: Bedside Glucose (Misc Panel) 232H CBC/BMP Laboratory Tests 03/26/20 05:35 Microbiology Microbiology 03/18/20 Acid Fast Stain, Received Pending 03/18/20 Mycobacterial Culture, Received Pending 03/18/20 Fungal Smear, Received Pending 03/18/20 Fungal Culture, Received Pending 03/18/20 Gram Stain - Final, Complete 03/18/20 Body Fluid Culture - Final, Complete 03/18/20 Respiratory Virus Panel (PCR) (DONY) - Final, Complete 03/18/20 Blood Culture - Final, Complete NO GROWTH AFTER 5 DAYS 03/18/20 Blood Culture - Final, Complete NO GROWTH AFTER 5 DAYS Current Medications Current Medications Medications (Trade) Dose Ordered Sig/Dianna Route PRN Reason Start Time Stop Time Status Last Admin Dose Admin Acetaminophen (Tylenol Tab) 1,000 mg QHS PO 03/18/20 21:00 03/25/20 20:34 Albuterol Sulfate (Proventil, Ventolin Hfa) 2 puff Q4HP PRN INH wheezing 03/18/20 14:00 Apixaban (Eliquis) 5 mg BID PO 03/18/20 21:00 03/19/20 11:14 DC Apixaban (Eliquis) 5 mg BID PO 03/21/20 10:15 Cancel Apixaban (Eliquis) 5 mg BID PO 03/21/20 21:00 03/26/20 08:10 Aspirin (Ecotrin) 81 mg MoWeFr@0900 PO 03/20/20 09:00 03/20/20 07:50 DC Atorvastatin Calcium (Lipitor) 40 mg QHS PO 03/18/20 21:00 03/25/20 20:33 Calcitriol (Rocaltrol) 0.5 mcg DAILY PO 03/19/20 09:00 03/26/20 08:10 Dextrose (Dextrose 50%) 25 ml ASDIRECTED PRN IV SEE LABEL COMMENTS 03/18/20 14:00 Docusate Sodium (Colace) 100 mg DAILY PRN PO CONSTIPATION 03/18/20 14:00 03/25/20 10:43 Famotidine (Pepcid) 20 mg BID PO 03/18/20 21:00 03/26/20 08:10 Furosemide (LASIX injection) 60 mg Q8H IV 03/18/20 21:00 03/19/20 12:21 DC 03/19/20 06:05 Furosemide (LASIX injection) 80 mg Q6H IV 03/25/20 10:00 03/26/20 10:19 Furosemide (LASIX injection) 80 mg Q6H IV 03/19/20 12:00 03/22/20 12:40 DC 03/22/20 06:05 Furosemide 250 mg/ Dextrose 250 ml @ 14 mls/hr [id number] IV 03/22/20 15:00 03/25/20 09:57 DC 03/24/20 18:56 Glucagon (Glucagon) 1 mg ASDIRECTED PRN SC SEE LABEL COMMENTS 03/18/20 14:00 Glucose (Glucose) 16 GM ASDIRECTED PRN PO SEE LABEL COMMENTS 03/18/20 14:00 Heparin Sodium (Porcine) (Heparin) 5,000 units BID SQ 03/19/20 09:00 03/19/20 11:14 DC Heparin Sodium (Porcine) (Heparin) 5,000 units BID SQ 03/19/20 21:00 03/21/20 10:14 DC 03/21/20 08:33 Home Med (Med Rec Complete!) ASDIRECTED XX 03/18/20 12:45 03/18/20 12:49 DC Hydralazine HCl (Apresoline) 10 mg TID PO 03/18/20 16:00 03/24/20 08:59 Insulin Human Lispro (HumaLOG INSULIN) SEE PROTOCOL TABLE AC SC 03/18/20 17:30 03/26/20 12:48 Insulin Human Lispro (HumaLOG INSULIN) SEE PROTOCOL TABLE QHS SC 03/18/20 21:00 Insulin Human NPH (HumuLIN NPH INSULIN) 20 units BID SC 03/18/20 21:00 03/26/20 08:09 Isosorbide Dinitrate (Isordil) 20 mg TID PO 03/18/20 16:00 03/24/20 08:59 Lactulose (Cephulac) 30 ml BID PO 03/26/20 09:00 03/26/20 10:19 Levothyroxine Sodium (Synthroid) 137 mcg QAM@0600 PO 03/19/20 06:00 03/26/20 06:13 Magnesium Hydroxide (Milk Of Magnesia) 30 ml DAILY PRN PO CONSTIPATION 03/18/20 14:00 03/25/20 10:43 Multivitamins (Ocuvite(I-Sreedhar)) 1 tab BID PO 03/18/20 21:00 03/26/20 10:19 Multivitamins (Theragram-M) 1 tab DAILY PO 03/19/20 09:00 03/26/20 08:10 Polymyxin/ Trimethoprim Sulfate (Polytrim Ophth Drops) 1 drop Q6H OD 03/18/20 14:00 03/26/20 14:26 Potassium Chloride (Micro-K Extencaps) 40 meq BID PO 03/20/20 09:00 03/23/20 07:22 DC 03/22/20 21:29 Potassium Chloride (Micro-K Extencaps) 40 meq DAILY PO 03/25/20 09:00 03/26/20 10:13 DC 03/26/20 08:10 Potassium Chloride (Micro-K Extencaps) 40 meq TID PO 03/23/20 09:00 03/24/20 07:31 DC 03/23/20 20:38 Sodium Chloride (Saline Lock Flush) 2 ml ASDIRECTED PRN IV SEE LABEL COMMENTS 03/18/20 18:00 03/21/20 10:15 DC Sodium Chloride (Saline Lock Flush) 2 ml ASDIRECTED PRN IV SEE LABEL COMMENTS 03/19/20 10:30 Sodium Chloride (Saline Lock Flush) 2 ml SLF IV 03/18/20 22:00 03/21/20 10:15 DC 03/21/20 06:00 Sodium Chloride (Saline Lock Flush) 2 ml SLF IV 03/19/20 14:00 03/26/20 14:27 Spironolactone (Aldactone) 25 mg QAM PO 03/19/20 09:00 03/20/20 09:47 DC 03/20/20 09:03 Spironolactone (Aldactone) 50 mg BID@0900,1700 PO 03/21/20 17:00 03/25/20 09:57 DC 03/25/20 08:30 Spironolactone (Aldactone) 50 mg QAM PO 03/21/20 09:00 03/21/20 12:11 DC 03/21/20 08:31 Spironolactone (Aldactone) 75 mg BID@0900,1700 PO 03/25/20 17:00 03/26/20 08:10 Trazodone HCl (Desyrel) 150 mg QHS PO 03/18/20 21:00 03/23/20 14:20 DC 03/22/20 21:29 Allergies Coded Allergies: warfarin (Verified Allergy, Mild, rash, 01/24/20) clonidine (Verified Allergy, Unknown, low HR , 03/18/20) Shaneka Reyes MD Mar 26, 2020 15:24
[2020-03-26 22:00] VITALS: BP 131/70
[2020-03-26] MEDS: ATORVASTATIN 20 MG TAB PO SCH (22:06)
[2020-03-26] MEDS: ACETAMINOPHEN 500 MG TAB PO SCH (22:07)
[2020-03-27] MEDS: POLYTRIM OPTH DROPS 10ML OD SCH ×4 (01:39→23:15)
[2020-03-27] MEDS: FUROSEMIDE 100MG/10ML VIAL (J1940) IV SCH ×4 (04:11→23:14)
[2020-03-27] MEDS: LEVOTHYROXINE 137MCG TABLET (0.137MG) PO SCH (05:46)
[2020-03-27 06:00] VITALS: BP 155/84
[2020-03-27] MEDS: SLF 3 ML SYR IV SCH ×2 (06:05→15:51)
[2020-03-27 06:13] LABS: HEMOGLOBIN 12.4 g/dl (13.5-17.5); MEAN CORPUSCULAR HEMOGLOBIN 26.9 pg (27.0-33.0); MEAN CORPUSCULAR VOLUME 86.8 fl (80.0-96.0); PLATELET COUNT, AUTOMATED 188 10^3/uL (150-450); RED BLOOD COUNT 4.61 10^6/uL (4.30-6.10); WHITE BLOOD COUNT 6.8 10^3/uL (4.0-10.0)
[2020-03-27 06:36] LABS: ALBUMIN 3.2 GM/DL (3.2-5.2); BILIRUBIN,TOTAL 1.6 MG/DL (0.2-1.0); CALCIUM LEVEL 9.9 MG/DL (8.8-10.2); CREATININE FOR GFR 2.4 MG/DL (0.70-1.30); GLOMERULAR FILTRATION RATE 28.9 (>49); POTASSIUM SERUM 3.9 MEQ/L (3.5-5.1); TOTAL PROTEIN 7.8 GM/DL (6.4-8.2)
--- NOTE | 2020-03-27 07:30 | REP ---
INDICATION: chf, pleural effusion, re-eval COMPARISON: 03/25/2020 TECHNIQUE: Portable AP view of the chest FINDINGS: Moderate to large right pleural effusion with underlying right lower lobe opacities and left lower lobe/retrocardiac atelectasis again noted and essentially unchanged when allowing for variation in position and technique. No pneumothorax. Stable cardiomegaly. Prior sternotomy and CABG. Skeletal structures intact/stable. IMPRESSION: No significant change from prior examination. <Electronically signed by Seth Sepulveda > 03/27/20 0733
[2020-03-27] MEDS: HumaLOG INSULIN (NovoLOG) PER UNIT SC SCH ×4 (08:12→21:00)
[2020-03-27] MEDS: **hydrALAZINE** 10 MG TAB PO SCH ×3 (09:00→21:00)
[2020-03-27] MEDS: ISOSORBIDE DIN. (ISORDIL) 20 MG TAB PO SCH ×3 (09:00→21:00)
[2020-03-27] MEDS: LACTULOSE 20 GM/30 ML SYRUP UD PO SCH ×2 (09:51→23:13)
[2020-03-27] MEDS: APIXABAN 5 MG TAB (ELIQUIS) PO SCH ×2 (09:52→23:14)
[2020-03-27] MEDS: MULTIVITAMINS/MINERALS THERAP 1 TAB PO SCH (09:52)
[2020-03-27] MEDS: CALCITRIOL 0.25 MCG CAP (S0169) PO SCH (09:52)
[2020-03-27] MEDS: FAMOTIDINE 20 MG TAB PO SCH ×2 (09:52→23:14)
[2020-03-27] MEDS: SPIRONOLACTONE 25 MG TAB PO SCH ×2 (09:52→17:19)
[2020-03-27] MEDS: HumuLIN N INSULIN (NovoLIN N) PER UNIT SC SCH ×2 (09:53→23:13)
[2020-03-27] MEDS: OCUVITE 1 TAB PO SCH ×2 (09:53→23:15)
[2020-03-27 14:00] VITALS: BP 136/67
--- NOTE | 2020-03-27 17:23 | IPNPDOC ---
Date Seen The patient was seen on 03/27/20. Progress Note SUBJECTIVE: Patient remains on 2 L NC, diuresing well. Wishes to leave AMA but will not pick him up. Threw the phone across the room today. Ammonia decreased some with lactulose BID. Agreement to do thoracentesis by IR but this will not be able to be done until after the weekend. Refusing CT abdomen to further assess for cirrhosis. Denies fever or chills, cp, pressure, tightness, lightheadedness. OBJECTIVE: PHYSICAL EXAMINATION: VITAL SIGNS: See below GENERAL APPEARANCE: Angry, AA, did not answer orientation questions, NAD HEENT: PERRLA, EOM intact, NC in place NECK: Positive JVD, no thyromegaly or cervical lymphadenopathy. CARDIOVASCULAR: Irregularly irregular S1, S2, positive S3. LUNGS: diminished b/l coarse rhonchi ABDOMEN: Obese, nontender,distended, positive bowel sounds 4 quadrants EXTREMITIES: Right BKA, left AKA 1+ edema b/l lower ext to thighs NEURO: No focal deficits LABORATORY DATA: See below. IMAGING: CXR 03/25/20: No significant change from prior examination with findings suggesting CHF. Differential diagnosis includes pneumonia. CXR 03/23/20: There is blunting of the right lateral pleural angle indicating right pleural effusion. This appears somewhat more prominent than the 21 March study. Cardiomegaly with median sternotomy wires again seen. EKG monitoring electrodes are noted. No new infiltrate is seen. The left pleural angle is sharp.. CXR on admission: Large right pleural effusion with shift of the mediastinum to the left. C ardiomegaly and vascular congestion. Prior median sternotomy. RENAL ULTRASOUND: Extremely limited image quality. No hydronephrosis. Kidneys less than optimally seen. MICROBIOLOGY: Please see below. ASSESSMENT: 69-year-old male with history of systolic and diastolic congestive heart failure, ejection fraction of 20% on 01/24/[address] Bunn, not on entresto due to financial issues. Type 2 diabetes, hypertension, obesity, hypothyroidism, peripheral vascular disease s/p right AKA, s/p left BKA, wheelchair bound, dyslipidemia, CAD, CABG, chronic atrial fibrillation, reflux, chronic kidney disease stage 3-4 admitting for acute decompensated systolic and diastolic congestive heart failure with acute on chronic kidney disease stage 3- 4. PLAN: Acute on chronic systolic and diastolic congestive heart failure (EF 20-25%) due to noncompliance with salt and water intake -Currently remains on 2 L NC, according to he has been desaturating for months but nobody has prescribed O2 at home -NEg 1.9 L/24 H, less edematous -Thoracentesis 03/20/20 large pleural effusion s/p 1150 ml -On repeat CXR, pleural effusion persists and patient would likely benefit from another thoracentesis- likely can be done after the weekend only -Per Dr. Phillips, pt refused AICD in 2013 -Medically managed with lasix Q6H, spironolactone BID . Stopped metolazone -C/w treatment above, fluid restriction, low salt diet, close monitoring of I&O's -BNP slightly improved -Will likely need home O2 at discharge Recurrent pleural effusion likely 2/2 to decompensated combined systolic and diastolic chf. -s/p 03/20/20 thoracentesis 1150 ml fluid removed -CXR 03/25/20 above, remains on 2 L NC- per patient not on home O2 -Discussed with patient about another thoracentesis, he was in agreement ear lier- can be done after weekend. -C/w plan above Acute on chronic kidney disease stage 3-4 likely 2/2 to decompensated congestive heart failure from noncompliance with salt and water restriction -Cr slightly increased today to 2.4 from 2.25 (BL 1.7 until 01/2020) -Renal ultrasound has no hydronephrosis -Avoid nonsteroidal anti-inflammatories and other nephrotoxins. -Renally dose all medications -Stopped metolazone -Nephrology following Hyperammonemia, acute -Slowly improving, today 44 from 54 -No s/s of cirrhosis -Refused CT abd to look further into cirrhosis dx -C/w lactulose BID, daily ammonia levels. Stop when ammonia wnl Ambulatory dysfunction -Wears prosthesis at baseline, refusing PT here Hypertension -controlled CAD/CABG -Troponin is negative -EKG has no acute ischemic changes -Telemetry monitoring -Resumed all home medications Chronic atrial fibrillation -Rate controlled -eliquis renally dosed Dyslipidemia -Resumed statin Obesity -Complicating care Insulin-dependent diabetes -Consistent carbohydrate renal diet 2 g sodium restriction -Avoid oral hypoglycemics Hypothyroidism -Elevated TSH -Synthroid at increased dose Peripheral vascular disease with right BKA and left AKA -Wheelchair-bound at baseline -PT OT for upper body strengthening CVA -on eliquis GERD -Chronic -On PPI DVT px -Eliquis DISPOSITION: Patient still saying he wants to leave but cannot find a ride home. From medical standpoint he would continue to benefit from diuresis and remains on oxygen, meaning he would have to leave AMA. refusing to pick him up. Will update her tonight. Plan is home when medically improved hopefully. VS, I&O, 24H, Fishbone Vital Signs/I&O Vital Signs Date Time Temp Pulse Resp B/P (MAP) Pulse Ox O2 Delivery O2 Flow Rate FiO2 03/27/20 15:53 132/65 03/27/20 14:00 98.2 68 19 91 Nasal Cannula 2.0 I&O- Last 24 Hours up to 6 AM 03/27/20 06:00 Intake Total 1150.0 ml Output Total 2000 ml Balance -850.0 ml Laboratory Data 24H LABS Laboratory Tests 2 03/26/20 20:44: Bedside Glucose (Misc Panel) 178H 03/27/20 05:25: Nucleated Red Blood Cells % (auto) 0.0, Anion Gap 7L, Glomerular Filtration Rate 28.9L, Calcium Level 9.9, Total Bilirubin 1.6H, Aspartate Amino Transf (AST/SGOT) 38H, Alanine Aminotransferase (ALT/SGPT) 28, Alkaline Phosphatase 140H, Ammonia 44H, [id number]-Type Natriuretic Peptide 6804H, Total Protein 7.8, Albumin 3.2, Albumin/Globulin Ratio 0.7 03/27/20 11:35: Bedside Glucose (Misc Panel) 198H CBC/BMP Laboratory Tests 03/27/20 05:25 Microbiology Microbiology 03/18/20 Acid Fast Stain, Received Pending 03/18/20 Mycobacterial Culture, Received Pending 03/18/20 Fungal Smear, Received Pending 03/18/20 Fungal Culture, Received Pending 03/18/20 Gram Stain - Final, Complete 03/18/20 Body Fluid Culture - Final, Complete 03/18/20 Respiratory Virus Panel (PCR) (DONY) - Final, Complete 03/18/20 Blood Culture - Final, Complete NO GROWTH AFTER 5 DAYS 03/18/20 Blood Culture - Final, Complete NO GROWTH AFTER 5 DAYS Current Medications Current Medications Medications (Trade) Dose Ordered Sig/Dianna Route PRN Reason Start Time Stop Time Status Last Admin Dose Admin Acetaminophen (Tylenol Tab) 1,000 mg QHS PO 03/18/20 21:00 03/26/20 22:07 Albuterol Sulfate (Proventil, Ventolin Hfa) 2 puff Q4HP PRN INH wheezing 03/18/20 14:00 Apixaban (Eliquis) 5 mg BID PO 03/18/20 21:00 03/19/20 11:14 DC Apixaban (Eliquis) 5 mg BID PO 03/21/20 10:15 Cancel Apixaban (Eliquis) 5 mg BID PO 03/21/20 21:00 03/27/20 09:52 Aspirin (Ecotrin) 81 mg MoWeFr@0900 PO 03/20/20 09:00 03/20/20 07:50 DC Atorvastatin Calcium (Lipitor) 40 mg QHS PO 03/18/20 21:00 03/26/20 22:06 Calcitriol (Rocaltrol) 0.5 mcg DAILY PO 03/19/20 09:00 03/27/20 09:52 Dextrose (Dextrose 50%) 25 ml ASDIRECTED PRN IV SEE LABEL COMMENTS 03/18/20 14:00 Docusate Sodium (Colace) 100 mg DAILY PRN PO CONSTIPATION 03/18/20 14:00 03/25/20 10:43 Famotidine (Pepcid) 20 mg BID PO 03/18/20 21:00 03/27/20 09:52 Furosemide (LASIX injection) 60 mg Q8H IV 03/18/20 21:00 03/19/20 12:21 DC 03/19/20 06:05 Furosemide (LASIX injection) 80 mg Q6H IV 03/25/20 10:00 03/27/20 09:51 Furosemide (LASIX injection) 80 mg Q6H IV 03/19/20 12:00 03/22/20 12:40 DC 03/22/20 06:05 Furosemide 250 mg/ Dextrose 250 ml @ 14 mls/hr [id number] IV 03/22/20 15:00 03/25/20 09:57 DC 03/24/20 18:56 Glucagon (Glucagon) 1 mg ASDIRECTED PRN SC SEE LABEL COMMENTS 03/18/20 14:00 Glucose (Glucose) 16 GM ASDIRECTED PRN PO SEE LABEL COMMENTS 03/18/20 14:00 Heparin Sodium (Porcine) (Heparin) 5,000 units BID SQ 03/19/20 09:00 03/19/20 11:14 DC Heparin Sodium (Porcine) (Heparin) 5,000 units BID SQ 03/19/20 21:00 03/21/20 10:14 DC 03/21/20 08:33 Home Med (Med Rec Complete!) ASDIRECTED XX 03/18/20 12:45 03/18/20 12:49 DC Hydralazine HCl (Apresoline) 10 mg TID PO 03/18/20 16:00 03/24/20 08:59 Insulin Human Lispro (HumaLOG INSULIN) SEE PROTOCOL TABLE AC SC 03/18/20 17:30 03/27/20 11:52 Insulin Human Lispro (HumaLOG INSULIN) SEE PROTOCOL TABLE QHS SC 03/18/20 21:00 Insulin Human NPH (HumuLIN NPH INSULIN) 20 units BID SC 03/18/20 21:00 03/27/20 09:53 Isosorbide Dinitrate (Isordil) 20 mg TID PO 03/18/20 16:00 03/24/20 08:59 Lactulose (Cephulac) 30 ml BID PO 03/26/20 09:00 03/27/20 09:51 Levothyroxine Sodium (Synthroid) 137 mcg QAM@0600 PO 03/19/20 06:00 03/27/20 05:46 Magnesium Hydroxide (Milk Of Magnesia) 30 ml DAILY PRN PO CONSTIPATION 03/18/20 14:00 03/25/20 10:43 Multivitamins (Ocuvite(I-Sreedhar)) 1 tab BID PO 03/18/20 21:00 03/27/20 09:53 Multivitamins (Theragram-M) 1 tab DAILY PO 03/19/20 09:00 03/27/20 09:52 Polymyxin/ Trimethoprim Sulfate (Polytrim Ophth Drops) 1 drop Q6H OD 03/18/20 14:00 03/27/20 15:51 Potassium Chloride (Micro-K Extencaps) 40 meq BID PO 03/20/20 09:00 03/23/20 07:22 DC 03/22/20 21:29 Potassium Chloride (Micro-K Extencaps) 40 meq DAILY PO 03/25/20 09:00 03/26/20 10:13 DC 03/26/20 08:10 Potassium Chloride (Micro-K Extencaps) 40 meq TID PO 03/23/20 09:00 03/24/20 07:31 DC 03/23/20 20:38 Sodium Chloride (Saline Lock Flush) 2 ml ASDIRECTED PRN IV SEE LABEL COMMENTS 03/18/20 18:00 03/21/20 10:15 DC Sodium Chloride (Saline Lock Flush) 2 ml ASDIRECTED PRN IV SEE LABEL COMMENTS 03/19/20 10:30 Sodium Chloride (Saline Lock Flush) 2 ml SLF IV 03/18/20 22:00 03/21/20 10:15 DC 03/21/20 06:00 Sodium Chloride (Saline Lock Flush) 2 ml SLF IV 03/19/20 14:00 03/27/20 15:51 Spironolactone (Aldactone) 25 mg QAM PO 03/19/20 09:00 03/20/20 09:47 DC 03/20/20 09:03 Spironolactone (Aldactone) 50 mg BID@0900,1700 PO 03/21/20 17:00 03/25/20 09:57 DC 03/25/20 08:30 Spironolactone (Aldactone) 50 mg QAM PO 03/21/20 09:00 03/21/20 12:11 DC 03/21/20 08:31 Spironolactone (Aldactone) 75 mg BID@0900,1700 PO 03/25/20 17:00 03/27/20 09:52 Trazodone HCl (Desyrel) 150 mg QHS PO 03/18/20 21:00 03/23/20 14:20 DC 03/22/20 21:29 Allergies Coded Allergies: warfarin (Verified Allergy, Mild, rash, 01/24/20) clonidine (Verified Allergy, Unknown, low HR , 03/18/20) Shaneka Reyes MD Mar 27, 2020 17:23
[2020-03-27 22:00] VITALS: BP 142/79
[2020-03-27] MEDS: ATORVASTATIN 20 MG TAB PO SCH (23:14)
[2020-03-27] MEDS: ACETAMINOPHEN 500 MG TAB PO SCH (23:15)
[2020-03-28] MEDS: SLF 3 ML SYR IV SCH ×4 (00:20→20:14)
[2020-03-28] MEDS: POLYTRIM OPTH DROPS 10ML OD SCH ×4 (01:30→20:13)
[2020-03-28] MEDS: FUROSEMIDE 100MG/10ML VIAL (J1940) IV SCH (04:41)
[2020-03-28] MEDS: LEVOTHYROXINE 137MCG TABLET (0.137MG) PO SCH (05:44)
[2020-03-28 05:45] LABS: HEMATOCRIT 39.2 % (42.0-52.0); HEMOGLOBIN 11.8 g/dl (13.5-17.5); MEAN CORPUSCULAR HEMOGLOBIN 26.4 pg (27.0-33.0); MEAN CORPUSCULAR HGB CONC 30.1 g/dl (32.0-36.5); MEAN CORPUSCULAR VOLUME 87.7 fl (80.0-96.0); PLATELET COUNT, AUTOMATED 194 10^3/uL (150-450); RED BLOOD COUNT 4.47 10^6/uL (4.30-6.10); WHITE BLOOD COUNT 6.5 10^3/uL (4.0-10.0)
[2020-03-28 06:00] VITALS: BP 125/59
[2020-03-28 06:23] LABS: ALBUMIN 3.1 GM/DL (3.2-5.2); BILIRUBIN,TOTAL 1.6 MG/DL (0.2-1.0); CALCIUM LEVEL 10.5 MG/DL (8.8-10.2); CREATININE FOR GFR 2.46 MG/DL (0.70-1.30); GLOMERULAR FILTRATION RATE 28.1 (>49); POTASSIUM SERUM 3.5 MEQ/L (3.5-5.1); TOTAL PROTEIN 7.6 GM/DL (6.4-8.2)
[2020-03-28] MEDS: HumaLOG INSULIN (NovoLOG) PER UNIT SC SCH ×4 (08:34→21:00)
[2020-03-28] MEDS: SPIRONOLACTONE 25 MG TAB PO SCH ×2 (08:35→17:30)
[2020-03-28] MEDS: MULTIVITAMINS/MINERALS THERAP 1 TAB PO SCH (08:35)
[2020-03-28] MEDS: CALCITRIOL 0.25 MCG CAP (S0169) PO SCH (08:35)
[2020-03-28] MEDS: APIXABAN 5 MG TAB (ELIQUIS) PO SCH ×2 (08:35→20:13)
[2020-03-28] MEDS: LACTULOSE 20 GM/30 ML SYRUP UD PO SCH ×2 (08:35→20:12)
[2020-03-28] MEDS: HumuLIN N INSULIN (NovoLIN N) PER UNIT SC SCH ×2 (08:35→20:12)
[2020-03-28] MEDS: FAMOTIDINE 20 MG TAB PO SCH ×2 (08:35→20:13)
[2020-03-28] MEDS: ISOSORBIDE DIN. (ISORDIL) 20 MG TAB PO SCH ×3 (08:37→18:38)
[2020-03-28] MEDS: **hydrALAZINE** 10 MG TAB PO SCH ×2 (08:38→16:00)
[2020-03-28] MEDS: OCUVITE 1 TAB PO SCH ×2 (08:38→20:13)
--- NOTE | 2020-03-28 13:17 | IPNPDOC ---
Date Seen The patient was seen on 03/28/20. Progress Note SUBJECTIVE: Refused CT abd/pelvis but agreeable to US abd today.More awake and alert with ammonia now wnl. Agreeable to repeat thoracentesis after weekend, c/w diuresis. Stopped lasix, on torsemide. I&O's again being recorded from this AM. Denies fever or chills, cp, pressure, tightness, lightheadedness. OBJECTIVE: PHYSICAL EXAMINATION: VITAL SIGNS: See below GENERAL APPEARANCE: Agreeable this AM, AAOx3, resting in bed HEENT: PERRLA, EOM intact, NC in place NECK: Positive JVD, no thyromegaly or cervical lymphadenopathy. CARDIOVASCULAR: Irregularly irregular S1, S2, positive S3. LUNGS: diminished b/l coarse rhonchi ABDOMEN: Obese, nontender,distended, positive bowel sounds 4 quadrants EXTREMITIES: Right BKA, left AKA 1+ edema b/l lower ext to thighs, abd NEURO: No focal deficits LABORATORY DATA: See below. IMAGING: US abd 03/28/20: f/u results CXR 03/25/20: No significant change from prior examination with findings suggesting CHF. Differential diagnosis includes pneumonia. CXR 03/23/20: There is blunting of the right lateral pleural angle indicating right pleural effusion. This appears somewhat more prominent than the 21 March study. Cardiomegaly with median sternotomy wires again seen. EKG monitoring electrodes are noted. No new infiltrate is seen. The left pleural angle is sharp.. CXR on admission: Large right pleural effusion with shift of the mediastinum to the left. Cardiomegaly and vascular congestion. Prior median sternotomy. RENAL ULTRASOUND: Extremely limited image quality. No hydronephrosis. Kidneys less than optimally seen. MICROBIOLOGY: Please see below. ASSESSMENT: 69-year-old male with history of systolic and diastolic congestive heart failure, ejection fraction of 20% on 01/24/[address] Bunn, not on entresto due to financial issues. Type 2 diabetes, hypertension, obesity, hypothyroidism, peripheral vascular disease s/p right AKA, s/p left BKA, wheelchair bound, dyslipidemia, CAD, CABG, chronic atrial fibrillation, reflux, chronic kidney disease stage 3-4 admitting for acute decompensated systolic and diastolic congestive heart failure with acute on chronic kidney disease stage 3- 4. PLAN: Acute on chronic systolic and diastolic congestive heart failure (EF 20-25%) due to noncompliance with salt and water intake -Currently remains on 2 L NC, likely has had hypoxemia with ambulation for some time per -Urine monitoring stopped by patient overnight, restarted this AM. Edema is improving with diuresis -Thoracentesis 03/20/20 large pleural effusion s/p 1150 ml -On repeat CXR, pleural effusion persists and patient would likely benefit from another thoracentesis- likely can be done after the weekend only. Patient is agreeable to have. -Per Dr. Phillips, pt refused AICD in 2013 -D/c lasix today, start torsemide BID. C/w spironolactone BID -C/w treatment above, fluid restriction, low salt diet, close monitoring of I&O's -Will likely need home O2 at discharge Recurrent pleural effusion likely 2/2 to decompensated combined systolic and diastolic chf. -s/p 03/20/20 thoracentesis 1150 ml fluid removed -CXR 03/25/20 above, remains on 2 L NC- per patient not on home O2 -Discussed with patient about another thoracentesis, he was in agreement earlier- can be done after weekend. -C/w plan above Acute on chronic kidney disease stage 3-4 likely 2/2 to decompensated congestive heart failure from noncompliance with salt and water restriction -Cr slightly increased today 2.46 (BL 1.7 until 01/2020) -Renal ultrasound has no hydronephrosis -Avoid nonsteroidal anti-inflammatories and other nephrotoxins. -Renally dose all medications -Changed lasix to torsemide, remains on spironolactone -Nephrology following Hyperammonemia, acute currently assessing cause -Ammonis improved today, wnl -Refused CT abd/pelvis, ordered US abd -No prior diagnosis of cirrhosis, fatty liver or old CT to examine. -Bilirubin elevated at 1.6, mild elevated of AST. -C/w lactulose BID, daily ammonia levels. DM type II -BS uncontrolled. -Increased levemir to 28 units BID -Consistent carbohydrate renal diet 2 g sodium restriction -Hypoglycemic protocol Ambulatory dysfunction -Wears prosthesis at baseline, refusing PT here Hypertension -controlled CAD/CABG -Troponin is negative -EKG has no acute ischemic changes -Telemetry monitoring -Resumed all home medications Chronic atrial fibrillation -Rate controlled -eliquis renally dosed Dyslipidemia -Resumed statin Obesity -Complicating care Hypothyroidism -Elevated TSH -Synthroid at increased dose Peripheral vascular disease with right BKA and left AKA -Wheelchair-bound at baseline -PT OT for upper body strengthening CVA -on eliquis GERD -Chronic -On PPI DVT px -Eliquis DISPOSITION: Updated his last evening. He is more agreeable, thoracentesis hopefully after weekend. nephrology following closely. Plan is home when medically improved. VS, I&O, 24H, Fishbone Vital Signs/I&O Vital Signs Date Time Temp Pulse Resp B/P (MAP) Pulse Ox O2 Delivery O2 Flow Rate FiO2 03/28/20 09:00 2.0 03/28/20 08:37 119/61 03/28/20 06:00 97.1 57 20 93 Nasal Cannula I&O- Last 24 Hours up to 6 AM 03/28/20 06:00 Intake Total 1000 ml Output Total 0 ml Balance 1000 ml Laboratory Data 24H LABS Laboratory Tests 2 03/27/20 17:09: Bedside Glucose (Misc Panel) 232H 03/27/20 22:47: Bedside Glucose (Misc Panel) 231H 03/28/20 05:30: Nucleated Red Blood Cells % (auto) 0.0, Anion Gap 5L, Glomerular Filtration Rate 28.1L, Calcium Level 10.5H, Total Bilirubin 1.6H, Aspartate Amino Transf (AST/SGOT) 42H, Alanine Aminotransferase (ALT/SGPT) 25, Alkaline Phosphatase 154H, Ammonia 27, Total Protein 7.6, Albumin 3.1L, Albumin/Globulin Ratio 0.7 03/28/20 11:36: Bedside Glucose (Misc Panel) 259H CBC/BMP Laboratory Tests 03/28/20 05:30 Microbiology Microbiology 03/18/20 Acid Fast Stain, Received Pending 03/18/20 Mycobacterial Culture, Received Pending 03/18/20 Fungal Smear, Received Pending 03/18/20 Fungal Culture, Received Pending 03/18/20 Gram Stain - Final, Complete 03/18/20 Body Fluid Culture - Final, Complete 03/18/20 Respiratory Virus Panel (PCR) (DONY) - Final, Complete 03/18/20 Blood Culture - Final, Complete NO GROWTH AFTER 5 DAYS 03/18/20 Blood Culture - Final, Complete NO GROWTH AFTER 5 DAYS Current Medications Current Medications Medications (Trade) Dose Ordered Sig/Dianna Route PRN Reason Start Time Stop Time Status Last Admin Dose Admin Acetaminophen (Tylenol Tab) 1,000 mg QHS PO 03/18/20 21:00 03/27/20 23:15 Albuterol Sulfate (Proventil, Ventolin Hfa) 2 puff Q4HP PRN INH wheezing 03/18/20 14:00 Apixaban (Eliquis) 5 mg BID PO 03/18/20 21:00 03/19/20 11:14 DC Apixaban (Eliquis) 5 mg BID PO 03/21/20 10:15 Cancel Apixaban (Eliquis) 5 mg BID PO 03/21/20 21:00 03/28/20 08:35 Aspirin (Ecotrin) 81 mg MoWeFr@0900 PO 03/20/20 09:00 03/20/20 07:50 DC Atorvastatin Calcium (Lipitor) 40 mg QHS PO 03/18/20 21:00 03/27/20 23:14 Calcitriol (Rocaltrol) 0.5 mcg DAILY PO 03/19/20 09:00 03/28/20 08:35 Dextrose (Dextrose 50%) 25 ml ASDIRECTED PRN IV SEE LABEL COMMENTS 03/18/20 14:00 Docusate Sodium (Colace) 100 mg DAILY PRN PO CONSTIPATION 03/18/20 14:00 03/25/20 10:43 Famotidine (Pepcid) 20 mg BID PO 03/18/20 21:00 03/28/20 08:35 Furosemide (LASIX injection) 60 mg Q8H IV 03/18/20 21:00 03/19/20 12:21 DC 03/19/20 06:05 Furosemide (LASIX injection) 80 mg Q6H IV 03/25/20 10:00 03/28/20 09:08 DC 03/28/20 04:41 Furosemide (LASIX injection) 80 mg Q6H IV 03/19/20 12:00 03/22/20 12:40 DC 03/22/20 06:05 Furosemide 250 mg/ Dextrose 250 ml @ 14 mls/hr [id number] IV 03/22/20 15:00 03/25/20 09:57 DC 03/24/20 18:56 Glucagon (Glucagon) 1 mg ASDIRECTED PRN SC SEE LABEL COMMENTS 03/18/20 14:00 Glucose (Glucose) 16 GM ASDIRECTED PRN PO SEE LABEL COMMENTS 03/18/20 14:00 Heparin Sodium (Porcine) (Heparin) 5,000 units BID SQ 03/19/20 09:00 03/19/20 11:14 DC Heparin Sodium (Porcine) (Heparin) 5,000 units BID SQ 03/19/20 21:00 03/21/20 10:14 DC 03/21/20 08:33 Home Med (Med Rec Complete!) ASDIRECTED XX 03/18/20 12:45 03/18/20 12:49 DC Hydralazine HCl (Apresoline) 10 mg TID PO 03/18/20 16:00 03/24/20 08:59 Insulin Human Lispro (HumaLOG INSULIN) SEE PROTOCOL TABLE AC SC 03/18/20 17:30 03/28/20 12:33 Insulin Human Lispro (HumaLOG INSULIN) SEE PROTOCOL TABLE QHS SC 03/18/20 21:00 Insulin Human NPH (HumuLIN NPH INSULIN) 20 units BID SC 03/18/20 21:00 03/28/20 09:09 DC 03/28/20 08:35 Insulin Human NPH (HumuLIN NPH INSULIN) 28 units BID SC 03/28/20 21:00 Isosorbide Dinitrate (Isordil) 20 mg TID PO 03/18/20 16:00 03/24/20 08:59 Lactulose (Cephulac) 30 ml BID PO 03/26/20 09:00 03/28/20 08:35 Levothyroxine Sodium (Synthroid) 137 mcg QAM@0600 PO 03/19/20 06:00 03/28/20 05:44 Magnesium Hydroxide (Milk Of Magnesia) 30 ml DAILY PRN PO CONSTIPATION 03/18/20 14:00 03/25/20 10:43 Multivitamins (Ocuvite(I-Sreedhar)) 1 tab BID PO 03/18/20 21:00 03/28/20 08:38 Multivitamins (Theragram-M) 1 tab DAILY PO 03/19/20 09:00 03/28/20 08:35 Polymyxin/ Trimethoprim Sulfate (Polytrim Ophth Drops) 1 drop Q6H OD 03/18/20 14:00 03/28/20 08:34 Potassium Chloride (Micro-K Extencaps) 40 meq BID PO 03/20/20 09:00 03/23/20 07:22 DC 03/22/20 21:29 Potassium Chloride (Micro-K Extencaps) 40 meq DAILY PO 03/25/20 09:00 03/26/20 10:13 DC 03/26/20 08:10 Potassium Chloride (Micro-K Extencaps) 40 meq TID PO 03/23/20 09:00 03/24/20 07:31 DC 03/23/20 20:38 Sodium Chloride (Saline Lock Flush) 2 ml ASDIRECTED PRN IV SEE LABEL COMMENTS 03/18/20 18:00 03/21/20 10:15 DC Sodium Chloride (Saline Lock Flush) 2 ml ASDIRECTED PRN IV SEE LABEL COMMENTS 03/19/20 10:30 Sodium Chloride (Saline Lock Flush) 2 ml SLF IV 03/18/20 22:00 03/21/20 10:15 DC 03/21/20 06:00 Sodium Chloride (Saline Lock Flush) 2 ml SLF IV 03/19/20 14:00 03/28/20 06:29 Spironolactone (Aldactone) 25 mg QAM PO 03/19/20 09:00 03/20/20 09:47 DC 03/20/20 09:03 Spironolactone (Aldactone) 50 mg BID@0900,1700 PO 03/21/20 17:00 03/25/20 09:57 DC 03/25/20 08:30 Spironolactone (Aldactone) 50 mg QAM PO 03/21/20 09:00 03/21/20 12:11 DC 03/21/20 08:31 Spironolactone (Aldactone) 75 mg BID@0900,1700 PO 03/25/20 17:00 03/28/20 08:35 Torsemide (Demadex) 50 mg BID@,17 PO 03/28/20 17:00 Trazodone HCl (Desyrel) 150 mg QHS PO 03/18/20 21:00 03/23/20 14:20 DC 03/22/20 21:29 Allergies Coded Allergies: warfarin (Verified Allergy, Mild, rash, 01/24/20) clonidine (Verified Allergy, Unknown, low HR , 03/18/20) Shaneka Reyes MD Mar 28, 2020 13:17
[2020-03-28 13:39] VITALS: BP 122/61
--- NOTE | 2020-03-28 15:07 | IPN ---
NEPHROLOGY PROGRESS NOTE DATE: 03/28/2020 SUBJECTIVE: Phu is seen and examined this morning at the bedside. He is distraught. He is frustrated. He is in a very bad mood. He very much though wants to leave against medical advice. He continues to require supplemental oxygen. His family () is not willing to pick him up and have him come home from the hospital until he is optimized. His daily weights have been downtrending. He no longer has the PureWick catheter. His urine output is not being quantified. He denies any shortness of breath at rest. PHYSICAL EXAMINATION: VITAL SIGNS: Temperature 97.8, pulse 66, respiratory rate 22, blood pressure 122/61, saturating 84-94% on 2 liters nasal cannula. INTAKE AND OUTPUT: Intake yesterday was one liter. Urine output was recorded as 5 voids. Weight in the bed scale today is not recorded. GENERAL APPEARANCE: The patient is seen awake, alert, oriented, and sitting in bed with the head of the bed elevated. Appears older than stated age, morbidly obese. He is angry and frustrated and also sad. HEENT: The extraocular muscles are intact. He is wearing his nasal cannula. Tongue is moist. NECK: Jugular veins cannot be assessed secondary to body habitus. HEART: S1, S2, there are diminished edema both in the dependent areas and in the peripheral areas, now at most 1+. LUNGS: Diminished breath sounds at the right base. ABDOMEN: Soft, obese, and nontender. His abdominal wall edema is much improved. GENITOURINARY: He is incontinent of urine. EXTREMITIES: Right above the knee amputation. Left below the knee amputation. NEUROLOGICAL: He is oriented and interactive and at baseline mentation. PSYCHIATRIC: The patient is angry and upset. LABORATORY STUDIES: Sodium 136, potassium 3.5, BUN 50, creatinine 2.4, bicarbonate 45, calcium is up to 10.5. Ammonia 27, hemoglobin 11.8, platelet count 194. IMAGING: A chest x-ray done yesterday shows ongoing moderate to large right pleural effusion. INPATIENT MEDICATIONS: The patient's medications were all reviewed by myself. I discontinued his Calcitriol. I discontinued his IV Lasix. I started him on Torsemide 50 mg p.o. twice daily. Primary Service adjusted his insulin. The remainder medications are unchanged as compared to yesterday. PROBLEMS: 1. 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 He has been very aggressively diuresed. His down weights have downtrended very nicely. His serum bicarbonate is up to 45 now. He has gotten quite alkalotic from all the diuretics. I am stopping the IV Lasix, and I am switching him to Torsemide 50 mg p.o. twice daily. He can continue Spironolactone. I would not give him further IV diuretics at this time. 2. Chronic kidney disease stage 4 Baseline creatinine is around 2.0 and the patient has a mild acute kidney injury in the setting of decompensated combined congestive heart failure and status post aggressive diuresis. He no longer has the PureWick catheter for urine output monitoring. His diuretics are being transitioned now to an oral regimen in anticipation of discharge in the near future. Torsemide 50 mg twice daily along with Spironolactone 75 mg twice daily. He is not suitable for any TEO or ARBs. 3. Recurrent right pleural effusion I suggest the patient have another thoracentesis prior to discharge. He continues to require supplemental oxygen. He has been aggressively diuresed and his daily weights are significantly downtrended. I do not feel that there is further room for IV diuretics at this time. He is already significantly alkalotic from the aggressive diuresis. 4. Hypercalcemia in the setting of secondary hyperparathyroidism his corrected calcium today is 11.2. I am discontinuing Calcitriol at this time.
[2020-03-28] MEDS ORDERED: TORSEMIDE (DEMADEX) 50 MG PER 1/2 TAB PO SCH (17:00)
[2020-03-28] MEDS: ATORVASTATIN 20 MG TAB PO SCH (20:13)
[2020-03-28] MEDS: ACETAMINOPHEN 500 MG TAB PO SCH (20:13)
[2020-03-28 22:00] VITALS: BP 124/90
[2020-03-29] MEDS: POLYTRIM OPTH DROPS 10ML OD SCH ×4 (04:45→20:32)
[2020-03-29] MEDS: LEVOTHYROXINE 137MCG TABLET (0.137MG) PO SCH (05:37)
[2020-03-29] MEDS: SLF 3 ML SYR IV SCH ×3 (05:38→20:34)
[2020-03-29 06:00] VITALS: BP 120/67
[2020-03-29 06:41] LABS: HEMOGLOBIN 12.1 g/dl (13.5-17.5); MEAN CORPUSCULAR HEMOGLOBIN 26.4 pg (27.0-33.0); MEAN CORPUSCULAR HGB CONC 30.3 g/dl (32.0-36.5); MEAN CORPUSCULAR VOLUME 87.1 fl (80.0-96.0); PLATELET COUNT, AUTOMATED 163 10^3/uL (150-450); RED BLOOD COUNT 4.59 10^6/uL (4.30-6.10); WHITE BLOOD COUNT 6.6 10^3/uL (4.0-10.0)
[2020-03-29 07:03] LABS: ALBUMIN 2.9 GM/DL (3.2-5.2); BILIRUBIN,TOTAL 1.7 MG/DL (0.2-1.0); CALCIUM LEVEL 10.1 MG/DL (8.8-10.2); CREATININE FOR GFR 2.29 MG/DL (0.70-1.30); GLOMERULAR FILTRATION RATE 30.5 (>49); POTASSIUM SERUM 3.2 MEQ/L (3.5-5.1); TOTAL PROTEIN 7.3 GM/DL (6.4-8.2)
[2020-03-29] MEDS: HumaLOG INSULIN (NovoLOG) PER UNIT SC SCH ×4 (07:30→20:33)
[2020-03-29] MEDS: HumuLIN N INSULIN (NovoLIN N) PER UNIT SC SCH ×2 (07:34→21:13)
[2020-03-29] MEDS ORDERED: POTASSIUM CHLORIDE 10 MEQ SR TABLET PO ONE (09:00)
[2020-03-29] MEDS: LACTULOSE 20 GM/30 ML SYRUP UD PO SCH ×2 (09:03→20:32)
[2020-03-29] MEDS: FAMOTIDINE 20 MG TAB PO SCH ×2 (09:04→20:32)
[2020-03-29] MEDS: OCUVITE 1 TAB PO SCH ×2 (09:04→21:12)
[2020-03-29] MEDS: SPIRONOLACTONE 25 MG TAB PO SCH ×2 (09:04→18:04)
[2020-03-29] MEDS: MULTIVITAMINS/MINERALS THERAP 1 TAB PO SCH (09:04)
[2020-03-29] MEDS: APIXABAN 5 MG TAB (ELIQUIS) PO SCH ×2 (09:05→20:32)
[2020-03-29] MEDS: ISOSORBIDE DIN. (ISORDIL) 20 MG TAB PO SCH ×2 (09:05→18:04)
--- NOTE | 2020-03-29 10:48 | IPN ---
PROGRESS NOTE DATE: 03/29/2020 SUBJECTIVE: Phu is seen and examined this morning at the bedside. He denies any complaints. He wants to go home. He denies shortness of breath at rest. His daily weights have significantly down trended by at least 10-15 kg; however, he does continue to require supplemental oxygen via nasal cannula. OBJECTIVE: VITAL SIGNS: Temperature 97.3, pulse 53, respiratory rate 20, blood pressure 120/67, saturating 96% on 2 liters nasal cannula. Weight on the bed scale today is 119.4 kg. GENERAL: The patient is seen awake, alert, and oriented in no apparent distress. HEENT: Extraocular muscles are intact. Tongue is moist. NECK: Supple. Jugular veins could not be assessed secondary to body habitus. He is not wearing his nasal cannula. It is dangling by his chin. HEART: Sounds S1, S2. There is only trace edema notable now and it is significantly resolved. LUNGS: Show improved aeration bilaterally with some diminished breath sounds at the right base. ABDOMEN: Soft, obese, and nontender. His abdominal wall edema is almost resolved. GENITOURINARY: He is wearing a condom catheter. EXTREMITIES: Right [id number] amputation and left [id number] amputation. There is no more edema to the stumps. NEUROLOGIC: He is oriented, interactive, and at baseline mentation. LABORATORY DATA: Sodium 134, potassium 3.2, bicarbonate 43, BUN 41, creatinine 2.2. Hemoglobin 12.1, platelets 163,000. INPATIENT MEDICATIONS: Reviewed by myself. His Calcitriol was discontinued. I am holding his torsemide for today and tomorrow's dose is ordered for 30 mg p.o. b.i.d. He got a one time dose of potassium chloride 40 mEq x1. Remainder of medications are unchanged as compared to yesterday. PROBLEMS: 1. 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 LVEF of 20% along with moderate reduction in RV systolic function as well. He has been very aggressively diuresed. His daily weights are down 10-15 kg. His sodium bicarbonate has been greater than 40. I am holding his loop diuretic today. Tomorrow, he can resume torsemide at a lower dose of 30 mg p.o. twice daily. He continues on Spironolactone. I would not give him further IV diuretics at this time. I feel his volume status has significantly improved. 2. Chronic kidney disease (CKD) stage IV. Baseline creatinine is around 2.2, and the patient has had mild acute kidney injury in the setting of decompensated congestive heart failure (CHF) and status post aggressive diuresis. Overall, however, renal function is fairly stable, and he is now on an oral diuretic regimen in anticipation of discharge in the near future. He is not suitable for any angiotensin converting enzyme inhibitor (TEO) or angiotensin receptor baron (ARB). 3. Recurrent right pleural effusion. The patient has been aggressively diuresed. His daily weights have down trended significantly. He is on an oral diuretic regimen now. I suggest getting a repeat chest x-ray tomorrow morning and if his pleural effusion is still moderate, then consider repeat thoracentesis prior to discharge. I do not feel there is further room for IV diuretics at this time. He is already significantly alkalotic from the aggressive diuresis. 4. Hypercalcemia in the setting of secondary hyperparathyroidism of renal origin. We discontinued his Calcitriol already. It can be further followed in the outpatient setting. 5. Hypokalemia. This is due to loop diuretic. He got a dose of oral potassium supplementation today. Continue Spironolactone.
[2020-03-29 13:21] VITALS: BP 140/66
--- NOTE | 2020-03-29 13:21 | REP ---
INDICATION: elevated ammonia. COMPARISON: None. TECHNIQUE: Right upper quadrant sonography. Exam quality is severely restricted due to patient body habitus and poor penetration of the liver. Bowel gas. FINDINGS: Scanning through the right upper quadrant the abdomen demonstrates normal-sized thin walled gallbladder. There are echogenic foci in the dependent portion the gallbladder suggesting stones. No wall thickening. Common bile duct is normal measuring 0.35 cm in greatest diameter. Very poor in sun a [place] of the liver was achieved. The liver is very poorly seen. Pancreas is obscured by abdominal gas. No free fluid is seen. No right renal abnormality is observed. The right kidney measures 11.1 x 5.9 x 6.0 cm.. IMPRESSION: Exam quality severely restricted due to patient body habitus bowel gas and poor in sin a [place]. Liver is very poorly seen. Question gallstones. Normal CBD. Pancreas is obscured. I note that calcified gallstones were noted on CT study of the chest exam from 27 May 2016. <Electronically signed by Aquilino Cruz > 03/29/20 1107
--- NOTE | 2020-03-29 13:32 | IPNPDOC ---
Date Seen The patient was seen on 03/29/20. Progress Note SUBJECTIVE: RUQ US pending, plan is still for thoracentesis hopefully 01/27/21. Diuresing well; however, persistent right mod-large pleural effusion, remains on O2 supplement. Decreased 26 kg since admission. Appears more comfortable this AM. Denies fever or chills, cp, pressure, tightness, lightheadedness. OBJECTIVE: PHYSICAL EXAMINATION: VITAL SIGNS: See below GENERAL APPEARANCE: AAOx3, resting in bed HEENT: PERRLA, EOM intact, NC in place NECK: no JVD, no thyromegaly or cervical lymphadenopathy. CARDIOVASCULAR: Irregularly irregular S1, S2, positive S3. LUNGS: Decreased breath sounds, R>L, mild rhonchi . No wheezing, rales ABDOMEN: Obese, nontender,distended, positive bowel sounds 4 quadrants EXTREMITIES: Right BKA, left AKA 1+ edema b/l lower ext to thighs, abd NEURO: No focal deficits LABORATORY DATA: See below. IMAGING: RUQ US 03/29/20: f/u results CXR 03/27/20: Moderate to large right pleural effusion with underlying right lower lobe opacities and left lower lobe/retrocardiac atelectasis again noted and essentially unchanged when allowing for variation in position and technique. No pneumothorax. Stable cardiomegaly. Prior sternotomy and CABG. Skeletal structures intact/stable CXR 03/25/20: No significant change from prior examination with findings suggesting CHF. Differential diagnosis includes pneumonia. CXR 03/23/20: There is blunting of the right lateral pleural angle indicating right pleural effusion. This appears somewhat more prominent than the 21 March study. Cardiomegaly with median sternotomy wires again seen. EKG monitoring electrodes are noted. No new infiltrate is seen. The left pleural angle is sharp.. CXR on admission: Large right pleural effusion with shift of the mediastinum to the left. Cardiomegaly and vascular congestion. Prior median sternotomy. RENAL ULTRASOUND: Extremely limited image quality. No hydronephrosis. Kidneys less than optimally seen. MICROBIOLOGY: Please see below. ASSESSMENT: 69-year-old male with history of systolic and diastolic congestive heart failure, ejection fraction of 20% on 01/24/[address] Bunn, not on entresto due to financial issues. Type 2 diabetes, hypertension, obesity, hypothyroidism, peripheral vascular disease s/p right AKA, s/p left BKA, wheel chair bound, dyslipidemia, CAD, CABG, chronic atrial fibrillation, reflux, chronic kidney disease stage 3-4 admitting for acute decompensated systolic and diastolic congestive heart failure with acute on chronic kidney disease stage 3- 4. PLAN: Acute on chronic systolic and diastolic congestive heart failure (EF 20-25%) due to noncompliance with salt and water intake -Currently remains on 2 L NC -Neg balance/24 HR- Edema is improving with diuresis -BNP 6824--> 6169 -Thoracentesis 03/20/20 large pleural effusion s/p 1150 ml -On repeat CXR, pleural effusion remains mod-large -Per Dr. Phillips, pt refused AICD in 2013 -Decreased torsemide dose BID. C/w spironolactone BID -C/w treatment above, fluid restriction, low salt diet, close monitoring of I&O's -Will need home O2 at discharge, test again for Home O2 after thoracentesis 03/30/20 Recurrent pleural effusion likely 2/2 to decompensated combined systolic and diastolic chf. -s/p 03/20/20 thoracentesis 1150 ml fluid removed -CXR 03/27/20 - mod-large right pleural effusion, not much improvement -Discussed with patient about another thoracentesis, he was in agreement - can be done after weekend so will TB with IR early 03/30/20 -C/w plan above Acute on chronic kidney disease stage 3-4 likely 2/2 to decompensated congestive heart failure from noncompliance with salt and water restriction -Cr slightly increased today 2.29 (BL 1.7 until 01/2020) -Renal ultrasound has no hydronephrosis -Renally dose all medications -torsemide, spironolactone with nephrology following Hyperammonemia, acute currently assessing cause -No prior diagnosis of cirrhosis, fatty liver or old CT to examine. -Since normalization of ammonia and starting lactulose, patient MUCH more awake and alert -Ammonia wnl -Refused CT abd/pelvis, ordered RUQ US today so will f/u results -Bilirubin elevated at 1.6, mild elevated of AST. -C/w lactulose BID, daily ammonia levels. DM type II -BS uncontrolled- 190-200's -Increased levemir to 32 units BID -Consistent carbohydrate/renal diet 2 g sodium restriction -Hypoglycemic protocol Ambulatory dysfunction -Wears prosthesis at baseline, refusing PT here Hypertension -controlled CAD/CABG -Troponin is negative -EKG has no acute ischemic changes -Telemetry monitoring -Resumed all home medications Chronic atrial fibrillation -Rate controlled -eliquis renally dosed Dyslipidemia -Resumed statin Obesity -Complicating care Hypothyroidism -Elevated TSH -Synthroid at increased dose Peripheral vascular disease with right BKA and left AKA -Wheelchair-bound at baseline -PT OT for upper body strengthening CVA -on eliquis GERD -Chronic -On PPI DVT px -Eliquis DISPOSITION: After thoracentesis, will try PT/OT again to see how much O2 needed with activity. Plan is discharge home when medically improved. VS, I&O, 24H, Fishbone Vital Signs/I&O Vital Signs Date Time Temp Pulse Resp B/P (MAP) Pulse Ox O2 Delivery O2 Flow Rate FiO2 03/29/20 09:05 140/67 03/29/20 06:00 97.3 53 20 96 Nasal Cannula 2.0 I&O- Last 24 Hours up to 6 AM 03/29/20 06:00 Intake Total 960 ml Output Total 2225 ml Balance -1265 ml Laboratory Data 24H LABS Laboratory Tests 2 03/28/20 16:38: Bedside Glucose (Misc Panel) 250H 03/28/20 20:02: Bedside Glucose (Misc Panel) 192H 03/29/20 05:27: Nucleated Red Blood Cells % (auto) 0.0, Anion Gap 6L, Glomerular Filtration Rate 30.5L, Calcium Level 10.1, Total Bilirubin 1.7H, Aspartate Amino Transf (AST/SGOT) 42H, Alanine Aminotransferase (ALT/SGPT) 25, Alkaline Phosphatase 141H, [id number]-Type Natriuretic Peptide 6169H, Total Protein 7.3, Albumin 2.9L, Albumin/Globulin Ratio 0.7 03/29/20 12:03: Bedside Glucose (Misc Panel) 198H CBC/BMP Laboratory Tests 03/29/20 05:27 Current Medications Current Medications Medications (Trade) Dose Ordered Sig/Dianna Route PRN Reason Start Time Stop Time Status Last Admin Dose Admin Acetaminophen (Tylenol Tab) 1,000 mg QHS PO 03/18/20 21:00 03/28/20 20:13 Albuterol Sulfate (Proventil, Ventolin Hfa) 2 puff Q4HP PRN INH wheezing 03/18/20 14:00 Apixaban (Eliquis) 5 mg BID PO 03/18/20 21:00 03/19/20 11:14 DC Apixaban (Eliquis) 5 mg BID PO 03/21/20 10:15 Cancel Apixaban (Eliquis) 5 mg BID PO 03/21/20 21:00 03/29/20 09:05 Aspirin (Ecotrin) 81 mg MoWeFr@0900 PO 03/20/20 09:00 03/20/20 07:50 DC Atorvastatin Calcium (Lipitor) 40 mg QHS PO 03/18/20 21:00 03/28/20 20:13 Calcitriol (Rocaltrol) 0.5 mcg DAILY PO 03/19/20 09:00 03/28/20 14:06 DC 03/28/20 08:35 Dextrose (Dextrose 50%) 25 ml ASDIRECTED PRN IV SEE LABEL COMMENTS 03/18/20 14:00 Docusate Sodium (Colace) 100 mg DAILY PRN PO CONSTIPATION 03/18/20 14:00 03/25/20 10:43 Famotidine (Pepcid) 20 mg BID PO 03/18/20 21:00 03/29/20 09:04 Furosemide (LASIX injection) 60 mg Q8H IV 03/18/20 21:00 03/19/20 12:21 DC 03/19/20 06:05 Furosemide (LASIX injection) 80 mg Q6H IV 03/25/20 10:00 03/28/20 09:08 DC 03/28/20 04:41 Furosemide (LASIX injection) 80 mg Q6H IV 03/19/20 12:00 03/22/20 12:40 DC 03/22/20 06:05 Furosemide 250 mg/ Dextrose 250 ml @ 14 mls/hr [id number] IV 03/22/20 15:00 03/25/20 09:57 DC 03/24/20 18:56 Glucagon (Glucagon) 1 mg ASDIRECTED PRN SC SEE LABEL COMMENTS 03/18/20 14:00 Glucose (Glucose) 16 GM ASDIRECTED PRN PO SEE LABEL COMMENTS 03/18/20 14:00 Heparin Sodium (Porcine) (Heparin) 5,000 units BID SQ 03/19/20 09:00 03/19/20 11:14 DC Heparin Sodium (Porcine) (Heparin) 5,000 units BID SQ 03/19/20 21:00 03/21/20 10:14 DC 03/21/20 08:33 Home Med (Med Rec Complete!) ASDIRECTED XX 03/18/20 12:45 03/18/20 12:49 DC Hydralazine HCl (Apresoline) 10 mg TID PO 03/18/20 16:00 03/28/20 17:45 DC 03/24/20 08:59 Insulin Human Lispro (HumaLOG INSULIN) SEE PROTOCOL TABLE AC SC 03/18/20 17:30 03/29/20 12:44 Insulin Human Lispro (HumaLOG INSULIN) SEE PROTOCOL TABLE QHS SC 03/18/20 21:00 Insulin Human NPH (HumuLIN NPH INSULIN) 20 units BID SC 03/18/20 21:00 03/28/20 09:09 DC 03/28/20 08:35 Insulin Human NPH (HumuLIN NPH INSULIN) 28 units BID SC 03/28/20 21:00 03/28/20 20:12 Isosorbide Dinitrate (Isordil) 20 mg BID@0800,1800 PO 03/28/20 18:00 03/29/20 09:05 Isosorbide Dinitrate (Isordil) 20 mg TID PO 03/18/20 16:00 03/28/20 17:46 DC 03/24/20 08:59 Lactulose (Cephulac) 30 ml BID PO 03/26/20 09:00 03/29/20 09:03 Levothyroxine Sodium (Synthroid) 137 mcg QAM@0600 PO 03/19/20 06:00 03/29/20 05:37 Magnesium Hydroxide (Milk Of Magnesia) 30 ml DAILY PRN PO CONSTIPATION 03/18/20 14:00 03/25/20 10:43 Multivitamins (Ocuvite(I-Sreedhar)) 1 tab BID PO 03/18/20 21:00 03/29/20 09:04 Multivitamins (Theragram-M) 1 tab DAILY PO 03/19/20 09:00 03/29/20 09:04 Polymyxin/ Trimethoprim Sulfate (Polytrim Ophth Drops) 1 drop Q6H OD 03/18/20:00 03/29/20 12:47 Potassium Chloride (Micro-K Extencaps) 40 meq BID PO 03/20/20 09:00 03/23/20 07:22 DC 03/22/20 21:29 Potassium Chloride (Micro-K Extencaps) 40 meq DAILY PO 03/25/20 09:00 03/26/20 10:13 DC 03/26/20 08:10 Potassium Chloride (Micro-K Extencaps) 40 meq TID PO 03/23/20 09:00 03/24/20 07:31 DC 03/23/20 20:38 Sodium Chloride (Saline Lock Flush) 2 ml ASDIRECTED PRN IV SEE LABEL COMMENTS 03/18/20 18:00 03/21/20 10:15 DC Sodium Chloride (Saline Lock Flush) 2 ml ASDIRECTED PRN IV SEE LABEL COMMENTS 03/19/20 10:30 Sodium Chloride (Saline Lock Flush) 2 ml SLF IV 03/18/20 22:00 03/21/20 10:15 DC 03/21/20 06:00 Sodium Chloride (Saline Lock Flush) 2 ml SLF IV 03/19/20 14:00 03/29/20 12:47 Spironolactone (Aldactone) 25 mg QAM PO 03/19/20 09:00 03/20/20 09:47 DC 03/20/20 09:03 Spironolactone (Aldactone) 50 mg BID@0900,1700 PO 03/21/20 17:00 03/25/20 09:57 DC 03/25/20 08:30 Spironolactone (Aldactone) 50 mg QAM PO 03/21/20 09:00 03/21/20 12:11 DC 03/21/20 08:31 Spironolactone (Aldactone) 75 mg BID@0900,1700 PO 03/25/20 17:00 03/29/20 09:04 Torsemide (Demadex) 30 mg BID@,17 PO 03/30/20 09:00 Torsemide (Demadex) 50 mg BID@09,17 PO 03/28/20 17:00 03/29/20 08:49 DC 03/28/20 17:29 Trazodone HCl (Desyrel) 150 mg QHS PO 03/18/20 21:00 03/23/20 14:20 DC 03/22/20 21:29 Allergies Coded Allergies: warfarin (Verified Allergy, Mild, rash, 01/24/20) clonidine (Verified Allergy, Unknown, low HR , 03/18/20) Shaneka Reyes MD Mar 29, 2020 13:32
[2020-03-29 13:47] VITALS: O2SAT 97
[2020-03-29] MEDS: DIMETHICONE 2% OINTMENT(VANICREAM) 70GM TUBE TOP SCH (15:36)
--- NOTE | 2020-03-29 15:54 | REP ---
INDICATION: r/o cirrhosis, transaminitis, bili elevated COMPARISON: Comparison CT chest imaging May 27, 2016.. TECHNIQUE: Helical scanning is acquired in 4 mm axial images were reformatted. Coronal and sagittal MPR images were generated and reviewed. FINDINGS: Preliminary digital shape brick molder radiograph is unremarkable. There is small to moderate right pleural effusion noted with some compressive atelectasis in the right lower lobe of the lung. Lung bases are otherwise clear. Vascular calcification is observed. Moderate cardiac enlargement is seen. No adrenal abnormality is observed. Cholelithiasis is noted. Liver is normal in size homogeneous in texture. No abnormality is noted in the pancreas. There is no evidence of ascites. Kidneys show no evidence of hydronephrosis, mass, or calculus. Normal caliber aorta is seen. A ventral hernia is seen trans [place] unobstructed loops of sigmoid colon through a defect in the anterior abdominal wall which measures 5.8 by 7.4 cm. A normal appendix is seen in the right lower abdomen centrally. There are degenerative spondylosis spurs in the lumbar spine. There is dystrophic calcification in the hamstring tendon insertion on the right. IMPRESSION: Cholelithiasis. Right pleural effusion. No CT evidence of cirrhosis. Cardiomegaly. Vascular calcification. Ventral hernia. Moderate stool in the rectum. <Electronically signed by Aquilino Cruz > 03/29/20 [id number]
[2020-03-29] MEDS: ACETAMINOPHEN 500 MG TAB PO SCH (20:32)
[2020-03-29] MEDS: ATORVASTATIN 20 MG TAB PO SCH (20:32)
[2020-03-29 22:00] VITALS: BP 132/65
[2020-03-30] MEDS: POLYTRIM OPTH DROPS 10ML OD SCH ×3 (02:57→13:58)
[2020-03-30] MEDS: LEVOTHYROXINE 137MCG TABLET (0.137MG) PO SCH (05:09)
[2020-03-30] MEDS: SLF 3 ML SYR IV SCH ×2 (05:09→13:59)
[2020-03-30 05:59] LABS: HEMATOCRIT 41.4 % (42.0-52.0); HEMOGLOBIN 12.8 g/dl (13.5-17.5); MEAN CORPUSCULAR HGB CONC 30.9 g/dl (32.0-36.5); MEAN CORPUSCULAR VOLUME 87.3 fl (80.0-96.0); PLATELET COUNT, AUTOMATED 172 10^3/uL (150-450); RED BLOOD COUNT 4.74 10^6/uL (4.30-6.10); WHITE BLOOD COUNT 7.6 10^3/uL (4.0-10.0)
[2020-03-30 06:00] VITALS: BP 144/78
[2020-03-30 08:12] LABS: ALBUMIN 3.2 GM/DL (3.2-5.2); ALT/SGPT 28 U/L (12-78); BILIRUBIN,TOTAL 1.6 MG/DL (0.2-1.0); BLOOD UREA NITROGEN 39 MG/DL (7-18); CALCIUM LEVEL 9.9 MG/DL (8.8-10.2); CARBON DIOXIDE LEVEL 40 MEQ/L (21-32); CHLORIDE LEVEL 87 MEQ/L (98-107); CREATININE FOR GFR 2.43 MG/DL (0.70-1.30); GLOMERULAR FILTRATION RATE 28.5 (>49); GLUCOSE, FASTING 243 MG/DL (70-100); SODIUM LEVEL 133 MEQ/L (136-145)
[2020-03-30 08:42] VITALS: BP 167/87
[2020-03-30] MEDS: ISOSORBIDE DIN. (ISORDIL) 20 MG TAB PO SCH (08:42)
[2020-03-30] MEDS: HumaLOG INSULIN (NovoLOG) PER UNIT SC SCH ×2 (08:43→12:13)
[2020-03-30 09:00] VITALS: O2SAT 96
[2020-03-30] MEDS ORDERED: TORSEMIDE 10 MG TABLET PO SCH (09:00)
[2020-03-30] MEDS: LACTULOSE 20 GM/30 ML SYRUP UD PO SCH (10:05)
[2020-03-30] MEDS: MULTIVITAMINS/MINERALS THERAP 1 TAB PO SCH (10:07)
[2020-03-30] MEDS: HumuLIN N INSULIN (NovoLIN N) PER UNIT SC SCH (10:07)
[2020-03-30] MEDS: SPIRONOLACTONE 25 MG TAB PO SCH (10:07)
[2020-03-30] MEDS: FAMOTIDINE 20 MG TAB PO SCH (10:08)
[2020-03-30] MEDS: OCUVITE 1 TAB PO SCH (10:08)
[2020-03-30] MEDS: DIMETHICONE 2% OINTMENT(VANICREAM) 70GM TUBE TOP SCH (10:13)
[2020-03-30 10:59] LABS: HEPATITIS B SURFACE ANTIGEN NEGATIVE (NEGATIVE)
[2020-03-30 11:26] LABS: HEPATITIS C VIRUS ABY INDEX 0.1 INDEX (<0.8)
[2020-03-30] MEDS ORDERED: LACT20EL PO (12:24)
[2020-03-30] MEDS ORDERED: ALDA25TA2 PO (12:24)
[2020-03-30] MEDS ORDERED: TORS10TA3 PO (12:24)
[2020-03-30] MEDS ORDERED: ISOS20TAB PO (12:24)
[2020-03-30] MEDS ORDERED: INSUN SC (12:24)
[2020-03-30 12:31] LABS: HEPATITIS B CORE ANTIBODY IGM NEGATIVE (NEGATIVE)
--- NOTE | 2020-03-30 12:31 | DS.PDOC ---
Discharge Summary General Date of Admission Mar 18, 2020 at 12:54 Date of Discharge 03/30/20 Attending Physician: Shaneka Reyes MD Discharge Summary HISTORY OF PRESENT ILLNESS: 69-year-old male with history of systolic and diastolic congestive heart failure, ejection fraction of 20% on 01/24/[address] Bunn, not on entresto due to financial issues. Type 2 diabetes, hypertension, obesity, hypothyroidism, peripheral vascular disease s/p right AKA, s/p left BKA, wheelc hair bound, dyslipidemia, CAD, CABG, chronic atrial fibrillation, reflux, chronic kidney disease stage 3-4, presents to the emergency room with increasing shortness of breath, abdominal distention, 30 pound weight gain without fever, chills, chest pain, pressure, tightness, lightheadedness, dizziness, nausea, vomiting, diarrhea, dysuria, urgency, frequency, changes in appetite. He admits to having 3-4 pillow orthopnea. Based on his right side but with worsening shortness of breath prompting him to sit up for the past few days. The patient is noncompliant with salt restriction, but says that he usually drinks less than 2 L of water daily. He admits to having a dry cough which is nonproducti ve. No complaints of near syncope. In the ER he was found to have a large right pleural effusion, elevated BNP over 2000 and acute on chronic renal failure with creatinine of 2.5 from baseline of 1.9. Hospitalist was asked to admit for acute decompensated systolic and diastolic congestive heart failure with acute on chronic kidney disease stage 3-4. HOSPITAL COURSE: Acute on chronic systolic and diastolic congestive heart failure (EF 20-25%) due to noncompliance with salt and water intake improved slowly. He remained on 2 L NC. BNP 6824--> 6169. He underwent thoracentesis 03/20/20 for large pleural effusion where 1150 ml was removed. Despite effective diuresis, pleural effusion persisted on CXR. Per Dr. Phillips, pt refused AICD in 2013. He was continued on torsemide dose BID, spironolactone BID , fluid restriction, low salt diet. Recurrent pleural effusion likely 2/2 to decompensated combined systolic/diastolic CHF. Discussed with patient about another thoracentesis,initially was in agreement; however, on 03/30/20 patient did not wish to proceed due to having to wait another 48 hrs to be off eliquis. Acute on chronic kidney disease stage 3-4 likely 2/2 to decompensated congestive heart failure from noncompliance with salt and water restriction. Cr 2.4 (BL 1.7 until 01/2020), renal ultrasound has no hydronephrosis. Nephrology followed closely and recommended continuation of current treatment after discharge. He had elevated AST/ALT, bili with hyperammonemia and some altered mental status during his hospitalization. Liver US, CT abd/pelvis did not show cause. No prior diagnosis of cirrhosis, fatty liver or old CT to examine. Hepatitis panel was ordered and was pending results. Patient may benefit from MRCP/GI consult to further look into this as o/p. By 03/30/20 patient was agreeable to participate with PT. On RA he dropped down to 82%, did not recover past 87% on RA within 2 mins. When 2 L NC was placed back on he was able to maintain 89-93%. Home oxygen was ordered. His was updated and agreement was to discharge patient home with updated MOLST form, home O2 and for patient to f/u with nephrology, PCP and cardiology if he should so wish. He had no acute complaints at time of discharge. PAST MEDICAL HISTORY: Systolic and diastolic congestive heart failure, ejection fraction 20-25%, CVA, hypertension, hyperlipidemia, peripheral vascular disease, chronic atrial fibrillation, stage 3 -4 chronic kidney disease rjxye-axl-dejc amputation on the left. Right akxql-xgl-tuvq amputation, insulin-dependent diabetes, reflux, CAD, CABG PAST SURGICAL HISTORY: Right metcc-enn-hasj amputation, left tndup-sli-jyjk amputation, CABG 2001. Umbilical herniorrhaphy. Right eye cataract extraction. Vitrectomy. Bilateral eyes. Thoracentesis 2017. Angioplasty. Catheterization SOCIAL HISTORY: Denies recreational drug use. Lives with at home. Wheelchair baseline. De nies alcohol use currently FAMILY HISTORY: Mother and father are . Mother of complications of diabetes. Father due to MVA. Sister with diabetes, hypertension, unknown type of heart disease ALLERGIES: Please see below. DISCHARGE MEDICATIONS: Please see below. PHYSICAL EXAMINATION: VITAL SIGNS: See below GENERAL APPEARANCE: AAOx3, resting in bed HEENT: PERRLA, EOM intact, NC in place NECK: no JVD, no thyromegaly or cervical lymphadenopathy. CARDIOVASCULAR: Irregularly irregular S1, S2, positive S3. LUNGS: Decreased breath sounds, R>L, mild rhonchi . No wheezing, rales ABDOMEN: Obese, nontender,distended, positive bowel sounds 4 quadrants EXTREMITIES: Right BKA, left AKA 1+ edema b/l lower ext NEURO: No focal deficits LABORATORY DATA: See below. IMAGING: CT abd/pelvis 03/29/20: Cholelithiasis. Right pleural effusion. No CT evidence of cirrhosis. Cardiomegaly. Vascular calcification. Ventral hernia. Moderate stool in the rectum. Liver US 03/29/20: Scanning through the right upper quadrant the abdomen demonstrates normal-sized thin walled gallbladder. There are echogenic foci in the dependent portion the gallbladder suggesting stones. No wall thickening. Common bile duct is normal measuring 0.35 cm. in greatest diameter. Very poor in sun a morataya of the liver was achieved. The liver is very poorly seen. Pancreas is obscured by abdominal gas. No free fluid is seen. No right renal abnormality is observed. The right kidney measures 11.1 x 5.9 x 6.0 cm.. CXR 03/27/20: Moderate to large right pleural effusion with underlying right lower lobe opacities and left lower lobe/retrocardiac atelectasis again noted and essentially unchanged when allowing for variation in position and technique. No pneumothorax. Stable cardiomegaly. Prior sternotomy and CABG. Skeletal structures intact/stable CXR 03/25/20: No significant change from prior examination with findings suggesting CHF. Differential diagnosis includes pneumonia. CXR 03/23/20: There is blunting of the right lateral pleural angle indicating right pleural effusion. This appears somewhat more prominent than the 21 March study. Cardiomegaly with median sternotomy wires again seen. EKG monitoring electrodes are noted. No new infiltrate is seen. The left pleural angle is sharp.. CXR on admission: Large right pleural effusion with shift of the mediastinum to the left. Cardiomegaly and vascular congestion. Prior median sternotomy. RENAL ULTRASOUND: Extremely limited image quality. No hydronephrosis. Kidneys less than optimally seen. MICROBIOLOGY: Please see below. ASSESSMENT: 69-year-old male with history of systolic and diastolic congestive heart failure, ejection fraction of 20% on 01/24/[address] Bunn, not on entresto due to financial issues. Type 2 diabetes, hypertension, obesity, hypothyroidism, peripheral vascular disease s/p right AKA, s/p left BKA, wheelchair bound, dyslipidemia, CAD, CABG, chronic atrial fibrillation, reflux, chronic kidney disease stage 3-4 admitting for acute decompensated systolic and diastolic congestive heart failure, acute on chronic kidney disease stage 3-4, right pleural effusion. PLAN: Acute on chronic systolic and diastolic congestive heart failure (EF 20-25%) due to noncompliance with salt and water intake -Currently remains on 2 L NC and will need continued O2 support at discharge. -Neg balance/24 HR- edema improving with diuresis -BNP 6824--> 6169 -Thoracentesis 03/20/20 large pleural effusion s/p 1150 ml. Refused to wait off eliquis for second thoracentesis middle of this week -On repeat CXR, pleural effusion remains mod-large -Per Dr. Phillips, pt refused AICD in 2013 -C/w torsemide dose BID, spironolactone BID , fluid restriction, low salt diet Recurrent pleural effusion likely 2/2 to decompensated combined systolic and diastolic chf. -s/p 03/20/20 thoracentesis 1150 ml fluid removed -CXR 03/27/20 - mod-large right pleural effusion, not much improvement -Discussed with patient about another thoracentesis,initially was in agreement; however, on 03/30/20 patient did not wish to proceed. -C/w treatment above for CHF -Patient is able to follow up with nephrology or cardiology to try and schedule repeat thoracentesis as o/p. Acute on chronic kidney disease stage 3-4 likely 2/2 to decompensated congestive heart failure from noncompliance with salt and water restriction -Cr 2.4 (BL 1.7 until 01/2020) -Renal ultrasound has no hydronephrosis -Renally dose all medications -Discussed with Dr. Barlow prior to discharge. C/w torsemide, spironolactone. Can f/u with nephrology as o/p. Hyperammonemia, acute - resolved -No prior diagnosis of cirrhosis, fatty liver or old CT to examine. -Liver US and CT abd above, no cause identified -Hepatitis panel is still pending recommend -Since normalization of ammonia and starting lactulose, patient MUCH more awake and alert -Ammonia wnl -Stopped lactulose BID as there is no indication to continue. -If patient should become increasingly confused, consider checking ammonia o/p and ordering further w/u if patient desires. Elevated bilirubin, transaminitis -Imaging above, no identifiable cause -Can consider discussing o/p MRCP as o/p with PCP, referral to GI specialist -Recommend f/u of hepatitis studies and repeat CMP by PCP on next visit DM type II -C/w levemir, glipizide, consistent carbohydrate diet -D/alexandra metformin due to renal issues- discuss with PCP as to when/if to continue Hypertension -controlled CAD/CABG -Troponin is negative -EKG has no acute ischemic changes -Telemetry monitoring -Resumed all home medications Chronic atrial fibrillation -Rate controlled -eliquis renally dosed Dyslipidemia -Statin Obesity -Complicating care Hypothyroidism -Elevated TSH -Synthroid at increased dose Peripheral vascular disease with right BKA and left AKA -Wheelchair, prosthesis at baseline -PT/OT for upper body strengthening CVA -on eliquis GERD -Chronic -On PPI DVT px -Eliquis DISPOSITION: New MOLST filled out and in chart. Still DNR/DNI with limited medical interventions but he does not wish to proceed with further testing currently. F/u with PCP, nephrology and cardiology. TIME SPENT ON DISCHARGE: 45 minutes. Vital Signs/I&Os Vital Signs Date Time Temp Pulse Resp B/P (MAP) Pulse Ox O2 Delivery O2 Flow Rate FiO2 03/30/20 09:00 96 Nasal Cannula 2.0 03/30/20 08:42 167/87 03/30/20 06:00 96.5 69 18 I&O- Last 24 Hours up to 6 AM 03/30/20 06:00 Intake Total 780 ml Output Total 2100 ml Balance -1320 ml Laboratory Data Labs 24H Laboratory Tests 2 03/29/20 16:48: Bedside Glucose (Misc Panel) 256H 03/29/20 20:00: Bedside Glucose (Misc Panel) 278H 03/30/20 05:39: Nucleated Red Blood Cells % (auto) 0.0, Anion Gap 6L, Glomerular Filtration Rate 28.5L, Calcium Level 9.9, Total Bilirubin 1.6H, Aspartate Amino Transf (AST/SGOT) 44H, Alanine Aminotransferase (ALT/SGPT) 28, Alkaline Phosphatase 146H, Ammonia 23, Total Protein 8.0, Albumin 3.2, Albumin/Globulin Ratio 0.7, Hepatitis B Surface Antigen NEGATIVE, Hepatitis C Antibody Index 0.1 03/30/20 11:47: Bedside Glucose (Misc Panel) 279H CBC/BMP Laboratory Tests 03/30/20 05:39 FSBS Laboratory Tests Test 03/29/20 16:48 03/29/20 20:00 03/30/20 11:47 Range/Units Bedside Glucose (Misc Panel) 256 278 279 80-115 MG/DL Discharge Medications Scheduled Acetaminophen (Acetaminophen) 500 Mg Tablet, 1,000 MG PO QHS, (Reported) Apixaban (Eliquis) 5 Mg Tab, 5 MG PO BID, (Reported) Aspirin (Aspirin EC) 81 Mg Tab, 81 MG PO 3XW, (Reported) MON,MON,MON Atorvastatin Calcium (Atorvastatin Calcium) 40 Mg Tab, 40 MG PO QHS, (Reported) Calcitriol (Rocaltrol) 0.5 Mcg Capsule, 0.5 MCG PO DAILY, (Reported) Famotidine (Famotidine) 20 Mg Tab, 20 MG PO BID, (Reported) Glipizide (Glipizide) 5 Mg Tablet, 5 MG PO DAILY, (Reported) Hydralazine HCl (Hydralazine HCl) 10 Mg Tablet, 10 MG PO TID, (Reported) 0700, 1200, 1700 Insulin Human NPH (Novolin N) 100 Unit/1 Ml Vial, 25 UNIT SC BID Isosorbide Dinitrate (Isosorbide Dinitrate) 20 Mg Tablet, 20 MG PO BID 0700, 1200, 1700 Levothyroxine Sodium (Synthroid) 137 Mcg Tablet, 137 MCG PO QAM, (Reported) Multivitamins (Thera M Plus Tablet) 1 Tab Tab, 1 TAB PO DAILY, (Reported) Polymyxin B Sulf/Trimethoprim (Polytrim Eye Drops) 10 Ml Drops, 1 DROP OD Q6H, (Reported) Potassium Chloride (Klor-Con M20) 20 Meq Tab.er.prt, 20 MEQ PO DAILY, (Reported) LUNCHTIME Spironolactone (Aldactone) 25 Mg Tablet, 75 MG PO BID@0900,1700 Torsemide (Torsemide) 10 Mg Tablet, 30 MG PO BID@09,17 Trazodone HCl (Trazodone HCl) 150 Mg Tab, 150 MG PO QHS, (Reported) Vit A/Vit C/Vit E/Zinc/Copper (Preservision Areds Softgel) 1 Each Capsule, 1 CAP PO BID, (Reported) Scheduled PRN Albuterol Sulfate (Proair Hfa) 8.5 Gm Hfa.aer.ad, 2 PUFF INH Q4-6HP PRN for wheezing Docusate Sodium (Colace) 100 Mg Cap, 100 MG PO DAILY PRN for CONSTIPATION, (Reported) Magnesium Hydroxide (Milk of Magnesia) 400 Mg/5 Ml Oral.susp, 30 ML PO DAILY PRN for CONSTIPATION, (Reported) Allergies Coded Allergies: warfarin (Verified Allergy, Mild, rash, 01/24/20) clonidine (Verified Allergy, Unknown, low HR , 03/18/20) Shaneka Reyes MD Mar 30, 2020 12:31
[2020-03-30 12:56] LABS: HEPATITIS A ANTIBODY IGM NEGATIVE (NEGATIVE)
[2020-03-30 14:00] VITALS: BP 148/76
== END 2020-03-30 16:04 | disposition home health service (06) | DRG 291 ==
LOC: M ED 09:56 → M ED INP 12:54 → M PCU 14:44 → M MSPAV 03-21 22:13
PROVIDERS: ADMIT General Practice; ATTEND Internal Medicine
PROC: 0W993ZZ Drainage of Right Pleural Cavity, Percutaneous Approach (ICD-10-PCS; principal; 2020-03-20 08:00)
DX: I13.0 Hypertensive heart and chronic kidney disease with heart failure and stage 1 through stage 4 chronic kidney disease, or unspecified chronic kidney disease (principal); I50.43 Acute on chronic combined systolic (congestive) and diastolic (congestive) heart failure; N18.4 Chronic kidney disease, stage 4 (severe); I48.20 Chronic atrial fibrillation, unspecified; N17.9 Acute kidney failure, unspecified; J90 Pleural effusion, not elsewhere classified; Z68.42 Body mass index [BMI] 45.0-49.9, adult; E72.20 Disorder of urea cycle metabolism, unspecified; N25.81 Secondary hyperparathyroidism of renal origin; E11.22 Type 2 diabetes mellitus with diabetic chronic kidney disease; E66.01 Morbid (severe) obesity due to excess calories; Z66 Do not resuscitate; K21.9 Gastro-esophageal reflux disease without esophagitis; E87.6 Hypokalemia; E03.9 Hypothyroidism, unspecified; E11.51 Type 2 diabetes mellitus with diabetic peripheral angiopathy without gangrene; I25.10 Atherosclerotic heart disease of native coronary artery without angina pectoris; R32 Unspecified urinary incontinence; E83.52 Hypercalcemia; E78.5 Hyperlipidemia, unspecified; Z89.611 Acquired absence of right leg above knee; Z89.512 Acquired absence of left leg below knee; Z95.1 Presence of aortocoronary bypass graft; Z98.41 Cataract extraction status, right eye; Z99.3 Dependence on wheelchair; Z79.01 Long term (current) use of anticoagulants; Z79.82 Long term (current) use of aspirin; Z79.4 Long term (current) use of insulin; Z79.899 Other long term (current) drug therapy; Z88.8 Allergy status to other drugs, medicaments and biological substances

== ENCOUNTER → 2020-04-14 | Outpatient (CLI) | payer MEDICARE ==
[~2020-04-14] MED LIST changes: +ACET500T15 PO; +ALDA25TA2 PO; +LACT20EL PO; +POLYSOL OD; +PRESCAP PO; +ROCA0.5C PO; +TORS10TA3 PO
--- NOTE | 2020-04-14 11:26 | REP ---
INDICATION: PLEURAL EFFUSION, RIGHT COMPARISON: 03/27/2020 TECHNIQUE: PA and lateral. FINDINGS: Stable cardiomegaly with evidence for prior sternotomy and CABG. Prominent appearance to the pulmonary vasculature and interstitium raise the possibility of pulmonary vascular congestion. Previously noted right lower lobe opacity and effusion appears to have resolved. No obvious focal consolidation or effusion appreciated. No pneumothorax. Skeletal structures demonstrate stable degenerative changes. IMPRESSION: 1. Stable cardiomegaly. Cannot exclude elements of pulmonary vascular congestion. 2. Previously noted right lower lobe consolidation and effusion appear resolved. <Electronically signed by Seth Sepulveda > 04/14/20 [id number]
== END ==
LOC: M ADAMS 10:09
PROVIDERS: ATTEND Internal Medicine
DX: I51.7 Cardiomegaly (principal); J90 Pleural effusion, not elsewhere classified; E72.20 Disorder of urea cycle metabolism, unspecified; I50.42 Chronic combined systolic (congestive) and diastolic (congestive) heart failure; N18.30 Chronic kidney disease, stage 3 unspecified; Z79.4 Long term (current) use of insulin; Z95.1 Presence of aortocoronary bypass graft

== ENCOUNTER → 2020-04-14 | Outpatient (REF) | payer MEDICARE ==
[2020-04-14 13:34] LABS: BASO # 0.1 10^3/uL (0.0-0.2); BASO % 0.6 % (0.0-1.0); EOS # 0.2 10^3/uL (0.0-0.5); EOS % 1.9 % (0.0-3.0); HEMOGLOBIN 13.9 g/dl (13.5-17.5); LYMPH # 1.2 10^3/uL (1.5-5.0); MEAN CORPUSCULAR HEMOGLOBIN 27.4 pg (27.0-33.0); MEAN CORPUSCULAR HGB CONC 30.9 g/dl (32.0-36.5); MEAN CORPUSCULAR VOLUME 88.6 fl (80.0-96.0); MONO # 0.9 10^3/uL (0.0-0.8); MONO % 10.3 % (2.0-8.0); NEUTROPHILS # 6.2 10^3/uL (1.5-8.5); NEUTROPHILS % 72.8 % (36.0-66.0); PLATELET COUNT, AUTOMATED 243 10^3/uL (150-450); RED BLOOD COUNT 5.08 10^6/uL (4.30-6.10); WHITE BLOOD COUNT 8.6 10^3/uL (4.0-10.0)
[2020-04-14 13:46] LABS: ALBUMIN 3.6 GM/DL (3.2-5.2); BILIRUBIN,TOTAL 1.1 MG/DL (0.2-1.0); CALCIUM LEVEL 10.2 MG/DL (8.8-10.2); CREATININE FOR GFR 2.64 MG/DL (0.70-1.30); GLOMERULAR FILTRATION RATE 25.9 (>49); MAGNESIUM LEVEL 2.3 MG/DL (1.8-2.4); POTASSIUM SERUM 4.8 MEQ/L (3.5-5.1)
== END ==
LOC: M SFHCADAM 09:59
PROVIDERS: ATTEND Internal Medicine
DX: E72.20 Disorder of urea cycle metabolism, unspecified (principal); I50.42 Chronic combined systolic (congestive) and diastolic (congestive) heart failure; N18.30 Chronic kidney disease, stage 3 unspecified; Z79.4 Long term (current) use of insulin

== ENCOUNTER → 2020-05-19 | Outpatient (REF) | payer MEDICARE ==
[2020-05-19 14:15] LABS: CALCIUM LEVEL 10.3 MG/DL (8.8-10.2); CREATININE FOR GFR 2.64 MG/DL (0.70-1.30); GLOMERULAR FILTRATION RATE 25.9 (>49); MAGNESIUM LEVEL 2.8 MG/DL (1.8-2.4); POTASSIUM SERUM 5.3 MEQ/L (3.5-5.1)
== END ==
LOC: M SHH 13:14 → M LAB REF 13:14
PROVIDERS: ATTEND Physician Assistant
DX: I50.42 Chronic combined systolic (congestive) and diastolic (congestive) heart failure (principal)

== ENCOUNTER → 2020-07-24 | Outpatient (CLI) | payer MEDICARE ==
[~2020-07-24] MED LIST changes: +MILK400S12 PO; -MILKSUS21 PO
--- NOTE | 2020-07-26 04:24 | REP ---
INDICATION: CHRONIC COMBINED SYSTOLIC AND DIASTOLIC HEART FAILURE COMPARISON: 04/14/2020 TECHNIQUE: AP and lateral. FINDINGS: The mediastinum and cardiac silhouette are normal. The lung mix demonstrate chronic appearing changes without obvious acute consolidation, effusion, or pneumothorax. The skeletal structures are intact and normal. IMPRESSION: Chronic appearing changes similar to prior examination. Lateral view suggests chronic changes and no definite effusion. Consider chest CT if the patient remains symptomatic. <Electronically signed by Seth Sepulveda > 07/26/20 [id number]
== END ==
LOC: M ADAMS 09:57
PROVIDERS: ATTEND Physician Assistant
DX: I50.42 Chronic combined systolic (congestive) and diastolic (congestive) heart failure (principal)

== ENCOUNTER → 2020-07-24 | Outpatient (CLI) | payer MEDICARE ==
[2020-07-24 14:51] LABS: CALCIUM LEVEL 9.5 MG/DL (8.8-10.2); CREATININE FOR GFR 2.48 MG/DL (0.70-1.30); GLOMERULAR FILTRATION RATE 27.8 (>49); MAGNESIUM LEVEL 2.1 MG/DL (1.8-2.4); POTASSIUM SERUM 4.9 MEQ/L (3.5-5.1)
== END ==
LOC: M LABDRWAD 10:01
PROVIDERS: ATTEND Physician Assistant
DX: I50.42 Chronic combined systolic (congestive) and diastolic (congestive) heart failure (principal)

== ENCOUNTER → 2020-11-16 | Outpatient (REF) | payer MEDICARE ==
[~2020-11-16] MED LIST changes: -KLOR20TA42 PO; +POTA-141 PO
== END ==
LOC: M SFHCPLAZ 15:37
PROVIDERS: ATTEND Internal Medicine
DX: E11.29 Type 2 diabetes mellitus with other diabetic kidney complication (principal); E03.9 Hypothyroidism, unspecified; N18.30 Chronic kidney disease, stage 3 unspecified